=== PATIENT | male | born 1940 | race Caucasian/White ===

== ENCOUNTER → 2018-05-18 15:10 | Outpatient (CLI) | payer MEDICARE, SELFPAY ==
[2018-05-18 15:13] LABS: Bacteria 0 SEEN /hpf (None Seen); Mucous, Urine 0 SEEN /hpf (<or=2+)
[2018-05-18 17:21] LABS: Color, Urine Yellow (Yellow); Glucose, Dipstick Normal (Normal); Ketone-Dipstick Negative (Negative); Leukocyte Esterase-Dipstick 100 /ul (Negative); Nitrite-Dipstick Negative (Negative); Occult Blood-Urine 25 /ul (Negative); Protein-Dipstick 30 mg/dl (Negative); Urine Bilirubin Dipstick Negative (Negative); Urine Clarity Clear (Clear); Urine Urobilinogen Normal (Normal)
[2018-05-18 17:25] LABS: Absolute Lymphocyte Count 1.76 X10^3/ul (0.83-4.51); Absolute Neutrophil Count 3.8 X10^3/uL (2.0-7.7); Basophil# 0.02 X10^3/uL; Basophil% 0.3 % (0-1); Eosinophil# 0.14 X10^3/uL; Eosinophils% 2.2 % (0-5); Hematocrit 44.9 % (40-54); Lymphocyte # 1.76 X10^3/ul (4.0); Lymphocyte % 28.3 % (19-41); Mean Corp Hgb Conc 33.4 g/gl (32-36); Mean Corpuscular Hgb 30.5 pg (27.0-32.0); Mean Corpuscular Volume 91.3 fL (80-94); Mean Platelet Vol. 9.9 fl (6.2-12.0); Monocyte# 0.54 X10^3/uL; Monocyte% 8.7 % (0-10); Neutrophil # 3.76 X10^3/uL (2.7-7.7); Neutrophil % 60.3 % (47-70); Platelet Count 159 K/mm3 (150-450); RBC Distribution Width CV 14.3 % (11.6-14.6); RBC Distribution Width SD 47.1 fl (35.1-43.9); Red Blood Count 4.92 M/mm3 (4.6-6.2); White Blood Count 6.2 K/mm3 (4.4-11.0)
[2018-05-18 17:31] LABS: POSITIVE COUNT NO; POSITIVE DIFFERENTIAL NO; POSITIVE MORPHOLOGY NO
[2018-05-18 17:32] LABS: Red Blood Cells-Urine 0-5 SEEN /hpf (0-5); Squamous Epithelial Cells - UA 0-5 SEEN /hpf (0-5); White Blood Cells 5-10 SEEN /hpf (0-5)
[2018-05-18 18:08] LABS: AST(SGOT) 24 U/L (15-37); Alanine Aminotransfer ALT/SGPT 32 U/L (16-61); Albumin, Serum 3.9 g/dL (3.2-5.0); Alkaline Phosphatase 82 U/L (45-117); Anion Gap 5 (5-15); BUN 25 mg/dL (7-18); BUN/Creat Ratio 25.8 RATIO (10-20); Calcium,Total 9.4 mg/dL (8.5-10.1); Chloride 102 mmol/L (98-107); Cholesterol 153 mg/dL (200); Creatinine, Serum 0.97 mg/dL (0.70-1.30); EST Glomerular Filtration Rate 80 mL/min (>60); Est Glom Filt Rate - Afr Amer 97 mL/min (>60); Globulin 3.8 g/dL (2.2-4.2); Glucose 90 mg/dL (74-106); High Density Lipoprotein 44 mg/dL; Magnesium 1.9 mg/dL (1.6-2.6); Potassium 4.3 mmol/L (3.5-5.1); Protein, Total 7.7 g/dL (6.4-8.2); Sodium Level 137 mmol/L (136-145); T4 Free Direct 1.19 ng/dL (0.76-1.46); Thyroid Stim Hormone (TSH) 1.56 uIU/mL (0.358-3.74); Triglycerides 95 mg/dL; Uric Acid 6.2 mg/dL (3.5-7.2); Very Low Density Lipoprotein 19 mg/dL (5-40)
== END ==
PROVIDERS: Family Provider Family Medicine; PCP Family Medicine; Visit Provider Family Medicine
DX: I48.91 Unspecified atrial fibrillation (principal); I10 Essential (primary) hypertension; E78.5 Hyperlipidemia, unspecified; E04.1 Nontoxic single thyroid nodule; M10.9 Gout, unspecified
CPT/HCPCS: 36415; 80053; 80061; 81001; 83735; 84439; 84443; 84550; 85025

== ENCOUNTER → 2018-05-26 14:16 | Outpatient (CLI) | payer MEDICARE, SELFPAY ==
--- NOTE | 2018-05-26 14:35 | US_ITS ---
STUDY: THYROID ULTRASOUND REASON FOR EXAM: Male, 77 years old. Palpable right thyroid nodule. TECHNIQUE: Ultrasound evaluation of the thyroid was performed with real-time and static batres-scale imaging. COMPARISON: None. FINDINGS: RIGHT LOBE: The right lobe of the thyroid gland measures 5.2 x 2.7 x 2.5 cm. There is a homogeneous echotexture. 4 x 2 x 2 mm nodule seen in the medial margin of the lobe near its confluence to the thyroid isthmus. LEFT LOBE: The left lobe of the thyroid gland measures 5.0 x 2.5 x 1.6 cm. There is a homogeneous echotexture. There are no demonstrated solid, cystic or complex lesions. ISTHMUS: The isthmus measures 4 mm. The regional lymph nodes are normal. US/Thyroid IMPRESSION: 4 mm nodule in the medial right lobe near its confluence to the thyroid isthmus, otherwise, normal thyroid ultrasound. Electronically Signed: Ramez Gupta MD at 16:38 EDT , Service support ,
== END ==
PROVIDERS: Family Provider Family Medicine; PCP Family Medicine; Visit Provider Family Medicine
DX: E04.1 Nontoxic single thyroid nodule (principal)
CPT/HCPCS: 76536

== ENCOUNTER → 2018-10-19 10:27 | Outpatient (CLI) | payer MEDICARE, SELFPAY ==
[2018-09-20 09:44] VITALS: BMI 34.8
[2018-10-19 10:30] LABS: Mucous, Urine 0 SEEN /hpf (<or=2+); Red Blood Cells-Urine 0 SEEN /hpf (0-5)
[2018-10-19 12:07] LABS: Color, Urine Yellow (Yellow); Glucose, Dipstick Normal (Normal); Ketone-Dipstick Negative (Negative); Leukocyte Esterase-Dipstick 25 /ul (Negative); Nitrite-Dipstick Negative (Negative); Occult Blood-Urine Negative /ul (Negative); Protein-Dipstick Negative (Negative); Specific Gravity, Urine 1.015 (1.002-1.030); Urine Bilirubin Dipstick Negative (Negative); Urine Clarity Clear (Clear); Urine Urobilinogen Normal (Normal)
[2018-10-19 12:13] LABS: Absolute Lymphocyte Count 1.65 X10^3/ul (0.83-4.51); Absolute Neutrophil Count 3.9 X10^3/uL (2.0-7.7); Basophil# 0.03 X10^3/uL; Basophil% 0.5 % (0-1); Eosinophils% 3.1 % (0-5); Hematocrit 44.5 % (40-54); Hemoglobin 14.8 g/dl (13.0-16.5); Lymphocyte # 1.65 X10^3/ul (4.0); Lymphocyte % 25.9 % (19-41); Mean Corp Hgb Conc 33.3 g/gl (32-36); Mean Corpuscular Hgb 30.2 pg (27.0-32.0); Mean Corpuscular Volume 90.8 fL (80-94); Monocyte% 9.4 % (0-10); Neutrophil # 3.87 X10^3/uL (2.7-7.7); Neutrophil % 60.8 % (47-70); Platelet Count 184 K/mm3 (150-450); RBC Distribution Width CV 13.6 % (11.6-14.6); RBC Distribution Width SD 44.9 fl (35.1-43.9); White Blood Count 6.4 K/mm3 (4.4-11.0)
[2018-10-19 12:14] LABS: Bacteria RARE /hpf (None Seen); Squamous Epithelial Cells - UA 0-5 SEEN /hpf (0-5); White Blood Cells 0-5 SEEN /hpf (0-5)
[2018-10-19 12:21] LABS: POSITIVE COUNT NO; POSITIVE DIFFERENTIAL NO; POSITIVE MORPHOLOGY NO
[2018-10-19 12:30] LABS: ALB/GLOB Ratio 1.1 RATIO (0.9-2.4); AST(SGOT) 18 U/L (15-37); Alanine Aminotransfer ALT/SGPT 30 U/L (16-61); Albumin, Serum 3.7 g/dL (3.2-5.0); Alkaline Phosphatase 102 U/L (45-117); Anion Gap 9 (5-15); BUN 24 mg/dL (7-18); Calcium,Total 9.5 mg/dL (8.5-10.1); Chloride 100 mmol/L (98-107); Cholesterol 169 mg/dL (200); Creatinine, Serum 0.96 mg/dL (0.70-1.30); EST Glomerular Filtration Rate 81 mL/min (>60); Est Glom Filt Rate - Afr Amer 98 mL/min (>60); Globulin 3.5 g/dL (2.2-4.2); Glucose 108 mg/dL (74-106); High Density Lipoprotein 46 mg/dL; Magnesium 1.8 mg/dL (1.6-2.6); Potassium 4.1 mmol/L (3.5-5.1); Protein, Total 7.2 g/dL (6.4-8.2); Sodium Level 139 mmol/L (136-145); Triglycerides 131 mg/dL; Very Low Density Lipoprotein 26 mg/dL (5-40)
[2018-10-20 10:01] LABS: Hemoglobin A1c 6.3 % (4.2-6.3)
== END ==
PROVIDERS: Family Provider Family Medicine; PCP Family Medicine; Visit Provider Family Medicine
DX: E78.5 Hyperlipidemia, unspecified (principal); I10 Essential (primary) hypertension; I48.91 Unspecified atrial fibrillation; R73.09 Other abnormal glucose
CPT/HCPCS: 36415; 80053; 80061; 81001; 83036; 83735; 85025

== ENCOUNTER → 2019-02-16 10:04 | Outpatient (CLI) | payer MEDICARE, SELFPAY ==
[2018-09-20 09:44] VITALS: BMI 34.8
[2019-02-16 12:51] LABS: Absolute Lymphocyte Count 1.78 X10^3/ul (0.83-4.51); Absolute Neutrophil Count 3.3 X10^3/uL (2.0-7.7); Basophil# 0.02 X10^3/uL; Basophil% 0.3 % (0-1); Eosinophil# 0.17 X10^3/uL; Eosinophils% 2.9 % (0-5); Hematocrit 42.6 % (40-54); Hemoglobin 14.2 g/dl (13.0-16.5); Lymphocyte # 1.78 X10^3/ul (4.0); Lymphocyte % 30.2 % (19-41); Mean Corp Hgb Conc 33.3 g/gl (32-36); Mean Corpuscular Hgb 29.6 pg (27.0-32.0); Mean Corpuscular Volume 88.8 fL (80-94); Mean Platelet Vol. 9.8 fl (6.2-12.0); Monocyte# 0.65 X10^3/uL; Neutrophil # 3.26 X10^3/uL (2.7-7.7); Neutrophil % 55.4 % (47-70); Platelet Count 168 K/mm3 (150-450); RBC Distribution Width SD 44.7 fl (35.1-43.9); White Blood Count 5.9 K/mm3 (4.4-11.0)
[2019-02-16 13:12] LABS: POSITIVE COUNT NO; POSITIVE DIFFERENTIAL NO; POSITIVE MORPHOLOGY NO
[2019-02-16 13:17] LABS: Microalbumin,Random Urine 20.8 mg/L (NO RANGE EST.)
[2019-02-16 13:33] LABS: ALB/GLOB Ratio 1.3 RATIO (0.9-2.4); AST(SGOT) 24 U/L (15-37); Alanine Aminotransfer ALT/SGPT 29 U/L (16-61); Albumin, Serum 3.8 g/dL (3.2-5.0); Alkaline Phosphatase 96 U/L (45-117); Anion Gap 2 (5-15); BUN 35 mg/dL (7-18); BUN/Creat Ratio 33.3 RATIO (10-20); Calcium,Total 9.1 mg/dL (8.5-10.1); Chloride 102 mmol/L (98-107); Cholesterol 165 mg/dL (200); Creatinine, Serum 1.05 mg/dL (0.70-1.30); EST Glomerular Filtration Rate 73 mL/min (>60); Est Glom Filt Rate - Afr Amer 88 mL/min (>60); Glucose 104 mg/dL (74-106); High Density Lipoprotein 51 mg/dL; Magnesium 1.8 mg/dL (1.6-2.6); Potassium 4.3 mmol/L (3.5-5.1); Protein, Total 6.8 g/dL (6.4-8.2); Sodium Level 136 mmol/L (136-145); Triglycerides 101 mg/dL; Uric Acid 6.4 mg/dL (3.5-7.2); Very Low Density Lipoprotein 20 mg/dL (5-40)
== END ==
PROVIDERS: Family Provider Family Medicine; PCP Family Medicine; Referring Provider Family Medicine; Visit Provider Family Medicine
DX: I10 Essential (primary) hypertension (principal); M10.9 Gout, unspecified; E78.5 Hyperlipidemia, unspecified; I48.91 Unspecified atrial fibrillation; R73.02 Impaired glucose tolerance (oral)
CPT/HCPCS: 36415; 80053; 80061; 82043; 83036; 83735; 84550; 85025

== ENCOUNTER → 2019-04-12 07:45 | Outpatient (CLI) | payer MEDICARE, SELFPAY ==
[2019-03-27 11:17] VITALS: BMI 33.7
--- NOTE | 2019-04-12 07:50 | ECHOD_ITS ---
Reason For Study: Afib, Aflutter Procedure This was a 2D Doppler, Color Flow transthoracic echocardiogram. Exam performed in department. Left Ventricle Normal LV size. Mild concentric left ventricular hypertrophy. Left ventricular systolic function is normal. The estimated ejection fraction is 60 %. No regional wall motion abnormalities noted. Right Ventricle Normal RV size. Normal systolic function. Atria The left atrium is mildly enlarged. The right atrium is moderately enlarged. Patent foramen ovale. Mitral Valve Normal mitral valve. Mild (1+) eccentric mitral valve insufficiency. Tricuspid Valve Normal tricuspid valve. Mild tricuspid valve insufficiency. Pulmonary artery systolic pressure is 48 mmHg. Aortic Valve Trisinus/trileaflet aortic valve. Pulmonic Valve Normal pulmonic valve. Great Vessels Normal aortic root. The pulmonary artery is normal size. Normal inferior vena cava. Pericardium/Pleural No pericardial effusion. MMode/2D Measurements & Calculations LVIDd: 3.6 cm IVSd: 1.2 cm Ao root diam: 4.3 cm LVIDs: 2.6 cm LVPWd: 1.2 cm RVDd: 4.8 cm FS: 29.1 % LAV(MOD-bp): 68.0 ml LVAd ap4: 20.3 cm2 SV(MOD-sp4): 29.4 ml LAV(MOD-bp) Indexed: 29.1 ml/m2 EDV(MOD-sp4): 49.3 ml LAV(MOD-sp2): 64.6 ml EDV(sp4-el): 51.1 ml LAV(MOD-sp4): 68.3 ml LVAs ap4: 11.8 cm2 ESV(MOD-sp4): 19.9 ml ESV(sp4-el): 19.3 ml EF(MOD-sp4): 59.6 % EF(sp4-el): 62.3 % SV(sp4-el): 31.9 ml LA A4 area: 23.7 cm2 LA dimension(2D): 5.0 cm RA A4 area: 29.1 cm2 Doppler Measurements & Calculations MV E max nesha: 103.2 cm/sec Ao V2 max: 144.4 cm/sec LV V1 max: 79.1 cm/sec Ao max P.4 mmHg LV V1 max P.5 mmHg Ao V2 mean: 102.9 cm/sec Ao mean P.6 mmHg Ao V2 VTI: 28.9 cm PA V2 max: 102.4 cm/sec PI end-d nesha: 100.6 cm/sec TR max nesha: 329.1 cm/sec TR max P.3 mmHg Interpretation Summary Normal LV size. Left ventricular systolic function is normal. The estimated ejection fraction is 60 %. Mild concentric left ventricular hypertrophy. Patent foramen ovale. Mild tricuspid valve insufficiency. Pulmonary artery systolic pressure is 48 mmHg. Ordering Physician: Scott Banda Referring Physician: Jerrod Viramontes Performed By: Ammy Fontanez, JAK, RVT
== END ==
PROVIDERS: Family Provider Family Medicine; PCP Family Medicine; Referring Provider Internal Medicine Cardiovascular Disease; Visit Provider Internal Medicine Cardiovascular Disease
DX: I27.21 Secondary pulmonary arterial hypertension (principal); I48.91 Unspecified atrial fibrillation; I48.92 Unspecified atrial flutter
CPT/HCPCS: 93306

== ENCOUNTER → 2019-06-22 08:38 | Outpatient (CLI) | payer MEDICARE, SELFPAY ==
[2019-03-27 11:17] VITALS: BMI 33.7
[2019-06-22 10:48] LABS: Absolute Lymphocyte Count 1.76 X10^3/uL (0.83-4.51); Absolute Neutrophil Count 3.2 X10^3/uL (2.0-7.7); Basophil# 0.03 X10^3/uL; Basophil% 0.5 % (0-1); Eosinophils% 3.6 % (0-5); Hematocrit 41.7 % (40-54); Hemoglobin 13.4 g/dL (13.0-16.5); Lymphocyte # 1.76 X10^3/ul (4.0); Lymphocyte % 31.4 % (19-41); Mean Corp Hgb Conc 32.1 g/dL (32-36); Mean Corpuscular Hgb 29.6 pg (27.0-32.0); Mean Corpuscular Volume 92.3 fL (80-94); Mean Platelet Vol. 9.5 fl (6.2-12.0); Monocyte# 0.46 X10^3/uL; Monocyte% 8.2 % (0-10); NRBC Flagged by Analyzer 0 % (0-5); Neutrophil # 3.15 X10^3/uL (2.7-7.7); Neutrophil % 56.1 % (47-70); Platelet Count 157 K/mm3 (150-450); RBC Distribution Width CV 13.8 % (11.6-14.6); RBC Distribution Width SD 46.6 fl (35.1-43.9); Red Blood Count 4.52 M/mm3 (4.6-6.2); White Blood Count 5.6 K/mm3 (4.4-11.0)
[2019-06-22 11:31] LABS: ALB/GLOB Ratio 0.9 RATIO (0.9-2.4); AST(SGOT) 26 U/L (15-37); Alanine Aminotransfer ALT/SGPT 29 U/L (16-61); Albumin, Serum 3.4 g/dL (3.2-5.0); Alkaline Phosphatase 93 U/L (45-117); Anion Gap 7 (5-15); BUN 36 mg/dL (7-18); BUN/Creat Ratio 27.5 RATIO (10-20); Calcium,Total 9.1 mg/dL (8.5-10.1); Chloride 102 mmol/L (98-107); Cholesterol 125 mg/dL (200); Creatinine, Serum 1.31 mg/dL (0.70-1.30); EST Glomerular Filtration Rate 57 mL/min (>60); Est Glom Filt Rate - Afr Amer 68 mL/min (>60); Globulin 3.6 g/dL (2.2-4.2); Glucose 99 mg/dL (74-106); High Density Lipoprotein 43 mg/dL; Magnesium 2.1 mg/dL (1.6-2.6); Potassium 4.4 mmol/L (3.5-5.1); Sodium Level 140 mmol/L (136-145); Triglycerides 74 mg/dL; Very Low Density Lipoprotein 15 mg/dL (5-40)
[2019-06-22 12:12] LABS: Hemoglobin A1c 5.9 % (4.2-6.3)
== END ==
PROVIDERS: Family Provider Family Medicine; PCP Family Medicine; Visit Provider Family Medicine
DX: E78.5 Hyperlipidemia, unspecified (principal); I48.91 Unspecified atrial fibrillation; I10 Essential (primary) hypertension; R73.02 Impaired glucose tolerance (oral)
CPT/HCPCS: 36415; 80053; 80061; 83036; 83735; 85025

== ENCOUNTER → 2019-06-28 08:59 | Outpatient (CLI) | payer MEDICARE, SELFPAY ==
[2019-03-27 11:17] VITALS: BMI 33.7
[2019-06-28 10:49] LABS: Anion Gap 8 (5-15); BUN 35 mg/dL (7-18); BUN/Creat Ratio 29.9 RATIO (10-20); Calcium,Total 9.5 mg/dL (8.5-10.1); Chloride 102 mmol/L (98-107); Creatinine, Serum 1.17 mg/dL (0.70-1.30); EST Glomerular Filtration Rate 64 mL/min (>60); Est Glom Filt Rate - Afr Amer 78 mL/min (>60); Glucose 97 mg/dL (74-106); Potassium 4.4 mmol/L (3.5-5.1); Sodium Level 139 mmol/L (136-145)
== END ==
PROVIDERS: Family Provider Family Medicine; PCP Family Medicine; Referring Provider Family Medicine; Visit Provider Family Medicine
DX: R94.4 Abnormal results of kidney function studies (principal)
CPT/HCPCS: 36415; 80048

== ENCOUNTER → 2019-07-09 12:49 | Outpatient (CLI) | payer MEDICARE, SELFPAY ==
[2019-03-27 11:17] VITALS: BMI 33.7
--- NOTE | 2019-07-09 12:59 | VDLE_ITS ---
Reason For Study: Edema RIGHT LEFT CFV is compressible, spontaneous, phasic, CFV is compressible, spontaneous, phasic, competent and demonstrates normal competent, and demonstrates normal augmentation. augmentation. FV is compressible, spontaneous, phasic, FV is compressible, spontaneous, phasic, competent and demonstrates normal competent and demonstrates normal augmentation. augmentation. POP V is compressible, spontaneous, phasic, POP V is compressible, spontaneous, phasic, competent and demonstrates normal competent and demonstrates normal augmentation. augmentation. T/P Trunk is compressible. Acute deep vein thrombosis is noted in the PTV is compressible. left T/P Trunk. RT PerV is compressible. PTV is compressible. SFJ is INCOMPETENT and measures 0.40 x 0.48 LT PerV is compressible. cm. SFJ is competent and measures 0.84 x 0.81 cm. GSV proximal thigh measures 0.27 x 0.30 cm. GSV proximal thigh measures 0.34 x 0.37 cm. GSV at knee measures 0.27 x 0.29 cm. GSV at knee measures 0.31 x 0.35 cm. GSV INCOMPETENT throughout for greater than GSV above knee is competent. 0.5 seconds. GSV below knee is INCOMPETENT for greater SSV at junction is INCOMPETENT for greater than 0.5 seconds. than 0.5 seconds and measures 0.33 x 0.30 cm. ASV mid calf is INCOMPETENT for greater than Procedure 0.5 seconds and measures 0.24 x 0.22 cm. Exam performed in department. SSV at junction is competent and measures A preliminary report was called and/or faxed 0.32 x 0.32 cm. to Ana M. Interpretation Summary Acute deep vein thrombosis is noted in the left tibio-peroneal trunk. The remainder of the left lower extremity deep venous system is patent and compressible. Deep veins of the right lower extremity are patent and compressible segmentally. There is no evidence of right lower extremity deep vein thrombosis. Valvular competence appears intact within the proximal deep venous systems bilaterally. The great saphenous veins appear bilaterally patent and compressible segmentally. The right sapheno-femoral junction is incompetent . The left sapheno-femoral junction is competent . The right great saphenous vein appears segmentally incompetent. The left great saphenous vein appears competent above the knee. The left great saphenous vein appears incompetent below the knee. The right small saphenous vein is patent and incompetent. The left small saphenous vein is patent and competent. The left accessory saphenous vein in the mid-calf is incompetent. Ordering Physician: Jerrod Viramontes Referring Physician: Jerrod Viramontes Performed By: Sharifa Snyder RVT
--- NOTE | 2019-07-09 14:11 | US_ITS ---
STUDY: THYROID ULTRASOUND REASON FOR EXAM: Male, 78 years old. Thyroid nodule TECHNIQUE: Ultrasound evaluation of the thyroid was performed with real-time and static batres-scale imaging. COMPARISON: Prior study of 05/26/2018 FINDINGS: RIGHT LOBE: The right lobe of the thyroid gland measures 5.0 x 1.9 x 1.5 cm. There is a homogeneous echotexture. There are no demonstrated solid, cystic or complex lesions. Right thyroid lobe vascularity appears normal. LEFT LOBE: The left lobe of the thyroid gland measures 4.3 x 1.8 x 1.4 cm. There is a homogeneous echotexture. There is an upper pole cyst measuring 3 x 3 x 2 mm. ISTHMUS: The isthmus measures 3 mm . The regional lymph nodes are normal. US/Thyroid IMPRESSION: The right thyroid lobe appears normal. There is a 3 x 3 x 2 mm cyst of the upper pole of the left thyroid lobe. This was not appreciated on the previous study. Electronically Signed: Red Chavez MD at 23:15 EDT , Service support ,
== END ==
PROVIDERS: Family Provider Family Medicine; PCP Family Medicine; Referring Provider Family Medicine; Visit Provider Family Medicine
DX: E04.1 Nontoxic single thyroid nodule (principal); R60.0 Localized edema
CPT/HCPCS: 76536; 93970

== ENCOUNTER → 2019-11-21 09:09 | Outpatient (CLI) | payer MEDICARE, SELFPAY ==
[2019-03-27 11:17] VITALS: BMI 33.7
[2019-11-21 10:07] LABS: Absolute Lymphocyte Count 1.61 X10^3/uL (0.83-4.51); Absolute Neutrophil Count 3.1 X10^3/uL (2.0-7.7); Basophil# 0.03 X10^3/uL; Basophil% 0.5 % (0-1); Eosinophil# 0.21 X10^3/uL; Eosinophils% 3.8 % (0-5); Hematocrit 45.5 % (40-54); Hemoglobin 14.8 g/dL (13.0-16.5); Lymphocyte # 1.61 X10^3/ul (4.0); Lymphocyte % 28.8 % (19-41); Mean Corp Hgb Conc 32.5 g/dL (32-36); Mean Corpuscular Volume 89.2 fL (80-94); Mean Platelet Vol. 9.6 fl (6.2-12.0); Monocyte# 0.66 X10^3/uL; Monocyte% 11.8 % (0-10); NRBC Flagged by Analyzer 0 % (0-5); Neutrophil # 3.08 X10^3/uL (2.7-7.7); Neutrophil % 54.9 % (47-70); Platelet Count 176 K/mm3 (150-450); RBC Distribution Width CV 13.5 % (11.6-14.6); RBC Distribution Width SD 44.4 fl (35.1-43.9); White Blood Count 5.6 K/mm3 (4.4-11.0)
[2019-11-21 10:37] LABS: ALB/GLOB Ratio 1.1 RATIO (0.9-2.4); AST(SGOT) 18 U/L (15-37); Alanine Aminotransfer ALT/SGPT 22 U/L (16-61); Albumin, Serum 3.6 g/dL (3.2-5.0); Alkaline Phosphatase 101 U/L (45-117); Anion Gap 3 (5-15); BUN 24 mg/dL (7-18); BUN/Creat Ratio 22.4 RATIO (10-20); Calcium,Total 9.8 mg/dL (8.5-10.1); Chloride 104 mmol/L (98-107); Cholesterol 140 mg/dL (200); Creatinine, Serum 1.07 mg/dL (0.70-1.30); EST Glomerular Filtration Rate 71 mL/min (>60); Est Glom Filt Rate - Afr Amer 86 mL/min (>60); Globulin 3.4 g/dL (2.2-4.2); Glucose 103 mg/dL (74-106); High Density Lipoprotein 46 mg/dL; Magnesium 2.1 mg/dL (1.6-2.6); Potassium 4.2 mmol/L (3.5-5.1); Sodium Level 138 mmol/L (136-145); Triglycerides 99 mg/dL; Uric Acid 5.9 mg/dL (3.5-7.2); Very Low Density Lipoprotein 20 mg/dL (5-40)
== END ==
PROVIDERS: PCP Family Medicine; Referring Provider Family Medicine; Visit Provider Family Medicine
DX: I48.91 Unspecified atrial fibrillation (principal); E78.5 Hyperlipidemia, unspecified; M10.9 Gout, unspecified; R73.02 Impaired glucose tolerance (oral)
CPT/HCPCS: 36415; 80053; 80061; 83036; 83735; 84550; 85025

== ENCOUNTER → 2020-06-11 10:15 | Outpatient (CLI) | payer MEDICARE, SELFPAY ==
[2020-03-25 10:01] VITALS: BMI 34.2
[2020-06-11 12:29] LABS: Absolute Lymphocyte Count 1.32 X10^3/uL (0.83-4.51); Absolute Neutrophil Count 4.7 X10^3/uL (2.0-7.7); Basophil# 0.03 X10^3/uL; Basophil% 0.4 % (0-1); Eosinophil# 0.18 X10^3/uL; Eosinophils% 2.6 % (0-5); Hematocrit 41.7 % (40-54); Hemoglobin 13.7 g/dL (13.0-16.5); Lymphocyte # 1.32 X10^3/ul (4.0); Lymphocyte % 19.3 % (19-41); Mean Corp Hgb Conc 32.9 g/dL (32-36); Mean Corpuscular Volume 91.2 fL (80-94); Mean Platelet Vol. 9.7 fl (6.2-12.0); Monocyte# 0.64 X10^3/uL; Monocyte% 9.3 % (0-10); NRBC Flagged by Analyzer 0 % (0-5); Neutrophil # 4.65 X10^3/uL (2.7-7.7); Platelet Count 194 K/mm3 (150-450); RBC Distribution Width CV 13.7 % (11.6-14.6); RBC Distribution Width SD 45.3 fl (35.1-43.9); Red Blood Count 4.57 M/mm3 (4.6-6.2); White Blood Count 6.9 K/mm3 (4.4-11.0)
[2020-06-11 12:56] LABS: Hemoglobin A1c 6.1 % (3.8-5.6)
[2020-06-11 12:57] LABS: ALB/GLOB Ratio 1.1 RATIO (0.9-2.4); AST(SGOT) 14 U/L (15-37); Alanine Aminotransfer ALT/SGPT 20 U/L (16-61); Albumin, Serum 3.6 g/dL (3.2-5.0); Alkaline Phosphatase 105 U/L (45-117); Anion Gap 5 (5-15); BUN 23 mg/dL (7-18); BUN/Creat Ratio 22.3 RATIO (10-20); Calcium,Total 9.2 mg/dL (8.5-10.1); Chloride 105 mmol/L (98-107); Cholesterol 140 mg/dL (200); Creatinine, Serum 1.03 mg/dL (0.70-1.30); EST Glomerular Filtration Rate 74 mL/min (>60); Est Glom Filt Rate - Afr Amer 90 mL/min (>60); Globulin 3.4 g/dL (2.2-4.2); Glucose 103 mg/dL (74-106); High Density Lipoprotein 45 mg/dL; Potassium 4.2 mmol/L (3.5-5.1); Sodium Level 141 mmol/L (136-145); Triglycerides 91 mg/dL; Very Low Density Lipoprotein 18 mg/dL (5-40)
== END ==
PROVIDERS: PCP Family Medicine; Referring Provider Family Medicine; Visit Provider Family Medicine
DX: I10 Essential (primary) hypertension (principal); E78.5 Hyperlipidemia, unspecified; R73.02 Impaired glucose tolerance (oral)
CPT/HCPCS: 36415; 80053; 80061; 83036; 85025

== ENCOUNTER → 2020-06-16 13:54 | Outpatient (CLI) | payer MEDICARE, SELFPAY ==
[2020-03-25 10:01] VITALS: BMI 34.2
--- NOTE | 2020-06-16 | CYSPIN_PTH ---
PATIENT: HARRY LICEA LOC: [facility] U#:[id number] AGE/SX: 84/M ROOM: RE06/16/[address]: Dr. Jerrod Viramontes MD : 1940 BED: DIS: SPEC #: [id number] RECD: 06/17/20 08:42 STATUS: EBONIE SIL #: [id number] LEONIDES: 06/16/20 00:[address]: Jerrod Viramontes DEPT: CYTOLOGY RECD BY: Austin Holder Tissues: Urine Procedures: Pap Stain (control) Special Stain Group II Cytospin Fluid HEADER OPERATION: Not noted PRE-OP DIAGNOSIS: TISSUE SUBMITTED: Urine for cytology DIAGNOSIS CYTOLOGY Urine for cytology (cytospin): Negative for malignant cells. Acute inflammation. AM:sunil 06/18/20 CYTOLOGY STUDY Slides are reviewed. CYTOLOGY GROSS Received is 8 ml of clear yellow fluid labeled with the patient's name and and designated per the requisition as urine. Submitted for cytology preparation. / sunil 06/17/20 TC:5 CPT: 14074
[2020-06-16 14:02] LABS: Bacteria 0 SEEN /hpf (None Seen); Cytology, Body Fluid / CSF SEE PATHOLOGY REPORT; Mucous, Urine 0 SEEN /hpf (<or=2+)
[2020-06-16 15:52] LABS: Color, Urine Yellow (Yellow); Glucose, Dipstick Normal (Normal); Ketone-Dipstick Negative (Negative); Leukocyte Esterase-Dipstick 25 /ul (Negative); Nitrite-Dipstick Negative (Negative); Occult Blood-Urine 25 /ul (Negative); Protein-Dipstick 15 mg/dl (Negative); Specific Gravity, Urine 1.015 (1.002-1.030); Urine Bilirubin Dipstick Negative (Negative); Urine Clarity Clear (Clear); Urine Urobilinogen Normal (Normal); Urine pH 6.5 (5.0 - 8.0)
[2020-06-16 16:22] LABS: Squamous Epithelial Cells - UA 0-5 SEEN /hpf (0-5)
[2020-06-16 16:23] LABS: Red Blood Cells-Urine 0-5 SEEN /hpf (0-5); White Blood Cells 5-10 SEEN /hpf (0-5)
== END ==
PROVIDERS: PCP Family Medicine; Referring Provider Family Medicine; Visit Provider Family Medicine
DX: R31.9 Hematuria, unspecified (principal)
CPT/HCPCS: 81001; 88108; 88313

== ENCOUNTER → 2020-06-26 09:11 | Outpatient (CLI) | payer MEDICARE, SELFPAY ==
[2020-03-25 10:01] VITALS: BMI 34.2
--- NOTE | 2020-06-26 09:14 | US_ITS ---
STUDY: THYROID ULTRASOUND REASON FOR EXAM: Male, 79 years old. NODULE TECHNIQUE: Ultrasound evaluation of the thyroid was performed with real-time and static batres-scale imaging. COMPARISON: Comparison is made with prior study dated 07/09/2019. FINDINGS: RIGHT LOBE: The right lobe of the thyroid gland measures 4.8 cm x 2 cm x 2.3 cm. There is a homogeneous echotexture. There is a 5 mm x 4 mm x 3 mm cyst in the upper anterior aspect of the right lobe. LEFT LOBE: The left lobe of the thyroid gland measures 4.2 cm x 1.8 cm x 1.6 cm. There is a homogeneous echotexture. There are no demonstrated solid, cystic or complex lesions. ISTHMUS: The isthmus measures 3.0 mm. The regional lymph nodes are normal. US/Thyroid IMPRESSION: 5 mm x 4 mm x 3 mm cyst in the upper anterior aspect of the right lobe of the thyroid. This is unchanged. Electronically Signed: Angel Wilde, at 14:56 EDT , Service support ,
== END ==
PROVIDERS: PCP Family Medicine; Referring Provider Family Medicine; Visit Provider Family Medicine
DX: E04.1 Nontoxic single thyroid nodule (principal)
CPT/HCPCS: 76536

== ENCOUNTER → 2020-11-14 09:54 | Outpatient (CLI) | payer MEDICARE, SELFPAY ==
[2020-03-25 10:01] VITALS: BMI 34.2
[2020-11-14 10:01] LABS: Bacteria 0 SEEN /hpf (None Seen); Mucous, Urine 0 SEEN /hpf (<or=2+); Red Blood Cells-Urine 0 SEEN /hpf (0-5); White Blood Cells 0 SEEN /hpf (0-5)
[2020-11-14 11:59] LABS: Absolute Neutrophil Count 4.1 X10^3/uL (2.0-7.7); Basophil# 0.04 X10^3/uL; Basophil% 0.6 % (0-1); Eosinophil# 0.17 X10^3/uL; Eosinophils% 2.5 % (0-5); Hematocrit 45.8 % (40-54); Hemoglobin 14.9 g/dL (13.0-16.5); Lymphocyte % 27.6 % (19-41); Mean Corp Hgb Conc 32.5 g/dL (32-36); Mean Corpuscular Hgb 29.8 pg (27.0-32.0); Mean Corpuscular Volume 91.6 fL (80-94); Mean Platelet Vol. 9.9 fl (6.2-12.0); Monocyte# 0.67 X10^3/uL; Monocyte% 9.7 % (0-10); NRBC Flagged by Analyzer 0 % (0-5); Neutrophil # 4.08 X10^3/uL (2.7-7.7); Neutrophil % 59.2 % (47-70); Platelet Count 197 K/mm3 (150-450); RBC Distribution Width CV 13.4 % (11.6-14.6); RBC Distribution Width SD 45.3 fl (35.1-43.9); White Blood Count 6.9 K/mm3 (4.4-11.0)
[2020-11-14 12:26] LABS: Color, Urine Yellow (Yellow); Glucose, Dipstick Normal (Normal); Ketone-Dipstick Negative (Negative); Leukocyte Esterase-Dipstick Negative /ul (Negative); Nitrite-Dipstick Negative (Negative); Occult Blood-Urine Negative /ul (Negative); Protein-Dipstick Negative (Negative); Urine Bilirubin Dipstick Negative (Negative); Urine Clarity Sl. Cloudy (Clear); Urine Urobilinogen Normal (Normal)
[2020-11-14 12:33] LABS: Squamous Epithelial Cells - UA 0-5 SEEN /hpf (0-5)
[2020-11-14 12:54] LABS: Hemoglobin A1c 6.1 % (3.8-5.6)
[2020-11-14 13:28] LABS: AST(SGOT) 20 U/L (15-37); Alanine Aminotransfer ALT/SGPT 26 U/L (16-61); Albumin, Serum 3.8 g/dL (3.2-5.0); Alkaline Phosphatase 113 U/L (45-117); BUN 27 mg/dL (7-18); Calcium,Total 9.7 mg/dL (8.5-10.1); Chloride 104 mmol/L (98-107); Cholesterol 177 mg/dL (200); Creatinine, Serum 1.08 mg/dL (0.70-1.30); EST Glomerular Filtration Rate 70 mL/min (>60); Est Glom Filt Rate - Afr Amer 85 mL/min (>60); Globulin 3.7 g/dL (2.2-4.2); Glucose 107 mg/dL (74-106); Magnesium 2.1 mg/dL (1.6-2.6); Protein, Total 7.5 g/dL (6.4-8.2); Sodium Level 138 mmol/L (136-145); Triglycerides 149 mg/dL; Uric Acid 6.6 mg/dL (3.5-7.2)
[2020-11-14 13:29] LABS: Anion Gap 8 (5-15); High Density Lipoprotein 49 mg/dL; Very Low Density Lipoprotein 30 mg/dL (5-40)
== END ==
PROVIDERS: PCP Family Medicine; Referring Provider Family Medicine; Visit Provider Family Medicine
DX: I48.91 Unspecified atrial fibrillation (principal); E78.5 Hyperlipidemia, unspecified; M10.9 Gout, unspecified; R73.02 Impaired glucose tolerance (oral)
CPT/HCPCS: 36415; 80053; 80061; 81001; 83036; 83735; 84550; 85025

== ENCOUNTER 2020-12-11 10:12 | Outpatient (RCR) | payer MEDICARE, SELFPAY ==
[2020-03-25 10:01] VITALS: BMI 34.2
== END 2020-12-11 23:59 ==
LOC: IMMUN 10:12
PROVIDERS: PCP Family Medicine; Visit Provider Family Medicine
DX: Z23 Encounter for immunization (principal)
CPT/HCPCS: 0011A; 0012A; 91301

== ENCOUNTER → 2021-03-12 09:11 | Outpatient (CLI) | payer MEDICARE, SELFPAY ==
[2020-03-25 10:01] VITALS: BMI 34.2
[2021-03-12 10:11] LABS: Absolute Lymphocyte Count 1.28 X10^3/uL (0.83-4.51); Absolute Neutrophil Count 4.8 X10^3/uL (2.0-7.7); Basophil# 0.03 X10^3/uL; Basophil% 0.4 % (0-1); Eosinophil# 0.17 X10^3/uL; Eosinophils% 2.4 % (0-5); Hematocrit 42.1 % (40-54); Hemoglobin 13.7 g/dL (13.0-16.5); Lymphocyte # 1.28 X10^3/ul (0.83-4.51); Lymphocyte % 18.1 % (19-41); Mean Corp Hgb Conc 32.5 g/dL (32-36); Mean Corpuscular Hgb 30.4 pg (27.0-32.0); Mean Corpuscular Volume 93.6 fL (80-94); Mean Platelet Vol. 9.4 fl (6.2-12.0); Monocyte# 0.71 X10^3/uL; NRBC Flagged by Analyzer 0 % (0-5); Neutrophil # 4.83 X10^3/uL (2.7-7.7); Neutrophil % 68.4 % (47-70); Platelet Count 186 K/mm3 (150-450); RBC Distribution Width CV 13.7 % (11.6-14.6); White Blood Count 7.1 K/mm3 (4.4-11.0)
[2021-03-12 10:43] LABS: Bacteria 0 SEEN /hpf (None Seen); Mucous, Urine 0 SEEN /hpf (<or=2+)
[2021-03-12 10:53] LABS: Hemoglobin A1c 5.8 % (3.8-5.6)
[2021-03-12 11:11] LABS: AST(SGOT) 21 U/L (15-37); Alanine Aminotransfer ALT/SGPT 27 U/L (16-61); Albumin, Serum 3.5 g/dL (3.2-5.0); Alkaline Phosphatase 114 U/L (45-117); Anion Gap 7 (5-15); BUN 23 mg/dL (7-18); BUN/Creat Ratio 22.5 RATIO (10-20); Calcium,Total 9.1 mg/dL (8.5-10.1); Chloride 103 mmol/L (98-107); Cholesterol 146 mg/dL (200); Creatinine, Serum 1.02 mg/dL (0.70-1.30); EST Glomerular Filtration Rate 75 mL/min (>60); Est Glom Filt Rate - Afr Amer 91 mL/min (>60); Globulin 3.4 g/dL (2.2-4.2); Glucose 104 mg/dL (74-106); High Density Lipoprotein 46 mg/dL; Potassium 4.1 mmol/L (3.5-5.1); Protein, Total 6.9 g/dL (6.4-8.2); Sodium Level 139 mmol/L (136-145); Triglycerides 136 mg/dL; Uric Acid 6.7 mg/dL (3.5-7.2); Very Low Density Lipoprotein 27 mg/dL (5-40)
[2021-03-12 15:30] LABS: Color, Urine Straw (Yellow); Glucose, Dipstick Normal (Normal); Ketone-Dipstick Negative (Negative); Leukocyte Esterase-Dipstick 25 /ul (Negative); Nitrite-Dipstick Negative (Negative); Occult Blood-Urine 150 /ul (Negative); Protein-Dipstick 15 mg/dl (Negative); Urine Bilirubin Dipstick Negative (Negative); Urine Clarity Clear (Clear); Urine Urobilinogen Normal (Normal)
[2021-03-12 15:47] LABS: White Blood Cells 5-10 SEEN /hpf (0-5)
[2021-03-12 15:48] LABS: Red Blood Cells-Urine 10-25 SEEN /hpf (0-5); Squamous Epithelial Cells - UA 0-5 SEEN /hpf (0-5)
== END ==
PROVIDERS: PCP Family Medicine; Referring Provider Family Medicine; Visit Provider Family Medicine
DX: I10 Essential (primary) hypertension (principal); I48.91 Unspecified atrial fibrillation; E78.5 Hyperlipidemia, unspecified; M10.9 Gout, unspecified; R73.02 Impaired glucose tolerance (oral)
CPT/HCPCS: 36415; 80053; 80061; 81001; 83036; 83735; 84443; 84550; 85025

== ENCOUNTER → 2021-07-17 11:42 | Outpatient (CLI) | payer MEDICARE, SELFPAY ==
[2021-07-17 11:53] LABS: Bacteria 0 SEEN /hpf (None Seen); Mucous, Urine 0 SEEN /hpf (<or=2+); Squamous Epithelial Cells - UA 0 SEEN /hpf (0-5)
[2021-07-17 15:04] LABS: Absolute Lymphocyte Count 1.59 X10^3/uL (0.83-4.51); Absolute Neutrophil Count 4.8 X10^3/uL (2.0-7.7); Basophil# 0.05 X10^3/uL; Basophil% 0.7 % (0-1); Eosinophil# 0.25 X10^3/uL; Eosinophils% 3.4 % (0-5); Hematocrit 41.3 % (40-54); Hemoglobin 13.7 g/dL (13.0-16.5); Lymphocyte # 1.59 X10^3/ul (0.83-4.51); Lymphocyte % 21.4 % (19-41); Mean Corp Hgb Conc 33.2 g/dL (32-36); Mean Corpuscular Hgb 30.3 pg (27.0-32.0); Mean Corpuscular Volume 91.4 fL (80-94); Mean Platelet Vol. 10.2 fl (6.2-12.0); Monocyte# 0.71 X10^3/uL; Monocyte% 9.6 % (0-10); NRBC Flagged by Analyzer 0 % (0-5); Neutrophil # 4.78 X10^3/uL (2.7-7.7); Neutrophil % 64.4 % (47-70); Platelet Count 213 K/mm3 (150-450); RBC Distribution Width SD 46.8 fl (35.1-43.9); Red Blood Count 4.52 M/mm3 (4.6-6.2); White Blood Count 7.4 K/mm3 (4.4-11.0)
[2021-07-17 15:14] LABS: Color, Urine Yellow (Yellow); Glucose, Dipstick Normal (Normal); Ketone-Dipstick Negative (Negative); Leukocyte Esterase-Dipstick 100 /ul (Negative); Nitrite-Dipstick Negative (Negative); Occult Blood-Urine 250 /ul (Negative); Protein-Dipstick 30 mg/dl (Negative); Urine Bilirubin Dipstick Negative (Negative); Urine Clarity Clear (Clear); Urine Urobilinogen Normal (Normal); Urine pH 6.5 (5.0 - 8.0)
[2021-07-17 15:23] LABS: Red Blood Cells-Urine 5-10 SEEN /hpf (0-5); White Blood Cells 0-5 SEEN /hpf (0-5)
[2021-07-17 15:25] LABS: ALB/GLOB Ratio 0.9 RATIO (0.9-2.4); AST(SGOT) 15 U/L (15-37); Alanine Aminotransfer ALT/SGPT 17 U/L (16-61); Albumin, Serum 3.6 g/dL (3.2-5.0); Alkaline Phosphatase 105 U/L (45-117); Anion Gap 7 (5-15); BUN 43 mg/dL (7-18); BUN/Creat Ratio 30.3 RATIO (10-20); Calcium,Total 9.9 mg/dL (8.5-10.1); Chloride 99 mmol/L (98-107); Cholesterol 152 mg/dL (200); Creatinine, Serum 1.42 mg/dL (0.70-1.30); EST Glomerular Filtration Rate 51 mL/min (>60); Est Glom Filt Rate - Afr Amer 62 mL/min (>60); Globulin 3.9 g/dL (2.2-4.2); Glucose 114 mg/dL (74-106); High Density Lipoprotein 50 mg/dL; Magnesium 2.2 mg/dL (1.6-2.6); Potassium 4.1 mmol/L (3.5-5.1); Protein, Total 7.5 g/dL (6.4-8.2); Sodium Level 136 mmol/L (136-145); Triglycerides 85 mg/dL; Uric Acid 7.5 mg/dL (3.5-7.2); Very Low Density Lipoprotein 17 mg/dL (5-40)
== END ==
PROVIDERS: PCP Family Medicine; Referring Provider Family Medicine; Visit Provider Family Medicine
DX: E03.9 Hypothyroidism, unspecified (principal); E78.00 Pure hypercholesterolemia, unspecified; M10.9 Gout, unspecified; I48.91 Unspecified atrial fibrillation; E78.5 Hyperlipidemia, unspecified
CPT/HCPCS: 36415; 80053; 80061; 81001; 83735; 84550; 85025

== ENCOUNTER → 2021-08-04 12:03 | Outpatient (CLI) | payer MEDICARE, SELFPAY ==
[2021-08-04 15:27] LABS: Anion Gap 8 (5-15); BUN 22 mg/dL (7-18); Calcium,Total 9.5 mg/dL (8.5-10.1); Chloride 100 mmol/L (98-107); Creatinine, Serum 1.05 mg/dL (0.70-1.30); EST Glomerular Filtration Rate 73 mL/min (>60); Est Glom Filt Rate - Afr Amer 88 mL/min (>60); Glucose 101 mg/dL (74-106); Potassium 4.1 mmol/L (3.5-5.1); Sodium Level 138 mmol/L (136-145)
== END ==
PROVIDERS: PCP Family Medicine; Referring Provider Family Medicine; Visit Provider Family Medicine
DX: R94.4 Abnormal results of kidney function studies (principal)
CPT/HCPCS: 36415; 80048

== ENCOUNTER 2022-01-13 10:05 | Outpatient (CLI) | payer MEDICARE, SELFPAY ==
[2022-01-13 12:08] LABS: Absolute Lymphocyte Count 1.84 X10^3/uL (0.83-4.51); Absolute Neutrophil Count 4.3 X10^3/uL (2.0-7.7); Basophil# 0.06 X10^3/uL; Basophil% 0.8 % (0-1); Eosinophil# 0.33 X10^3/uL; Eosinophils% 4.5 % (0-5); Hematocrit 44.7 % (40-54); Hemoglobin 14.8 g/dL (13.0-16.5); Lymphocyte # 1.84 X10^3/ul (0.83-4.51); Mean Corp Hgb Conc 33.1 g/dL (32-36); Mean Corpuscular Hgb 29.4 pg (27.0-32.0); Mean Corpuscular Volume 88.7 fL (80-94); Mean Platelet Vol. 9.7 fl (6.2-12.0); Monocyte# 0.79 X10^3/uL; Monocyte% 10.7 % (0-10); NRBC Flagged by Analyzer 0 % (0-5); Neutrophil # 4.32 X10^3/uL (2.7-7.7); Neutrophil % 58.6 % (47-70); Platelet Count 183 K/mm3 (150-450); RBC Distribution Width CV 14.5 % (11.6-14.6); RBC Distribution Width SD 46.4 fl (35.1-43.9); Red Blood Count 5.04 M/mm3 (4.6-6.2); White Blood Count 7.4 K/mm3 (4.4-11.0)
[2022-01-13 13:17] LABS: AST(SGOT) 19 U/L (15-37); Alanine Aminotransfer ALT/SGPT 25 U/L (16-61); Albumin, Serum 3.9 g/dL (3.2-5.0); Alkaline Phosphatase 119 U/L (45-117); Anion Gap 7 (5-15); BUN 35 mg/dL (7-18); BUN/Creat Ratio 30.4 RATIO (10-20); Calcium,Total 9.4 mg/dL (8.5-10.1); Chloride 103 mmol/L (98-107); Cholesterol 144 mg/dL (200); Creatinine, Serum 1.15 mg/dL (0.70-1.30); EST Glomerular Filtration Rate 65 mL/min (>60); Est Glom Filt Rate - Afr Amer 79 mL/min (>60); Globulin 3.9 g/dL (2.2-4.2); Glucose 108 mg/dL (74-106); High Density Lipoprotein 47 mg/dL; Magnesium 2.3 mg/dL (1.6-2.6); Potassium 4.3 mmol/L (3.5-5.1); Protein, Total 7.8 g/dL (6.4-8.2); Sodium Level 138 mmol/L (136-145); Thyroid Stim Hormone (TSH) 1.99 uIU/mL (0.358-3.74); Triglycerides 133 mg/dL; Uric Acid 7.2 mg/dL (3.5-7.2); Very Low Density Lipoprotein 27 mg/dL (5-40)
[2022-01-13 14:07] LABS: Hemoglobin A1c 6.1 % (3.8-5.6)
== END 2022-01-13 23:59 | disposition home or self-care (01) ==
LOC: MTLAB 10:06
PROVIDERS: PCP Family Medicine; Referring Provider Family Medicine; Visit Provider Family Medicine
DX: I48.91 Unspecified atrial fibrillation (principal); M10.9 Gout, unspecified; E78.5 Hyperlipidemia, unspecified; R73.02 Impaired glucose tolerance (oral)
CPT/HCPCS: 36415; 80053; 80061; 83036; 83735; 84443; 84550; 85025

== ENCOUNTER 2022-01-19 10:32 | Outpatient (CLI) | payer MEDICARE, SELFPAY ==
--- NOTE | 2022-01-19 10:35 | RAD_ITS ---
STUDY: X-RAY - RIGHT KNEE REASON FOR EXAM: Male, 81 years old. Pain. TECHNIQUE: 3 view(s) of the knee. COMPARISON: None. FINDINGS: Osteopenia. Bipartite patella, a normal variant. Mild medial compartmental arthrosis. Mild lateral compartmental arthrosis. Mild arthrosis of the patellofemoral compartment. 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 Subtle chondrocalcinosis. 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 Chondrocalcinosis. No acute abnormality or erosive changes. Electronically Signed: Bradley Pettit MD at 11:08 EDT ,
--- NOTE | 2022-01-19 10:35 | RAD_ITS ---
STUDY: X-RAY - LEFT KNEE REASON FOR EXAM: Male, 81 years old. Knee pain. TECHNIQUE: 3 view(s) of the knee. COMPARISON: None. FINDINGS: Osteopenia. Normal visualized distal femur. Normal visualized proximal tibia and fibula. Normal proximal tibiofibular articulation. Moderate medial compartmental arthrosis. Mild lateral compartmental arthrosis. Mild arthrosis of the patellofemoral compartment. The soft tissue structures are unremarkable. RAD/Knee 4 or More Views IMPRESSION: Osteopenia with mild tricompartmental arthrosis. No acute finding, chondrocalcinosis, erosive changes or periostitis. Electronically Signed: Bradley Pettit MD at 11:06 EDT ,
== END 2022-01-19 23:59 | disposition home or self-care (01) ==
LOC: MTRAD 10:33
PROVIDERS: PCP Family Medicine; Referring Provider Family Medicine; Visit Provider Family Medicine
DX: M25.569 Pain in unspecified knee (principal)
CPT/HCPCS: 73564

== ENCOUNTER → 2022-05-11 | Outpatient (CLI) | payer MEDICARE, SELFPAY ==
[2022-05-11 09:58] LABS: Mucous, Urine 0 SEEN /hpf (<or=2+)
[2022-05-11 12:29] LABS: Absolute Lymphocyte Count 1.29 X10^3/uL (0.83-4.51); Absolute Neutrophil Count 4.5 X10^3/uL (2.0-7.7); Basophil# 0.04 X10^3/uL; Basophil% 0.6 % (0-1); Eosinophil# 0.38 X10^3/uL; Eosinophils% 5.5 % (0-5); Hematocrit 41.7 % (40-54); Hemoglobin 13.6 g/dL (13.0-16.5); Lymphocyte # 1.29 X10^3/ul (0.83-4.51); Lymphocyte % 18.8 % (19-41); Mean Corp Hgb Conc 32.6 g/dL (32-36); Mean Corpuscular Hgb 30.3 pg (27.0-32.0); Mean Corpuscular Volume 92.9 fL (80-94); Mean Platelet Vol. 9.6 fl (6.2-12.0); Monocyte# 0.65 X10^3/uL; Monocyte% 9.4 % (0-10); NRBC Flagged by Analyzer 0 % (0-5); Neutrophil % 65.4 % (47-70); Platelet Count 187 K/mm3 (150-450); RBC Distribution Width CV 14.5 % (11.6-14.6); RBC Distribution Width SD 49.2 fl (35.1-43.9); Red Blood Count 4.49 M/mm3 (4.6-6.2); White Blood Count 6.9 K/mm3 (4.4-11.0)
[2022-05-11 12:35] LABS: Color, Urine Yellow (Yellow); Glucose, Dipstick Normal (Normal); Ketone-Dipstick Negative (Negative); Leukocyte Esterase-Dipstick 500 /ul (Negative); Nitrite-Dipstick Negative (Negative); Occult Blood-Urine 250 /ul (Negative); Protein-Dipstick 30 mg/dl (Negative); Urine Bilirubin Dipstick Negative (Negative); Urine Clarity Sl. Cloudy (Clear); Urine Urobilinogen Normal (Normal); Urine pH 6.5 (5.0 - 8.0)
[2022-05-11 13:13] LABS: ALB/GLOB Ratio 1.1 RATIO (0.9-2.4); AST(SGOT) 17 U/L (15-37); Alanine Aminotransfer ALT/SGPT 25 U/L (16-61); Albumin, Serum 3.7 g/dL (3.2-5.0); Alkaline Phosphatase 108 U/L (45-117); Anion Gap 7 (5-15); BUN 42 mg/dL (7-18); BUN/Creat Ratio 31.1 RATIO (10-20); Calcium,Total 9.7 mg/dL (8.5-10.1); Chloride 103 mmol/L (98-107); Cholesterol 123 mg/dL (200); Creatinine, Serum 1.35 mg/dL (0.70-1.30); EST Glomerular Filtration Rate 54 mL/min (>60); Est Glom Filt Rate - Afr Amer 66 mL/min (>60); Globulin 3.3 g/dL (2.2-4.2); Glucose 108 mg/dL (74-106); High Density Lipoprotein 49 mg/dL; Potassium 4.2 mmol/L (3.5-5.1); Sodium Level 138 mmol/L (136-145); Triglycerides 96 mg/dL; Uric Acid 7.3 mg/dL (3.5-7.2); Very Low Density Lipoprotein 19 mg/dL (5-40)
[2022-05-11 13:25] LABS: Bacteria 1+ /hpf (None Seen); Red Blood Cells-Urine 25-50 SEEN /hpf (0-5); Squamous Epithelial Cells - UA 0-5 SEEN /hpf (0-5); Trichomonas 0-5 SEEN /hpf (None Seen); White Blood Cells 25-50 SEEN /hpf (0-5)
[2022-05-11 13:33] LABS: Hemoglobin A1c 5.9 % (3.8-5.6)
== END | disposition home or self-care (01) ==
LOC: MFPLAB 09:55
PROVIDERS: PCP Family Medicine; Referring Provider Family Medicine; Visit Provider Family Medicine
DX: R82.81 Pyuria (principal); I48.91 Unspecified atrial fibrillation; I10 Essential (primary) hypertension; R73.02 Impaired glucose tolerance (oral); E78.5 Hyperlipidemia, unspecified; M10.9 Gout, unspecified
CPT/HCPCS: 36415; 80053; 80061; 81001; 83036; 83735; 84550; 85025; 87086; 87088

== ENCOUNTER → 2022-06-08 | Outpatient (CLI) | payer MEDICARE, SELFPAY ==
[2022-06-08 13:25] LABS: Anion Gap 9 (5-15); BUN 29 mg/dL (7-18); BUN/Creat Ratio 27.6 RATIO (10-20); Calcium,Total 10.2 mg/dL (8.5-10.1); Chloride 103 mmol/L (98-107); Creatinine, Serum 1.05 mg/dL (0.70-1.30); EST Glomerular Filtration Rate 72 mL/min (>60); Est Glom Filt Rate - Afr Amer 88 mL/min (>60); Glucose 110 mg/dL (74-106); Potassium 4.5 mmol/L (3.5-5.1); Sodium Level 139 mmol/L (136-145)
== END | disposition home or self-care (01) ==
LOC: MFPLAB 09:45
PROVIDERS: PCP Family Medicine; Visit Provider Family Medicine
DX: R94.4 Abnormal results of kidney function studies (principal)
CPT/HCPCS: 36415; 80048

== ENCOUNTER → 2022-09-23 | Outpatient (CLI) | payer MEDICARE, SELFPAY ==
[2022-09-23 12:03] LABS: Color, Urine Yellow (Yellow); Glucose, Dipstick Normal (Normal); Ketone-Dipstick Negative (Negative); Leukocyte Esterase-Dipstick 100 /ul (Negative); Nitrite-Dipstick Negative (Negative); Occult Blood-Urine 250 /ul (Negative); Protein-Dipstick 30 mg/dl (Negative); Urine Bilirubin Dipstick Negative (Negative); Urine Clarity Sl. Cloudy (Clear); Urine Urobilinogen Normal (Normal)
[2022-09-23 12:12] LABS: Red Blood Cells-Urine 25-50 SEEN /hpf (0-5); Squamous Epithelial Cells - UA 0-5 SEEN /hpf (0-5)
[2022-09-23 12:13] LABS: Bacteria RARE /hpf (None Seen); Mucous, Urine RARE /hpf (<or=2+); White Blood Cells 0-5 SEEN /hpf (0-5)
[2022-09-23 12:17] LABS: Absolute Lymphocyte Count 1.72 X10^3/uL (0.83-4.51); Absolute Neutrophil Count 4.4 X10^3/uL (2.0-7.7); Basophil# 0.04 X10^3/uL; Basophil% 0.6 % (0-1); Eosinophil# 0.32 X10^3/uL; Eosinophils% 4.5 % (0-5); Hematocrit 45.2 % (40-54); Hemoglobin 15.1 g/dL (13.0-16.5); Lymphocyte # 1.72 X10^3/ul (0.83-4.51); Lymphocyte % 24.1 % (19-41); Mean Corp Hgb Conc 33.4 g/dL (32-36); Mean Corpuscular Hgb 30.6 pg (27.0-32.0); Mean Corpuscular Volume 91.5 fL (80-94); Mean Platelet Vol. 9.6 fl (6.2-12.0); Monocyte# 0.68 X10^3/uL; Monocyte% 9.5 % (0-10); NRBC Flagged by Analyzer 0 % (0-5); Neutrophil # 4.36 X10^3/uL (2.7-7.7); Platelet Count 185 K/mm3 (150-450); RBC Distribution Width CV 13.9 % (11.6-14.6); RBC Distribution Width SD 46.2 fl (35.1-43.9); Red Blood Count 4.94 M/mm3 (4.6-6.2); White Blood Count 7.1 K/mm3 (4.4-11.0)
[2022-09-23 12:53] LABS: ALB/GLOB Ratio 1.3 RATIO (0.9-2.4); AST(SGOT) 19 U/L (15-37); Alanine Aminotransfer ALT/SGPT 21 U/L (16-61); Albumin, Serum 3.9 g/dL (3.2-5.0); Alkaline Phosphatase 119 U/L (45-117); Anion Gap 5 (5-15); BUN 25 mg/dL (7-18); BUN/Creat Ratio 23.8 RATIO (10-20); Calcium,Total 9.7 mg/dL (8.5-10.1); Chloride 102 mmol/L (98-107); Cholesterol 147 mg/dL (200); Creatinine, Serum 1.05 mg/dL (0.70-1.30); EST Glomerular Filtration Rate 72 mL/min (>60); Est Glom Filt Rate - Afr Amer 87 mL/min (>60); Glucose 116 mg/dL (74-106); High Density Lipoprotein 49 mg/dL; Magnesium 1.9 mg/dL (1.6-2.6); Potassium 4.5 mmol/L (3.5-5.1); Protein, Total 6.9 g/dL (6.4-8.2); Sodium Level 139 mmol/L (136-145); Triglycerides 114 mg/dL; Uric Acid 7.3 mg/dL (3.5-7.2); Very Low Density Lipoprotein 23 mg/dL (5-40)
[2022-09-24 09:30] LABS: Hemoglobin A1c 6.1 % (3.8-5.6)
== END | disposition home or self-care (01) ==
LOC: MFPLAB 11:11
PROVIDERS: PCP Family Medicine; Referring Provider Family Medicine; Visit Provider Family Medicine
DX: I10 Essential (primary) hypertension (principal); I48.91 Unspecified atrial fibrillation; R73.09 Other abnormal glucose
CPT/HCPCS: 36415; 80053; 80061; 81001; 83036; 83735; 84550; 85025

== ENCOUNTER → 2023-01-25 | Outpatient (CLI) | payer MEDICARE, SELFPAY ==
[2023-01-25 14:58] LABS: Bacteria 0 SEEN /hpf (None Seen); Mucous, Urine 0 SEEN /hpf (<or=2+); Squamous Epithelial Cells - UA 0 SEEN /hpf (0-5)
[2023-01-25 15:21] LABS: Absolute Neutrophil Count 4.9 X10^3/uL (2.0-7.7); Basophil# 0.04 X10^3/uL; Basophil% 0.5 % (0-1); Eosinophil# 0.32 X10^3/uL; Eosinophils% 4.2 % (0-5); Hematocrit 45.1 % (40-54); Hemoglobin 14.3 g/dL (13.0-16.5); Lymphocyte % 19.7 % (19-41); Mean Corp Hgb Conc 31.7 g/dL (32-36); Mean Corpuscular Hgb 29.9 pg (27.0-32.0); Mean Corpuscular Volume 94.4 fL (80-94); Mean Platelet Vol. 9.7 fl (6.2-12.0); Monocyte# 0.86 X10^3/uL; Monocyte% 11.3 % (0-10); NRBC Flagged by Analyzer 0 % (0-5); Neutrophil # 4.85 X10^3/uL (2.7-7.7); Neutrophil % 63.8 % (47-70); Platelet Count 187 K/mm3 (150-450); RBC Distribution Width CV 14.4 % (11.6-14.6); RBC Distribution Width SD 49.6 fl (35.1-43.9); Red Blood Count 4.78 M/mm3 (4.6-6.2); White Blood Count 7.6 K/mm3 (4.4-11.0)
[2023-01-25 15:42] LABS: AST(SGOT) 18 U/L (15-37); Alanine Aminotransfer ALT/SGPT 22 U/L (16-61); Albumin, Serum 3.6 g/dL (3.2-5.0); Alkaline Phosphatase 121 U/L (45-117); Anion Gap 3 (5-15); BUN 31 mg/dL (7-18); BUN/Creat Ratio 29.2 RATIO (10-20); Calcium,Total 9.3 mg/dL (8.5-10.1); Chloride 103 mmol/L (98-107); Cholesterol 131 mg/dL (200); Creatinine, Serum 1.06 mg/dL (0.70-1.30); EST Glomerular Filtration Rate 71 mL/min (>60); Est Glom Filt Rate - Afr Amer 86 mL/min (>60); Globulin 3.5 g/dL (2.2-4.2); Glucose 90 mg/dL (74-106); High Density Lipoprotein 48 mg/dL; Magnesium 1.8 mg/dL (1.6-2.6); Potassium 4.2 mmol/L (3.5-5.1); Protein, Total 7.1 g/dL (6.4-8.2); Sodium Level 136 mmol/L (136-145); Thyroid Stim Hormone (TSH) 2.31 uIU/mL (0.358-3.74); Triglycerides 108 mg/dL; Uric Acid 5.5 mg/dL (3.5-7.2); Very Low Density Lipoprotein 22 mg/dL (5-40)
[2023-01-25 16:33] LABS: Hemoglobin A1c 6.1 % (3.8-5.6)
[2023-01-25 18:03] LABS: Color, Urine Yellow (Yellow); Glucose, Dipstick Normal (Normal); Ketone-Dipstick Negative (Negative); Leukocyte Esterase-Dipstick Negative /ul (Negative); Nitrite-Dipstick Negative (Negative); Occult Blood-Urine 250 /ul (Negative); Protein-Dipstick 30 mg/dl (Negative); Specific Gravity, Urine 1.015 (1.002-1.030); Urine Bilirubin Dipstick Negative (Negative); Urine Clarity Clear (Clear); Urine Urobilinogen Normal (Normal)
[2023-01-25 18:12] LABS: Red Blood Cells-Urine 25-50 SEEN /hpf (0-5); White Blood Cells 0 SEEN /hpf (0-5)
== END | disposition home or self-care (01) ==
LOC: MFPLAB 13:33
PROVIDERS: PCP Family Medicine; Referring Provider Family Medicine; Visit Provider Family Medicine
DX: I10 Essential (primary) hypertension (principal); R73.02 Impaired glucose tolerance (oral)
CPT/HCPCS: 36415; 80053; 80061; 81001; 83036; 83735; 84443; 84550; 85025

== ENCOUNTER → 2023-06-15 | Outpatient (CLI) | payer MEDICARE, SELFPAY ==
[2023-06-15 08:28] LABS: Mucous, Urine 0 SEEN /hpf (<or=2+)
[2023-06-15 10:23] LABS: Absolute Neutrophil Count 4.3 X10^3/uL (2.0-7.7); Basophil# 0.05 X10^3/uL; Basophil% 0.7 % (0-1); Eosinophil# 0.31 X10^3/uL; Eosinophils% 4.4 % (0-5); Hematocrit 43.9 % (40-54); Hemoglobin 13.8 g/dL (13.0-16.5); Lymphocyte % 22.8 % (19-41); Mean Corp Hgb Conc 31.4 g/dL (32-36); Mean Corpuscular Hgb 29.4 pg (27.0-32.0); Mean Corpuscular Volume 93.6 fL (80-94); Mean Platelet Vol. 9.8 fl (6.2-12.0); Monocyte# 0.72 X10^3/uL; Monocyte% 10.3 % (0-10); NRBC Flagged by Analyzer 0 % (0-5); Neutrophil % 61.4 % (47-70); Platelet Count 170 K/mm3 (150-450); RBC Distribution Width CV 14.6 % (11.6-14.6); RBC Distribution Width SD 50.1 fl (35.1-43.9); Red Blood Count 4.69 M/mm3 (4.6-6.2)
[2023-06-15 10:43] LABS: Color, Urine Yellow (Yellow); Glucose, Dipstick Normal (Normal); Ketone-Dipstick Negative (Negative); Leukocyte Esterase-Dipstick 100 /ul (Negative); Nitrite-Dipstick Negative (Negative); Occult Blood-Urine 150 /ul (Negative); Protein-Dipstick 100 mg/dl (Negative); Urine Bilirubin Dipstick Negative (Negative); Urine Clarity Sl. Cloudy (Clear); Urine Urobilinogen Normal (Normal)
[2023-06-15 11:03] LABS: Bacteria 1+ /hpf (None Seen); Red Blood Cells-Urine 10-25 SEEN /hpf (0-5); Squamous Epithelial Cells - UA 0-5 SEEN /hpf (0-5); Transitional Epithelial - Ur 0-5 SEEN /hpf (0-5); White Blood Cells 10-25 SEEN /hpf (0-5)
[2023-06-15 11:18] LABS: ALB/GLOB Ratio 1.1 RATIO (0.9-2.4); AST(SGOT) 19 U/L (15-37); Alanine Aminotransfer ALT/SGPT 18 U/L (16-61); Albumin, Serum 3.6 g/dL (3.2-5.0); Alkaline Phosphatase 113 U/L (45-117); Anion Gap 3 (5-15); BUN 32 mg/dL (7-18); BUN/Creat Ratio 25.4 RATIO (10-20); Calcium,Total 9.5 mg/dL (8.5-10.1); Chloride 103 mmol/L (98-107); Cholesterol 143 mg/dL (200); Creatinine, Serum 1.26 mg/dL (0.70-1.30); EST Glomerular Filtration Rate 58 mL/min (>60); Est Glom Filt Rate - Afr Amer 71 mL/min (>60); Globulin 3.4 g/dL (2.2-4.2); Glucose 117 mg/dL (74-106); High Density Lipoprotein 46 mg/dL; Magnesium 2.1 mg/dL (1.6-2.6); Potassium 4.3 mmol/L (3.5-5.1); Sodium Level 138 mmol/L (136-145); Triglycerides 135 mg/dL; Very Low Density Lipoprotein 27 mg/dL (5-40)
[2023-06-15 12:01] LABS: Hemoglobin A1c 6.3 % (3.8-5.6)
== END | disposition home or self-care (01) ==
PROVIDERS: PCP Family Medicine; Visit Provider Family Medicine
DX: I10 Essential (primary) hypertension (principal); R73.02 Impaired glucose tolerance (oral)
CPT/HCPCS: 36415; 80053; 80061; 81001; 83036; 83735; 84550; 85025

== ENCOUNTER → 2023-06-17 | Outpatient (CLI) | payer MEDICARE, SELFPAY ==
--- NOTE | 2023-06-17 | CYSPIN_PTH ---
PATIENT: HARRY LICEA LOC: [facility] U#:[id number] AGE/SX: 82/M ROOM: RE06/17/[address]: Dr. Jerrod Viramontes MD : 1940 BED: DIS: 06/17/2023 SPEC #: [id number] RECD: 06/21/23 09:49 STATUS: EBONIE MUJICA #: [id number] LEONIDES: 06/17/23 00:[address]: Jerrod Viramontes DEPT: CYTOLOGY RECD BY: Hussein Alexander Tissues: Urine Procedures: Pap Stain (control) Special Stain Group II Cytospin Fluid HEADER OPERATION: Not noted PRE-OP DIAGNOSIS: Not noted TISSUE SUBMITTED: Urine for cytology DIAGNOSIS CYTOLOGY Urine for cytology (cytospin): Negative for high-grade urothelial carcinoma ([facility]GUC), Toshia System Category II. Marked acute inflammation. See comment. CANDIE:sunil 06/21/2023 COMMENT Numerous crystals are also noted. The Toshia System for urine cytology diagnostic categorization was used in the evaluation of this case. Case has been reviewed in consultation with Dr. Palma who concurs with the above diagnosis. IDC:AM CYTOLOGY STUDY Slides are reviewed. CYTOLOGY GROSS Received is <0.25 ml of cloudy fluid labeled with the patient's name and and designated per the requisition as urine. Submitted for cytology preparation. / sunil 06/21/2023 TC:2 CPT: 15820
[2023-06-17 17:03] LABS: Cytology, Body Fluid / CSF SEE PATHOLOGY REPORT
== END | disposition home or self-care (01) ==
LOC: LABSPEC 17:02
PROVIDERS: PCP Family Medicine; Visit Provider Family Medicine
DX: R31.9 Hematuria, unspecified (principal)
CPT/HCPCS: 87086; 87088; 88108; 88313

== ENCOUNTER → 2023-10-03 | Outpatient (CLI) | payer MEDICARE, SELFPAY ==
[2023-10-03 12:17] LABS: Absolute Lymphocyte Count 1.72 X10^3/uL (0.83-4.51); Absolute Neutrophil Count 4.8 X10^3/uL (2.0-7.7); Basophil# 0.06 X10^3/uL; Basophil% 0.8 % (0-1); Eosinophil# 0.25 X10^3/uL; Eosinophils% 3.3 % (0-5); Hematocrit 46.3 % (40-54); Hemoglobin 14.5 g/dL (13.0-16.5); Lymphocyte # 1.72 X10^3/ul (0.83-4.51); Lymphocyte % 22.8 % (19-41); Mean Corp Hgb Conc 31.3 g/dL (32-36); Mean Corpuscular Hgb 29.2 pg (27.0-32.0); Mean Corpuscular Volume 93.3 fL (80-94); Mean Platelet Vol. 9.7 fl (6.2-12.0); Monocyte% 9.3 % (0-10); NRBC Flagged by Analyzer 0 % (0-5); Neutrophil # 4.78 X10^3/uL (2.7-7.7); Neutrophil % 63.4 % (47-70); Platelet Count 197 K/mm3 (150-450); RBC Distribution Width CV 14.1 % (11.6-14.6); RBC Distribution Width SD 48.5 fl (35.1-43.9); Red Blood Count 4.96 M/mm3 (4.6-6.2); White Blood Count 7.5 K/mm3 (4.4-11.0)
[2023-10-03 12:58] LABS: ALB/GLOB Ratio 1.1 RATIO (0.9-2.4); AST(SGOT) 22 U/L (15-37); Alanine Aminotransfer ALT/SGPT 18 U/L (16-61); Albumin, Serum 3.7 g/dL (3.2-5.0); Alkaline Phosphatase 111 U/L (45-117); Anion Gap 7 (5-15); BUN 43 mg/dL (7-18); BUN/Creat Ratio 33.6 RATIO (10-20); Calcium,Total 9.6 mg/dL (8.5-10.1); Chloride 102 mmol/L (98-107); Cholesterol 144 mg/dL (200); Creatinine, Serum 1.28 mg/dL (0.70-1.30); EST Glomerular Filtration Rate 57 mL/min (>60); Est Glom Filt Rate - Afr Amer 69 mL/min (>60); Globulin 3.5 g/dL (2.2-4.2); Glucose 125 mg/dL (74-106); High Density Lipoprotein 50 mg/dL; Magnesium 2.2 mg/dL (1.6-2.6); Potassium 4.4 mmol/L (3.5-5.1); Protein, Total 7.2 g/dL (6.4-8.2); Sodium Level 138 mmol/L (136-145); Triglycerides 131 mg/dL; Very Low Density Lipoprotein 26 mg/dL (5-40)
== END | disposition home or self-care (01) ==
LOC: MFPLAB 10:14
PROVIDERS: PCP Family Medicine; Visit Provider Family Medicine
DX: R30.0 Dysuria (principal); I10 Essential (primary) hypertension; R73.02 Impaired glucose tolerance (oral)
CPT/HCPCS: 36415; 80053; 80061; 83036; 83735; 85025; 87086

== ENCOUNTER → 2024-02-29 | Outpatient (CLI) | payer MEDICARE, SELFPAY ==
[2024-02-29 12:40] LABS: Absolute Lymphocyte Count 1.63 X10^3/uL (0.83-4.51); Absolute Neutrophil Count 4.4 X10^3/uL (2.0-7.7); Basophil# 0.04 X10^3/uL; Basophil% 0.6 % (0-1); Eosinophil# 0.28 X10^3/uL; Hematocrit 42.1 % (40-54); Hemoglobin 13.6 g/dL (13.0-16.5); Lymphocyte # 1.63 X10^3/ul (0.83-4.51); Lymphocyte % 23.1 % (19-41); Mean Corp Hgb Conc 32.3 g/dL (32-36); Mean Corpuscular Hgb 30.1 pg (27.0-32.0); Mean Corpuscular Volume 93.1 fL (80-94); Mean Platelet Vol. 9.6 fl (6.2-12.0); Monocyte# 0.69 X10^3/uL; Monocyte% 9.8 % (0-10); NRBC Flagged by Analyzer 0 % (0-5); Neutrophil # 4.39 X10^3/uL (2.7-7.7); Neutrophil % 62.1 % (47-70); Platelet Count 197 K/mm3 (150-450); RBC Distribution Width CV 14.8 % (11.6-14.6); RBC Distribution Width SD 50.8 fl (35.1-43.9); Red Blood Count 4.52 M/mm3 (4.6-6.2); White Blood Count 7.1 K/mm3 (4.4-11.0)
[2024-02-29 14:48] LABS: AST(SGOT) 14 U/L (15-37); Alanine Aminotransfer ALT/SGPT 16 U/L (16-61); Albumin, Serum 3.6 g/dL (3.2-5.0); Alkaline Phosphatase 122 U/L (45-117); Anion Gap 5 (5-15); BUN 39 mg/dL (7-18); BUN/Creat Ratio 27.9 RATIO (10-20); Calcium,Total 9.8 mg/dL (8.5-10.1); Chloride 103 mmol/L (98-107); Cholesterol 126 mg/dL (200); EST Glomerular Filtration Rate 52 mL/min (>60); Est Glom Filt Rate - Afr Amer 63 mL/min (>60); Globulin 3.5 g/dL (2.2-4.2); Glucose 117 mg/dL (74-106); High Density Lipoprotein 47 mg/dL; Magnesium 2.6 mg/dL (1.6-2.6); Potassium 4.6 mmol/L (3.5-5.1); Protein, Total 7.1 g/dL (6.4-8.2); Sodium Level 138 mmol/L (136-145); Triglycerides 90 mg/dL; Very Low Density Lipoprotein 18 mg/dL (5-40)
== END | disposition home or self-care (01) ==
LOC: MFPLAB 10:09
PROVIDERS: PCP Family Medicine; Visit Provider Family Medicine
DX: I10 Essential (primary) hypertension (principal); M10.9 Gout, unspecified; R73.02 Impaired glucose tolerance (oral)
CPT/HCPCS: 36415; 80053; 80061; 83036; 83735; 84550; 85025

== ENCOUNTER → 2024-06-26 | Outpatient (CLI) | payer MEDICARE, SELFPAY ==
[2024-06-26 10:09] LABS: Bacteria 0 SEEN /hpf (None Seen); Mucous, Urine 0 SEEN /hpf (<or=2+); Squamous Epithelial Cells - UA 0 SEEN /hpf (0-5)
[2024-06-26 12:06] LABS: Absolute Lymphocyte Count 1.39 X10^3/uL (0.83-4.51); Absolute Neutrophil Count 5.1 X10^3/uL (2.0-7.7); Basophil# 0.05 X10^3/uL; Basophil% 0.6 % (0-1); Eosinophil# 0.32 X10^3/uL; Eosinophils% 4.1 % (0-5); Hematocrit 43.4 % (40-54); Lymphocyte # 1.39 X10^3/ul (0.83-4.51); Mean Corp Hgb Conc 32.3 g/dL (32-36); Mean Corpuscular Hgb 29.4 pg (27.0-32.0); Mean Platelet Vol. 9.7 fl (6.2-12.0); Monocyte# 0.83 X10^3/uL; Monocyte% 10.8 % (0-10); NRBC Flagged by Analyzer 0 % (0-5); Neutrophil # 5.09 X10^3/uL (2.7-7.7); Platelet Count 204 K/mm3 (150-450); RBC Distribution Width CV 13.4 % (11.6-14.6); RBC Distribution Width SD 45.1 fl (35.1-43.9); Red Blood Count 4.77 M/mm3 (4.6-6.2); White Blood Count 7.7 K/mm3 (4.4-11.0)
[2024-06-26 12:17] LABS: Hemoglobin A1c 6.1 % (3.8-5.6)
[2024-06-26 12:27] LABS: PTHIN 255.3 pg/mL (18.4-80.1)
[2024-06-26 12:35] LABS: Vitamin D,25 Hydroxy 14.1 ng/mL
[2024-06-26 12:38] LABS: Color, Urine Yellow (Yellow); Glucose, Dipstick Normal (Normal); Ketone-Dipstick Negative (Negative); Leukocyte Esterase-Dipstick 100 /ul (Negative); Nitrite-Dipstick Negative (Negative); Occult Blood-Urine 250 /ul (Negative); Protein-Dipstick 100 mg/dl (Negative); Urine Bilirubin Dipstick Negative (Negative); Urine Clarity Sl. Cloudy (Clear); Urine Urobilinogen Normal (Normal)
[2024-06-26 12:48] LABS: Red Blood Cells-Urine 25-50 SEEN /hpf (0-5); White Blood Cells 10-25 SEEN /hpf (0-5)
[2024-06-26 12:49] LABS: Protein, Urine (Random) 111.2 mg/dL (<11.9); Protein:Creat Ratio 666 mg/g CRE (0-200)
[2024-06-26 12:55] LABS: ALB/GLOB Ratio 0.9 RATIO (0.9-2.4); AST(SGOT) 14 U/L (15-37); Alanine Aminotransfer ALT/SGPT 14 U/L (16-61); Albumin, Serum 3.4 g/dL (3.2-5.0); Alkaline Phosphatase 117 U/L (45-117); Anion Gap 4 (5-15); BUN 36 mg/dL (7-18); BUN/Creat Ratio 24.7 RATIO (10-20); Calcium,Total 9.5 mg/dL (8.5-10.1); Chloride 100 mmol/L (98-107); Cholesterol 146 mg/dL (200); Creatinine, Serum 1.46 mg/dL (0.70-1.30); EST Glomerular Filtration Rate 49 mL/min (>60); Est Glom Filt Rate - Afr Amer 60 mL/min (>60); Globulin 3.6 g/dL (2.2-4.2); Glucose 115 mg/dL (74-106); High Density Lipoprotein 47 mg/dL; Magnesium 2.2 mg/dL (1.6-2.6); Phosphorus 3.7 mg/dL (2.5-4.9); Potassium 4.8 mmol/L (3.5-5.1); Sodium Level 136 mmol/L (136-145); Triglycerides 109 mg/dL; Very Low Density Lipoprotein 22 mg/dL (5-40)
== END | disposition home or self-care (01) ==
LOC: MFPLAB 10:07
PROVIDERS: PCP Family Medicine; Visit Provider Family Medicine
DX: I12.9 Hypertensive chronic kidney disease with stage 1 through stage 4 chronic kidney disease, or unspecified chronic kidney disease (principal); N18.30 Chronic kidney disease, stage 3 unspecified; R73.02 Impaired glucose tolerance (oral)
CPT/HCPCS: 36415; 80053; 80061; 81001; 82306; 82570; 83036; 83735; 83970; 84100; 84156; 84443; 85025

== ENCOUNTER → 2024-07-03 | Outpatient (CLI) | payer MEDICARE, SELFPAY ==
--- NOTE | 2024-07-03 | CYSPIN_PTH ---
PATIENT: HARRY LICEA LOC: [facility] U#:[id number] AGE/SX: 83/M ROOM: RE07/03/[address]: Dr. Jerrod Viramontes MD : 1940 BED: DIS: 07/03/2024 SPEC #: [id number] RECD: 07/03/24 14:04 STATUS: EBONIE MUJICA #: [id number] LEONIDES: 07/03/24 00:[address]: Jerrod Viramontes DEPT: CYTOLOGY RECD BY: Hussein Alexander Tissues: Urine Procedures: Pap Stain (control) Special Stain Group II Cytospin Fluid HEADER OPERATION: Not noted PRE-OP DIAGNOSIS: TISSUE SUBMITTED: Urine for cytology DIAGNOSIS CYTOLOGY Urine for cytology (cytospin): Negative for high grade urothelial carcinoma (NGHUC), Toshia System Category II. Acute inflammation. Bloody specimen. See comment. CANDIE/ 07/04/2024 COMMENT Clinical correlation is necessary. The Toshia System for urine cytology diagnostic categorization was used in the evaluation of this case. CYTOLOGY STUDY Slides are reviewed. CYTOLOGY GROSS Received is 50 ml of yellow-hazy fluid labeled with the patient's name and and designated per the requisition as urine. Submitted for cytology preparation. 07/03/2024 TC:2 CPT: 48840
[2024-07-03 10:59] LABS: Cytology, Body Fluid / CSF SEE PATHOLOGY REPORT
[2024-07-03 11:01] LABS: Mucous, Urine 0 SEEN /hpf (<or=2+)
[2024-07-03 12:22] LABS: Color, Urine Yellow (Yellow); Glucose, Dipstick Normal (Normal); Ketone-Dipstick Negative (Negative); Leukocyte Esterase-Dipstick 25 /ul (Negative); Nitrite-Dipstick Negative (Negative); Occult Blood-Urine 250 /ul (Negative); Protein-Dipstick 30 mg/dl (Negative); Urine Bilirubin Dipstick Negative (Negative); Urine Clarity Clear (Clear); Urine Urobilinogen Normal (Normal)
[2024-07-03 12:36] LABS: Bacteria RARE /hpf (None Seen); Red Blood Cells-Urine 50-100 SEEN /hpf (0-5); Squamous Epithelial Cells - UA 5-10 SEEN /hpf (0-5); White Blood Cells 0-5 SEEN /hpf (0-5)
== END | disposition home or self-care (01) ==
LOC: MFPLAB 10:56
PROVIDERS: PCP Family Medicine; Visit Provider Family Medicine
DX: R31.9 Hematuria, unspecified (principal)
CPT/HCPCS: 81001; 87086; 88108; 88313

== ENCOUNTER → 2024-08-10 | Outpatient (CLI) | payer MEDICARE, SELFPAY ==
--- NOTE | 2024-08-10 17:29 | CT_ITS ---
STUDY: CT ABDOMEN AND PELVIS WITH AND WITHOUT CONTRAST REASON FOR EXAM: Male, 83 years old. Hematuria. Evaluate for mass RADIATION DOSAGE (If Supplied By Facility): CTDIvol = ( 29.73 ) mGy, DLP = ( 4811.07 ) mGycm TECHNIQUE: Transaxial images were obtained from the dome of the diaphragm to the symphysis pubis without oral contrast. IV 100mL Isovue-370 was administered. Sagittal and coronal images were reconstructed. Individualized dose optimization techniques were used for this CT. COMPARISON: None. FINDINGS: There is 1.4 cm pleural-based mass in the right lower chest. There is lower lung atelectasis. There are coronary artery calcifications. There is cardiac enlargement. Normal liver. Normal gallbladder and extrahepatic biliary system. Normal spleen. Normal pancreas. Normal bilateral adrenal glands. There is 1.2 cm cyst of the right kidney. Normal left kidney. Normal visualized stomach. Normal small intestine. There are multiple colonic diverticula consistent with diverticulosis. There is non-visualization of the appendix. There is diffuse atherosclerotic calcification of the abdominal aorta, without a demonstrated aneurysm. Normal inferior vena cava. Normal retroperitoneum. There is 3.1 x 2.2 cm lobular mass of the left side of the urinary bladder. There is enlarged prostate gland. There is no free fluid in the abdomen or pelvis. There is a left-sided inguinal hernia containing adipose tissue. There are diffuse degenerative changes of the visualized lumbar spine. There are healed right rib fractures. CT/CT Abd/Pelvis W/WO Contrast IMPRESSION: Mass of the urinary bladder consistent with bladder cancer. Cystoscopic correlation recommended. Pleural-based mass in the right lower chest. Electronically Signed: Rios Houser MD at 10:30 EDT ,
--- OUTSIDE RECORDS SUMMARY | 2024-08-10 17:47 | XMS RPT_ITS | CCD ---
Author Organization [facility] Care Team Providers Care Product Consultant Name Role Phone Addis Masterson Unavailable Unavailable Addis Masterson Unavailable Unavailable RAMON Knight, Jolly Zamarripa Unavailable [phone] Medications Completed/Discontinued Medications Medication Drug Class(es) Dates Sig (Normalized) Sig (Original) albuterol 0.83 mg/ml inhalant solution (3 sources) beta2-Adrenergic Agonist Start: 02-06-2013 ALBUTEROL SULFATE NEBU 90 Mcg/inh as needed ALBUTEROL SULFATE NEBU [id number] Lillie Massey RN allopurinol 300 mg oral tablet (3 sources) Xanthine Oxidase Inhibitor Start: 08-22-2014 take 1 tablet by mouth once daily ALLOPURINOL 300 MG TABS One tablet by mouth daily ALLOPURINOL [id number] Jolly Knight PA-C apixaban 5 mg oral tablet (6 sources) Factor Xa Inhibitor Start: 09-02-2015 take 1 tablet by mouth twice daily ELIQUIS 5 MG TABS One tablet by mouth twice daily APIXABAN [id number] Scott Banda MD aspirin 81 mg delayed release oral tablet (15 sources) Nonsteroidal Anti-inflammatory Drug Start: 02-06-2013 take 1 tablet by mouth twice daily ASPIRIN 325 MG TABS One tablet by mouth twice daily ASPIRIN [id number] Scott Banda MD Start: 02-06-2013 take 1 tablet by pretty th once daily ASPIRIN 81 MG TABS One tablet by mouth daily ASPIRIN [id number] Jolly Knight PA-C Start: 02-06-2013 End: 03-03-2017 take 1 tablet by mouth once daily ASPIRIN EC 81 MG TBEC One tablet by mouth daily ASPIRIN [id number] Lillie Massey RN bimatoprost (6 sources) Prostaglandin Analog Start: 02-06-2013 LUMIGAN 0 .03 % SOLN 1 drop each eye 1 X daily BIMATOPROST Lillie Massey RN Start: 02-06-2013 End: 08-22-2014 LUMIGAN 0.03 % SOLN 1 drop e ach eye 1 X daily BIMATOPROST Jolly Knight PA-C 120 actuat budesonide 0.16 mg/actuat / formoterol fumarate 0.0045 mg/actuat metered dose inhaler (3 sources) Corticosteroid, beta2-Adrenergic Agonist Start: 08-22-2014 SYMBICORT 160-4.5 MCG/ACT AERO as dierected BUDESONIDE-FORMOTEROL FUMARATE [id number] Jolly Knight PA-C furosemide 40 mg oral tablet (9 sources) Loop Diuretic Start: 02-07-2013 take 1 tablet by mouth once daily LASIX 40 MG TABS One tablet by mouth daily FUROSEMIDE [id number] Scott Banda MD hydroCHLOROthiazide 25 mg / losartan potassium 100 mg oral tablet (3 sources) Thiazide Diuretic, Angiotensin 2 Receptor Jeannine Start: 02-06-2013 take 1 tablet by mouth once daily LOSARTAN POTASSIUM-HCTZ 100-25 MG TABS One tablet by mouth daily LOSARTAN POTASSIUM-HCTZ [id number] Lillie Massey RN latanoprost 0.05 mg/ml ophthalmic solution (3 sources) Prostaglandin Analog Start: 08-22-2014 LATANOPROST 0.005 % SOLN as directed LATANOPROST [id number] Jolly Knight PA-C losartan potassium 100 mg oral tablet (3 sources) Angiotensin 2 Receptor Jeannine Start: 02-06-2013 take 1 tablet by mouth once daily LOSARTAN POTASSIUM 100 MG TABS One tablet by mouth daily LOSARTAN POTASSIUM [id number] Scott Banda MD 24 hr metoprolol succinate 50 mg extended release oral tablet (9 sources) beta-Adrenergic Jeannine Start: 02-20-2013 take 1 tablet by mouth once daily TOPROL XL 50 MG [id number] One tablet by mouth daily METOPROLOL SUCCINATE [id number] Scott Banda MD MULTIPLE VITAMIN (3 sources) Start: 02-06-2013 take 1 tablet by mouth once daily MULTIVITAMINS TABS One tablet by mouth daily MULTIPLE VITAMIN [id number] Lillie Massey RN sildenafil 100 mg oral tablet (6 sources) Phosphodiesterase 5 Inhibitor Start: 02-06-2013 End: 09-02-2015 VIAGRA 100 MG TABS 1 tablet by mouth as needed SILDENAFIL CITRATE [id number] Jolly Knight PA-C simvastatin 40 mg oral tablet (3 sources) HMG-CoA Reductase Inhibitor Start: 02-06-2013 take 1 tablet by mouth once daily SIMVASTATIN 40 MG TABS One tablet by mouth daily SIMVASTATIN [id number] Lillie Massey RN tiotropium 0.018 mg inhalant powder (3 sources) Anticholinergic Start: 08-22-2014 SPIRIVA HANDIHALER 18 MCG CAPS as directed TIOTROPIUM BROMIDE MONOHYDRATE [id number] Jolly Knight PA-C Problems Active Problems Problem Classification Problem Date Documented Da te Episodic/Chronic Cardiac dysrhythmias (6 sources) Atrial fibrillation; Translations: [Persistent atrial fibrillation] Onset: 02-06-2013 02-06-2013 Chronic Chronic obstructive pulmonary disease and bronchiectasis (3 sources) Chronic obstructive lung disease; Translations: [Chronic obstructive pulmonary disease, unspecified] Onset: 03-02-2016 03-02-2016 Chronic Conduction disorders (3 sources) Left bundle branch hemiblock; 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] Onset: 02-06-2013 02-06-2013 Chronic Disorders of lipid metabolism (3 sources) Hyperlipidemia; Translations: [Hyperlipidemia, unspecified] Onset: 02-06-2013 02-06-2013 Chronic Essential hypertension (3 sources) Hypertensive disorder; Translations: [Essential (primary) hypertension] Onset: 02-06-2013 02-06-2013 Chronic Unclassified (15 sources) Body mass index (BMI) 31.0-31.9, adult; Translations: [Body mass index (BMI) 33.0-33.9, adult] Onset: 04-11-2014 Resolved: 09-02-2015 04-11-2014 Chronic Past or Other Problems Problem Classification Problem Date Documented Da te Episodic/Chronic Malaise and fatigue (3 sources) Fatigue; Translations: [Other fatigue] Onset: 09-13-2017 09-13-2017 Episodic Other lower respiratory disease (3 sources) Dyspnea; Translations: [Shortness of breath] Onset: 02-07-2013 02-07-2013 Episodic Unclassified (3 sources) Family history of stroke; Translations: [Family history of stroke] 08-22-2014 Episodic Results Test Name Value Interpretation Reference Range Facility Lab Report: Basic Metabolic Profile (BMP)on 09-13-2017 Anion gap 6 mmol/L Invalid Interpretation Code 5-15 [facility] Work Phone: [phone] BUN/Creatinine Ratio 24.0 RATIO High 10-20 [facility] Work Phone: [phone] Calcium 9.0 mg/dL Invalid Interpretation Code 8.5-10.1 [facility] Work Phone: [phone] Chloride 104 mmol/L Invalid Interpretation Code 98-107 [facility] Work Phone: [phone] CO2 28.0 mmol/L Invalid Interpretation Code 21.0-32.0 [facility] Work Phone: [phone] Creatinine 1.00 mg/dL Invalid Interpretation Code 0.70-1.30 [facility] Work Phone: [phone] eGFR (non-black) 78 mL/min/{1.73_m2} Invalid Interpretation Code >60 [facility] Work Phone: [phone] eGFR (non-black) 94 mL/min/{1.73_m2} Invalid Interpretation Code >60 [facility] Work Phone: [phone] Glucose mass conc 119 mg/dL High 70-110 [facility] Work Phone: [phone] Potassium molar conc 4.0 mmol/L Invalid Interpretation Code 3.5-5.1 [facility] Work Phone: [phone] Sodium 138 mmol/L Invalid Interpretation Code 136-145 [facility] Work Phone: [phone] Urea nitrogen 24 mg/dL High 7-18 [facility] Work Phone: [phone] Lab Report: CBC W/Diff, Auto matedon 09-13-2017 Absolute Neut 4.8 X10 3/UL Invalid Interpretation Code 2.0-7.7 [facility] Work Phone: [phone] Basophils/100 WBC Auto (Bld) 0.3 % Invalid Interpretation Code 0-1 [facility] Work Phone: [phone] Eosinophils/100 leukocytes 1.7 % Invalid Interpretation Code 0-5 [facility] Work Phone: [phone] Erythrocyte distribution width Auto Ratio (RBC) 13.9 % Invalid Interpretation Code 11.6-14.6 [facility] Work Phone: [phone] Erythrocytes (RBC) 4.67 10*6/uL Invalid Interpretation Code 4.6-6.2 [facility] Work Phone: [phone] Hematocrit (HCT) 41.8 % Invalid Interpretation Code 40-54 [facility] Work Phone: [phone] Hemoglobin mass conc (Bld) 14.2 g/dL Invalid Interpretation Code 13.0-16.5 [facility] Work Phone: [phone] Immature granulocytes/100 WBC (Bld) 0.400 % Invalid Interpretation Code 0.0-0.9 [facility] Work Phone: [phone] Lymphocytes 1.85 X10 3/UL Invalid Interpretation Code 0.83-4.51 [facility] Work Phone: [phone] Lymphocytes/100 leukocytes 24.3 % Invalid Interpretation Code 19-41 [facility] Work Phone: [phone] MCH 30.4 pg Invalid Interpretation Code 27.0-32.0 [facility] Work Phone: [phone] MCHC mass conc (RBC) 34.0 G/GL Invalid Interpretation Code 32-36 [facility] Work Phone: [phone] MCV 89.5 fL Invalid Interpretation Code 80-94 [facility] Work Phone: [phone] Monocytes/100 leukocytes 10.1 % High 0-10 [facility] Work Phone: [phone] Neutrophils/100 WBC Auto (Bld) 63.2 % Invalid Interpretation Code 47-70 [facility] Work Phone: [phone] Platelets 174 10*3/mm3 Invalid Interpretation Code 150-450 [facility] Work Phone: [phone] PMV by Trinh 9.8 fL Invalid Interpretation Code 6.2-12.0 [facility] Work Phone: [phone] RDW SD 45.0 fL High 35.1-43.9 [facility] Work Phone: [phone] WBC (Leukocytes) 7.6 10*3/uL Invalid Interpretation Code 4.4-11.0 [facility] Work Phone: [phone] Lab Report: T4 Total, Thyrox inon 09-13-2017 Thyroxine (T4) 9.4 ug/dL Invalid Interpretation Code 4.5-12.1 [facility] Work Phone: [phone] Lab Report: Thyroid Stim Hor julia (TSH)on 09-13-2017 Thyroid stimulating hormone (TSH) 1.59 u[iU]/mL Invalid Interpretation Code 0.358-3.74 [facility] Work Phone: [phone] Office Visit: [facility] 09-13-20 17 Fall risk assessment No Invalid Interpretation Code [facility] Work Phone: [phone] Replaced Document: Andrews Ngon 09-13-2017 BUN (urea nitrogen) Atrial fibrillation -irregular conduction Low voltage in precordial leads. -Incomplete right bundle branch block. ABNORMAL Invalid Interpretation Code [facility] Phone: [phone] EKG QRS axis 69 deg Invalid Interpretation Code [facility] Work Phone: [phone] P [place] 1 deg Invalid Interpretation Code [facility] Work Phone: [phone] WV Interval 0 ms Invalid Interpretation Code [facility] Work Phone: [phone] Pulse (Heart Rate) 93 /min Invalid Interpretation Code [facility] Work Phone: [phone] QRS Duration 112 ms Invalid Interpretation Code [facility] Work Phone: [phone] QT Interval new path ms Invalid Interpretation Code [facility] Work Phone: [phone] QTc Taylor 401 ms Invalid Interpretation Code [facility] Work Phone: [phone] T [place] 45 deg Invalid Interpretation Code [facility] Work Phone: [phone] Office Visiton 03-03-2017 Documentation of current medications (procedure) Done Invalid Interpretation Code [facility] Work Phone: [phone] Clinical Lists Update: Prelo hand folder 03-02-2017 Left ventricular Ejection fraction 60 % Invalid Interpretation Code [facility] Work Phone: [phone] Office Visit: [facility] 08-31-20 16 Dietary management education, guidance, and counseling (procedure) yes Invalid Interpretation Code [facility] Work Phone: [phone] Lab Report: Basic Metabolic Profile (BMP)on 09-02-2015 Anion gap 7 mmol/L Invalid Interpretation Code 5-15 [facility] Work Phone: [phone] BUN/Creatinine Ratio 35.2 RATIO High 10-[address] [facility] Work Phone: [phone] Calcium 9.4 mg/dL Invalid Interpretation Code 8.5-10.1 [facility] Work Phone: [phone] Chloride 103 mmol/L Invalid Interpretation Code 98-107 [facility] Work Phone: [phone] CO2 30.0 mmol/L Invalid Interpretation Code 21.0-32.0 [facility] Work Phone: [phone] Creatinine 1.08 mg/dL Invalid Interpretation Code 0.70-1.30 [facility] Work Phone: [phone] eGFR (non-black) 86 mL/min/{1.73_m2} Invalid Interpretation Code >60 [facility] Work Phone: [phone] eGFR (non-black) 71 mL/min/{1.73_m2} Invalid Interpretation Code >60 [facility] Work Phone: [phone] Glucose mass conc 102 mg/dL Invalid Interpretation Code 70-110 [facility] Work Phone: [phone] Potassium molar conc 4.0 mmol/L Invalid Interpretation Code 3.5-5.1 [facility] Work Phone: [phone] Sodium 140 mmol/L Invalid Interpretation Code 136-145 [facility] Work Phone: [phone] Urea nitrogen 38 mg/dL High 7-18 [facility] Work Phone: [phone] Office Visiton 03-04-2015 cardiac risk group B Invalid Interpretation Code [facility] Work Phone: [phone] General cardiovascular disease 10Y risk [#] Quinton.D'Agostin o Not enough information Invalid Interpretation Code [facility] Work Phone: [phone] Tobacco use CPHS Former smoker Invalid Interpretation Code [facility] Work Phone: [phone] Vital Signs Date Time Vital Sign Value Performing Clinician Kami hernandez 09-13-2017 13:23-0500 BMI (Body Mass Index) 34.04 kg/m2 [facility] Work Phone: 09-13-2017 13:23-0500 BP Diastolic 88 mm[Hg] [facility] Work Phone: 09-13-2017 13:23-0500 BP Systolic 120 mm[Hg] [facility] Work Phone: 09-13-2017 13:23-0500 Height 185.42 cm [facility] Work Phone: 09-13-2017 13:23-0500 Pulse (Heart Rate) 93 /min [facility] Work Phone: 09-13-2017 13:23-0500 Respiratory Rate 20 /min [facility] Work Phone: 09-13-2017 13:23-0500 Weight 117.03 kg [facility] Work Phone: 08-31-2016 11:02-0500 BSA (Body Surface Area) 2.43 m2 [facility] Work Phone: Procedures Date Procedure Procedure Detail Performing Clinician Start: 09-13-2017 End: 09-15-2017 *BMP Jolly Knight PA-C Work Phone: Start: 09-13-2017 End: 09-15-2017 *CBC with Differential Jolly michele PA-C Work Phone: Start: 09-13-2017 End: 09-13-2017 PENS AND PENCILS DIPPER Jolly Knight PA-C Work Phone: Start: 09-13-2017 End: 09-13-2017 Follow Up Appt 6 months Jolly hernandez PA-C Work Phone: Start: 09-13-2017 End: 09-15-2017 Thyrotropin [Units/volume] in Serum or Plasma Jolly Knight PA-C Work Phone: Start: 09-13-2017 End: 09-15-2017 Thyroxine (T4) [Mass/volume] in Serum or Plasma Jolly Knight PA-C Work Phone: Start: 03-03-2017 End: 08-18-2017 Follow Up Appt 6 months Dallin Gamble Start: 03-03-2017 End: 08-18-2017 PILO Banda MD Start: 08-31-2016 End: 08-31-2016 HUE Knight PA-C Work Phone: Start: 08-31-2016 End: 08-31-2016 Follow Up Appt 6 months Jolly hernandez PA-C Work Phone: Start: 08-31-2016 End: 08-18-2017 Follow Up Appt Other Jolly rico PA-C Work Phone: Start: 03-02-2016 End: 03-03-2016 Chest x-ray Scott Banda MD Start: 03-02-2016 End: 03-02-2016 Follow Up Appt 6 months Dallin Gamble Start: 03-02-2016 End: 03-02-2016 PILO Banda MD Start: 09-02-2015 End: 09-02-2015 *BMP Jolly Knight PA-C Work Phone: Start: 09-02-2015 End: 09-02-2015 PENS AND PENCILS DIPPER Jolly Knight PA-C Work Phone: Start: 09-02-2015 End: 09-02-2015 Ecg routine ecg w/least 12 lds w/i&r Jolly Knight PA-C Work Phone: Start: 09-02-2015 End: 09-02-2015 Follow Up Appt 6 months Jolly hernandez PA-C Work Phone: Start: 03-04-2015 End: 03-05-2015 Documentation of current medications Scott Banda MD Start: 03-04-2015 End: 03-04-2015 Follow Up Appt 6 months Dallin Gamble Start: 03-04-2015 End: 03-04-2015 PILO Banda MD Start: 08-22-2014 End: 08-22-2014 HEU Knight PA-C Work Phone: Start: 08-22-2014 End: 08-22-2014 Follow Up Appt 6 months Jolly hernandez PA-C Work Phone: Start: 04-11-2014 End: 04-11-2014 Ecg routine ecg w/least 12 lds w/i&r Scott Banda MD Start: 04-11-2014 End: 08-05-2014 Follow Up Appt 4 months Dallin Gamble Start: 04-11-2014 End: 04-11-2014 PILO Banda MD Start: 10-11-2013 End: 10-11-2013 HUE Knight PA-C Work Phone: Start: 10-11-2013 End: 10-11-2013 Follow Up Appt 6 months Jolly hernandez PA-C Work Phone: Start: 03-30-2013 End: 09-26-2013 Follow Up Appt 6 months Dallin Gamble Start: 03-30-2013 End: 09-26-2013 MMM Scott Banda MD Start: 03-30-2013 End: 04-10-2013 Nuclear stress test -adenosine Scott Banda MD Start: 02-07-2013 End: 02-19-2013 24 hour holter monitor Scott Banda MD Start: 02-07-2013 End: 02-07-2013 PENS AND PENCILS DIPPER Scott Banda MD Start: 02-07-2013 End: 02-07-2013 Ecg routine ecg w/least 12 lds w/i&r Scott Banda MD Start: 02-07-2013 End: 02-09-2013 Echocardiography Scott Banda MD Start: 02-07-2013 End: 02-07-2013 Follow Up Appt 6 weeks Scott Banda MD Start: 02-07-2013 End: 02-09-2013 Natriuretic peptide B [Mass/volume] in Blood Scott Banda MD Plan of Treatment Date Care Activity Detail Author Start: 03-21-2018 End: 03-21-2018 Appointment Appointment [facility] Work Phone: Start: 09-13-2017 End: 09-15-2017 *BMP *BMP [facility] Work Phone: Start: 09-13-2017 End: 09-15-2017 *CBC with Differential *CBC with Differential [facility] Work Phone: Start: 09-13-2017 End: 09-13-2017 PENS AND PENCILS DIPPER PENS AND PENCILS DIPPER [facility] Work Phone: Start: 09-13-2017 End: 09-13-2017 Follow Up Appt 6 months Follow Up Appt 6 months [facility] Work Phone: Start: 09-13-2017 End: 09-15-2017 Thyroid stimulating hormone (TSH) *TSH [facility] Work Phone: Start: 09-13-2017 End: 09-15-2017 Thyroxine (T4) *T4 (Total) [facility] Work Phone: Start: 09-13-2017 End: 09-13-2017 Appointment Appointment [facility] Work Phone: Start: 03-03-2017 End: 08-18-2017 Follow Up Appt 6 months Follow Up Appt 6 months [facility] Work Phone: Start: 03-03-2017 End: 08-18-2017 MMM MMM [facility] Work Phone: Start: 08-31-2016 End: 08-31-2016 PENS AND PENCILS DIPPER PENS AND PENCILS DIPPER [facility] Work Phone: Start: 08-31-2016 End: 08-31-2016 Follow Up Appt 6 months Follow Up Appt 6 months [facility] Work Phone: Start: 08-31-2016 End: 08-18-2017 Follow Up Appt Other Follow Up Appt Other [facility] Work Phone: Start: 03-02-2016 End: 03-03-2016 Chest x-ray X-Ray, Chest, PA & Lateral [facility] Work Phone: Start: 03-02-2016 End: 03-02-2016 Follow Up Appt 6 months Follow Up Appt 6 months [facility] Work Phone: Start: 03-02-2016 End: 03-02-2016 MMM MMM [facility] Work Phone: Start: 09-02-2015 End: 09-02-2015 *BMP *BMP [facility] Work Phone: Start: 09-02-2015 End: 09-02-2015 PENS AND PENCILS DIPPER HUE [facility] Work Phone: Start: 09-02-2015 End: 09-02-2015 Ecg routine ecg w/least 12 lds w/i&r EKG (In office) [facility] Work Phone: Start: 09-02-2015 End: 09-02-2015 Follow Up Appt 6 months Follow Up Appt 6 months [facility] Work Phone: Start: 03-04-2015 End: 03-04-2015 Follow Up Appt 6 months Follow Up Appt 6 months [facility] Work Phone: Start: 03-04-2015 End: 03-04-2015 MMM MMM [facility] Work Phone: Start: 08-22-2014 End: 08-22-2014 PENS AND PENCILS DIPPER HUE [facility] Work Phone: Start: 08-22-2014 End: 08-22-2014 Follow Up Appt 6 months Follow Up Appt 6 months [facility] Work Phone: Start: 04-11-2014 End: 04-11-2014 Ecg routine ecg w/least 12 lds w/i&r EKG (In office) [facility] Work Phone: Start: 04-11-2014 End: 08-05-2014 Follow Up Appt 4 months Follow Up Appt 4 months [facility] Work Phone: Start: 04-11-2014 End: 04-11-2014 MMM MMM [facility] Work Phone: Start: 10-11-2013 End: 10-11-2013 PENS AND PENCILS DIPPER HUE [facility] Work Phone: Start: 10-11-2013 End: 10-11-2013 Follow Up Appt 6 months Follow Up Appt 6 months [facility] Work Phone: Start: 03-30-2013 End: 09-26-2013 Follow Up Appt 6 months Follow Up Appt 6 months [facility] Work Phone: Start: 03-30-2013 End: 09-26-2013 MMM MMM [facility] Work Phone: Start: 03-30-2013 End: 03-30-2013 Nuclear stress test -adenosine Nuclear stress test -adenosine [facility] Work Phone: Start: 02-07-2013 End: 02-07-2013 24 hour holter monitor 24 hour holter monitor [facility] Work Phone: Start: 02-07-2013 End: 02-09-2013 BNP *Brain Natriuretic Peptide BNP [facility] Work Phone: Start: 02-07-2013 End: 02-07-2013 PENS AND PENCILS DIPPER PENS AND PENCILS DIPPER [facility] Work Phone: Start: 02-07-2013 End: 02-07-2013 Ecg routine ecg w/least 12 lds w/i&r EKG (In office) [facility] Work Phone: Start: 02-07-2013 End: 02-07-2013 Echocardiography Echocardiogram (complete) [facility] Work Phone: Start: 02-07-2013 End: 02-07-2013 Follow Up Appt 6 weeks Follow Up Appt 6 weeks [facility] Work Phone: Clinical Notes 03-05-2021 to 04-17-2021 Note Date & Type Note Facility 04-17-2021 Note HNO ID: [id number] Author: Subhash Maurer RN Service: ? Author Type: Registered Nurse Type: Progress Notes Filed: 04/17/2021 3:02 PM Note Text: INSIGHT CDM TELEPHONIC OUTREACH Provider Action/FYI: COPD Spoke with pt who reports his primary is Dr Viramontes. Pt reports he doesn't have any doctors at [facility] anymore. PCP field updated. [facility] 04-16-2021 Note Patient Outreach (AM BC) HARRY LICEA ([id number]) 1940 M Date Time Provider Department 04/16/21 SUBHASH MAURER During your visit today, we recorded the following information about you: Subhash Maurer RN 04/17/2021 3:02 PM Signed [facility] TELEPHONIC OUTREACH Provider Action/FYI: COPD Contact made with patient: No - Left message - Hello my name is Subhash juarez Philosophy Instructor from the [facility] I am calling today for your bi-weekly check in. I am sorry I missed your call. I will reach out to you again tomorrow. (if the third call I will reach out to you again next week) Enter next patient outreach date for the following day using the Track Pt Outreach. End outreach. Subhash Maurer RN 04/17/2021 3:02 PM Signed [facility] TELEPHONIC OUTREACH Provider Action/FYI: COPD Spoke with pt who reports his primary is Dr Viramontes. Pt reports he doesn't have any doctors at [facility] anymore. PCP field updated. Allergies As of Date: 04/16/2021 (No Known Allergies) Date Reviewed: 04/13/2019 Reviewed by: Bradley Ramirez - Fully Assessed Reason for Visit: Community Monitoring Outreach [Other] Cmt: Telephonic Outreach Prescriptions as of 04/17/2021 - tiotropium (SPIRIVA WITH HANDIHALER) 18 mcg inhalation capsule INHALE THE CONTENTS OF 1 CAPSULE ONCE DAILY INSTRUCTED - albuterol HFA (VENTOLIN HFA) 90 mcg/actuation inhaler Inhale 2 Puffs as instructed every 4 hours as needed for Wheezing/Shortness of Breath. - budesonide-formoterol (SYMBICORT) 160-4.5 mcg/actuation inhaler Inhale 2 Puffs as instructed twice daily. - losartan-hydrochlorothiazide (HYZAAR) 100-25 mg per tablet Take 1 tablet by mouth once daily. - allopurinol (ZYLOPRIM) 300 mg tablet Take 1 tablet by mouth once daily. - simvastatin (ZOCOR) 40 mg tablet Take 1 tablet by mouth daily at bedtime. - latanoprost (XALATAN) 0.005 % ophthalmic solution - apixaban (ELIQUIS) 5 mg tab tab(s) Take 1 tablet by mouth twice daily. - sildenafil (VIAGRA) 100 mg tablet Take one tablet by mouth 1 hour prior to anticipated intercourse. - furosemide (LASIX) 40 mg tablet Take 1 tablet by mouth once daily. - metoprolol succinate XL, long acting, (TOPROL XL) 50 mg 24 hr tablet Take 1 tablet by mouth once daily. - MULTIPLE VITAMIN TAB Take one(1) tablet daily. 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 Author Type: Registered Nurse Type: Progress Notes Filed: 04/17/2021 3:02 PM Note Text: INSIGHT CDM TELEPHONIC OUTREACH Provider Action/FYI: COPD Contact made with patient: No - Left message - Bradley my name is Subhash juarez Philosophy Instructor from the [facility] I am calling today for your bi-weekly check in. I am sorry I missed your call. I will reach out to you again tomorrow. (if the third call I will reach out to you again next week) Enter next patient outreach date for the following business day using the Track Pt Outreach. End outreach. [facility] [facility]2021 Note HNO ID: [id number] Author: Subhash Maurer RN Service: ? Author Type: Registered Nurse Type: Progress Notes Filed: 04/06/2021 11:26 AM Note Text: [facility] TELEPHONIC OUTREACH Provider Action/FYI: COPD Contact made with patient: No - Left message - Hello my name is Subhash juarez Philosophy Instructor from the [facility] I am calling today for your bi-weekly check in. I am sorry I missed your call. I will reach out to you again tomorrow. (if the third call I will reach out to you again next week) Enter next patient outreach date for the following business day using the Track Pt Outreach. End outreach. [facility] 04-03-2021 Note Patient Outreach (AM [facility]) HARRY LICEA ([id number]) 1940 Date Time Provider Department 04/03/21 SUBHASH MAURER During your visit today, we recorded the following information about you: Subhash Maurer RN 04/06/2021 11:26 AM Signed [facility] TELEPH[facility]IC OUTREACH Provider Action/FYI: COPD Needs PCP follow up Contact made with patient: No - Left message - Hello my name is Subhash juarez Philosophy Instructor from the [facility] I am calling today for your bi-weekly check in. I am sorry I missed your call. I will reach out to you again tomorrow. (if the third call I will reach out to you again next week) Enter next patient outreach date for the following business day using the Track Pt Outreach. End outreach. Subhash Maurer RN 04/06/2021 11:26 AM Signed [facility] TELEPHONIC [facility]REACH Provider Action/FYI: COPD Contact made with patient: No - Left message - Hello my name is Subhash juarez Philosophy Instructor from the [facility] I am calling today for your bi-weekly check in. I am sorry I missed your call. I will reach out to you again tomorrow. (if the third call I will reach out to you again next week) Enter next patient outreach date for the following day using the Track Pt Outreach. End outreach. Allergies As of Date: 04/03/2021 (No Known Allergies) Date Reviewed: 04/13/2019 Reviewed by: Bradley Ramirez - Fully Assessed Reason for Visit: Community Monitoring Outreach [Other] Cmt: Telephonic Outreach Prescriptions as of 04/03/2021 Sig: TIOTROPIUM BROMIDE 18 MCG CAP* INHALE THE CONTENTS OF 1 CAPS* ALBUTEROL SULFATE HFA 90 MCG/* Inhale 2 Puffs as instructed * BUDESONIDE-FORMOTEROL HFA 160* Inhale 2 Puffs as instructed * LOSARTAN 100 MG-HYDROCHLOROTH* Take 1 tablet by mouth once d* ALLOPURINOL 300 MG TABLET Take 1 tablet by mouth once d* SIMVASTATIN 40 MG TABLET Take 1 tablet by mouth daily * LATANOPROST 0.005 % EYE DROPS APIXABAN 5 MG TABLET Take 1 tablet by mouth twice * SILDENAFIL 100 MG TABLET Take one tablet by mouth 1 ho* FUROSEMIDE 40 MG TABLET Take 1 tablet by mouth once d* METOPROLOL SUCCINATE ER 50 MG* Take 1 tablet by mouth once d* MULTIPLE VITAMIN TABLET Take one(1) tablet daily. Problem List As Of Date 04/03/2021 Noted Resolved MIXED HYPERLIPIDEMIA [E78.2] 07/26/2005 BENIGN HYPERTENSION [I10] 07/26/2005 BPH w/o Urinary Obs/LUTS [N40.0] 11/15/2006 Ed (Erectile Dysfunction) [N52.9] 06/05/2009 Glaucoma [H40.9] 06/11/2010 Chronic atrial fibrillation (HCC) [I48.20] 02/06/2013 COPD (chronic obstructive pulmonary disease) [J*09/06/2013 Chronic gout of left foot [M1A.0720] 06/20/2014 Encounter for screening for malignant neoplasm *09/04/2015 Encounter Status:Closed by SUBHASH MAURER on 04/06/21 [facility] 04-03-2021 Note HNO ID: [id number] Author: Subhash Maurer RN Service: ? Author Type: Registered Nurse Type: Progress Notes Filed: 04/06/2021 11:26 AM Note Text: [facility] TELEPHONIC OUTREACH Provider Action/FYI: COPD Needs PCP follow up Contact made with patient: No - Left message - Hello my name is Subhash ann Philosophy Instructor from the [facility] I am calling today for your bi-weekly check in. I am sorry I missed your call. I will reach out to you again tomorrow. (if the third call I will reach out to you again next week) Enter next patient outreach date for the following business day using the Track Pt Outreach. End outreach. [facility] 03-20-2021 Note HNO ID: [id number] Author: Subhash Maurer RN Service: ? Author Type: Registered Nurse Type: Progress Notes Filed: 03/20/2021 10:32 AM Note Text: [facility] TELE[facility]REACH Provider Action/FYI: COPD Needs PCP follow up. Contact made with patient: No - Unable to leave message - entered next patient outreach date for the following business day in the Track Pt. Outreach - End Outreach [facility] 03-19-2021 Note Patient Outreach (AM [facility]) HARRY LICEA ([id number]) 1940 M Date Time Provider Department 03/19/21 SUBHASH MAURERDonna During your visit today, we recorded the following information about you: Subhash Maurer RN 03/20/2021 10:32 AM Signed [facility] TELEPH[facility]IC [facility]REACH Provider Action/FYI: COPD Needs PCP follow up. Contact made with patient: No - Left message - Hello my name is Subhash ann Philosophy Instructor from the [facility] I am calling today for your bi-weekly check in. I am sorry I missed your call. I will reach out to you again tomorrow. (if the third call I will reach out to you again next week) Enter next patient outreach date for the following business day using the Track Pt Outreach. End outreach. Subhash Maurer RN 03/20/2021 10:32 AM Signed [facility] TELEPHONIC OUTREACH Provider Action/FYI: COPD Needs PCP follow up. Contact made with patient: No - Unable to leave message - entered next patient outreach date for the following day in the Track Pt. Outreach - End Outreach Allergies As of Date: 03/19/2021 (No Known Allergies) Date Reviewed: 04/13/2019 Reviewed by: Bradley Ramirez - Fully Assessed Reason for Visit: Community Monitoring Outreach [Other] Cmt: Telephonic Outreach Prescriptions as of 03/19/2021 Sig: TIOTROPIUM BROMIDE 18 MCG CAP* INHALE THE CONTENTS OF 1 CAPS* ALBUTEROL SULFATE HFA 90 MCG/* Inhale 2 Puffs as instructed * BUDESONIDE-FORMOTEROL HFA 160* Inhale 2 Puffs as instructed * LOSARTAN 100 MG-HYDROCHLOROTH* Take 1 tablet by mouth once d* ALLOPURINOL 300 MG TABLET Take 1 tablet by mouth once d* SIMVASTATIN 40 MG TABLET Take 1 tablet by mouth daily * LATANOPROST 0.005 % EYE DROPS APIXABAN 5 MG TABLET Take 1 tablet by mouth twice * SILDENAFIL 100 MG TABLET Take one tablet by mouth 1 ho* FUROSEMIDE 40 MG TABLET Take 1 tablet by mouth once d* METOPROLOL SUCCINATE ER 50 MG* Take 1 tablet by mouth once d* MULTIPLE VITAMIN TABLET Take one(1) tablet daily. Problem List As Of Date 03/19/2021 Noted Resolved MIXED HYPERLIPIDEMIA [E78.2] 07/26/2005 BENIGN HYPERTENSION [I10] 07/26/2005 BPH w/o Urinary Obs/LUTS [N40.0] 11/15/2006 Ed (Erectile Dysfunction) [N52.9] 06/05/2009 Glaucoma [H40.9] 06/11/2010 Chronic atrial fibrillation (HCC) [I48.20] 02/06/2013 COPD (chronic obstructive pulmonary disease) [J*09/06/2013 Chronic gout of left foot [M1A.0720] 06/20/2014 Encounter for screening for malignant neoplasm *09/04/2015 Encounter Status:Closed by SUBHASH MAURER on 03/20/21 [facility] 03-19-2021 Note HNO ID: [id number] Author: Subhash Maurer RN Service: ? Author Type: Registered Nurse Type: Progress Notes Filed: 03/20/2021 10:32 AM Note Text: [facility] TELEPHONIC OUTREACH Provider Action/FYI: COPD Needs PCP follow up. Contact made with patient: No - Left message - Bradley my name is Subhash ann Philosophy Instructor from the [facility] I am calling today for your bi-weekly check in. I am sorry I missed your call. I will reach out to you again tomorrow. (if the third call I will reach out to you again next week) Enter next patient outreach date for the following business day using the Track Pt Outreach. End outreach. [facility] 03-05-2021 Note Patient Outreach (AM [facility]) HARRY LICEA ([id number]) 1940 Date Time Provider Department 03/05/21 SUBHASH MAURER AMBG During your visit today, we recorded the following information about you: Subhash Maurer RN 03/05/2021 9:00 AM Signed [facility] Enrollment Provider Action/FYI: Patient referred by: [facility] Contact made with patient: Patient not outreached at this time. Closing: Patient accepts telephonic outreach Thank you for your time today. I am excited to work together in managing your health! I will check back within in two weeks to see how things are going. If questions or concerns arise between phone calls, please reach out to your PCP?s office. (Place in active status for inSight and place name in care team and update next patient outreach data to next business day two weeks from today?s date) END OUTREACH Subhash Maurer RN 03/05/2021 9:02 AM Signed Addended by: SUBHASH MAURER on: 03/05/2021 09:02 AM Modules accepted: Orders Allergies As of Date: 03/05/2021 (No Known Allergies) Date Reviewed: 04/13/2019 Reviewed by: Bradley Ramirez - Fully Assessed Reason for Visit: Community Monitoring Outreach [Other] Cmt: Initial Outreach Primary Visit Diagnosis:Obstructive chronic bronchitis without exacerbation (HCC) [J44.9] Order(s):CONSULT TO PRIMARY CARE COORDINATION CDM [1480903] Order #: [id number]: 1 Prescriptions as of 03/05/2021 Sig: TIOTROPIUM BROMIDE 18 MCG CAP* INHALE THE CONTENTS OF 1 CAPS* ALBUTEROL SULFATE HFA 90 MCG/* Inhale 2 Puffs as instructed * BUDESONIDE-FORMOTEROL HFA 160* Inhale 2 Puffs as instructed * LOSARTAN 100 MG-HYDROCHLOROTH* Take 1 tablet by mouth once d* ALLOPURINOL 300 MG TABLET Take 1 tablet by mouth once d* SIMVASTATIN 40 MG TABLET Take 1 tablet by mouth daily * LATANOPROST 0.005 % EYE DROPS APIXABAN 5 MG TABLET Take 1 tablet by mouth twice * SILDENAFIL 100 MG TABLET Take one tablet by mouth 1 ho* FUROSEMIDE 40 MG TABLET Take 1 tablet by mouth once d* METOPROLOL SUCCINATE ER 50 MG* Take 1 tablet by mouth once d* MULTIPLE VITAMIN TABLET Take one(1) tablet daily. Problem List As Of Date 03/05/2021 Noted Resolved MIXED HYPERLIPIDEMIA [E78.2] 07/26/2005 BENIGN HYPERTENSION [I10] 07/26/2005 BPH w/o Urinary Obs/LUTS [N40.0] 11/15/2006 Ed (Erectile Dysfunction) [N52.9] 06/05/2009 Glaucoma [H40.9] 06/11/2010 Chronic atrial fibrillation (HCC) [I48.20] 02/06/2013 COPD (chronic obstructive pulmonary disease) [J*09/06/2013 Chronic gout of left foot [M1A.0720] 06/20/2014 Encounter for screening for malignant neoplasm *09/04/2015 Encounter Status:Closed by SUBHASH MAURER on 03/05/21 [facility] 03-05-2021 Note HNO ID: [id number] Author: Subhash Maurer RN Service: ? Author Type: Registered Nurse Type: Progress Notes Filed: 03/05/2021 9:00 AM Note Text: [facility] CDM Enrollment Provider Action/FYI: Patient referred by: [facility] Contact made with patient: Patient not outreached at this time. Closing: Patient accepts telephonic outreach Thank you for your time today. I am excited to work together in managing your health! I will check back within in two weeks to see how things are going. If questions or concerns arise between phone calls, please reach out to your PCP?s office. (Place in active status for inSight and place name in care team and update next patient outreach data to next business day two weeks from today?s date) END OUTREACH [facility] Summary Purpose Family History No Family History Records Found Advance Directives No Advanced Directives Records Found Additional Source Comments (unrecognized sect ion and content) No Status Records Found INFORMATION SOURCE (unrecogn ized section and content) DATE CREATED AUTHOR 12/11/2021 [facility] FOR RECORDS PERTAINING TO PATIENTS WHO ARE OR HAVE BEEN ENROLLED IN A CHEMICAL DEPENDENCY/SUBSTANCEABUSE PROGRAM, SOME INFORMATION MAY BE OMITTED. This clinical summary was aggregated from multiple sources. Caution should be exercised in using it in the provision of clinical care. This summary normalizes information from multiple sources, and as a consequence, information in this document may materially change the coding, format and clinical context of patient data. In addition, data may be omitted in some cases. CLINICAL DECISIONS SHOULD BE BASED ON THE PRIMARY CLINICAL RECORDS. [employer] provides no warranty or guarantee of the accuracy or completeness of information in this document.
[2024-08-10 17:52] LABS: CREATININE FINGERSTICK 1.2 mg/dL (0.70-1.30); EGFR FINGERSTICK > 60.0000 mL/min (>60)
== END | disposition home or self-care (01) ==
PROVIDERS: PCP Family Medicine; Referring Provider Family Medicine; Visit Provider Family Medicine
DX: R31.9 Hematuria, unspecified (principal)
CPT/HCPCS: 74178; Q9967

== ENCOUNTER → 2024-09-11 | Outpatient (CLI) | payer MEDICARE, SELFPAY ==
--- NOTE | 2024-09-11 12:45 | PET_ITS ---
EXAMINATION: FDG PET CT HISTORY: 83-year-old male with history of pulmonary nodularity. COMPARISON EXAMINATION: CT of the abdomen-pelvis report 08/10/2024 INDEX LESION SIZE SUV INTERPRETATION Left inguinal region 10.2 mm 7.8 May necessitate histopathologic analysis secondary to the quantitative uptake. Left anterior neck level IV 15.2 mm 2.0 Quantitative criteria for neoplasm are not fulfilled TECHNIQUE: Following the intravenous administration of 14.2 mCi of F-18 deoxyglucose, via the left hand, multiplanar image acquisitions of the neck, chest, abdomen and pelvis to the level of mid thigh, obtained at one hour post radiopharmaceutical administration contemporaneously interpreted with the current CT of the neck, chest, abdomen and pelvis to the level of mid thigh, dated 09/11/2024 via coregistration reveals: BLOOD GLUCOSE LEVEL:?98 mg/dL?HEIGHT:?70 inches?WEIGHT: 245 lbs. FINDINGS: Head/Neck: Increased fluorine labeled glucose uptake is noted in the left anterior neck involving level IV. The calculated maximum standard uptake value is 2.0. The maximal axial diameter of the metabolic morphologic abnormality is 15.2 mm. There is no evidence of abnormal increased glucose metabolism in the pharyngeal mucosal space, parapharyngeal space, bilateral-lateral and right neck, hypopharynx and distribution of the larynx. The visualized portion of the cerebral cortical-subcortical structures demonstrate symmetric and preserved glucose metabolism. CHEST: No quantitatively significant abnormal glucose metabolism is identified in the right-left pulmonary parenchyma, the bilateral hemithorax at the pleural interface, the mediastinal and thoracic perihilar structures. Pertinent chest CT findings are as follows. Mediastinal soft tissue densities are nontracer avid. Atherosclerotic calcification is noted in the thoracic aorta without evidence of aneurysm formation. Coronary arterial calcification is defined. There are no parenchymal densities-nodules defined in the right and left hemithorax with quantitatively significant increased FDG uptake. Enhanced labeled glucose uptake is subtly apparent in the right lower lateral hemithorax at the pleural interface generating a calculated maximum standard uptake value of 0.9. Abdomen/Pelvis: Enhanced FDG concentration is defined in the single nodular focus involving the left inguinal region. The calculated standard uptake value is 7.8. The maximal axial diameter of the metabolic morphologic stability is 10.9 mm. Normal physiologic uptake is noted in the hepatic (4.2) and splenic parenchyma. There is symmetric demonstration of the right and left kidneys, normal uptake in the urinary bladder and visualized intestinal tract. Review of CT of the abdomen and pelvis reveals the following. Bilateral fat containing inguinal hernias are demonstrated. Right and left inguinal soft tissue is nontracer avid. Calcified phlebolith formation is noted in the bilateral lower hemipelvis. Colonic diverticulosis is evident without visualize diverticulitis. There is calcification noted within the prostate gland. Calcification is demonstrated in the abdominal aorta without evidence of dilatation. Abdominal and pelvic arterial calcification are encountered. SKELETAL: Degenerative changes noted within the axial skeleton demonstrate no evidence of increased tracer uptake. PET/PET/CT Tumor Base -Thigh Init IMPRESSION: 1. The increase in radiopharmaceutical defined in the left inguinal region may necessitate histopathologic analysis secondary to the quantitative degree of uptake. 2. Facilitated FDG concentration manifest in the left anterior neck does not fulfill quantitative criteria for neoplasia. Electronic Signature Alirio Rutledge D.O. Accurate Quantification of SUVs for this report are calculated using the exclusive [employer]. ([place]. Patent No. [id number] [phone] [phone] [place] patent [id number] [id number] [id number]). Standardization and correction of the FDG SUV metric via [employer] technology allow for vendor non-specific objective quantitative examination comparison and optimization of the sensitivity and specificity of the FDG PET-CT examination. . [email or web address] Electronically Signed: Alirio Rutledge DO at 13:16 EST ,
== END | disposition home or self-care (01) ==
LOC: ONC 10:05
PROVIDERS: PCP Family Medicine; Referring Provider Internal Medicine Pulmonary Disease; Visit Provider Internal Medicine Pulmonary Disease
DX: R91.1 Solitary pulmonary nodule (principal)
CPT/HCPCS: 78815; A9552; A4216

== ENCOUNTER 2024-09-12 10:24 | Day surgery (SDC) | payer MEDICARE, SELFPAY ==
--- NOTE | 2024-09-04 10:28 | EKG12_ITS ---
Test Reason : PRE OP Blood Pressure : */* mmHG Vent. Rate : 61 BPM Atrial Rate : 441 BPM P-R Int : * ms QRS Dur : 120 ms QT Int : 418 ms P-R-T Axes : * 94 43 degrees QTcB Int : 420 ms Atrial fibrillation with a competing junctional pacemaker with premature ventricular or aberrantly co nducted complexes Low voltage QRS Right bundle branch block Abnormal ECG Confirmed by RADHA CASEY, JENNIFER ([id number]), mapping editor SHASHI GARCIA ([id number]) on 09/04/2024 1:55:52 PM Referred By: Bola Boone Confirmed By: JENNIFER GARCIA MD
[2024-09-12] VITALS (9 sets, daily range): BP systolic 105–148; BP diastolic 52–87; PULSE 55–105; RESP 16–18; TEMP 36.1–36.5; O2SAT 97–100; BMI 32.5
--- NOTE | 2024-09-12 | BLB_PTH ---
PATIENT: HARRY LICEA [place] [facility] [id number] AGE/SX: 83/M ROOM: RE09/12/[address]: Dr. Bola Boone MD : 1940 BED: DIS: 09/12/2024 SPEC #: [id number] RECD: 09/12/24 14:14 STATUS: EBONIE REEdel #: [id number] LEONIDES: 09/12/24 00:[address]: Bola Boone DEPT: SURGICAL PATHOLOGY RECD BY: Hussein Alexander ENTERED: 09/12/24 14:15 SP TYPE: TURB OTHR DR: Dr. Jerrod Viramontes MD Tissues: Urinary bladder, NOS Procedures: Surgery Specimen Level V HEADER OPERATION: Cysto direct visualization urethrotomy PRE-OP DIAGNOSIS: Bladder tumor, urethral stricture TISSUE SUBMITTED: Bladder tumor MICROSCOPIC DIAGNOSIS Urinary bladder tumor, transurethral resection: Papillary urothelial carcinoma. See cancer template below. AM.mr 09/14/2024 COMMENT BLADDER CANCER (TUR) SUMMARY Procedure: Transurethral resection of bladder tumor (TURBT) Tumor site: Not specified Histologic type: Papillary urothelial carcinoma Associated epithelial lesions: None identified Histologic grade: Mostly grade 1-2 / 2 (WHO low grade) with focal high grade, 3/3 (WHO high grade non-invasive papillary carcinoma) Tumor configuration: Papillary Muscularis propria presence: Focally present and free of tumor Lymph vascular invasion: Not identified Tumor extension: Confined to urothelium Additional pathologic findings: Minimal chronic inflammation. PATHOLOGIC STAGE: Ta Nx Mx The above summary is in compliance with College of [place] [employer] (CAP) Cancer Protocols Checklist and [place] Joint Committee on Cancer (AJCC), Staging Manual, 8th Ed. MICROSCOPIC DESCRIPTION Slides are reviewed. GROSS DESCRIPTION Received in fixative is one container labeled with the patient's name and designated Bladder tumor. The specimen consists of multiple irregular and friable fragments of light pop soft tissue that in aggregate measure 6.0 x 6.0 x 0.3 cm. The specimen is totally submitted in ten cassettes. AM. 09/12/2024 TC: 0 CPT:80323
[2024-09-12] MEDS: Lactated Ringers 1,000 ML 15 ML IV (10:51)
--- NOTE | 2024-09-12 11:06 | HP.PCM_ITS ---
HPI - General General Date of Service: 09/12/24 Chief Complaint: Urethral stricture and bladder cancer HPI Narrative HARRY LICEA, is a 83 M who presents to the hospital to dilate a urethral stricture he was found to have a very dense mid urethral stricture in the office on cystoscopy also on CAT scan is a very large tumor in his bladder so we plan to do a cystoscopy dilation urethral stricture resection of the tumor and Gutierrez placement [facility] Medical History (Updated 08/30/24 @ 14:52 by Breonna Leggett) Wears glasses Gout DVT (deep venous thrombosis) Excessive bleeding Migraine headache Gastric reflux Former smoker History of edema History of echocardiogram Hypertension Cardiology follow-up encounter Obesity, Class II, BMI 35-39.9 Thyroid nodule Deep vein thrombosis, lower left extremity (06/2019) Longstanding persistent atrial fibrillation Secondary pulmonary arterial hypertension Essential (primary) hypertension Glaucoma ED (erectile dysfunction) BPH (benign prostatic hyperplasia) Incomplete right bundle branch block COPD (chronic obstructive pulmonary disease) Hyperlipidemia Home Medications ?Medication ?Instructions ?Recorded ?Last Taken ?Type losartan 100 1 tab PO DAILY 03/25/20 09/11/24 History mg-hydrochlorothiazide 25 mg tablet albuterol sulfate 90 mcg/actuation 2 puff inhalation Q4H PRN 03/25/21 08/23/24 History aerosol inhaler shortness of breath or wheezing 90 days atorvastatin 40 mg tablet 40 mg PO QHS 03/25/21 09/09/24 History fluticasone fur. 200 mcg-umeclid 1 inh inhalation DAILY 03/25/21 09/09/24 History 62.5 mcg-vilant 25 mcg inhalat.powder magnesium oxide 400 mg PO TID 03/25/21 09/11/24 History furosemide 40 mg tablet 40 mg PO DAILY #90 tabs 12/21/23 09/05/24 Rx apixaban 5 mg tablet (Eliquis) 5 mg PO BID #180 TABLETS 12/28/23 08/23/24 Rx metoprolol succinate 50 mg 50 mg PO DAILY #90 tabs 04/11/24 09/12/24 Rx tablet,extended release 24 hr empagliflozin 25 mg tablet 25 mg PO DAILY 08/30/24 09/09/24 History (Jardiance) ergocalciferol (vitamin D2) 1,250 1,250 mcg PO .QWEEKLY 08/30/24 09/09/24 History mcg (50,000 unit) capsule (Vitamin D2) latanoprost 0.005 % eye drops 1 drp ophthalmic (eye) DAILY 08/30/24 09/05/24 History Allergy/AdvReac Type Severity Reaction Status Date / Time No Known Allergies Allergy Verified 09/12/24 10:39 Family History (Reviewed 09/20/23 @ 10:56 by Jerrod Fontanez CONTINUOUS PROCESS ROTARY DRUM TANNER, CONTINUOUS PROCESS ROTARY DRUM TANNER-C) Father Myocardial infarction Mother CVA (cerebral vascular accident) Brother CVA (cerebral vascular accident) Sister CVA (cerebral vascular accident) Surgical History (Updated 08/30/24 @ 14:52 by Breonna Leggett) Hx of bilateral cataract extraction History of back surgery Social History (Reviewed 09/20/23 @ 10:56 by Jerrod Fontanez CONTINUOUS PROCESS ROTARY DRUM TANNER, CONTINUOUS PROCESS ROTARY DRUM TANNER-C) Smoking Status: Former smoker how long ago did patient quit smokin's for cigarettes, 1991 for chewing tobacco alcohol intake: current alcohol intake frequency: a few times a week Alcohol type: hard liquor substance use type: does not use caffeine: Yes Type: coffee Number of servings: 2 Vital Signs Vital Signs Vital Signs: 09/12/24 10:43 09/12/24 10:43 Temperature 97.7 F L Temperature Source Temporal Pulse Rate 105 H Respiratory Rate 16 Respiratory Pattern Normal Blood Pressure 141/87 H Blood Pressure Mean 105 Blood Pressure Source Monitor Blood Pressure Position Sitting Blood Pressure Location Right Arm Pulse Ox 99 Oxygen Delivery Method Room Air Weight Weight: 109 kg Body Mass Index (BMI) 32.5
[2024-09-12 11:09] LABS: Bedside Glucose 94 mg/dL (74-106)
--- NOTE | 2024-09-12 11:24 | PRE.ANES_ITS ---
ASA Classification* ASA Classification ASA Classification: 3 Assessment & Plan Anesthesia* Anesthesia Assessment Anesthesia Assessment: Discussed sedation and/or anesthesia options, risks, benefits, and alternatives with patient/parents/legal guardian/POA. Questions invited. The patient/parents/legal guardian/POA seems to understand and agrees to proceed with anesthesia plan. Reviewed the physical assessment, medical history, allergy history and patient home medications list prior to surgery/procedure/anesthetic and documented any changes. Performed airway and anesthesia risk assessments. Anesthesia Type Anesthesia Type: General Anesthesia Focused Assessment* Temperature: 97.7 F Pulse Rate: 105 Blood Pressure: 141/87 Respiratory Rate: 16 Pulse Ox: 99 Airway Assessment Mouth opens: >3 cm Mallampati Score: II Focused Labs Anesthesia Preop lab: CBC WBC 7.7 K/mm3 (4.4-11.0) 06/26/24 10:08 RBC 4.77 M/mm3 (4.6-6.2) 06/26/24 10:08 Hgb 14.0 g/dL (13.0-16.5) 06/26/24 10:08 Hct 43.4 % (40-54) 06/26/24 10:08 Plt Count 204 K/mm3 (150-450) 06/26/24 10:08 CHEMISTRY Potassium 4.8 mmol/L (3.5-5.1) 06/26/24 10:08 Sodium 136 mmol/L (136-145) 06/26/24 10:08 Magnesium 2.2 mg/dL (1.6-2.6) 06/26/24 10:08 Phosphorus 3.7 mg/dL (2.5-4.9) 06/26/24 10:08 BUN 36 mg/dL (7-18) H 06/26/24 10:08 Creatinine 1.46 mg/dL (0.70-1.30) H 06/26/24 10:08 Glucose 115 mg/dL (74-106) H 06/26/24 10:08 POC Glucose 94 mg/dL (74-106) 09/12/24 10:42 TSH 1.570 uIU/mL (0.358-3.740) 06/26/24 10:08 COAG Pre-Assessment Diagnosis/Proposed Procedure Planned Operative Procedure(s): Cysto Direct Visualization Internal Urethrotomy and Trans-urethral resection, bladder tumor-large Anesthesia History Anesthesia History - [facility] security: Anesthesia History - [facility] Hx Hospitalization No 08/30/24 14:53 Any Problems With Anesthesia No 08/30/24 14:53 Cholinesterase deficiency No 08/30/24 14:53 You/Your Family Experience No 08/30/24 14:53 fever (hyperthermia) with Relationship Recent Exposure to Contagious No 09/12/24 10:43 Disease Does patient have nerve No 08/30/24 14:53 stimulator Patient instructed to have device shut off --Does patient have Pacemaker No 09/12/24 10:43 or ICD? When Was Last Pacemaker Check QUESTION #4 FULL TEXT: You/Your Family Experience fever (hyperthermia) with Anesthesia Last Oral Intake Last Oral intake: Last Oral Intake NPO since 22:00 09/12/24 10:43 Meds taken in AM with sips of No 09/12/24 10:43 water? Meds patient instructed to take am of surgery PONV PONV - [facility] security: PONV - [facility] Female No 08/30/24 14:53 HX of Motion Sickness No 08/30/24 14:53 HX of N/V After Surgery No 08/30/24 14:53 Non-Smoker Yes 08/30/24 14:53 Duration of Surgery greater Yes 08/30/24 14:53 than 60 minutes Number of Risk Factors 2 08/30/24 14:53 PONV Score Moderate Risk 08/30/24 14:53 Height & Weight Height & Weight: Anesthesia: Height & Weight Height 6 ft 09/12/24 10:43 Weight: 109 kg 09/12/24 10:43 Body Mass Index (BMI) 32.5 09/12/24 10:43 Respiratory Assessment Respiratory Assessment - [facility] [employer]: Respiratory Tract Infection Hx - [facility] [employer] Hx Respiratory Tract Infection No 08/30/24 14:53 STOP Sleep Apnea STOP Sleep Apnea - [facility] security: STOP Sleep Apnea - [facility] security Hx Hypertension Yes: CONTROLLED ON MED 08/30/24 14:53 Hx Sleep Apnea No 08/30/24 14:53 CPAP BIPAP Do you snore loudly (louder No 08/30/24 14:53 than talking or can be heard Do you often feel tired/ No 08/30/24 14:53 fatigued/ sleepy during daytime? Has anyone observed you stop No 08/30/24 14:53 breathing during sleep? STOP Results Negative 08/30/24 14:53 QUESTION #5 FULL TEXT : Do you snore loudly (louder than talking or can be heard through closed doors)? 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 Specify any problems Hx of Preganancy in last 3 N/A 08/30/24 14:53 Months Nurse Filling Out Transfusion VCHRISTIN 08/30/24 14:53 & Questions: Date: 08/30/24 08/30/24 14:53 Time: 14:54 08/30/24 14:53 Patient unable to answer at this time (ie. confused, unrespo /Reproduction History /Reproductive History - [facility]: /Reproductive Hx- [facility] Hx Now Gestational Age (in weeks): EDC: Hx Hx Para Hx Section SAB Active Medications Active Medications: Current Medications Generic Name Dose Route Start Last Admin Trade Name Freq PRN Reason Stop Dose Admin Cefazolin Sodium 2 gm/ N/A 20 mls @ 400 mls/hr 09/12/24 14:15 IV 09/12/24 14:17 PREOP ONE Lactated Ringer's 1,000 mls @ 15 mls/hr 09/12/24 10:45 09/12/24 10:51 IV 09/18/24 00:04 15 mls/hr .Q48H GET Administration Protocol PFSH Medical History Wears glasses Gout DVT (deep venous thrombosis) Excessive bleeding Migraine headache Gastric reflux Former smoker History of edema History of echocardiogram Hypertension Cardiology follow-up encounter Obesity, Class II, BMI 35-39.9 Thyroid nodule Deep vein thrombosis, lower left extremity (06/2019) Longstanding persistent atrial fibrillation Secondary pulmonary arterial hypertension Essential (primary) hypertension Glaucoma ED (erectile dysfunction) BPH (benign prostatic hyperplasia) Incomplete right bundle branch block COPD (chronic obstructive pulmonary disease) Hyperlipidemia Home Medications ?Medication ?Instructions ?Recorded ?Last Taken ?Type losartan 100 1 tab PO DAILY 03/25/20 09/11/24 History mg-hydrochlorothiazide 25 mg tablet albuterol sulfate 90 mcg/actuation 2 puff inhalation Q4H PRN 03/25/21 08/23/24 History aerosol inhaler shortness of breath or wheezing 90 days atorvastatin 40 mg tablet 40 mg PO QHS 03/25/21 09/09/24 History fluticasone fur. 200 mcg-umeclid 1 inh inhalation DAILY 03/25/21 09/09/24 History 62.5 mcg-vilant 25 mcg inhalat.powder magnesium oxide 400 mg PO TID 03/25/21 09/11/24 History furosemide 40 mg tablet 40 mg PO DAILY #90 tabs 12/21/23 09/05/24 Rx apixaban 5 mg tablet (Eliquis) 5 mg PO BID #180 TABLETS 12/28/23 08/23/24 Rx metoprolol succinate 50 mg 50 mg PO DAILY #90 tabs 04/11/24 09/12/24 Rx tablet,extended release 24 hr empagliflozin 25 mg tablet 25 mg PO DAILY 08/30/24 09/09/24 History (Jardiance) ergocalciferol (vitamin D2) 1,250 1,250 mcg PO .QWEEKLY 08/30/24 09/09/24 History mcg (50,000 unit) capsule (Vitamin D2) latanoprost 0.005 % eye drops 1 drp ophthalmic (eye) DAILY 08/30/24 09/05/24 History Allergy/AdvReac Type Severity Reaction Status Date / Time No Known Allergies Allergy Verified 09/12/24 10:39 Family History Father Myocardial infarction Mother CVA (cerebral vascular accident) Brother CVA (cerebral vascular accident) Sister CVA (cerebral vascular accident) Surgical History Hx of bilateral cataract extraction History of back surgery Social History Smoking Status: Former smoker how long ago did patient quit smokin's for cigarettes, 1991 for chewing tobacco alcohol intake: current alcohol intake frequency: a few times a week Alcohol type: hard liquor substance use type: does not use caffeine: Yes Type: coffee Number of servings: 2 Review of Systems (Anesthesia) ROS Narrative System reviewed and no additional complaints, except as documented.
[2024-09-12] MEDS: Cefazolin 2 GM in Syringe IV (12:32)
--- NOTE | 2024-09-12 13:25 | DCINST_ITS ---
Discharge Instructions Diet Discharge Diet: No restrictions, Light diet - advance as tolerated and Soft diet DC O2, CPAP, BIPAP needs Additional Home O2 Discharge instructions: No Dressing / Incision Discharge Activity: Return to Normal Activity and May Not Drive Dressing / Incision Catheter: Sin to leg bag and Sin to large bag Drain: [place] Follow Up Care Please Follow Up With: Bola Boone MD When: follow up 2 weeks to d/c sin Test Results: Test results from this visit will be discussed in further detail at your follow- up appointment, if applicable. Discharge Plan Admission Primary Reason for Your Visit: bladder tumor Attending Provider: Bola Boone Primary Care Provider: Jerrod Viramontes Instructions Print Language: Kiswahili Discharge Orders/Prescriptions Prescriptions: New oxycodone 5 mg tablet 5 mg PO Q6H PRN (Reason: pain) 3 Days Qty: 14 0RF ciprofloxacin HCl [Cipro] 500 mg tablet 500 mg PO BID Qty: 14 0RF Continued albuterol sulfate 90 mcg/actuation HFA aerosol inhaler 2 puff INHALATION Q4H PRN (Reason: shortness of breath or wheezing) 90 Days Patient Comments: losartan-hydrochlorothiazide 100-25 mg tablet 1 tab PO DAILY rwexjcahvkt-ymplshpwq-ahagtito 200-62.5-25 mcg blister with device 1 inh inhalation DAILY atorvastatin 40 mg tablet 40 mg PO QHS magnesium oxide 400 mg magnesium tablet 400 mg PO TID ergocalciferol (vitamin D2) [Vitamin D2] 1,250 mcg (50,000 unit) capsule 1,250 mcg PO .QWEEKLY Jardiance 25 mg tablet 25 mg PO DAILY latanoprost 0.005 % drops 1 drp ophthalmic (eye) DAILY furosemide 40 mg tablet 40 mg PO DAILY Qty: 90 3RF metoprolol succinate 50 mg tablet extended release 24 hr 50 mg PO DAILY Qty: 90 3RF Held Eliquis 5 mg tablet 5 mg PO BID Qty: 180 3RF Hold Instructions: Resume on 09/26/24. Referrals / Follow Up: Bola Boone MD [Med Staff - Active Staff] - Jerrod Viramontes MD [Primary Care Provider] - Disposition Disposition (needs filled in before D/C Order can be placed): Home, Self Care
--- NOTE | 2024-09-12 13:25 | PCM.OPRPT ---
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 The patient has a urethral stricture in the mid urethra and working to proceed with a direct vision internal urethrotomy. Patient understands that it is possible that the scar tissue may come back and that the success rate of this procedures in the long-term is about 60 to 70%. We talked about the possibility of bleeding or infection from the procedure. The patient also understands that a catheter will be necessary after the procedure for about 10 days depending on the situation. After long discussion with the patient in preoperative area describing the procedure and what the patient's expect afterwards, the patient's questions were addressed and working to proceed with the surgery, the consent form was signed. The patient was taken back to the operating room after induction of anesthesia was placed in dorsolithotomy position. The genitals and urethra are prepped and draped in the usual sterile fashion. Then using a DVIU set the meatus was gently dilated from 18-20 Dominican. Then went into the urethra with a urethrotome and identified the pinpoint stricture in the mid urethra. A 0.038 Glidewire was used to passed through the stricture to ensure access to the bladder and the prostate. The Glidewire was secured to the drapes. Then using a cold knife the knife was deployed from the urethrotome and then at the 12 o'clock position the scar tissue was cut until the stricture was cut open completely. I was then able to navigate the scope through the scar tissue without any resistance. Then after this I was able to navigate past the dense scar tissue into the bulbar urethra through the sphincter and passed the prostate. Inside the bladder the bladder and prostate was inspected the trigone was normal the left and right ureter orifice normal the prostate was normal. After the DVIU I was then able to go into the bladder with a 30 degree lens and a cystoscope was performed and identified the tumor the tumors which was about 5.5 centimeters in size and occupying mostly the Left wall of the bladder. I then switched over to the 70 degree lens and inspected the rest of the bladder with a 70 degree lens to make sure there is no other tumors in the bladder and to identify all the tumor locations. The right and left ureteral orifice were identified, I then placed the Olympus bipolar resectoscope with a large loop into the bladder. I then started resected the tumor and started superficially shaving small little pieces working my way to the base of the tumor. As I went along I then cauterize any bleeders that were encountered during the resection. The tumor pieces were then flushed out of the bladder and continued resecting the tumor until finally I got down to the base of the tumor and the muscle of the bladder was then identified a small little bit of muscle was taken with the resection. The Ellik was used then to evacuate all the tumor pieces out of the bladder. I then cauterized extensively the tumor base and also circumferentially around where the tumor was. Again we made sure to evacuate all the pieces out the bladder. I made sure there was no more bleeding from the base of the bladder and then over the tumor pieces were then evacuated out and sent off as a specimen. We then placed the catheter in the bladder and the patient was taken back to the PACU in stable condition. Surgical Findings: Extensive amount of strictures along the urethra that were dilated and then I used a DVIU set to cut open the strictures Then used a 26 resections scope and resected a very large tumor in the patient's lateral wall, left in the bladder Sent home with 20 Dominican catheter to allow to heal for 2 weeks Soil Specialist civil lawyer: No Complications Complications: No Admit VTE Documentation VTE Present on Admission: No VTE Mechan Device Prophylaxis: SCD's VTE Pharm Prophylaxis ordered?: No
--- NOTE | 2024-09-12 13:37 | PCM.POST.ANE ---
Anesthesia: Postop Eval I Current Vital Signs Temperature: 97 F Pulse Rate: 69 Blood Pressure: 117/79 Respiratory Rate: 16 Pulse Ox: 99 Assessment Airway patent: No Spontaneous unlabored respirations: No nausea: No Vomiting: No Anesthesia Complication: No Fluid Hydration Crystalloid volume administer (ml): 200 Total IV fluid infused: 200 Progress Note Anesthesia document: Postop Eval 1 completed: Yes
--- NOTE | 2024-09-12 13:39 | PCM.POSTANE2 ---
Anesthesia Postop Eval I Sum Postop Eval Completion status Anesthesia document: Postop Eval 1 completed: Yes Anesthesia Postop Eval I Summary Anesthesia Postop Eval I Summary: Anesthesia Postop Eval I: Assessment Summary Airway patent No 09/12/24 13:39 Spontaneous unlabored No 09/12/24 13:39 respirations Mental status nausea No 09/12/24 13:39 Vomiting No 09/12/24 13:39 Anesthesia Postop Eval I: Fluid Summary Crystalloid volume administer 200 09/12/24 13:39 (ml) Colloids volume administered ( ml) Blood Product volume administered (ml) Total IV fluid infused 200 09/12/24 13:39 Anesthesia Postop Eval I: Summary Notes Anesthesia Complication No 09/12/24 13:39 Anesthesia Complication Comment: Post-operative progress note Anesthesia: Postop Eval II Evaluation Mental status: Awake Pain Level: 0 nausea: No Vomiting: No
== END 2024-09-12 15:23 | disposition home or self-care (01) ==
LOC: SDC 10:24 → AC 10:25
PROVIDERS: PCP Family Medicine; Referring Provider Urology; Visit Provider Urology
PROC: 0T7D8ZZ Dilation of Urethra, Via Natural or Artificial Opening Endoscopic (ICD-10-PCS; CPT 52276; principal; 2024-09-12 12:35)
DX: C67.9 Malignant neoplasm of bladder, unspecified (principal); J44.9 Chronic obstructive pulmonary disease, unspecified; N35.919 Unspecified urethral stricture, male, unspecified site; I10 Essential (primary) hypertension; Z79.51 Long term (current) use of inhaled steroids; Z79.01 Long term (current) use of anticoagulants; Z79.899 Other long term (current) drug therapy; Z86.718 Personal history of other venous thrombosis and embolism; Z87.891 Personal history of nicotine dependence
CPT/HCPCS: 52276; 52240; 00910; 82962; 88307; 93005; J7120; C1769; J2405

== ENCOUNTER 2024-09-21 12:22 | Inpatient (IN) | payer MEDICARE, SELFPAY ==
[2024-09-21] VITALS (10 sets, daily range): BP systolic 94–132; BP diastolic 55–106; PULSE 78–98; RESP 16–18; TEMP 36.3–36.7; O2SAT 94–100; BMI 34.9; BMI 33.7
--- NOTE | 2024-09-21 13:28 | EKG12_ITS ---
Test Reason : Blood Pressure : */* mmHG Vent. Rate : 84 BPM Atrial Rate : * BPM P-R Int : * ms QRS Dur : 126 ms QT Int : 390 ms P-R-T Axes : * 83 43 degrees QTcB Int : 460 ms Atrial fibrillation Right bundle branch block Abnormal ECG Confirmed by Winston Lees ([id number]), purchase request editor BEATRIZ MALDONADO ([id number]) on 09/24/2024 6:54:20 AM Referred By: Confirmed By: Winston Lees
[2024-09-21] MEDS: Furosemide 40 MG/4 ML Vial IV (13:39)
--- NOTE | 2024-09-21 13:39 | EX.ED.DYSGE1 ---
HPI History of Present Illness Chief Complaint: Weakness Narrative Narrative: Chief complaint and HPI: Bilateral lower extremity edema and generalized weakness. 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 Patient states since his surgery he has been having increased bilateral lower extremity edema. He does take diuretics at home. No history of CHF. Patient states that his edema has been worsening in his bilateral lower extremities causing pain. He states due to the pain he has not been ambulating. Patient states that he slid out of his lift chair today in which he could not get up on his own. Did not hit his head. No LOC. EMS was called as family could not assist him up. He denies any fever, chills, shortness of breath, chest pain, URI symptoms, abdominal pain, nausea, vomiting, dysuria-he does have a urinary catheter in place Review of systems: See HPI Medications: As listed on the chart Allergies: As listed on the chart PFSH: Per chart Vital signs: As listed on the chart. Reviewed. Physical exam: Gen: A&O x3, NAD Head: Normocephalic, atraumatic Eyes: No sclera icterus, conjunctiva clear ENT: Moist mucous membranes Neck: Trachea midline CV: Regular rate, irregular rhythm, no murmurs, + 2 pitting edema in the bilateral feet to the knees-mildly tender to palpation diffusely where edema is located, no cellulitis Resp: Lungs CTA BL, no w/r/c GI: Abd soft, non-distended, non-tender, no r/r/g : Circumcised male, no penile or testicular swelling or tenderness, no penile discharge,+ Gutierrez in place with clear urine Musc: Moves all extremities, no deformity Skin: Warm, dry Neuro: Alert, oriented, grossly intact, sensation intact Psych: Cooperative, appropriate mood and affect [facility] Medical History Wears glasses Gout DVT (deep venous thrombosis) Excessive bleeding Migraine headache Gastric reflux Former smoker History of edema History of echocardiogram Hypertension Cardiology follow-up encounter Obesity, Class II, BMI 35-39.9 Thyroid nodule Deep vein thrombosis, lower left extremity (06/2019) Longstanding persistent atrial fibrillation Secondary pulmonary arterial hypertension Essential (primary) hypertension Glaucoma ED (erectile dysfunction) BPH (benign prostatic hyperplasia) Incomplete right bundle branch block COPD (chronic obstructive pulmonary disease) Hyperlipidemia Home Medications ?Medication ?Instructions ?Recorded ?Last Taken ?Type losartan 100 1 tab PO DAILY 03/25/20 09/11/24 History mg-hydrochlorothiazide 25 mg tablet albuterol sulfate 90 mcg/actuation 2 puff inhalation Q4H PRN 03/25/21 08/23/24 History aerosol inhaler shortness of breath or wheezing 90 days atorvastatin 40 mg tablet 40 mg PO QHS 03/25/21 09/09/24 History fluticasone fur. 200 mcg-umeclid 1 inh inhalation DAILY 03/25/21 09/09/24 History 62.5 mcg-vilant 25 mcg inhalat.powder magnesium oxide 400 mg PO TID 03/25/21 09/11/24 History furosemide 40 mg tablet 40 mg PO DAILY #90 tabs 12/21/23 09/05/24 Rx apixaban 5 mg tablet (Eliquis) 5 mg PO BID #180 TABLETS 12/28/23 08/23/24 Rx metoprolol succinate 50 mg 50 mg PO DAILY #90 tabs 04/11/24 09/12/24 Rx tablet,extended release 24 hr empagliflozin 25 mg tablet 25 mg PO DAILY 08/30/24 09/09/24 History (Jardiance) ergocalciferol (vitamin D2) 1,250 1,250 mcg PO .QWEEKLY 08/30/24 09/09/24 History mcg (50,000 unit) capsule (Vitamin D2) latanoprost 0.005 % eye drops 1 drp ophthalmic (eye) DAILY 08/30/24 09/05/24 History ciprofloxacin HCl 500 mg tablet 500 mg PO BID #14 tabs 09/12/24 Unknown Rx (Cipro) oxycodone 5 mg tablet 5 mg PO Q6H PRN pain 3 days #14 09/12/24 Unknown Rx tabs Allergy/AdvReac Type Severity Reaction Status Date / Time No Known Allergies Allergy Verified 09/12/24 10:39 Family History Father Myocardial infarction Mother CVA (cerebral vascular accident) Brother CVA (cerebral vascular accident) Sister CVA (cerebral vascular accident) Surgical History Hx of bilateral cataract extraction History of back surgery Social History Smoking Status: Former smoker how long ago did patient quit smokin's for cigarettes, 1991 for chewing tobacco alcohol intake: current alcohol intake frequency: a few times a week Alcohol type: hard liquor substance use type: does not use caffeine: Yes Type: coffee Number of servings: 2 EXAM Physical Exam Const Vital Signs: 09/21/24 12:24 09/21/24 12:27 09/21/24 12:57 Temperature 97.4 F L 97.4 F L Temperature Source Oral Oral Pulse Rate 90 88 Respiratory Rate 18 16 Respiratory Effort Normal Respiratory Pattern Normal Blood Pressure 132/81 H 126/106 H Blood Pressure Mean 98 112 Pulse Ox 100 95 Oxygen Delivery Method Room Air Room Air 09/21/24 13:27 09/21/24 14:00 09/21/24 14:23 Temperature 98 F 98 F Temperature Source Oral Oral Pulse Rate 84 78 83 Respiratory Rate 18 16 18 Respiratory Effort Respiratory Pattern Blood Pressure 100/84 H 103/64 104/68 Blood Pressure Mean 89 77 80 Pulse Ox 95 94 99 Oxygen Delivery Method Room Air Room Air Room Air 09/21/24 16:00 Temperature Temperature Source Pulse Rate 80 Respiratory Rate 18 Respiratory Effort Respiratory Pattern Blood Pressure 122/69 H Blood Pressure Mean 86 Pulse Ox 97 Oxygen Delivery Method Room Air MDM MDM MDM Narrative Medical decision making narrative: 83-year-old gentleman with history of atrial fibrillation currently not on anticoagulation due to his surgery, HTN, HLD, COPD, and status post internal urethrotomy of urethral strictures and transurethral resection of a large bladder tumor on 09/12 presents for evaluation of bilateral lower extremity edema and generalized weakness. Patient states that he has not walked much since his surgery secondary to pain from swelling. Differential diagnosis includes but is not limited to CHF, electrolyte abnormality, ACS. Given patient's physical exam, I suspect CHF. On chart review, patient has no official diagnosis of CHF. His last echo was in 2019 with an EF of 60%. IV Lasix ordered for his peripheral edema and cardiac workup ordered. EKG and chest x-ray reviewed see below. CBC shows mild leukocytosis of 12.4. Patient does have a new mild anemia of 12.8. Patient did just have surgery. Coagulation panel unremarkable. BMP shows hyponatremia at 125 as well as mild hypokalemia of 3.4. P.o. potassium ordered. He is at his baseline renal insufficiency with a creatinine of 1.42. Troponin unremarkable. BNP mildly elevated at 170.3. Patient will warrant admission for his likely new diagnosis of heart failure and peripheral edema. He will acquire IV Lasix and close monitoring with his renal insufficiency. Patient and family updated of all the results and confirmed understanding of the plan. Patient was discussed with hospitalist who accepted admission. EKG: Interpreted by me/EM physician: EKG shows atrial fibrillation with right bundle branch block. No acute ischemic changes Diagnostic: Interpreted by me/EM physician: Chest x-ray without pneumonia, effusion, cardiomegaly, pneumothorax Impression: 1. Bilateral peripheral edema, suspect new diagnosis of heart failure 2. Hyponatremia 3. Hypokalemia 4. Renal insufficiency Lab Data Labs: Laboratory Results - last 24 hr 09/21/24 09/21/24 13:41 15:13 WBC 12.4 H RBC 4.33 L Hgb 12.8 L Hct 36.6 L MCV 84.5 MCH 29.6 MCHC 35.0 RDW Std Deviation 37.6 RDW Coeff of Tomasz 12.3 Plt Count 207 MPV 8.9 Immature Gran % (Auto) 1.400 H Neut % (Auto) 78.5 H Lymph % (Auto) 7.2 L Duchesne % (Auto) 11.7 H Eos % (Auto) 1.0 Baso % (Auto) 0.2 Absolute Neuts (auto) 9.8 H Absolute Lymphs (auto) 0.89 Nucleated RBC % 0 PT 14.9 INR 1.2 APTT 27.6 Sodium 125 L Potassium 3.4 L Chloride 87 L Carbon Dioxide 27.0 Anion Gap 11 BUN 46 H Creatinine 1.42 H Estim Creat Clear Calc 53.85 Est GFR (MDRD) Af Amer 61 Est GFR (MDRD) Non-Af 51 L BUN/Creatinine Ratio 32.4 H Glucose 124 H Calcium 8.8 Troponin I High Sens 14 B-Natriuretic Peptide 170.3 H Radiography Diagnostic Testing: Clinical Impression(s) from Imaging Studies Chest X-Ray 09/21/24 13:40 IMPRESSION: Stable examination. No acute abnormality is seen. Electronically Signed: Angel Wilde MD at 13:57 EST , Discharge Plan Disposition Disposition: Acute Care Hospital [facility] Discharge Date/Time: 09/21/24 20:22
--- NOTE | 2024-09-21 13:40 | RAD_ITS ---
STUDY: X-RAY CHEST REASON FOR EXAM: Male, 83 years old. Concern for CHF TECHNIQUE: Single AP portable view of the chest. COMPARISON: Comparison is made with prior study dated March 02, 2016. FINDINGS: EKG electrodes are seen. Hyperinflation. The lungs are clear. There is no demonstrated pleural abnormality. Normal size heart. Normal mediastinum and ming. Normal visualized pulmonary arteries. There is atherosclerotic calcification of the aortic arch with tortuosity. There are diffuse degenerative changes of the visualized thoracic spine. Healed multiple right rib fractures. There is no demonstrated abnormality of the visualized soft tissue structures of the upper abdomen. RAD/Chest 1 View (Portable) IMPRESSION: Stable examination. No acute abnormality is seen. Electronically Signed: Angel Wilde MD at 13:57 EST ,
[2024-09-21 13:56] LABS: International Normalized Ratio 1.2; Prothrombin Time (Protime)PT. 14.9 SECONDS (11.7-14.9)
[2024-09-21 13:57] LABS: Partial Thromboplast Time 27.6 Seconds (24.1-36.2)
[2024-09-21 14:12] LABS: BNP,B-Type NATRIURETIC PEPTIDE 170.3 pg/mL (0-100)
[2024-09-21 14:20] LABS: Anion Gap 11 (5-15); BUN 46 mg/dL (7-18); BUN/Creat Ratio 32.4 RATIO (10-20); Calcium,Total 8.8 mg/dL (8.5-10.1); Chloride 87 mmol/L (98-107); Creatinine, Serum 1.42 mg/dL (0.70-1.30); EST Glomerular Filtration Rate 51 mL/min (>60); Est Glom Filt Rate - Afr Amer 61 mL/min (>60); Estimated Creatinine Clearance 53.85 ml/min; Glucose 124 mg/dL (74-106); Potassium 3.4 mmol/L (3.5-5.1); Sodium Level 125 mmol/L (136-145); Troponin-I HS 14 pg/mL (3.0-78.0)
[2024-09-21 15:22] LABS: Absolute Lymphocyte Count 0.89 X10^3/uL (0.83-4.51); Absolute Neutrophil Count 9.8 X10^3/uL (2.0-7.7); Basophil# 0.03 X10^3/uL; Basophil% 0.2 % (0-1); Eosinophil# 0.12 X10^3/uL; Hematocrit 36.6 % (40-54); Hemoglobin 12.8 g/dL (13.0-16.5); Lymphocyte # 0.89 X10^3/ul (0.83-4.51); Lymphocyte % 7.2 % (19-41); Mean Corpuscular Hgb 29.6 pg (27.0-32.0); Mean Corpuscular Volume 84.5 fL (80-94); Mean Platelet Vol. 8.9 fl (6.2-12.0); Monocyte# 1.45 X10^3/uL; Monocyte% 11.7 % (0-10); NRBC Flagged by Analyzer 0 % (0-5); Neutrophil # 9.77 X10^3/uL (2.7-7.7); Neutrophil % 78.5 % (47-70); Platelet Count 207 K/mm3 (150-450); RBC Distribution Width CV 12.3 % (11.6-14.6); RBC Distribution Width SD 37.6 fl (35.1-43.9); Red Blood Count 4.33 M/mm3 (4.6-6.2); White Blood Count 12.4 K/mm3 (4.4-11.0)
--- NOTE | 2024-09-21 16:38 | PCM.HP.STD ---
HPI - General General Date of Admission: 09/21/24 Date of Service: 09/21/24 Chief Complaint: Increasing LE swelling HPI Narrative HARRY LICEA, is a 83-year-old male history of hypertension, COPD, DVT, A-fib, pulmonary hypertension, status post internal urethrotomy of urethral strictures and transurethral resection of large bladder tumor on 09/12 who presented [facility] ED 09/21/2024 with bilateral lower extremity edema generalized weakness. Since his surgery has been having increased bilateral lower extremity edema. Does take diuretics at home but is continued to have the increased edema that has been causing him pain. Today he slid out of the chair and could not get up on his own so EMS was called his family cannot assist him. In the ED chest x-ray unremarkable and BNP 170 with no other recent values for comparison. He also was found to have a sodium of 125 within normal baseline and potassium of 3.4. Creatinine at baseline of 1.42. Given patient's weakness and significant swelling in his lower extremities hospitalist contacted for admission for possible exacerbation of heart failure. Patient evaluated with at bedside and they report that he has been taking his medications but he has had increased swelling over the past couple of days to the point he has a lot of pain and cannot get around, also has a little bit of erythema on the top of his left foot that has been progressive over the past day or so. ROS otherwise douglass negative [facility] Medical History Wears glasses Gout DVT (deep venous thrombosis) Excessive bleeding Migraine headache Gastric reflux Former smoker History of edema History of echocardiogram Hypertension Cardiology follow-up encounter Obesity, Class II, BMI 35-39.9 Thyroid nodule Deep vein thrombosis, lower left extremity (06/2019) Longstanding persistent atrial fibrillation Secondary pulmonary arterial hypertension Essential (primary) hypertension Glaucoma ED (erectile dysfunction) BPH (benign prostatic hyperplasia) Incomplete right bundle branch block COPD (chronic obstructive pulmonary disease) Hyperlipidemia Home Medications ?Medication ?Instructions ?Recorded ?Last Taken ?Type losartan 100 1 tab PO DAILY 03/25/20 09/11/24 History mg-hydrochlorothiazide 25 mg tablet albuterol sulfate 90 mcg/actuation 2 puff inhalation Q4H PRN 03/25/21 08/23/24 History aerosol inhaler shortness of breath or wheezing 90 days atorvastatin 40 mg tablet 40 mg PO QHS 03/25/21 09/09/24 History fluticasone fur. 200 mcg-umeclid 1 inh inhalation DAILY 03/25/21 09/09/24 History 62.5 mcg-vilant 25 mcg inhalat.powder magnesium oxide 400 mg PO TID 03/25/21 09/11/24 History furosemide 40 mg tablet 40 mg PO DAILY #90 tabs 12/21/23 09/05/24 Rx apixaban 5 mg tablet (Eliquis) 5 mg PO BID #180 TABLETS 12/28/23 08/23/24 Rx metoprolol succinate 50 mg 50 mg PO DAILY #90 tabs 04/11/24 09/12/24 Rx tablet,extended release 24 hr empagliflozin 25 mg tablet 25 mg PO DAILY 08/30/24 09/09/24 History (Jardiance) ergocalciferol (vitamin D2) 1,250 1,250 mcg PO .QWEEKLY 08/30/24 09/09/24 History mcg (50,000 unit) capsule (Vitamin D2) latanoprost 0.005 % eye drops 1 drp ophthalmic (eye) DAILY 08/30/24 09/05/24 History ciprofloxacin HCl 500 mg tablet 500 mg PO BID #14 tabs 09/12/24 Unknown Rx (Cipro) oxycodone 5 mg tablet 5 mg PO Q6H PRN pain 3 days #14 09/12/24 Unknown Rx tabs Allergy/AdvReac Type Severity Reaction Status Date / Time No Known Allergies Allergy Verified 09/12/24 10:39 Family History Father Myocardial infarction Mother CVA (cerebral vascular accident) Brother CVA (cerebral vascular accident) Sister CVA (cerebral vascular accident) Surgical History Hx of bilateral cataract extraction History of back surgery Social History Smoking Status: Former smoker how long ago did patient quit smokin's for cigarettes, 1991 for chewing tobacco alcohol intake: current alcohol intake frequency: a few times a week Alcohol type: hard liquor substance use type: does not use caffeine: Yes Type: coffee Number of servings: 2 ROS ROS Narrative General: Denies fever/chills HENT: Denies headache, denies stuffy nose, denies sore throat EYES: Denies changes in vision Resp: Denies cough, denies shortness of breath Cardiac: Denies chest pain GI: Denies abdominal pain, denies changes in bowel, denies nausea/vomiting : sin in place Extremity: Increased lower extremity swelling MSK: Denies weakness Neuro: Denies any numbness/tingling Heme: Denies any bleeding or bruising Skin: Erythema on top of left foot Psychiatric: No complaints voiced Vital Signs Vital Signs Vital Signs: 09/21/24 12:24 09/21/24 12:27 09/21/24 12:57 Temperature 97.4 F L 97.4 F L Temperature Source Oral Oral Pulse Rate 90 88 Respiratory Rate 18 16 Respiratory Effort Normal Respiratory Pattern Normal Blood Pressure 132/81 H 126/106 H Blood Pressure Mean 98 112 Pulse Ox 100 95 Oxygen Delivery Method Room Air Room Air 09/21/24 13:27 09/21/24 14:00 09/21/24 14:23 Temperature 98 F 98 F Temperature Source Oral Oral Pulse Rate 84 78 83 Respiratory Rate 18 16 18 Respiratory Effort Respiratory Pattern Blood Pressure 100/84 H 103/64 104/68 Blood Pressure Mean 89 77 80 Pulse Ox 95 94 99 Oxygen Delivery Method Room Air Room Air Room Air Weight Weight: 116.9 kg Body Mass Index (BMI) 34.9 Physical Exam Narrative General: Alert, no apparent distress HEENT: Atraumatic, normocephalic Eyes: Anicteric, normal conjunctiva, extraocular movements grossly intact Neck: Supple Respiratory: Clear to auscultation bilaterally, normal respiratory effort Cardiovascular: Irregularly irregular GI: Nontender, no rebound, guarding, rigidity Extremities: 2-3+ lower extremity edema up past knees Musculoskeletal: Moving all extremities Neuro: No overt focal neurological deficits Skin: Has erythema on the top of his left foot that is warm and appear cellulitic in nature Psych: Cooperative Results Lab / Micro Data 09/21/24 15:13 09/21/24 13:41 Labs: Laboratory Results - last 24 hr 09/21/24 13:41: PT 14.9, INR 1.2, APTT 27.6, Sodium 125 L, Potassium 3.4 L, Chloride 87 L, Carbon Dioxide 27.0, Anion Gap 11, BUN 46 H, Creatinine 1.42 H, Estim Creat Clear Calc 53.85, Est GFR (MDRD) Af Amer 61, Est GFR (MDRD) Non-Af 51 L, BUN/Creatinine Ratio 32.4 H, Glucose 124 H, Calcium 8.8, Troponin I High Sens 14, B-Natriuretic Peptide 170.3 H 09/21/24 15:13: WBC 12.4 H, RBC 4.33 L, Hgb 12.8 L, Hct 36.6 L, MCV 84.5, MCH 29.6, MCHC 35.0, RDW Std Deviation 37.6, RDW Coeff of Tomasz 12.3, Plt Count 207, MPV 8.9, Immature Gran % (Auto) 1.400 H, Neut % (Auto) 78.5 H, Lymph % (Auto) 7.2 L, Larue % (Auto) 11.7 H, Eos % (Auto) 1.0, Baso % (Auto) 0.2, Absolute Neuts (auto) 9.8 H, Absolute Lymphs (auto) 0.89, Nucleated RBC % 0 Imaging Radiology Impression Chest X-Ray 09/21/24 13:40 IMPRESSION: Stable examination. No acute abnormality is seen. Electronically Signed: Angel Wilde MD at 13:57 EST , Assessment & Plan Assessment/Plan (1) Fluid overload: PLAN: Plan # Increasing lower extremity edema, suspect exacerbation of possible heart failure but he does not yet carry this diagnosis, does have diagnosis of pulmonary atrial hypertension -Admit to telemetry -Possibly secondary to right sided heart failure given lack of pulmonary findings but significant lower extremity edema and evidence of fluid overload w/ known history of pulmonary hypertension -Continue IV lasix -Last echo in 2019 with PASP of 45 but EF 60%, did have mild concentric left ventricular hypertrophy at that time -Repeat echo ordered -Daily weights, I's and O's -Fluid restriction, heart healthy diet # Recent urethral surgery -Status post internal urethrotomy of urethral strictures and transurethral resection of large bladder tumor on 09/12 -Patient with urine catheter in place #Hypertension -BP 122/69, awaiting med rec finalization -Will plan to hold hydrochlorothiazide given electrolytes # Left lower extremity cellulitis on top of foot -Will start Unasyn, appears nonpurulent # Generalized weakness -Possibly due to hyponatremia secondary to volume overload -Will obtain serum and urine studies but will proceed with IV diuresis -Check UA -PT/OT -Case management consult #Hyponatremia -Suspect this is secondary to fluid overload -IV Lasix -Will hold hydrochlorothiazide -Will repeat BMP at 4-hour juana, if this is not began to improve with Lasix will obtain further workup # History of DVT and A-fib -Continue metoprolol once med rec finalized, Eliquis on hold from surgery until the per patient #Hypokalemia -Replace -Repeat in the AM # CKD stage III a -Appears to be at baseline -Avoid nephrotoxic agents -Daily BMPs #Hx COPD -continue inhalers #DVT ppx: Lovenox subcu Eun Muhammad MD Charges/Coding Visit Charges Inpatient E&M: 42677 Init Hosp L2
[2024-09-21] MEDS: Potassium Chloride Oral Tablet 20 MEQ 40 MEQ PO (17:21)
--- NOTE | 2024-09-21 20:35 | ECHOCS_ITS ---
Reason For Study: CHF Procedure This was a 2D Doppler, Color Flow transthoracic echocardiogram. The study was technically difficult. Contrast injection was performed. Exam performed portable in patient room. Left Ventricle Normal left ventricle. The estimated ejection fraction is 55???-???60 %. Right Ventricle Normal right ventricle. Normal systolic function. Atria Normal left atrium. Normal right atrium. Mitral Valve The mitral valve is structurally normal. No prolapse or stenosis seen. Tricuspid Valve Normal tricuspid valve. Mild tricuspid valve insufficiency. Aortic Valve Mild diffuse aortic valve calcification. Pulmonic Valve Mild (1+) eccentric pulmonic valve insufficiency. Great Vessels Normal aortic root. Pericardium/Pleural No pericardial effusion. Medication Diluted definity 4ml given slow IV push to enhance endocardial definition. MMode/2D Measurements & Calculations LVIDd: 3.9 cm IVSd: 1.2 cm LVOT diam: 2.3 cm LVIDs: 2.7 cm LVPWd: 0.99 cm RVDd: 4.4 cm FS: 31.1 % LVOT area: 4.1 cm2 Ao root diam: 3.9 cm LAV(MOD-bp): 80.8 ml LA A4 area: 25.0 cm2 LAV(MOD-bp) Indexed: 34.3 ml/m2 LAV(MOD-sp2): 82.7 ml LAV(MOD-sp4): 69.0 ml LA dimension(2D): 4.9 cm TAPSE: 1.3 cm RA A4 area: 23.3 cm2 Doppler Measurements & Calculations MV E max nesha: 95.1 cm/sec MV V2 max: 117.7 cm/sec Ao V2 max: 158.9 cm/sec MV max P.6 mmHg Ao max P.1 mmHg MV V2 mean: 64.8 cm/sec Ao V2 mean: 111.7 cm/sec MV mean P.0 mmHg Ao mean P.7 mmHg MV V2 VTI: 26.0 cm Ao V2 VTI: 29.4 cm MVA(VTI): 3.0 cm2 AV (velocity ratio): 0.64 LADY(I,D): 2.7 cm2 LADY(V,D): 2.6 cm2 LV V1 max: 100.7 cm/sec SV(LVOT): 78.1 ml PA V2 max: 121.6 cm/sec LV V1 max P.1 mmHg LV V1 mean P.4 mmHg LV V1 mean: 72.6 cm/sec LV V1 VTI: 18.9 cm TR max nesha: 338.9 cm/sec TR max P.9 mmHg ECHO/Echo Complete W/ Contrast Interpretation Summary The estimated ejection fraction is 55-60% Normal LV systolic function Mild TR No significant change from previous echocardiogram. Ordering Physician: Eun Muhammad Performed By: Payam Casas RCS
[2024-09-21 21:40] LABS: Anion Gap 10 (5-15); BUN 50 mg/dL (7-18); BUN/Creat Ratio 36.5 RATIO (10-20); Calcium,Total 9.2 mg/dL (8.5-10.1); Chloride 87 mmol/L (98-107); Creatinine, Serum 1.37 mg/dL (0.70-1.30); EST Glomerular Filtration Rate 53 mL/min (>60); Est Glom Filt Rate - Afr Amer 64 mL/min (>60); Estimated Creatinine Clearance 54.91 ml/min; Glucose 105 mg/dL (74-106); Potassium 3.8 mmol/L (3.5-5.1); Sodium Level 128 mmol/L (136-145)
[2024-09-21] MEDS: 0.9% Saline Lock 10 ML Syringe IV (22:00)
[2024-09-21] MEDS: Ampicillin/Sulbactam 3 GM in 0.9% Normal Saline (100mL MB+) 100 ML IV (22:00)
[2024-09-22] VITALS (8 sets, daily range): BP systolic 94–108; BP diastolic 51–60; PULSE 60–97; RESP 17–18; TEMP 36.3–36.8; O2SAT 92–96; BMI 34.5
[2024-09-22 04:33] LABS: Mucous, Urine 0 SEEN /hpf (<or=2+); Red Blood Cells-Urine 0 SEEN /hpf (0-5); Squamous Epithelial Cells - UA 0 SEEN /hpf (0-5)
[2024-09-22 04:36] LABS: Glucose, Dipstick Normal (Normal); Ketone-Dipstick Negative (Negative); Leukocyte Esterase-Dipstick 100 /ul (Negative); Nitrite-Dipstick Negative (Negative); Occult Blood-Urine 150 /ul (Negative); Protein-Dipstick 15 mg/dl (Negative); Urine Bilirubin Dipstick Negative (Negative); Urine Urobilinogen Normal (Normal)
[2024-09-22 04:54] LABS: Bacteria RARE /hpf (None Seen); Color, Urine Yellow (Yellow); Urine Clarity Clear (Clear); White Blood Cells 0-5 SEEN /hpf (0-5)
[2024-09-22] MEDS: Ampicillin/Sulbactam 3 GM in 0.9% Normal Saline (100mL MB+) 100 ML IV ×4 (06:28→23:46)
[2024-09-22] MEDS: 0.9% Saline Lock 10 ML Syringe IV ×2 (06:28→23:47)
[2024-09-22 06:42] LABS: Absolute Lymphocyte Count 0.87 X10^3/uL (0.83-4.51); Absolute Neutrophil Count 6.7 X10^3/uL (2.0-7.7); Basophil# 0.04 X10^3/uL; Basophil% 0.4 % (0-1); Eosinophil# 0.23 X10^3/uL; Eosinophils% 2.5 % (0-5); Hematocrit 34.7 % (40-54); Hemoglobin 11.9 g/dL (13.0-16.5); Lymphocyte # 0.87 X10^3/ul (0.83-4.51); Lymphocyte % 9.4 % (19-41); Mean Corp Hgb Conc 34.3 g/dL (32-36); Mean Corpuscular Hgb 29.2 pg (27.0-32.0); Monocyte# 1.24 X10^3/uL; Monocyte% 13.4 % (0-10); NRBC Flagged by Analyzer 0 % (0-5); Neutrophil # 6.68 X10^3/uL (2.7-7.7); Neutrophil % 72.6 % (47-70); Platelet Count 212 K/mm3 (150-450); RBC Distribution Width CV 12.5 % (11.6-14.6); RBC Distribution Width SD 38.4 fl (35.1-43.9); Red Blood Count 4.08 M/mm3 (4.6-6.2); White Blood Count 9.2 K/mm3 (4.4-11.0)
[2024-09-22] MEDS: Budesonide Respules 0.5 MG/2 ML AMPUL.NEB. INHALATION ×2 (07:20→18:51)
[2024-09-22] MEDS: Ipratropium/Albuterol Sulfate 3 ML AMPUL.NEB INHALATION ×3 (07:20→18:51)
[2024-09-22 07:24] LABS: Anion Gap 11 (5-15); BUN 52 mg/dL (7-18); BUN/Creat Ratio 41.9 RATIO (10-20); Calcium,Total 8.9 mg/dL (8.5-10.1); Chloride 90 mmol/L (98-107); Cholesterol 120 mg/dL (200); Creatinine, Serum 1.24 mg/dL (0.70-1.30); EST Glomerular Filtration Rate 59 mL/min (>60); Est Glom Filt Rate - Afr Amer 72 mL/min (>60); Glucose 92 mg/dL (74-106); High Density Lipoprotein 33 mg/dL; Potassium 3.3 mmol/L (3.5-5.1); Sodium Level 129 mmol/L (136-145); Thyroid Stim Hormone (TSH) 0.918 uIU/mL (0.358-3.740); Triglycerides 91 mg/dL; Very Low Density Lipoprotein 18 mg/dL (5-40)
[2024-09-22 09:13] LABS: Magnesium 2.3 mg/dL (1.6-2.6)
--- NOTE | 2024-09-22 09:37 | CASEMGMT ---
PAMELA VALLECILLO Assessment: Face to Face with pt for initial transition planning/care coordination assessment. RN AVEL introduced self and role at [facility], pt voices understanding and consents to assessment. Pt is A&O x4 and answers all questions appropriately at this time. Pt lying in bed in no distress. Care providers, pharmacy, and demographics verified/updated. Strata: 2 Admitting Dx: Concern for HP exacerbation. PCP: Ana M Specialists: Denies Preferred Pharmacy: [facility] Insurance: [facility] Prescription Benefit: yes LNOK: Nori, ; Josh JORDI. Living Arrangements: Pt lives with in a 2 story home with 2 steps to enter. ADLs: Pt reports I at baseline with ADLs and IADLs. Transportation: Pt drives self and denies concerns with transportation. DME: Denies HHC/SNF: Denies Hx of. Pt states no concerns with going home at time of dc. Pt states no further concerns/needs. CM to follow. Advised pt to ask CM if any further question/concerns/needs arise, voices understanding. Pt Goal: Home Plan: Home, follow plan of care for safe DC. Pt I at baseline, follow therapy recommendations. Pranay SANTIAGO CM
[2024-09-22] MEDS: Metoprolol(XL)Succ 50 MG Tablet PO (10:25)
[2024-09-22] MEDS: Furosemide 40 MG/4 ML Vial IV (10:25)
[2024-09-22] MEDS: Enoxaparin 40 MG/0.4 ML Syringe SC (10:25)
--- NOTE | 2024-09-22 11:37 | PN.HOSP_ITS ---
Reason for Visit Reason for Visit: Diagnoses Fluid overload, unspecified (09/21/24) Subjective Subjective Saw patient at bedside this morning. Patient had just had his TTE done when I saw him. He was laying back comfortably in bed and in no acute distress. He did appear fatigued. He denies any acute pain or discomfort this morning. Notes that his legs have been hurting more with any standing or ambulation and he has not gotten out of bed yet this morning. Denies any fevers or chills. Does state that he feels generally tired and weak. No other new concerns morning. Objective Data Objective Data Vital Signs: Vital Signs Temp Pulse Resp BP Pulse Ox O2 Del Method 97.4 F L 97 18 104/56 L 93 Room Air 09/22/24 10:23 09/22/24 10:25 09/22/24 10:23 09/22/24 10:23 09/22/24 10:23 09/22/24 10:23 Oxygen Delivery Method Room Air Weight: 115.5 kg Body Mass Index (BMI) 34.5 Intake & Output: Intake and Output for Last 24 Hours 09/20/24 09/21/24 09/22/24 23:59 23:59 23:59 Intake Total 112 / 112 112 / 112 Output Total 350 / 350 300 / 300 Balance -238 / -238 -188 / -188 Lab / Micro Data 09/22/24 05:25 09/22/24 05:25 Labs: Laboratory Results - last 24 hr 09/21/24 13:41: PT 14.9, INR 1.2, APTT 27.6, Sodium 125 L, Potassium 3.4 L, C hloride 87 L, Carbon Dioxide 27.0, Anion Gap 11, BUN 46 H, Creatinine 1.42 H, Estim Creat Clear Calc 53.85, Est GFR (MDRD) Af Amer 61, Est GFR (MDRD) Non-Af 51 L, BUN/Creatinine Ratio 32.4 H, Glucose 124 H, Calcium 8.8, Troponin I High Sens 14, B-Natriuretic Peptide 170.3 H 09/21/24 15:13: WBC 12.4 H, RBC 4.33 L, Hgb 12.8 L, Hct 36.6 L, MCV 84.5, MCH 29.6, MCHC 35.0, RDW Std Deviation 37.6, RDW Coeff of Tomasz 12.3, Plt Count 207, MPV 8.9, Immature Gran % (Auto) 1.400 H, Neut % (Auto) 78.5 H, Lymph % (Auto) 7.2 L, [place] % (Auto) 11.7 H, Eos % (Auto) 1.0, Baso % (Auto) 0.2, Absolute Neuts (auto) 9.8 H, Absolute Lymphs (auto) 0.89, Nucleated RBC % 0 09/21/24 21:00: Sodium 128 L, Potassium 3.8, Chloride 87 L, Carbon Dioxide 31.0, Anion Gap 10, BUN 50 H, Creatinine 1.37 H, Estim Creat Clear Calc 54.91, Est GFR (MDRD) Af Amer 64, Est GFR (MDRD) Non-Af 53 L, BUN/Creatinine Ratio 36.5 H, Glucose 105, Calcium 9.2 09/22/24 04:30: Urine Color Yellow, Urine Clarity Clear, Urine pH 6.0, Ur Specific [place] 1.010, Urine Protein 15 H, Urine Glucose (UA) Normal, Urine Ketones Negative, Urine Occult Blood 150 H, Urine Nitrite Negative, Urine Bilirubin Negative, Urine Urobilinogen Normal, Ur Leukocyte Esterase 100 H, Urine RBC 0 SEEN, Urine WBC 0-5 SEEN, Ur Squamous Epith Cells 0 SEEN, Urine Bacteria RARE, Urine Mucus 0 SEEN 09/22/24 05:25: WBC 9.2, RBC 4.08 L, Hgb 11.9 L, Hct 34.7 L, MCV 85.0, MCH 29.2, MCHC 34.3, RDW Std Deviation 38.4, RDW Coeff of Tomasz 12.5, Plt Count 212, MPV 9.0, Immature Gran % (Auto) 1.700 H, Neut % (Auto) 72.6 H, Lymph % (Auto) 9.4 L, [place] % (Auto) 13.4 H, Eos % (Auto) 2.5, Baso % (Auto) 0.4, Absolute Neuts (auto) 6.7, Absolute Lymphs (auto) 0.87, Nucleated RBC % 0, Sodium 129 L, Potassium 3.3 L, Chloride 90 L, Carbon Dioxide 29.0, Anion Gap 11, BUN 52 H, Creatinine 1.24, Estim Creat Clear Calc 61.30, Est GFR (MDRD) Af Amer 72, Est GFR (MDRD) Non-Af 59 L, BUN/Creatinine Ratio 41.9 H, Glucose 92, Calcium 8.9, Magnesium 2.3, Triglycerides 91, Cholesterol 120, LDL Cholesterol 69, VLDL Cholesterol 18, HDL Cholesterol 33 L, TSH 0.918 Radiography Diagnostic Testing: Radiology Impression Chest X-Ray 09/21/24 13:40 IMPRESSION: Stable examination. No acute abnormality is seen. Electronically Signed: Angel Wilde MD at 13:57 EST , Physical Exam Const alert, oriented x3 and no apparent distress Constitutional Narrative: Elderly male, class I obesity, fatigued appearing, otherwise laying back comfortably in bed, conversing normally, in no acute distress. General Appearance: cooperative and comfortable HEENT normocephalic, head/scalp atraumatic, hearing grossly normal bilaterally, nasal mucous membranes and turbinates normal and moist oral mucous membranes Eyes PERRL, EOMs intact bilaterally and conjunctivae normal Neck full ROM Chest inspection of chest normal Resp normal respiratory effort, normal air movement, no use of accessory muscles and clear to auscultation bilaterally Cardio regular rate, regular rhythm, no murmurs and peripheral pulses 2+ throughout GI normal to inspection, nondistended, normoactive bowel sounds, soft to palpation, non-tender and non-distended Back/Spine normal ROM Extremity Extremity Narrative: +2-3 lower extremity pitting edema noted up to the knee. Bilateral Tyrone wraps in place from feet up to just below the knee. Neuro moves all extremities Speech: speech normal Psych mental status grossly normal Assessment & Plan Assessment/Plan (1) Fluid overload: PLAN: Plan Patient is an 83-year-old male who presented [facility] ED on 09/21/24 with worsening lower extremity edema with pain and difficulty with ambulation. 1. Mild acute HFpEF with bilateral lower extremity edema ? Seems most likely the bilateral LE edema is due to mild volume overload. Echo on 09/22 showed EF 55 to 60%, no diastolic dysfunction and no right heart issues. Notably last echo in 2018 showed mild concentric LV hypertrophy and elevated PASP. Despite improved echo results, patient has diuresed well on IV Lasix, has improving kidney function and hyponatremia is improving which is consistent with general volume overload. May have had volume overload secondary to IV fluids given during recent urethral procedure. Continue IV Lasix 40 mg daily for now. Monitor daily BMP and urine output. 2. Hyponatremia, improving ? Sodium 125 on admit, baseline 135 at 138. Suspected secondary to volume overload. Sodium improved to 129 on 09/22 with IV diuresis. Continue to monitor daily sodium level. 3. Acute on chronic debility ? PT/OT/case management following. On discussion with patient and family, patient has had worsening functional status with limited ambulation over the past few months. Had poor therapy scores on initial evaluation here on 09/22. Planning for SNF on discharge. 4. Recent urethral surgery for bladder tumor ? Follows with Dr. Boone. S/p internal urethrotomy of urethral strictures and transurethral resection of large bladder tumor on 09/12. Catheter placed postprocedure with plan to leave in for 2 weeks with office visit for removal scheduled for 09/27. If patient remains inpatient till then, will discuss with urology on if catheter can be removed at that time. 5. Left lower extremity cellulitis on top of foot ? Mild and nonpurulent appearing. No systemic symptoms. Continue IV Unasyn. 6. Hypokalemia ? Potassium 3.4 on admit. Replete as needed. 7. Mild creatinine elevation in setting of CKD stage III ? Creatinine 1.42 on admit, improved to 1.24 with IV diuresis. Baseline appears to be around 1.0-1.2. Continue to monitor daily BMP on IV diuresis. Chronic medical conditions: ? Class I obesity: BMI 34 on admit. Complicates hospital course, care and prognosis. ? History of DVT and A-fib: Eliquis on hold through 09/26 after recent urethral surgery. Continue home Toprol. ? History of COPD: Stable on room air, not in exacerbation. Continue home inhalers. DVT prophylaxis: Lovenox CODE STATUS: Full code, unverified Expected disposition: SNF, 2 to 3 days Total clinical time spent by myself addressing the patient's medical issues, reviewing all the data, and collaborating with patient's care team: 35 minutes. Charges/Coding Visit Charges Inpatient E&M: 55034 Subs Hosp L2
--- NOTE | 2024-09-22 16:29 | CASEMGMT ---
Social Work SW reviewed PT, spoke w/pt, pt's and three grandchildren in the room in regard to discharge plan. SW educated family to SNF option and referral and precert process. SW provided to a list via [facility] of long-term facilities in network w/insurance, in pt's preferred geographic area and complete w/quality and resource use data. SW asked them to pick 3 options, and SW will follow up w/them on Tuesday. Pt and family state understanding. Plan: SNF, referrals to be made Tuesday. ELLIS Mcleod
--- NOTE | 2024-09-22 17:29 | CT_ITS ---
INDICATION: altered mental status EXAMINATION: CT BRAIN - CT Head or Brain W/O Contrast Injection TECHNIQUE: Multiple axial images were obtained of the head without intravenous contrast. A radiation dose optimization technique was used for this scan. IV Contrast dosage and agent: None. RADIATION DOSAGE (If Supplied By Facility): CTDIvol = ( 44.99 ) mGy, DLP = ( 863.60 ) mGycm COMPARISON: 09/17/2014 FINDINGS: HEMISPHERES: 1. The cerebral parenchyma, ventricular system, subarachnoid spaces have normal configuration and density. There is a normal gyral pattern. There is normal batres/white differentiation. No midline shift.. 2. 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 3. No intraparenchymal mass, hemorrhage, or acute territorial infarct. CEREBELLUM - BRAINSTEM: The cerebellum, brainstem, basilar and suprasellar cisterns have normal appearance. No Chiari malformation. PITUITARY: Infundibulum and pituitary have normal configuration. Midline structures appear normal. CSF SPACES: Appropriate for age. No hydrocephalus. Basal cisterns are patent. VESSELS: 1. [Moderate carotid vascular calcifications 2. No hyperdense vascular signs noted.. ORBITS AND PARANASAL SINUSES: 1. Normal appearance of the bony orbits. Normal appearance of the globes and retrobulbar soft tissues.. 2. Paranasal sinuses are clear. BONY ELEMENTS: Bony elements of the cranial vault, facial skeleton and skull base have normal appearance. SCALP AND SOFT TISSUES: Normal appearance of the soft tissues of the scalp and the visualized face OTHER: None ASPECTS Score for Acute Strokes: 10 CT/Brain/Head without Contrast IMPRESSION: 1. 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 2. No intracranial mass, hemorrhage or acute territorial infarct. 3. No radiographically significant sinus disease.. Electronically Signed: Alirio Ace MD at 19:43 EST ,
[2024-09-22] MEDS: Potassium Chloride Oral Tablet 20 MEQ 40 MEQ PO (18:00)
[2024-09-23] VITALS (8 sets, daily range): BP systolic 105–112; BP diastolic 59–67; PULSE 72–94; RESP 12–18; TEMP 36.6–36.7; O2SAT 93–98; BMI 33.9
[2024-09-23 05:34] LABS: Hematocrit 33.1 % (40-54); Hemoglobin 11.6 g/dL (13.0-16.5); Mean Corpuscular Volume 85.5 fL (80-94); Mean Platelet Vol. 8.7 fl (6.2-12.0); Platelet Count 219 K/mm3 (150-450); RBC Distribution Width CV 12.6 % (11.6-14.6); RBC Distribution Width SD 39.1 fl (35.1-43.9); Red Blood Count 3.87 M/mm3 (4.6-6.2)
[2024-09-23] MEDS: Ampicillin/Sulbactam 3 GM in 0.9% Normal Saline (100mL MB+) 100 ML IV ×3 (06:28→17:48)
[2024-09-23] MEDS: Ipratropium/Albuterol Sulfate 3 ML AMPUL.NEB INHALATION ×3 (07:01→19:02)
[2024-09-23] MEDS: Budesonide Respules 0.5 MG/2 ML AMPUL.NEB. INHALATION ×2 (07:01→19:02)
[2024-09-23 08:18] LABS: Anion Gap 8 (5-15); BUN 49 mg/dL (7-18); BUN/Creat Ratio 48.5 RATIO (10-20); Calcium,Total 8.6 mg/dL (8.5-10.1); Chloride 97 mmol/L (98-107); Creatinine, Serum 1.01 mg/dL (0.70-1.30); EST Glomerular Filtration Rate 75 mL/min (>60); Est Glom Filt Rate - Afr Amer 91 mL/min (>60); Estimated Creatinine Clearance 74.59 ml/min; Glucose 103 mg/dL (74-106); Potassium 3.4 mmol/L (3.5-5.1); Sodium Level 135 mmol/L (136-145)
[2024-09-23] MEDS: Enoxaparin 40 MG/0.4 ML Syringe SC (08:53)
[2024-09-23] MEDS: Furosemide 40 MG/4 ML Vial IV (08:53)
[2024-09-23] MEDS: Metoprolol(XL)Succ 50 MG Tablet PO (08:53)
[2024-09-23] MEDS: Potassium Chloride Oral Tablet 20 MEQ 40 MEQ PO (09:06)
--- NOTE | 2024-09-23 12:08 | PCM.PN.HOSP ---
Reason for Visit Reason for Visit: Diagnoses Fluid overload, unspecified (09/21/24) Subjective Subjective Saw patient at bedside this morning, several family members present. Had long discussion with patient and family. Patient appears improved from an energy and mentation standpoint today. Family noted yesterday that he seemed somewhat confused from his baseline. CT brain was obtained and was unremarkable. Suspected this may have been due to his low sodium level which has improved with IV diuresis. Family notes that patient's legs continue to appear more swollen than his normal. He apparently has had leg swelling in the past but this improved within the past several months, so with it now returning they are concerned by this. Has appeared to have mild improvement with IV diuresis but not complete improvement. Patient denies pain at rest but does have significant pain in both feet with standing. Was unable to ambulate at all with physical therapy on 09/22 due to foot pain. Family did note that patient has a history of gout and allopurinol was discontinued at some point in the past. They asked if a uric acid level could be checked. No other new concerns. Objective Data Objective Data Vital Signs: Vital Signs Temp Pulse Resp BP Pulse Ox O2 Del Method 98.1 F 94 18 111/64 98 Room Air 09/23/24 08:52 09/23/24 08:53 09/23/24 08:52 09/23/24 08:52 09/23/24 08:52 09/23/24 08:52 Oxygen Delivery Method Room Air Weight: 113.443 kg Body Mass Index (BMI) 33.9 Intake & Output: Intake and Output for Last 24 Hours 09/21/24 09/22/24 09/23/24 23:59 23:59 23:59 Intake Total 112 / 112 936 / 1436 1324 / 1324 Output Total 350 / 350 2100 / 2100 2700 / 2700 Balance -238 / -238 -1164 / -664 -1376 / -1376 Lab / Micro Data 09/23/24 05:03 09/23/24 06:50 Labs: Laboratory Results - last 24 hr 09/23/24 05:03: WBC 9.0, RBC 3.87 L, Hgb 11.6 L, Hct 33.1 L, MCV 85.5, MCH 30.0, MCHC 35.0, RDW Std Deviation 39.1, RDW Coeff of Tomasz 12.6, Plt Count 219, MPV 8.7, Sodium Cancelled, Potassium Cancelled, Chloride Cancelled, Carbon Dioxide Cancelled, Anion Gap Cancelled, BUN Cancelled, Creatinine Cancelled, Estim Creat Clear Calc Cancelled, Est GFR (MDRD) Af Amer Cancelled, Est GFR (MDRD) Non-Af Cancelled, BUN/Creatinine Ratio Cancelled, Glucose Cancelled, Calcium Cancelled 09/23/24 06:50: Sodium 135 L, Potassium 3.4 L, Chloride 97 L, Carbon Dioxide 30.0, Anion Gap 8, BUN 49 H, Creatinine 1.01, Estim Creat Clear Calc 74.59, Est GFR (MDRD) Af Amer 91, Est GFR (MDRD) Non-Af 75, BUN/Creatinine Ratio 48.5 H, Glucose 103, Calcium 8.6 Radiography Diagnostic Testing: Radiology Impression Echocardiogram 09/21/24 20:35 Interpretation Summary The estimated ejection fraction is 55-60% Normal LV systolic function Mild TR No significant change from previous echocardiogram. Ordering Physician: Eun Muhammad Performed By: Payam Casas [facility] Brain CT 09/22/24 17:29 IMPRESSION: 1. 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 2. No intracranial mass, hemorrhage or acute territorial infarct. 3. No radiographically significant sinus disease.. Electronically Signed: Alirio Ace MD at 19:43 EST , Physical Exam Const alert, oriented x3 and no apparent distress Constitutional Narrative: Elderly male, class I obesity, mildly fatigued appearing but energy improved from admission, otherwise laying back comfortably in bed, conversing normally, in no acute distress. General Appearance: cooperative and comfortable HEENT normocephalic, head/scalp atraumatic, hearing grossly normal bilaterally, nasal mucous membranes and turbinates normal and moist oral mucous membranes Eyes PERRL, EOMs intact bilaterally and conjunctivae normal Neck full ROM Chest inspection of chest normal Resp normal respiratory effort, normal air movement, no use of accessory muscles and clear to auscultation bilaterally Cardio regular rate, regular rhythm, no murmurs and peripheral pulses 2+ throughout GI normal to inspection, nondistended, normoactive bowel sounds, soft to palpation, non-tender and non-distended Back/Spine normal ROM Extremity Extremity Narrative: +1-2 lower extremity pitting edema noted up to the knee. Bilateral Tyrone wraps in place from feet up to just below the knee. Patient with mild to moderate pain with palpation of bilateral feet, worse on left. Neuro moves all extremities Speech: speech normal Psych mental status grossly normal Assessment & Plan Assessment/Plan (1) Fluid overload: PLAN: Plan Patient is an 83-year-old male who presented [facility] ED on 09/21/24 with worsening lower extremity edema with pain and difficulty with ambulation. 1. Mild acute HFpEF with bilateral lower extremity edema ? Seems most likely the bilateral LE edema is due to mild volume overload. Echo on 09/22 showed EF 55 to 60%, no diastolic dysfunction and no right heart issues. Notably last echo in 2019 showed mild concentric LV hypertrophy and elevated PASP. Despite improved echo results, patient has diuresed well on IV Lasix, has improving kidney function and hyponatremia is improving which is consistent with general volume overload. May have had volume overload secondary to IV fluids given during recent urethral procedure. Continue IV Lasix 40 mg daily for now. Monitor daily BMP and urine output. Will likely be ready to transition back to home p.o. Lasix in the next 1 to 2 days. 2. Hyponatremia, resolved ? Sodium 125 on admit, baseline 135 at 138. Suspected secondary to volume overload. Sodium improved to 135 on 09/23 with IV diuresis. 3. Concern for left foot cellulitis versus acute gout flare ? Left foot appearance initially more concerning for cellulitis. However patient has history of gout and has been off allopurinol for unclear reason. Uric acid level 11.6 on 09/23, significantly worsened from 6.0 back in February. Okay to continue IV Unasyn for now. Will start colchicine for treatment of potential acute gout flare as well. Monitor. 4. Acute on chronic debility ? PT/OT/case management following. On discussion with patient and family, patient has had worsening functional status with limited ambulation over the past few months. Had poor therapy scores on initial evaluation here on 09/22. Qualifies for SNF but in discussion with family it appears more likely they will opt for home with home health care on discharge. 5. Recent urethral surgery for bladder tumor ? Follows with Dr. Boone. S/p internal urethrotomy of urethral strictures and transurethral resection of large bladder tumor on 09/12. Catheter placed postprocedure with plan to leave in for 2 weeks with office visit for removal scheduled for 09/27. If patient remains inpatient till then, will discuss with urology on if catheter can be removed at that time. 6. Hypokalemia ? Potassium 3.4 on admit. Replete as needed. 7. Mild creatinine elevation in setting of CKD stage III, resolved ? Creatinine 1.42 on admit, improved to 1.01 with IV diuresis. Baseline appears to be around 1.0-1.2. Continue to monitor daily BMP on IV diuresis. Chronic medical conditions: ? Class I obesity: BMI 34 on admit. Complicates hospital course, care and prognosis. ? History of DVT and A-fib: Eliquis on hold through 09/26 after recent urethral surgery. Continue home Toprol. ? History of COPD: Stable on room air, not in exacerbation. Continue home inhalers. DVT prophylaxis: Lovenox CODE STATUS: Full code, unverified Expected disposition: Home with home health care versus SNF, 2 to 3 days Total clinical time spent by myself addressing the patient's medical issues, reviewing all the data, and collaborating with patient's care team: 50 minutes. Charges/Coding Visit Charges Inpatient E&M: 48195 Subs Hosp L3
--- NOTE | 2024-09-23 12:22 | VDLE_ITS ---
Reason For Study: Bilateral leg swelling RIGHT LEFT GSV is normal. GSV is normal. CFV is compressible, spontaneous, phasic, CFV is compressible, spontaneous, phasic, competent and demonstrates normal competent, and demonstrates normal augmentation. augmentation. FV is compressible, spontaneous, phasic, FV prox and distal are compressible with competent and demonstrates normal normal venous flow noted with augmentation. augmentation. FV mid duplicator vein is NONCOMPRESSIBLE POP V is compressible, spontaneous, phasic, consistent with Acute DVT. competent and demonstrates normal POP V is compressible, spontaneous, phasic, augmentation. competent and demonstrates normal T/P Trunk is compressible. augmentation. Acute deep vein thrombosis is noted in the T/P Trunk is NONCOMPRESSIBLE consistent with PTV, PeroV and SoleusV. It is dilated and Acute DVT. NONCOMPRESSIBLE. PTV prox is NONCOMPRESSIBLE consistent with Procedure Acute DVT. Remaining PTV is compressible This is a venous duplex using B-mode, color Soleus V is NONCOMPRESSIBLE consistent with flow and spectral Doppler. Acute DVT. Clot extends into PTV prox. Exam performed portable in patient room. PeroV is compressible. A preliminary report was called and/or faxed to [facility] SANTIAGO. VL/Venous Duplex US - Mike Extrem Interpretation Summary Acute deep vein thrombosis is noted in the right posterior tibial vein, peronea l vein, soleus vein. Acute deep vein thrombosis is noted in the left duplicate femoral vein, tibiope roneal trunk vein, posterior tibial vein, soleus vein. Ordering Physician: Jhon Ruiz Referring Physician: Jerrod Viramontes Performed By: Sharifa Snyder RVT
--- NOTE | 2024-09-23 13:19 | NURSING ---
This RN taking over care at this time
[2024-09-23 14:51] LABS: Uric Acid 11.6 mg/dL (3.5-7.2)
[2024-09-23] MEDS: 0.9% Saline Lock 10 ML Syringe IV (15:47)
[2024-09-23] MEDS: Colchicine 0.6 MG TABLET PO ×2 (15:47→21:08)
[2024-09-23] MEDS: Ketorolac 30 MG/ML Syringe 15 MG IV (15:47)
[2024-09-23] MEDS: Atorvastatin Calcium 40 MG Tablet PO (21:08)
[2024-09-24] MEDS: Ampicillin/Sulbactam 3 GM in 0.9% Normal Saline (100mL MB+) 100 ML IV ×3 (00:08→12:45)
[2024-09-24 02:00] VITALS: BP 110/79; PULSE 77; RESP 16; TEMP 36.7; O2SAT 93
--- NOTE | 2024-09-24 03:08 | NURSING ---
PT a bit restless. Pulled off tele, gown, and dg wraps to legs. REfused to replace dg wraps. IV pulled out also. Pt pulled up in bed. Bed alarm reapplied. New gown placed and turned to left side, heals elevated.
[2024-09-24 04:12] LABS: Anion Gap 7 (5-15); BUN 45 mg/dL (7-18); BUN/Creat Ratio 42.9 RATIO (10-20); Calcium,Total 8.8 mg/dL (8.5-10.1); Chloride 101 mmol/L (98-107); Creatinine, Serum 1.05 mg/dL (0.70-1.30); EST Glomerular Filtration Rate 72 mL/min (>60); Est Glom Filt Rate - Afr Amer 87 mL/min (>60); Estimated Creatinine Clearance 71.75 ml/min; Glucose 106 mg/dL (74-106); Potassium 3.6 mmol/L (3.5-5.1); Sodium Level 137 mmol/L (136-145)
[2024-09-24 05:35] VITALS: BMI 34.2
[2024-09-24 06:51] VITALS: PULSE 78; RESP 16; O2SAT 96
[2024-09-24] MEDS: Ipratropium/Albuterol Sulfate 3 ML AMPUL.NEB INHALATION ×2 (06:51→13:09)
[2024-09-24] MEDS: Budesonide Respules 0.5 MG/2 ML AMPUL.NEB. INHALATION (06:51)
[2024-09-24] MEDS: 0.9% Saline Lock 10 ML Syringe IV ×3 (07:46→12:45)
--- NOTE | 2024-09-24 09:08 | PN.HOSP_ITS ---
Reason for Visit Reason for Visit: Diagnoses Fluid overload, unspecified (09/21/24) Subjective Subjective Feels well. No further foot pain. Objective Data Objective Data Vital Signs: Vital Signs Temp Pulse Resp BP Pulse Ox O2 Del Method 36.7 C 77 16 110/79 93 Room Air 09/24/24 02:00 09/24/24 02:00 09/24/24 02:00 09/24/24 02:00 09/24/24 02:00 09/24/24 07:50 Oxygen Delivery Method Room Air Weight: 114.7 kg Body Mass Index (BMI) 34.2 Intake & Output: Intake and Output for Last 24 Hours 09/22/24 09/23/24 09/24/24 23:59 23:59 23:59 Intake Total 936 / 1436 1748 / 1948 424 / 424 Output Total 2100 / 2100 3250 / 3500 400 / 400 Balance -1164 / -664 -1502 / -1552 Lab / Micro Data 09/23/24 05:03 09/24/24 03:22 Labs: Laboratory Results - last 24 hr 09/23/24 06:50: Uric Acid 11.6 H 09/24/24 03:22: Sodium 137, Potassium 3.6, Chloride 101, Carbon Dioxide 30.0, Anion Gap 7, BUN 45 H, Creatinine 1.05, Estim Creat Clear Calc 71.75, Est GFR (MDRD) Af Amer 87, Est GFR (MDRD) Non-Af 72, BUN/Creatinine Ratio 42.9 H, Glucose 106, Calcium 8.8 Physical Exam Const alert and no apparent distress HEENT head/scalp atraumatic and moist oral mucous membranes Extremity Extremity Narrative: edema in feet. No MTP tenderness bilaterally. Psych affect normal Assessment & Plan Assessment/Plan (1) Fluid overload: PLAN: Plan Bilateral DVTs * had previously been on apixaban for afib * Duplex shows bilateral LE DVTs * apixaban 10 BID then 5 after 1 week acute HFpEF ruled out * Echo on 09/22 showed EF 55 to 60%, no diastolic dysfunction and no right heart issues. Notably last echo in 2019 showed mild concentric LV hypertrophy and elevated PASP. Hyponatremia, resolved * probably 2/2 HCTZ. Improved. Would not resume HCTZ upon discharge. Acute gout flare * pt said his right foot was very painful * No evidence of cellulitis. DC abx. * uric acid 11.6 * has been on colchicine * resume allopurinol 100 for 1 week, then increase to 300/d * colchicine PRN. Acute on chronic debility: [facility] Chronic conditions: * Recent urethral surgery for bladder tumor? Follows with Dr. Boone. S/p internal urethrotomy of urethral strictures and transurethral resection of large bladder tumor on 09/12. Catheter placed postprocedure with plan to leave in for 2 weeks with office visit for removal scheduled for 09/27. If patient remains inpatient till then, will discuss with urology on if catheter can be removed at that time. * Class I obesity: BMI 34 on admit. Complicates hospital course, care and prognosis.History of DVT and A-fib: Eliquis on hold through 09/26 after recent urethral surgery. Continue home Toprol. * History of COPD: Stable on room air, not in exacerbation. Continue home inhalers. DVT prophylaxis: Lovenox CODE STATUS: Full code, unverified DC home. DW family at bedside.
--- NOTE | 2024-09-24 09:40 | CASEMGMT ---
SW met with patient. Introduced self and role at [facility]. SW asked patient if he and his family reviewed the list of facilities the SW provided on Tuesday. Patient said he does not have any idea and SW should check back when his gets here. Gladys AN
[2024-09-24 10:10] VITALS: BP 121/64; PULSE 97; RESP 18; TEMP 36.4; O2SAT 96
[2024-09-24] MEDS: Enoxaparin 40 MG/0.4 ML Syringe SC (10:12)
[2024-09-24 10:13] VITALS: BP 121/64; PULSE 97
[2024-09-24] MEDS: Colchicine 0.6 MG TABLET PO (10:13)
[2024-09-24] MEDS: Metoprolol(XL)Succ 50 MG Tablet PO (10:13)
[2024-09-24] MEDS: Furosemide 40 MG/4 ML Vial IV (10:13)
[2024-09-24] MEDS: Acetaminophen 325 MG Tablet 650 MG PO (10:16)
--- NOTE | 2024-09-24 12:55 | CASEMGMT ---
SW spoke with patient and his Nori. Nori asked if she could have another list as her son has the other one. SW provided them with a list of senior living facility providers including quality and resource use data and consistent with patient?s preferred geographic region, medical needs, and insurance network were provided from the [facility][1] Guide.? Gladys AN
--- NOTE | 2024-09-24 13:46 | CASEMGMT ---
LALO checked with patient and his to see if there was a particular order to their preferences. Any of the 3 facilities they chose are okay. LALO asked Lillie sam/maria ines executive community planning to make a referral to [place]. Gladys AN
--- NOTE | 2024-09-24 14:01 | CASEMGMT ---
Discharge Planning Referral sent via [facility] to [facility] ([place], [place]). Lillie Perry DC Planning Asst.
--- NOTE | 2024-09-24 14:54 | DS.PCM_ITS ---
Providers Date of Admission: 09/21/24 Primary Care Physician: Dr. Jerrod Viramontes MD Reason For Visit: CONCERN FOR HP EXACERBATION Diagnosis Discharge Diagnosis (1) Fluid overload: Status: Acute Code(s): E87.70 - Fluid overload, unspecified Plan Bilateral DVTs * had previously been on apixaban for afib * Duplex shows bilateral LE DVTs * apixaban 10 BID then 5 after 1 week acute HFpEF ruled out * Echo on 09/22 showed EF 55 to 60%, no diastolic dysfunction and no right heart issues. Notably last echo in 2018 showed mild concentric LV hypertrophy and elevated PASP. Hyponatremia, resolved * probably 2/2 HCTZ. Improved. Would not resume HCTZ upon discharge. Acute gout flare * pt said his right foot was very painful * No evidence of cellulitis. DC abx. * uric acid 11.6 * has been on colchicine * resume allopurinol 100 for 1 week, then increase to 300/d * colchicine PRN. Acute on chronic debility: [facility] Chronic conditions: * Recent urethral surgery for bladder tumor? Follows with Dr. Boone. S/p internal urethrotomy of urethral strictures and transurethral resection of large bladder tumor on 09/12. Catheter placed postprocedure with plan to leave in for 2 weeks with office visit for removal scheduled for 09/27. If patient remains inpatient till then, will discuss with urology on if catheter can be removed at that time. * Class I obesity: BMI 34 on admit. Complicates hospital course, care and prognosis.History of DVT and A-fib: Eliquis on hold through 09/26 after recent urethral surgery. Continue home Toprol. * History of COPD: Stable on room air, not in exacerbation. Continue home inhalers. DVT prophylaxis: Lovenox CODE STATUS: Full code, unverified DC home. DW family at bedside. Medications at Discharge Home Medications albuterol sulfate 90 mcg/actuation aerosol inhaler 2 puff inhalation Q4H PRN shortness of breath or wheezing 90 days 03/25/21 atorvastatin 40 mg tablet 40 mg PO QHS unknown 03/25/21 fluticasone fur. 200 mcg-umeclid 62.5 mcg-vilant 25 mcg inhalat.powder 1 inh inhalation DAILY unknow 03/25/21 magnesium oxide 400 mg PO TID unknown 06/09/21 furosemide 40 mg tablet 40 mg PO DAILY #90 tabs 12/21/23 metoprolol succinate 50 mg tablet,extended release 24 hr 50 mg PO DAILY #90 tabs 04/11/24 ergocalciferol (vitamin D2) 1,250 mcg (50,000 unit) capsule (Vitamin D2) 1,250 mcg PO .QWEEKLY unknown 08/30/24 latanoprost 0.005 % eye drops 1 drp ophthalmic (eye) DAILY unknown 08/30/24 acetaminophen 325 mg tablet 1,000 mg (3.0769 x 325 mg) PO Q8H PRN Pain 1-10 Or Fever >100.7 #0 tabs 09/24/24 allopurinol 100 mg tablet 100 mg PO DAILY #90 tabs 09/24/24 apixaban 5 mg tablet (Eliquis) 5 mg PO BID #60 TABLETS 09/24/24 colchicine 0.6 mg capsule 0.6 mg PO BID PRN gout flare #30 caps 09/24/24 losartan 100 mg tablet 100 mg PO DAILY #30 tabs 09/24/24 Hospital Course Operations None Procedures 2-D Echocardiogram Summary of Care Provided Minutes Spent on Discharge: 45 Hospital Course: Patient presents with increased lower extremity swelling. No show I felt with heart failure and patient started on IV Lasix. The patient was complaining of pain on the bottom of his foot particularly his right. Uric acid was 11.6. Previously had been on allopurinol but had been discontinued at some point before. Duplex showed bilateral lower extremities having DVTs. Patient had been on apixaban but has been held due to his recent bladder surgery. Patient has not had no further hematuria patient will be resumed on apixaban 10 mg daily and then to initiate 5 mg daily. Patient did have some foot pain but I do not feel was related with the swelling nor the DVTs were probably due to an acute gout flare which is currently improved. Patient had been started on scheduled colchicine. Being that his gout flare has resolved patient will be started on allopurinol. I discussed with the family at length about initiation of allopurinol and that may lead to further gout flares and to take colchicine as needed for those gout flares but to continue with the allopurinol. Patient was weak but overall doing better particular since his feet feel better. Patient be discharged home with home care. Additionally, he had hyponatremia. This is likely due to his hydrochlorothiazide which will be discontinued. Weight / BMI Weight Weight: 114.7 kg Body Mass Index (BMI) 34.2 ABG / Lab / Microbiology Data 09/23/24 05:03 09/24/24 03:22 Laboratory: Laboratory Results - last 24 hr 09/24/24 03:22: Sodium 137, Potassium 3.6, Chloride 101, Carbon Dioxide 30.0, Anion Gap 7, BUN 45 H, Creatinine 1.05, Estim Creat Clear Calc 71.75, Est GFR (MDRD) Af Amer 87, Est GFR (MDRD) Non-Af 72, BUN/Creatinine Ratio 42.9 H, Glucose 106, Calcium 8.8 Radiography Diagnostic Testing: Radiology Impression Venous Doppler Study 09/23/24 12:22 Interpretation Summary Acute deep vein thrombosis is noted in the right posterior tibial vein, peroneal vein, soleus vein. Acute deep vein thrombosis is noted in the left duplicate femoral vein, tibioperoneal trunk vein, posterior tibial vein, soleus vein. Ordering Physician: Jhon Ruiz Referring Physician: Jerrod Viramontes Performed By: Sharifa Snyder RVT D/C Instructions Discharge Diet: No restrictions DC O2, CPAP, BIPAP Needs Additional Home O2 Discharge instructions: No DC home with Oxygen: No Meaningful Use Info Meaningful Use Meaningful Use Diagnoses (Choose all that apply): None applicable Ischemic Stroke Statin Dosing Therapy Reference: STATIN DOSE THERAPY REFERENCE: * Patients > 75 years receive moderate or high dose statin therapy. * Patients 75 years or YOUNGER should receive HIGH intensity statin dose unless contraindicated. You will be required to document reason for non-treatment if statin daily dose does not meet guidelines. HIGH DOSE STATIN THERAPY DAILY Atorvastatin > than or = to 40 mg Rosuvastatin > than or = to 20 mg Amlodipine + Atorvastatin > than or = to 2.5/40 mg Ezetimibe + Simvastatin 10/80 mg Simvastatin 80mg Discharge Plan Admission Admit Date/Time: 09/21/24 16:38 Primary Reason for Your Visit: DVTs Attending Provider: Felipe Verdin Primary Care Provider: Jerrod Viramontes Consulting Providers: Eun Muhammad; Jhon Ruiz Discharge Orders/Prescriptions Prescriptions: New acetaminophen 325 mg Tablet 1,000 mg PO Q8H PRN (Reason: Pain 1-10 Or Fever >100.7) Qty: 0 0RF colchicine 0.6 mg Capsule 0.6 mg PO BID PRN (Reason: gout flare) Qty: 30 0RF Rx Instructions: 2 tablets x1 PRN, then 1 tablet in an hour as need for gout flares. allopurinol 100 mg tablet 100 mg PO DAILY Qty: 90 0RF Rx Instructions: 1 tablet daily for 1 week, then 3 tablets daily thereafter. losartan 100 mg tablet 100 mg PO DAILY Qty: 30 0RF Continued albuterol sulfate 90 mcg/actuation HFA aerosol inhaler 2 puff INHALATION Q4H PRN (Reason: shortness of breath or wheezing) 90 Days Patient Comments: bfukcstznwe-yywccdmku-nrhxuknd 200-62.5-25 mcg blister with device 1 inh inhalation DAILY atorvastatin 40 mg tablet 40 mg PO QHS magnesium oxide 400 mg magnesium tablet 400 mg PO TID Eliquis 5 mg tablet 5 mg PO BID Qty: 60 3RF Rx Instructions: 2 tablets twice daily for 1 week, then 1 tablet twice daily ergocalciferol (vitamin D2) [Vitamin D2] 1,250 mcg (50,000 unit) capsule 1,250 mcg PO .QWEEKLY latanoprost 0.005 % drops 1 drp ophthalmic (eye) DAILY Patient Comments: at bedtime furosemide 40 mg tablet 40 mg PO DAILY Qty: 90 3RF metoprolol succinate 50 mg tablet extended release 24 hr 50 mg PO DAILY Qty: 90 3RF Discontinued losartan-hydrochlorothiazide 100-25 mg tablet 1 tab PO DAILY Jardiance 25 mg tablet 10 mg PO DAILY Referrals / Follow Up: Jerrod Viramontes MD [Primary Care Provider] - Within 2 Weeks Bola Boone MD [Med Staff - Active Staff] - 09/26/24 Disposition Disposition (needs filled in before D/C Order can be placed): Home Health Service Charges/Coding Visit Charges Inpatient E&M: 17730 Disch Hosp >30min
[2024-09-24 15:27] VITALS: BP 96/58; PULSE 70; RESP 16; TEMP 37.1; O2SAT 93
--- NOTE | 2024-09-24 15:41 | CASEMGMT ---
Addendum entered by Gladys Becker 09/24/24 16:21: SW completed a PASRR for patient in [facility] system. Gladys AN Original Note: [facility] accepted patient and they have pre-cert. However, physician notified SW that the plan is home now. SW went to patient's room and there were numerous family members in the room. They are discussing what to do. LALO asked them to come out to the nurses station when they have decided. LALO checked back with family and after much discussion it was decided patient will go to [facility]. LALO let them know SW will check to see if [facility] can transport patient to his appointment on with Dr Boone. LALO also notified patient and family that transport will be arranged to go to [facility], but they will receive a bill as it is not covered by insurance. LALO let Sarah know that patient will come today and also asked if they could transport him to his appt . Await response. LALO notified physician that the plan is to go to SNF. Plan: d/c to [facility] under skilled level of care on a convalescent stay. Physicians will transport patient. Gladys AN
--- NOTE | 2024-09-24 16:01 | TREXTCAR_ITS ---
Diet Diet Order/Speech Therapy: 09/21/24 20:35 Diet: Cardiac - Heart Healthy Food consistency:: Regular Liquid Consistency:: Regular/Thin Fluid restriction:: 2000 mL Routine Orders/Code Status Routine Lab Work: CBC and BMP Code Status: Full Code DC O2, CPAP, BIPAP needs Additional Home O2 Discharge instructions: No Therapies Weight Bearing: Full weight bearing Extremity Affected:: Bilateral Lower Physical Therapy: Eval and Treat Occupational Therapy: Eval and Treat Problem/Diagnosis (1) Fluid overload: Status: Acute Code(s): E87.70 - Fluid overload, unspecified Plan Bilateral DVTs * had previously been on apixaban for afib * Duplex shows bilateral LE DVTs * apixaban 10 BID then 5 after 1 week acute HFpEF ruled out * Echo on 09/22 showed EF 55 to 60%, no diastolic dysfunction and no right heart issues. Notably last echo in 2018 showed mild concentric LV hypertrophy and elevated PASP. Hyponatremia, resolved * probably 2/2 HCTZ. Improved. Would not resume HCTZ upon discharge. Acute gout flare * pt said his right foot was very painful * No evidence of cellulitis. DC abx. * uric acid 11.6 * has been on colchicine * resume allopurinol 100 for 1 week, then increase to 300/d * colchicine PRN. Acute on chronic debility: [facility] Chronic conditions: * Recent urethral surgery for bladder tumor? Follows with Dr. Boone. S/p internal urethrotomy of urethral strictures and transurethral resection of large bladder tumor on 09/12. Catheter placed postprocedure with plan to leave in for 2 weeks with office visit for removal scheduled for 09/27. If patient remains inpatient till then, will discuss with urology on if catheter can be removed at that time. * Class I obesity: BMI 34 on admit. Complicates hospital course, care and prognosis.History of DVT and A-fib: Eliquis on hold through 09/26 after recent urethral surgery. Continue home Toprol. * History of COPD: Stable on room air, not in exacerbation. Continue home inhalers. DVT prophylaxis: Lovenox CODE STATUS: Full code, unverified DC home. DW family at bedside. Allergies/Procedures Done in Hospital Allergies No Known Allergies Allergy (Verified 09/12/24 10:39) Type of Care/Length of Stay Estimated LOS: Convalescent Care Less Than 30 days Type of Care Needed: Skilled Rehab Potential: Fair Prognosis: Fair Additional Orders/Day of Discharge Day of Discharge: 09/24/24 Dietary and Speech Recommendations Dietitian Recommendations/Changes: Continue cardiac diet with 2000ml fluid restriction. Will monitor weight, as available. Reviewed and approved by Cindi Piper RD, LD. Discharge Plan Admission Admit Date/Time: 09/21/24 16:38 Primary Reason for Your Visit: DVTs Attending Provider: Felipe Verdin Primary Care Provider: Jerrod Viramontes Consulting Providers: Eun Muhammad; Jhon Ruiz Discharge Orders/Prescriptions Prescriptions: New acetaminophen 325 mg Tablet 1,000 mg PO Q8H PRN (Reason: Pain 1-10 Or Fever >100.7) Qty: 0 0RF colchicine 0.6 mg Capsule 0.6 mg PO BID PRN (Reason: gout flare) Qty: 30 0RF Rx Instructions: 2 tablets x1 PRN, then 1 tablet in an hour as need for gout flares. allopurinol 100 mg tablet 100 mg PO DAILY Qty: 90 0RF Rx Instructions: 1 tablet daily for 1 week, then 3 tablets daily thereafter. losartan 100 mg tablet 100 mg PO DAILY Qty: 30 0RF Continued albuterol sulfate 90 mcg/actuation HFA aerosol inhaler 2 puff INHALATION Q4H PRN (Reason: shortness of breath or wheezing) 90 Days Patient Comments: ubpdxaqzdwk-qnojnekfd-fjuzyhhx 200-62.5-25 mcg blister with device 1 inh inhalation DAILY atorvastatin 40 mg tablet 40 mg PO QHS magnesium oxide 400 mg magnesium tablet 400 mg PO TID Eliquis 5 mg tablet 5 mg PO BID Qty: 60 3RF Rx Instructions: 2 tablets twice daily for 1 week, then 1 tablet twice daily ergocalciferol (vitamin D2) [Vitamin D2] 1,250 mcg (50,000 unit) capsule 1,250 mcg PO .QWEEKLY latanoprost 0.005 % drops 1 drp ophthalmic (eye) DAILY Patient Comments: at bedtime furosemide 40 mg tablet 40 mg PO DAILY Qty: 90 3RF metoprolol succinate 50 mg tablet extended release 24 hr 50 mg PO DAILY Qty: 90 3RF Discontinued losartan-hydrochlorothiazide 100-25 mg tablet 1 tab PO DAILY Jardiance 25 mg tablet 10 mg PO DAILY Referrals / Follow Up: Bloa Boone MD [Med Staff - Active Staff] - 09/26/24 Jerrod Viramontes MD [Primary Care Provider] - Within 2 Weeks Disposition Disposition (needs filled in before D/C Order can be placed): [facility] Charges/Coding Visit Charges Inpatient E&M: 65323 Disch Hosp >30min
--- NOTE | 2024-09-24 16:23 | CASEMGMT ---
Discharge Planning Discharge orders, signed med list, and transport time sent to [facility] via [facility]. Physicians will transport patient by wheelchair at 5p. Nursing, SW, patient, and his updated. Lillie Perry DC Planning Asst.
--- NOTE | 2024-09-24 16:34 | MDS.RN ---
Report attempted to be called to [facility] at this time, no answer.
[2024-09-24 16:37] VITALS: BP 103/57; PULSE 75; RESP 18; TEMP 37.1; O2SAT 99
== END 2024-09-24 17:38 | disposition skilled nursing facility (03) | DRG 300 ==
LOC: ED 13:48 → PCU 19:19
PROVIDERS: Hospitalist; Admitting Provider Internal Medicine; Emergency Provider Surgery; PCP Family Medicine
DX: I82.403 Acute embolism and thrombosis of unspecified deep veins of lower extremity, bilateral (principal); E87.1 Hypo-osmolality and hyponatremia; L03.116 Cellulitis of left lower limb; J44.9 Chronic obstructive pulmonary disease, unspecified; N18.31 Chronic kidney disease, stage 3a; I12.9 Hypertensive chronic kidney disease with stage 1 through stage 4 chronic kidney disease, or unspecified chronic kidney disease; Z68.34 Body mass index [BMI] 34.0-34.9, adult; I48.91 Unspecified atrial fibrillation; E87.6 Hypokalemia; M10.9 Gout, unspecified; E66.811 Obesity, class 1; Z86.718 Personal history of other venous thrombosis and embolism; Z87.891 Personal history of nicotine dependence
CPT/HCPCS: 36415; 70450; 71045; 80048; 80061; 81001; 83735; 83880; 84443; 84484; 84550; 85025; 85027; 85610; 85730; 93005; 93306; 93970; 94640; 94668; 97116; 97162; 97166; 97530; 97535; 99285; Q9957; A4216; C8929; J0295; J1940

== ENCOUNTER → 2024-10-02 | Outpatient (CLI) | payer MEDICARE, SELFPAY ==
[2024-10-02 18:16] LABS: Anion Gap 5 (5-15); BUN 26 mg/dL (7-18); BUN/Creat Ratio 19.4 RATIO (10-20); Calcium,Total 10.2 mg/dL (8.5-10.1); Chloride 102 mmol/L (98-107); Creatinine, Serum 1.34 mg/dL (0.70-1.30); EST Glomerular Filtration Rate 54 mL/min (>60); Est Glom Filt Rate - Afr Amer 66 mL/min (>60); Glucose 108 mg/dL (74-106); Potassium 4.3 mmol/L (3.5-5.1); Sodium Level 136 mmol/L (136-145); Uric Acid 8.8 mg/dL (3.5-7.2)
== END | disposition home or self-care (01) ==
LOC: MFPLAB 15:15
PROVIDERS: PCP Family Medicine; Referring Provider Family Medicine; Visit Provider Family Medicine
DX: M10.9 Gout, unspecified (principal); E87.1 Hypo-osmolality and hyponatremia
CPT/HCPCS: 36415; 80048; 84550

== ENCOUNTER → 2024-10-19 | Outpatient (CLI) | payer MEDICARE, SELFPAY ==
[2024-10-19 17:30] LABS: Absolute Lymphocyte Count 1.34 X10^3/uL (0.83-4.51); Absolute Neutrophil Count 4.4 X10^3/uL (2.0-7.7); Basophil# 0.04 X10^3/uL; Basophil% 0.6 % (0-1); Eosinophil# 0.32 X10^3/uL; Eosinophils% 4.7 % (0-5); Hematocrit 40.3 % (40-54); Hemoglobin 13.1 g/dL (13.0-16.5); Lymphocyte # 1.34 X10^3/ul (0.83-4.51); Lymphocyte % 19.7 % (19-41); Mean Corp Hgb Conc 32.5 g/dL (32-36); Mean Corpuscular Hgb 28.9 pg (27.0-32.0); Mean Platelet Vol. 9.5 fl (6.2-12.0); Monocyte# 0.62 X10^3/uL; Monocyte% 9.1 % (0-10); NRBC Flagged by Analyzer 0 % (0-5); Neutrophil # 4.43 X10^3/uL (2.7-7.7); Neutrophil % 65.3 % (47-70); Platelet Count 178 K/mm3 (150-450); RBC Distribution Width CV 13.6 % (11.6-14.6); RBC Distribution Width SD 44.1 fl (35.1-43.9); Red Blood Count 4.53 M/mm3 (4.6-6.2); White Blood Count 6.8 K/mm3 (4.4-11.0)
[2024-10-19 17:59] LABS: Hemoglobin A1c 5.8 % (3.8-5.6)
[2024-10-19 18:01] LABS: ALB/GLOB Ratio 0.9 RATIO (0.9-2.4); AST(SGOT) 22 U/L (15-37); Alanine Aminotransfer ALT/SGPT 28 U/L (16-61); Albumin, Serum 3.3 g/dL (3.2-5.0); Alkaline Phosphatase 124 U/L (45-117); Anion Gap 7 (5-15); BUN 20 mg/dL (7-18); BUN/Creat Ratio 19.8 RATIO (10-20); Calcium,Total 9.7 mg/dL (8.5-10.1); Chloride 104 mmol/L (98-107); Cholesterol 134 mg/dL (200); Creatinine, Serum 1.01 mg/dL (0.70-1.30); EST Glomerular Filtration Rate 75 mL/min (>60); Est Glom Filt Rate - Afr Amer 91 mL/min (>60); Globulin 3.7 g/dL (2.2-4.2); Glucose 97 mg/dL (74-106); High Density Lipoprotein 52 mg/dL; Magnesium 2.1 mg/dL (1.6-2.6); Potassium 4.1 mmol/L (3.5-5.1); Sodium Level 139 mmol/L (136-145); Triglycerides 104 mg/dL; Very Low Density Lipoprotein 21 mg/dL (5-40)
[2024-10-19 18:03] LABS: PTHIN 141.6 pg/mL (18.4-80.1)
== END | disposition home or self-care (01) ==
LOC: MFPLAB 16:11
PROVIDERS: PCP Family Medicine; Referring Provider Family Medicine; Visit Provider Family Medicine
DX: I12.9 Hypertensive chronic kidney disease with stage 1 through stage 4 chronic kidney disease, or unspecified chronic kidney disease (principal); N18.30 Chronic kidney disease, stage 3 unspecified; R73.02 Impaired glucose tolerance (oral)
CPT/HCPCS: 36415; 80053; 80061; 82306; 83036; 83735; 83970; 85025

== ENCOUNTER 2024-10-29 07:27 | Outpatient (CLI) | payer MEDICARE, SELFPAY ==
[2024-10-29] VITALS (11 sets, daily range): BP systolic 108–149; BP diastolic 56–74; PULSE 66–85; RESP 9–19; TEMP 36.2; O2SAT 94–100; BMI 33.9
--- NOTE | 2024-10-29 | ASPIGT_PTH ---
PATIENT: HARRY LICEA LOC: [place] U#:[id number] AGE/SX: 83/M ROOM: RE10/29/[address]: Dr. Jerrod Viramontes MD : 1940 BED: DIS: 10/29/2024 SPEC #: [id number] RECD: 10/29/24 09:51 STATUS: EBONIE SIL #: [id number] LEONIDES: 10/29/24 00:[address]: Jerrod Viramontes DEPT: SURGICAL PATHOLOGY RECD BY: Nelli Zurita Tissues: Lymph node, NOS Procedures: FNA Specimen Adequacy Special Stain Group II Surgery Specimen Level IV Imprint (control) HEADER OPERATION: CT guided left groin biopsy PRE-OP DIAGNOSIS: Abnormal pet scan TISSUE SUBMITTED: 18 gauge x 8 cores MICROSCOPIC DIAGNOSIS Left groin lesion, CT guided core biopsy: Scant fragments of skeletal muscle tissue. See donna. mr 10/30/2024 COMMENT The specimen is evaluated at the time of biopsy by Dr. Tillman. Immediate Evaluation = Blood only. Lymph node tissue not seen. Scant fragment of skeletal muscle tissue. Reported to Ms. Leggett at 9:43am on 10/29/2024. Lymph node tissue is not identified. Correlation with clinical, radiologic findings and appropriate follow up are necessary. Re-biopsy of the lesion is suggested if clinically indicated. MICROSCOPIC DESCRIPTION Slides are reviewed. GROSS DESCRIPTION Received is one container labeled with the patient's name and not further designated. The specimen consists of multiple irregular fragments of pop soft tissue that in aggregate measure 0.5 x 0.1 x <0.1 cm. The specimen is totally submitted in one cassette. Two touch imprints are prepared at the time of core biopsy. A portion of the specimen is saved in RPMI solution for flow cytometric studies if needed. SJ.mr 10/29/2024 Specimen saved for flow cytometric study is submitted in cassette #2. SJ.mr 10/30/2024 TC: Can not code CPT:70468,99028
[2024-10-29 07:42] LABS: Absolute Lymphocyte Count 1.58 X10^3/uL (0.83-4.51); Absolute Neutrophil Count 5.3 X10^3/uL (2.0-7.7); Basophil# 0.05 X10^3/uL; Basophil% 0.6 % (0-1); Eosinophil# 0.26 X10^3/uL; Eosinophils% 3.3 % (0-5); Hematocrit 44.9 % (40-54); Hemoglobin 14.6 g/dL (13.0-16.5); Lymphocyte # 1.58 X10^3/ul (0.83-4.51); Mean Corp Hgb Conc 32.5 g/dL (32-36); Mean Corpuscular Hgb 28.7 pg (27.0-32.0); Mean Corpuscular Volume 88.4 fL (80-94); Mean Platelet Vol. 8.4 fl (6.2-12.0); Monocyte# 0.68 X10^3/uL; Monocyte% 8.6 % (0-10); NRBC Flagged by Analyzer 0 % (0-5); Neutrophil # 5.31 X10^3/uL (2.7-7.7); Neutrophil % 67.2 % (47-70); Platelet Count 201 K/mm3 (150-450); RBC Distribution Width CV 14.5 % (11.6-14.6); RBC Distribution Width SD 45.7 fl (35.1-43.9); Red Blood Count 5.08 M/mm3 (4.6-6.2); White Blood Count 7.9 K/mm3 (4.4-11.0)
[2024-10-29 08:15] LABS: International Normalized Ratio 1.2; Prothrombin Time (Protime)PT. 15.7 SECONDS (11.7-14.9)
[2024-10-29 08:16] LABS: Partial Thromboplast Time 27.7 Seconds (24.1-36.2)
[2024-10-29] MEDS: 0.9% Saline Lock 10 ML Syringe IV ×2 (08:18→09:15)
[2024-10-29] MEDS: Midazolam 2 MG/2 ML Syringe IV ×2 (09:01→09:14)
[2024-10-29] MEDS: fentaNYL 100 MCG/2 ML Ampul IV (09:02)
[2024-10-29] MEDS: Lidocaine 2% (20 ml mdv) 20 ML Vial INFILT (09:10)
--- NOTE | 2024-10-29 09:32 | OP.PCM_ITS ---
Problems Associated Problem List Diagnoses (1) Abnormal positron emission tomography (PET) scan: Multi Select Codes Radiology Radiology CT Procedures: 67755 Biopsy Lymph Node/gland/etc and 92447-30 CT guidance parenchymal tissue Operative Report (Standard) Operative Information Date of Procedure: 10/29/24 Pre-Operative Diagnosis: Abnormal PET CT Post-Operative Diagnosis: Abnormal PET CT Surgery/Procedure Performed: CT-guided lymph node biopsy banquet kitchen supervisor: No Type of Anesthesia: IV Sedation and Local Procedure Start Time: :01 Procedure Stop Time: : Select all DRAINS/GRAFTS/IMPLANTS that apply: None Estimated Blood Loss: 0 Specimen collected: Yes Description of specimen(s) removed: 8 core biopsies sent to lab Description of surgery: PROCEDURE: CT GUIDED CORE LYMPH NODE BIOPSY ORDERING PROVIDER: Dr. Viramontes INDICATION: Male, 83 years old. Abnormal PET CT scan PROVIDER: Suzy Charles CNP CONSENT: Written informed consent was obtained having explained the risks, benefits and alternatives in detail with the patient who accepted the risks and agreed to proceed. Laboratory review and clinical assessment was performed. PRE-PROCEDURE SEDATION ASSESSMENT: Current history and physical dictated by referring physician and reviewed. No clinical changes since date of exam. Patient has a Mallampati Score of Class 3 and ASA Class of 2. PROCEDURAL SEDATION PROTOCOL: The Drugs used were: 2 mg Versed, IV, and 50 mcg Fentanyl, IV. The sedation time was: starting at 9:01 AM and terminated at 9:22 AM. The procedural sedation protocol was independently monitored by the department nurse. RADIATION DOSAGE (If Supplied By Facility): CTDIvol = 22.68 mGy, DLP = 476.21 mGycm Individualized dose optimization techniques were used for this CT. TECHNIQUE The patient was placed in a supine position. A noncontrast CT was performed to localize the lesion in the right groin. The skin surface was prepped with chlorhexidine and draped in a sterile fashion. 2% lidocaine was used for local anesthesia. Using CT guidance, a 18-gauge coaxial biopsy device was advanced to the periphery of the lesion. A total of 8 core specimens were obtained. Specimens were microscopically reviewed by pathology in the CT suite and placed in formalin solution, as well as RPMI. The biopsy needle was removed and a sterile dressing was applied to the biopsy site. The patient tolerated the procedure well without adverse event. A negative biopsy does not exclude malignancy. Further imaging or clinical followup based on patient condition and degree of clinical suspicion for malignancy. Suggest rebiopsy, if biopsy results do not match with clinical scenario. IMPRESSION: CT directed core needle biopsy of the right groin using CT image guidance with image documentation as described. Pathology results are pending. Procedural Sedation protocol utilized with independent monitoring by the department nurse. Surgical Findings: Uncomplicated Complications Complications: No
== END 2024-10-29 23:59 | disposition home or self-care (01) ==
LOC: CT 07:27
PROVIDERS: Radiology Diagnostic Radiology; PCP Family Medicine; Referring Provider Family Medicine; Visit Provider Family Medicine
DX: R94.8 Abnormal results of function studies of other organs and systems (principal)
CPT/HCPCS: 38505; 36415; 77012; 85025; 85610; 85730; 88172; 88305; 88313; 99156; A4216

== ENCOUNTER → 2024-11-22 | Outpatient (CLI) | payer MEDICARE, SELFPAY ==
[2024-11-22 16:33] LABS: Bacteria 0 SEEN /hpf (None Seen); Mucous, Urine 0 SEEN /hpf (<or=2+); Squamous Epithelial Cells - UA 0 SEEN /hpf (0-5)
[2024-11-22 17:59] LABS: Color, Urine Yellow (Yellow); Glucose, Dipstick 1000 mg/dl (Normal); Ketone-Dipstick Negative (Negative); Leukocyte Esterase-Dipstick 25 /ul (Negative); Nitrite-Dipstick Negative (Negative); Occult Blood-Urine 10 /ul (Negative); Protein-Dipstick 15 mg/dl (Negative); Urine Bilirubin Dipstick Negative (Negative); Urine Clarity Clear (Clear); Urine Urobilinogen Normal (Normal)
[2024-11-22 18:24] LABS: Protein:Creat Ratio 420 mg/g CRE (0-200)
[2024-11-22 18:35] LABS: Red Blood Cells-Urine 0-5 SEEN /hpf (0-5); White Blood Cells 0-5 SEEN /hpf (0-5)
== END | disposition home or self-care (01) ==
LOC: MFPLAB 16:31 → LABSPEC 16:32
PROVIDERS: PCP Family Medicine; Referring Provider Family Medicine; Visit Provider Family Medicine
DX: I12.9 Hypertensive chronic kidney disease with stage 1 through stage 4 chronic kidney disease, or unspecified chronic kidney disease (principal); N18.30 Chronic kidney disease, stage 3 unspecified
CPT/HCPCS: 81001; 82570; 84156

== ENCOUNTER → 2025-02-04 | Outpatient (CLI) | payer MEDICARE, SELFPAY ==
--- NOTE | 2025-02-04 | CYSPIN_PTH ---
PATIENT: HARRY LICEA LOC: [facility] U#:[id number] AGE/SX: 84/M ROOM: RE02/04/[address]: Dr. Bola Boone MD : 1940 BED: DIS: 02/04/2025 SPEC #: [id number] RECD: 02/04/25 14:39 STATUS: EBONIE REQ #: [id number] LEONIDES: 02/04/25 00:[address]: Bola Boone DEPT: CYTOLOGY RECD BY: Nelli Zurita ENTERED: 02/05/25 07:15 SP TYPE: CYSPIN FL OTHR DR: Dr. 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 Urine, voided: * Negative for high grade urothelial carcinoma CYTOLOGY STUDY Slides are reviewed. CYTOLOGY GROSS A. Received is 50 ml of yellow-hazy fluid labeled with the patient's name and and designated per the requisition as urine. Submitted for cytology preparation. Mr 02/05/2025 CPT: 87559
[2025-02-04 14:42] LABS: Cytology, Body Fluid / CSF SEE PATHOLOGY REPORT
== END | disposition home or self-care (01) ==
LOC: LABSPEC 14:15
PROVIDERS: PCP Family Medicine; Referring Provider Urology; Visit Provider Urology
DX: C67.2 Malignant neoplasm of lateral wall of bladder (principal)
CPT/HCPCS: 88108; 88313

== ENCOUNTER → 2025-03-15 | Outpatient (CLI) | payer MEDICARE, SELFPAY ==
[2025-03-15 15:09] LABS: Absolute Lymphocyte Count 1.42 X10^3/uL (0.83-4.51); Absolute Neutrophil Count 5.5 X10^3/uL (2.0-7.7); Basophil# 0.04 X10^3/uL; Basophil% 0.5 % (0-1); Eosinophil# 0.24 X10^3/uL; Hematocrit 42.8 % (40-54); Hemoglobin 13.5 g/dL (13.0-16.5); Lymphocyte # 1.42 X10^3/ul (0.83-4.51); Lymphocyte % 17.9 % (19-41); Mean Corp Hgb Conc 31.5 g/dL (32-36); Mean Corpuscular Hgb 27.6 pg (27.0-32.0); Mean Corpuscular Volume 87.3 fL (80-94); Mean Platelet Vol. 9.3 fl (6.2-12.0); Monocyte# 0.69 X10^3/uL; Monocyte% 8.7 % (0-10); NRBC Flagged by Analyzer 0 % (0-5); Neutrophil % 69.5 % (47-70); Platelet Count 202 K/mm3 (150-450); RBC Distribution Width CV 15.9 % (11.6-14.6); RBC Distribution Width SD 50.4 fl (35.1-43.9); White Blood Count 7.9 K/mm3 (4.4-11.0)
[2025-03-15 16:09] LABS: PTHIN 76 pg/mL (11-61)
[2025-03-15 16:24] LABS: Protein:Creat Ratio 429 mg/g CRE (0-200)
[2025-03-15 16:28] LABS: Hemoglobin A1c 6.4 % (<=5.6)
[2025-03-15 16:50] LABS: ALB/GLOB Ratio 1.4 RATIO (0.9-2.4); AST(SGOT) 15 U/L (<=37); Alanine Aminotransfer ALT/SGPT 9 U/L (<=46); Alkaline Phosphatase 117 U/L (40-129); Anion Gap 10 (5-15); BUN 26 mg/dL (4-19); Calcium,Total 9.6 mg/dL (7.6-11.0); Carbon Dioxide 25.6 mmol/L (21.0-32.0); Chloride 101 mmol/L (98-108); Cholesterol 178 mg/dL (<=200); Creatinine, Serum 1.08 mg/dL (0.70-1.20); EST Glomerular Filtration Rate 69 (>60); Globulin 2.9 g/dL (2.2-4.2); Glucose 111 mg/dL (70-99); High Density Lipoprotein 46 mg/dL; Low Density Lipoprotein Calc. 101 mg/dL; Magnesium 2.4 mg/dL (1.5-2.2); Potassium 4.6 mmol/L (3.3-5.1); Protein, Total 6.9 g/dL (5.9-8.4); Sodium Level 136 mmol/L (133-145); Total Bilirubin 0.92 mg/dL (0.00-1.30); Triglycerides 160 mg/dL; Very Low Density Lipoprotein 32 mg/dL (5-40); cholesterol:hdl ratio screen 3.91
== END | disposition home or self-care (01) ==
LOC: MTLAB 11:27
PROVIDERS: PCP Family Medicine; Referring Provider Family Medicine; Visit Provider Family Medicine
DX: R73.02 Impaired glucose tolerance (oral) (principal); I48.91 Unspecified atrial fibrillation; N18.30 Chronic kidney disease, stage 3 unspecified; I12.9 Hypertensive chronic kidney disease with stage 1 through stage 4 chronic kidney disease, or unspecified chronic kidney disease
CPT/HCPCS: 36415; 80053; 80061; 82306; 82570; 83036; 83735; 83970; 84156; 84443; 85025

== ENCOUNTER 2025-05-12 11:57 | Emergency (ER) | payer MEDICARE, SELFPAY ==
[2025-05-12 11:57] VITALS: BP 135/92; PULSE 86; RESP 22; TEMP 36.1; O2SAT 100; BMI 33.1
--- NOTE | 2025-05-12 12:24 | RAD_ITS ---
PROCEDURE: KNEE 4 OR MORE VIEWS 05/12/2025 REASON FOR EXAM: INJURY/PAIN TECHNIQUE: KNEE 4 OR MORE VIEWS COMPARISON: 01/19/2022. FINDINGS: No evidence of acute fracture or dislocation. Bipartite patella. Small suprapatellar knee joint effusion. Thin calcification of the joint space likely representing chondrocalcinosis. Mild degenerative changes of the knee. The bones are demineralized. Similar ossification of the proximal medial collateral ligament. RAD/Knee 4 or More Views IMPRESSION: No acute abnormalities. Chronic and ancillary findings as above. Reading Location: [id number]
--- NOTE | 2025-05-12 12:24 | CT_ITS ---
PROCEDURE: BRAIN/HEAD WITHOUT CONTRAST 05/12/2025 REASON FOR EXAM: INJURY/PAIN TECHNIQUE: BRAIN/HEAD WITHOUT CONTRAST Coronal and Sagittal reconstruction series were provided. One or more dose reduction techniques were used (e.g., Automated exposure control, adjustment of the mA and/or kV according to patient size, use of iterative reconstruction technique. RADIATION DOSE SUMMARY: CTDlvol: 44 mGy DLP: 863 mGycm COMPARISON: 09/22/2024. FINDINGS: Moderate global parenchymal atrophy. Periventricular white matter hypodensity likely representing chronic microvascular ischemia. No evidence of acute hemorrhage or infarction. No extra axial blood or fluid collections. Mild pansinus mucosal thickening. The calvarial vault and skull base are intact. CT/Brain/Head without Contrast IMPRESSION: No acute intracranial abnormality. Chronic and ancillary findings as above. Reading Location: [id number]
--- OUTSIDE RECORDS SUMMARY | 2025-05-12 12:30 | XMS RPT_ITS | CCD ---
Author Organization [facility] Care Team Providers Care Hydraulic Billet Maker Name Role Phone MastersonFranciscai Unavailable Unavailable Addis Masterson Unavailable Unavailable RAMON Knight, Jolly Zamarripa Unavailable Dr. Jerrod Viramontes Primary Care Provider [phone] Dr. Jerrod Viramontes Referring Provider Dr. Scott Banda Attending Provider Dr. Jerrod Viramontes Primary Care Provider [phone] Dr. Jerrod Viramontes Referring Provider Roof MACHINE SETTER AND REPAIRER, MACHINE SETTER AND REPAIRER-C Jerrod Preciado Attending Provider Dr. Jerrod Viramontes Primary Care Provider [phone] Dr. Jerrod Viramontes Referring Provider Roof MACHINE SETTER AND REPAIRER, MACHINE SETTER AND REPAIRER-C Jerrod Preciado Attending Provider Dr. Jerrod Viramontes MD Primary Care Provider Dr. Jerrod Viramontes MD Attending Provider [phone] Dr. Jerrod Viramontes MD Referring Provider [phone] [place] CASEY, Dr. Brown Attending Provider Paolo CASEY, Dr. Bola Rider Attending Provider Paolo CASEY, Dr. Bola Rider Referring Provider [phone] Jerrod Viramontes Primary Care Unavailable Jerrod Viramontes Referring Unavailable Jerrod Viramontes Attending Unavailable Eun Muhammad Consulting Unavailable Jerrod Viramontes Primary Care Unavailable Eun Muhammad Admitting Unavailable Jhon Ruiz Attending Unavailable Jhon Ruiz Consulting Unavailable Bola Boone Referring Unavailable Bola Boone Attending Unavailable Schinner, Jerrod E Primary Care Unavailable Schinner, Jerrod E Primary Care Unavailable SchinnerJerrod E Attending Unavailable Schinner, Jerrod E Primary Care Unavailable SchinnerJerrod E Attending Unavailable Schinner, Jerrod E Primary Care Unavailable Bola Boone Referring Unavailable PaoloBola Attending Unavailable Schinner, Jerrod E Primary Care Unavailable SchinnerJerrod E Attending Unavailable Jerrod Pinon Referring Unavailable Schinner, Jerrod E Referring Unavailable Schinner, Jerrod E Primary Care Unavailable SchinnerJerrod E Attending Unavailable Schinner, Jerrod E Referring Unavailable Schinner, Jerrod E Primary Care Unavailable SchinJerrod magallon E Attending Unavailable Schinsherita, Jerrod E Referring Unavailable Schinner, Jerrod E Primary Care Unavailable SchinJerrod magallon E Attending Unavailable Schinsherita, Jerrod E Primary Care Unavailable Schgayatri, Jerrod E Referring Unavailable SchJerrod mendieta E Attending Unavailable Bola Boone Referring Unavailable Schinsherita, Jerrod E Primary Care Unavailable Scott Banda Attending Unavailable Delfina Martínez Attending Unavailable Schgayatri, Jerrod E Primary Care Unavailable SchJerrod mendieta E Primary Care Unavailable SchJerrod mendieta E Referring Unavailable Kevin Golden Attending Unavailable Felipe Love Attending Unavailable Jerrod Viramontes E Primary Care Unavailable Jhon Ruiz Referring Unavailable SchJerrod mendieta Referring Unavailable Suzy Charles NP Attending Unavailable SchJerrod mendieta E Consulting Unavailable Schgayatri, Jerrod E Primary Care Unavailable Felipe Verdin Attending Unavailable Felipe Verdin Unavailable Eun Muhammad Attending Unavailable Jerrod Viramontes E Primary Care Unavailable Oskar Coffey V Referring Unavailable KaushikiliaOskar V Attending Unavailable SchJerrod mendieta E Referring Unavailable SchJerrod mendieta E Attending Unavailable Jerrod Viramontes E Primary Care Unavailable Felipe Verdin Attending Unavailable Eun Muhammad Admitting Unavailable SchJerrod mendieta E Primary Care Unavailable Eun Muhammad Consulting Unavailable Jhon Ruiz Unavailable Medications Current Medications Medication Drug Class(es) Dates Sig (Normalized) Sig (Original) [id number] 200 actuat albuterol 0.09 mg/actuat metered dose inhaler (20 sources) beta2-Adrenergic Agonist Start: 03-25-2021 Albuterol Sulfate 90 mcg/actuation HFA aerosol inhaler Active 2 NMA INHALATION Q4H as needed for shortness of breath or wheezing March 25, 2021 11:59am Start: 03-25-2021 take 1 puff(s) by in halation every four hours Albuterol Sulfate Active 2 PUFF INHALATION Q4H March 25, 2021 10:59am Start: 03-18-2018 End: 03-25-2021 Albuterol Sulfate 90 mcg/act uation HFA aerosol inhaler Discontinued INHALATION March 18, 2018 12:00am March 25, 2021 12:02pm Start: 03-18-2018 End: 03-25-2021 Albuterol Sulfate Discontinu ed INHALATION March 17, 2018 11:00pm March 25, 2021 11:02am Start: 02-06-2013 ALBUTEROL SULF ATE NEBU 90 Mcg/inh as needed ALBUTEROL SULFATE NEBU [id number] Lillie Massey RN allopurinol 100 mg oral tablet (20 sources) Xanthine Oxidase Inhibitor Start: 09-24-2024 take 1 tablet by mouth once daily, then take 3 tablets by mouth once daily Allopurinol 100 mg tablet Active 100 mg PO DAILY September 24, 2024 1:00am 1 tablet daily for 1 week, then 3 tablets daily thereafter. Start: 03-18-2018 End: 08-30-2024 take 1 tablet by mouth once daily Allopurinol 300 mg tablet Discontinued 300 mg PO DAILY March 25, 2021 12:01pm August 30, 2024 3:42pm Start: 03-18-2018 End: 03-25-2021 Allopurinol 300 mg tablet Discontinued PO March 18, 2018 12:00am March 25, 2021 12:02pm Start: 08-22-2014 take 1 tablet by pretty th once daily ALLOPURINOL 300 MG TABS One tablet by mouth daily ALLOPURINOL [id number] Jolly Knight PA-C apixaban 5 mg oral tablet (20 sources) Factor Xa Inhibitor Start: 01-08-2025 take 1 tablet by mouth twice daily Apixaban (Eliquis) 5 mg tablet Active 5 mg PO TWICE A DAY January 08, 2025 7:58pm Start: 09-24-2024 End: 01-08-2025 take 2 tablets by mouth twice daily, then take 1 tablet by mouth twice daily Apixaban (Eliquis) 5 mg tablet Discontinued 5 mg PO TWICE A DAY 60 September 24, 2024 4:02pm January 08, 2025 7:58pm 2 tablets twice daily for 1 week, then 1 tablet twice daily Start: 03-18-2018 End: 09-24-2024 take 1 tablet by mouth twice daily Apixaban (Eliquis) 5 mg tablet Discontinued 5 mg PO TWICE A DAY 180 December 28, 2023 8:04am September 24, 2024 4:02pm On Hold: Resume on 09/26/24. Start: 09-02-2015 take 1 tablet by pretty th twice daily ELIQUIS 5 MG TABS One tablet by mouth twice daily APIXABAN [id number] Scott Banda MD atorvastatin 40 mg oral tablet (9 sources) HMG-CoA Reductase Inhibitor Start: 03-25-2021 take 1 tablet by mouth at bedtime Atorvastatin 40 mg tablet Active 40 mg PO AT BEDTIME March 25, 2021 12:00am ergocalciferol 1.25 mg oral capsule (1 source) Provitamin D2 Compound Start: 08-30-2024 Ergocalciferol (Vitamin D2) (Vitamin D2) 1,250 mcg (50,000 unit) capsule Active 1250 ug PO .QWEEKLY August 30, 2024 1:00am furosemide 40 mg oral tablet (20 sources) Loop Diuretic Start: 03-25-2020 End: 01-08-2025 take 1 tablet by mouth once daily Furosemide 40 mg tablet Active 40 mg PO DAILY 90 January 08, 2025 7:53pm Start: 03-18-2018 End: 03-21-2020 take 1 tablet by mouth once daily in the morning Furosemide 40 mg tablet Discontinued 40 mg PO EVERY MORNING June 08, 2018 3:20pm June 02, 2019 12:00am March 27, 2019 11:32am Start: 02-07-2013 take 1 tablet by pretty th once daily LASIX 40 MG TABS One tablet by mouth daily FUROSEMIDE [id number] Scott Banda MD latanoprost 0.05 mg/ml ophthalmic solution (13 sources) Prostaglandin Analog Start: 08-30-[address] 0.005 % drops Active 1 NMA OPHTHALMIC DAILY August 30, 2024 1:00am Start: 03-18-2018 End: 03-25-2021 Latanoprost 0.005 % drops Di scontinued OPHTHALMIC March 18, 2018 12:00am March 25, 2021 12:01pm Start: 03-18-2018 End: 03-25-2021 Latanoprost Discontinued OPH THALMIC March 17, 2018 11:00pm March 25, 2021 11:01am Start: 08-22-2014 LATANOPROST 0. 005 % SOLN as directed LATANOPROST [id number] SHEELA MckeonC losartan potassium 100 mg oral tablet (13 sources) Angiotensin 2 Receptor Jeannine Start: 09-24-2024 take 1 tablet by mouth once daily Losartan 100 mg tablet Active 100 mg PO DAILY September 24, 2024 1:00am Start: 03-18-2018 End: 03-25-2020 take 1 tablet by mouth once daily Losartan 100 mg tablet Discontinued 100 mg PO daily March 18, 2018 12:00am March 25, 2020 10:06am Start: 02-06-2013 take 1 tablet by pretty once daily LOSARTAN POTASSIUM 100 MG TABS One tablet by mouth daily LOSARTAN POTASSIUM [id number] Scott Banda MD magnesium oxide 400 mg oral tablet (9 sources) Start: 03-25-2021 take 1 tablet by mouth three times daily Magnesium Oxide 400 mg magnesium tablet Active 400 mg PO THREE TIMES A DAY March 25, 2021 12:00am 24 hr metoprolol succinate 50 mg extended release oral tablet (20 sources) beta-Adrenergic Jeannine Start: 03-25-2020 End: 02-25-2025 take 1 tablet by mouth once daily Metoprolol Succinate 50 mg tablet extended release 24 hr Active 50 mg PO DAILY February 25, 2025 3:03pm Start: 03-18-2018 End: 03-21-2020 take 1 tablet by mouth once daily Metoprolol Succinate 50 mg tablet extended release 24 hr Discontinued 50 mg PO daily June 08, 2018 3:20pm June 02, 2019 12:00am March 27, 2019 11:32am Start: 02-20-2013 take 1 tablet by pretty th once daily TOPROL XL 50 MG [id number] One tablet by mouth daily METOPROLOL SUCCINATE [id number] Scott Banda MD Completed/Discontinued Medications Medication Drug Class(es) Dates Sig (Normalized) Sig (Original) acetaminophen 325 mg oral tablet (1 source) Start: 09-24-2024 End: 12-03-2024 Acetaminophen 325 mg Tablet Discontinued 1000 mg PO Q8H as needed for Pain 1-10 Or Fever >100.7 0 September 24, 2024 1:00am December 03, 2024 1:55pm aspirin 81 mg delayed release oral tablet (15 sources) Nonsteroidal Anti-inflammatory Drug Start: 02-06-2013 take 1 tablet by mouth twice daily ASPIRIN 325 MG TABS One tablet by mouth twice daily ASPIRIN [id number] Scott Banda MD Start: 02-06-2013 take 1 tablet by pretty once daily ASPIRIN 81 MG TABS One tablet by mouth daily ASPIRIN [id number] Jolly Knight PA-C Start: 02-06-2013 End: 03-03-2017 take 1 tablet by mouth once daily ASPIRIN EC 81 MG TBEC One tablet by mouth daily ASPIRIN [id number] Lillie Massey RN bimatoprost (6 sources) Prostaglandin Analog Start: 02-06-2013 LUMIGAN 0 .03 % SOLN 1 drop each eye 1 X daily BIMATOPROST Lillie Massey RN Start: 02-06-2013 End: 08-22-2014 LUMIGAN 0.03 % SOLN 1 drop e ach eye 1 X daily BIMATOPROST Jolly Knight PA-C 120 actuat budesonide 0.16 mg/actuat / formoterol fumarate 0.0045 mg/actuat metered dose inhaler (20 sources) Corticosteroid, beta2-Adrenergic Agonist Start: 03-25-2020 End: 03-25-2021 Budesonide-Formoterol 160-4.5 mcg/actuation HFA aerosol inhaler Discontinued 2 NMA INHALATION TWICE A DAY 90 March 25, 2020 10:04am March 25, 2021 12:02pm Start: 03-25-2020 End: 03-25-2021 Budesonide-Formoterol Discon tinued 2 INH INHALATION TWICE A DAY March 25, 2020 9:04am March 25, 2021 11:02am Start: 03-18-2018 End: 03-25-2020 Budesonide-Formoterol 160-4. 5 mcg/actuation HFA aerosol inhaler Discontinued INHALATION March 18, 2018 12:00am March 25, 2020 10:08am Start: 03-18-2018 End: 03-25-2020 Budesonide-Formoterol Discon tinued INHALATION March 17, 2018 11:00pm March 25, 2020 9:08am Start: 08-22-2014 SYMBICORT 160- 4.5 MCG/ACT AERO as dierected BUDESONIDE-FORMOTEROL FUMARATE [id number] Jolly Knight PA-C ciprofloxacin 500 mg oral tablet (1 source) Quinolone Antimicrobial Start: 09-12-2024 End: 09-23-2024 take 1 tablet by mouth twice daily Ciprofloxacin Hcl (Cipro) 500 mg tablet Discontinued 500 mg PO TWICE A DAY September 12, 2024 1:00am September 23, 2024 12:27pm colchicine 0.6 mg oral capsule (1 source) Start: 09-24-2024 End: 10-29-2024 take 2 tablets by mouth twice daily as needed, then take 1 tablet by mouth every hour as needed Colchicine 0.6 mg Capsule Discontinued 0.6 mg PO TWICE A DAY as needed for gout flare September 24, 2024 1:00am October 29, 2024 9:07am 2 tablets x1 PRN, then 1 tablet in an hour as need for gout flares. empagliflozin 25 mg oral tablet (1 source) Sodium-Glucose Cotransporter 2 Inhibitor Start: 08-30-2024 End: 09-24-2024 take 1 tablet by mouth once daily Empagliflozin (Jardiance) 25 mg tablet Discontinued 10 mg PO DAILY August 30, 2024 1:00am September 24, 2024 4:00pm Fluticasone-Umeclid in-Vilanter (13 sources) Start: 03-21-2023 End: 08-30-2024 Fluticasone-Umecli din-Vilanter (Trelegy Ellipta) 200-62.5-25 mcg blister with device Discontinued 1 NMA INHALATION DAILY March 21, 2023 12:00am August 30, 2024 3:37pm Start: 03-21-2023 Fluticasone-Um eclidin-Vilanter (Trelegy Ellipta) 200-62.5-25 mcg blister with device Active 1 INH INHALATION DAILY March 20, 2023 11:00pm Start: 03-21-2023 Fluticasone-Um eclidin-Vilanter (Trelegy Ellipta) 200-62.5-25 mcg blister with device Active 1 INH INHALATION DAILY March 21, 2023 12:00am Start: 03-25-2021 Fluticasone-Um eclidin-Vilanter (Trelegy Ellipta) 200-62.5-25 mcg blister with device Active 1 INH INHALATION DAILY March 25, 2021 11:59am Start: 03-25-2021 Fluticasone-Um eclidin-Vilanter 200-62.5-25 mcg blister with device Active 1 NMA INHALATION DAILY March 25, 2021 12:00am Start: 03-25-2021 Fluticasone-Um eclidin-Vilanter (Trelegy Ellipta) 200-62.5-25 mcg blister with device Active 1 INH INHALATION DAILY March 24, 2021 11:00pm Start: 03-25-2021 Fluticasone-Um eclidin-Vilanter (Trelegy Ellipta) 200-62.5-25 mcg blister with device Active 1 INH INHALATION DAILY March 25, 2021 12:00am hydroCHLOROthiazide 25 mg / losartan potassium 100 mg oral tablet (12 sources) Thiazide Diuretic, Angiotensin 2 Receptor Jeannine Start: 03-25-2020 End: 09-24-2024 Losartan-Hydrochlorothiazide 100-25 mg tablet Discontinued 1 {tbl} PO DAILY March 25, 2020 12:00am September 24, 2024 4:00pm Start: 03-25-2020 take 1 tablet by pretty th once daily Losartan-Hydrochlorothiazide Active 1 TA BLET PO DAILY March 24, 2020 11:00pm Start: 02-06-2013 take 1 tablet by pretty th once daily LOSARTAN POTASSIUM-HCTZ 100-25 MG TABS O ne tablet by mouth daily LOSARTAN POTASSIUM-HCTZ [id number] Lillie Massey RN Magnesium (9 sources) Start: 03-27-2019 End: 03-25-2021 take 250 mg by mouth three times daily Magnesium Discontinued 250 MG PO THREE TIMES A DAY March 27, 2019 11:31am March 25, 2021 12:00pm Start: 03-27-2019 End: 03-25-2021 take 1 tablet by mouth three times daily Magnesium 250 mg tablet Discontinued 250 mg PO THREE TIMES A DAY March 27, 2019 12:00am March 25, 2021 12:00pm Start: 03-27-2019 End: 03-25-2021 take 250 mg by mouth three times daily Magnesium Discontinued 250 MG PO THREE TIMES A DAY March 26, 2019 11:00pm March 25, 2021 11:00am Start: 03-27-2019 End: 03-25-2021 take 250 mg by mouth three times daily Magnesium Discontinued 250 MG PO THREE TIMES A DAY March 27, 2019 12:00am March 25, 2021 12:00pm MULTIPLE VITAMIN (3 sources) Start: 02-06-2013 take 1 tablet by mouth once daily MULTIVITAMINS TABS One tablet by mouth daily MULTIPLE VITAMIN [id number] Lillie Massey RN Multivitamin preparation (8 sources) Start: 03-18-2018 End: 03-25-2021 take 1 tablet by mouth once daily in the morning Multivitamin Discontinued 1 TABLET PO EVERY MORNING March 18, 2018 5:14pm March 25, 2021 12:01pm Start: 03-18-2018 End: 03-25-2021 take 1 tablet by mouth once daily in the morning Multivitamin Discontinued 1 TABLET PO EVERY MORNING March 17, 2018 11:00pm March 25, 2021 11:01am Start: 03-18-2018 End: 03-25-2021 take 1 tablet by mouth once daily in the morning Multivitamin Discontinued 1 TABLET PO EVERY MORNING March 18, 2018 12:00am March 25, 2021 12:01pm Multivitamin tablet (1 source) Start: 03-18-2018 End: 03-25-2021 Multivitamin tablet Discontinued 1 {tbl} PO EVERY MORNING March 18, 2018 12:00am March 25, 2021 12:01pm oxyCODONE hydrochloride 5 mg oral tablet (1 source) Opioid Agonist Start: 09-12-2024 End: 09-23-2024 take 1 tablet by mouth every six hours as needed for pain Oxycodone 5 mg tablet Discontinued 5 mg PO EVERY 6 HOURS as needed for pain 14 September 12, 2024 September 23, 2024 12:30pm sildenafil 100 mg oral tablet (6 sources) Phosphodiesterase 5 Inhibitor Start: 02-06-2013 End: 09-02-2015 VIAGRA 100 MG TABS 1 tablet by mouth as needed SILDENAFIL CITRATE [id number] Jolly Knight PA-C simvastatin 40 mg oral tablet (12 sources) HMG-CoA Reductase Inhibitor Start: 03-18-2018 End: 03-25-2021 take 1 tablet by mouth once daily in the evening Simvastatin 40 mg tablet Discontinued 40 mg PO EVERY EVENING 90 March 18, 2018 12:00am March 25, 2021 12:00pm Start: 02-06-2013 take 1 tablet by pretty th once daily SIMVASTATIN 40 MG TABS One tablet by mouth daily SIMVASTATIN [id number] Lillie Massey RN tiotropium 0.018 mg inhalation powder (20 sources) Anticholinergic Start: 03-25-2020 End: 03-25-2021 Tiotropium [place] 18 mcg capsule, w/inhalation device Discontinued INHALATION March 25, 2020 10:07am March 25, 2021 12:01pm Start: 03-18-2018 End: 03-25-2020 Tiotropium [place] 18 mcg ca psule, w/inhalation device Discontinued INHALATION March 18, 2018 12:00am March 25, 2020 10:08am Start: 03-18-2018 End: 03-25-2021 Tiotropium [place] Discontin ued INHALATION March 25, 2020 9:07am March 25, 2021 11:01am Start: 08-22-2014 SPIRIVA HANDIH ALER 18 MCG CAPS as directed TIOTROPIUM BROMIDE MONOHYDRATE [id number] Jolly Knight PA-C Problems Active Problems Problem Classification Problem Date Documented Da te Episodic/Chronic Cancer of bladder (2 sources) Malignant tumor of urinary bladder; Translations: [Malignant neoplasm of bladder, unspecified] Onset: 02-07-2025 09-12-2024 Chronic Cardiac dysrhythmias (20 sources) Atrial fibrillation; Translations: [Persistent atrial fibrillation] Onset: 02-06-2013 02-06-2013 Chronic Chronic obstructive pulmonary disease and bronchiectasis (3 sources) Chronic obstructive lung disease; Translations: [Chronic obstructive pulmonary disease, unspecified] Onset: 03-02-2016 03-02-2016 Chronic Conduction disorders (12 sources) Left bundle branch hemiblock; 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] Onset: 02-06-2013 02-06-2013 Chronic Diabetes mellitus without complication (1 source) Impaired glucose tolerance (oral); Translations: [Impaired glucose tolerance (oral)] Onset: 03-19-2025 Episodic Disorders of lipid metabolism (17 sources) Hyperlipidemia; Translations: [Hyperlipidemia, unspecified] Onset: 02-06-2013 02-06-2013 Chronic Essential hypertension (17 sources) Hypertensive disorder; Translations: [Essential hypertension] Onset: 02-06-2013 02-06-2013 Chronic Gout and other crystal arthropathies (1 source) Gout, unspecified; Translations: [Gout, unspecified] Onset: 10-30-2024 Chronic Hypertension with complications and secondary hypertension (1 source) Hypertensive chronic kidney disease with stage 1 through stage 4 chronic kidney disease, or unspecified chronic kidney disease; Translations: [Hypertensive chronic kidney disease with stage 1 through stage 4 chronic kidney disease, or unspecified chronic kidney disease] Onset: 2024 Chronic Other nutritional; endocrine; and metabolic disorders (7 sources) Obese class II; Translations: [Obesity, unspecified] 03-31-2022 Chronic Pulmonary heart disease (9 sources) Pulmonary arterial hypertension; Translations: [Secondary pulmonary arterial hypertension] 03-26-2019 Chronic Thyroid disorders (9 sources) Thyroid nodule; Translations: [Nontoxic single thyroid nodule] 03-31-2022 Chronic Unclassified (15 sources) Body mass index (BMI) 31.0-31.9, adult; Translations: [Body mass index (BMI) 33.0-33.9, adult] Onset: 04-11-2014 Resolved: 09-02-2015 04-11-2014 Chronic Past or Other Problems Problem Classification Problem Date Documented Da te Episodic/Chronic Fluid and electrolyte disorders (2 sources) Hypervolemia; Translations: [Fluid overload, unspecified] Onset: 09-24-2024 10-02-2024 Episodic Genitourinary symptoms and ill-defined conditions (2 sources) Urethral disorder, unspecified; Translations: [Hematuria, unspecified] Onset: 08-30-2024 Episodic Malaise and fatigue (3 sources) Fatigue; Translations: [Other fatigue] Onset: 09-13-2017 09-13-2017 Episodic Other connective tissue disease (1 source) Other specified soft tissue disorders; Translations: [Other specified soft tissue disorders] Onset: 10-04-2024 Episodic Other lower respiratory disease (3 sources) Dyspnea; Translations: [Shortness of breath] Onset: 02-07-2013 02-07-2013 Episodic Other lower respiratory disease (1 source) Solitary pulmonary nodule; Translations: [Solitary pulmonary nodule] Onset: 10-08-2024 Episodic Other screening for suspected conditions (not mental disorders or infectious disease) (4 sources) Radiology result abnormal; Translations: [Abnormal results of function studies of other organs and systems] Onset: 12-03-2024 10-29-2024 Episodic Phlebitis; thrombophlebitis and thromboembolism (9 sources) Deep venous thrombosis of lower extremity; Translations: [Acute embolism and thrombosis of unspecified deep veins of left lower extremity] Onset: 06-17-2019 03-31-2022 Episodic Comment on above: Acute deep vein thro mbosis is noted in the left tibio-peroneal trunk. Unclassified (3 sources) Family history of stroke; Translations: [Family history of stroke] 08-22-2014 Episodic Results Test Name Value Interpretation Reference Range Facility Absolute lymphocyte countOrd ered By: Jerrod Viramontes on 03-15-2025 Lymphocytes Auto (Unsp spec) [#/Vol] 1.42 10*3/uL 0.83-4.51 [facility] Absolute neutrophil countOrd ered By: Jerrod Viramontes on 03-15-2025 Neutrophils (Bld) [#/Vol] 5.5 10*3/uL 2.0-7.7 [facility] Anion gap in Serum or Plasma Ordered By: Jerrod Viramontes on 03-15-2025 Anion gap [Moles/Vol] 10 mmol/L 5-15 [facility] Automated lymphocyte count a s percentage of total leukocytesOrdered By: Jerrod Viramontes on 03-15-2025 Lymphocytes/100 WBC Auto (Unsp spec) 17.9 % Low 19-41 [facility] BUN/creatinine ratioOrdered By: Jerrod Palomaresgayatri on 03-15-2025 Urea nitrogen/Creatinine [Mass ratio] 24.0 mg/mg High 10-20 [facility] Basophil percentageOrdered B y: Jerrod Ana M on 03-15-2025 Basophils/100 WBC (Bld) 0.5 % 0-1 [facility] Bilirubin, totalOrdered By: Jerrod Viramontes on 03-15-2025 Bilirubin [Mass/Vol] 0.92 mg/dL 0.00-1.30 [facility] CBC W/Diff, Automatedon 02-16 Absolute Lymph 1.42 X10 3/uL Normal 0.83-4.51 [facility] Comment on above: Order Comment: Order Date: 03/15/25Order Info: 0184-1 - CBCD Performed By: #### L 300.4310, L300.3900, L100.0100 #### [facility] [address] [place], [address] Absolute Neut 5.5 X10 3/uL Normal 2.0-7.7 [facility] Comment on above: Order Comment: Order Date: 03/15/25Order Info: [id number] - CBCD Performed By: #### L 300.4310, L300.3900, L100.0100 #### [facility] [address] [place], [address] Basophils/100 WBC (Bld) 0.5 % Normal 0-1 [facility] Comment on above: Order Comment: Order Date: 03/15/25Order Info: [id number] - CBCD Performed By: #### L 300.4310, L300.3900, L100.0100 #### [facility] [address] [place], [address] Eosinophils/100 WBC (Bld) 3.0 % Normal 0-5 [facility] Comment on above: Order Comment: Order Date: 03/15/25Order Info: 0184-1 - CBCD Performed By: #### L [id number], L300.3900, L100.0100 #### [facility] [address] [place], [address] Erythrocyte distribution width (RBC) [Ratio] 15.9 % High 11.6-14.6 [facility] Comment on above: Order Comment: Order Date: 03/15/25Order Info: [id number] - CBCD Performed By: #### L 300.4310, L300.3900, L100.0100 #### [facility] [address] [place], [address] Hematocrit (Bld) [Volume fraction] 42.8 % Normal 40-54 [facility] Comment on above: Order Comment: Order Date: 03/15/25Order Info: 0184-1 - CBCD Performed By: #### L 300.4310, L300.3900, L100.0100 #### [facility] [address] [place], [address] Hemoglobin (Bld) [Mass/Vol] 13.5 g/dL Normal 13.0-16.5 [facility] Comment on above: Order Comment: Order Date: 03/15/25Order Info: 0184-1 - CBCD Performed By: #### L 300.4310, L300.3900, L100.0100 #### [facility] [address] [place], [address] IG% 0.400 Normal 0.0-0.9 [facility] Comment on above: Order Comment: Order Date: 03/15/25Order Info: [id number] - CBCD Result Comment: IG% - Immature Granulocytes (promyelocytes, myelocytes and metamyelocytes) > 1% indicates that a LEFT SHIFT is Present. Performed By: #### L 300.4310, L300.3900, L100.0100 #### [facility] [address] [place], [address] Lymphocytes/100 WBC (Bld) 17.9 % Low 19-41 [facility] Comment on above: Order Comment: Order Date: 03/15/25Order Info: [id number] - CBCD Performed By: #### L 300.4310, L300.3900, L100.0100 #### [facility] [address] [place], [address] MCH (RBC) [Entitic mass] 27.6 pg Normal 27.0-32.0 [facility] Comment on above: Order Comment: Order Date: 03/15/25Order Info: [id number] - CBCD Performed By: #### L 300.4310, L300.3900, L100.0100 #### [facility] [address] [place], [address] MCHC (RBC) [Mass/Vol] 31.5 g/dL Low 32-36 [facility] Comment on above: Order Comment: Order Date: 03/15/25Order Info: [id number]- - CBCD Performed By: #### L 300.4310, L300.3900, L100.0100 #### [facility] [address] [place], [address] MCV (RBC) [Entitic vol] 87.3 fL Normal 80-94 [facility] Comment on above: Order Comment: Order Date: 03/15/25Order Info: [id number]- - CBCD Performed By: #### L 300.4310, L300.3900, L100.0100 #### [facility] [address] [place], [address] Monocytes/100 WBC (Bld) 8.7 % Normal 0-10 [facility] Comment on above: Order Comment: Order Date: 03/15/25Order Info: [id number] - CBCD Performed By: #### L 300.4310, L300.3900, L100.0100 #### [facility] [address] [place], [address] Neutrophils/100 WBC (Bld) 69.5 % Normal 47-70 [facility] Comment on above: Order Comment: Order Date: 03/15/25Order Info: [id number] - CBCD Performed By: #### L 300.4310, L300.3900, L100.0100 #### [facility] [address] [place], [address] Nucleated RBC (Bld) [#/Vol] 0 10*3/uL Normal 0-5 [facility] Comment on above: Order Comment: Order Date: 03/15/25Order Info: [id number] - CBCD Performed By: #### L 300.4310, L300.3900, L100.0100 #### [facility] [address] [place], [address] Platelet mean volume (Bld) [Entitic vol] 9.3 fL Normal 6.2-12.0 [facility] Comment on above: Order Comment: Order Date: 03/15/25Order Info: [id number]- - CBCD Performed By: #### L 300.4310, L300.3900, L100.0100 #### [facility] [address] [place], [address] Platelets (Bld) [#/Vol] 202 10*3/uL Normal 150-450 [facility] Comment on above: Order Comment: Order Date: 03/15/25Order Info: [id number] - CBCD Performed By: #### L 300.4310, L300.3900, L100.0100 #### [facility] [address] [place], [address] RBC (Bld) [#/Vol] 4.90 10*6/uL Normal 4.6-6.2 [facility] Comment on above: Order Comment: Order Date: 03/15/25Order Info: [id number] - CBCD Performed By: #### L 300.4310, L300.3900, L100.0100 #### [facility] [address] [place], [address] RDW SD 50.4 fl High 35.1-43.9 [facility] Comment on above: Order Comment: Order Date: 03/15/25Order Info: [id number] - CBCD Performed By: #### L 300.4310, L300.3900, L100.0100 #### [facility] [address] [place], [address] WBC (Bld) [#/Vol] 7.9 10*3/uL Normal 4.4-11.0 [facility] Comment on above: Order Comment: Order Date: 03/15/25Order Info: [id number]- - CBCD Performed By: #### L 300.4310, L300.3900, L100.0100 #### [facility] [address] [place], [address] Calculated very low density lipoprotein (VLDL) cholesterol measurementOrdered By: Jerrod Viramontes on 03-15-2025 Calculated very low density lipoprotein (VLDL) cholesterol measurement 32 mg/dL 5-40 [facility] Carbon dioxide, total [Moles /volume] in Central venous bloodOrdered By: Jerrod Viramontes on 03-15-2025 CO2 [Moles/Vol] 25.6 mmol/L 21.0-32.0 [facility] Chloride assayOrdered By: Justina Viramontes on 03-15-2025 Chloride [Moles/Vol] 101 mmol/L 98-108 [facility] Comprehensive Metabolic Prof ilon 03-15-2025 Albumin [Mass/Vol] 4.0 g/dL Normal 3.4-4.8 [facility] Comment on above: Order Comment: Order Date: 03/15/25Order Info: [id number] - CMPOrder Info: [id number] - LIPIDOrder Info: [id number] - MGOrder Info: [id number] - TSH Performed By: #### L 300.4310, L300.3900, L100.0100 #### [facility] [address] [place], [place], [address] Albumin/Globulin [Mass ratio] 1.4 {ratio} Normal 0.9-2.4 [facility] Comment on above: Order Comment: Order Date: 03/15/25Order Info: 86-1 - CMPOrder Info: [id number] - LIPIDOrder Info: [id number] - MGOrder Info: [id number] - TSH Performed By: #### L 300.4310, L300.3900, L100.0100 #### [facility] [address] [place], [place], [id number] ALK PHOS 117 U/L Normal 40-129 [facility] Comment on above: Order Comment: Order Date: 03/15/25Order Info: 86-1 - CMPOrder Info: [id number] - LIPIDOrder Info: [id number] - MGOrder Info: [id number] - TSH Performed By: #### L 300.4310, L300.3900, L100.0100 #### [facility] [address] [place], [place], [address] ALT [Catalytic activity/Vol] 9 U/L Normal <=46 [facility] Comment on above: Order Comment: Order Date: 03/15/25Order Info: 86-1 - CMPOrder Info: [id number] - LIPIDOrder Info: [id number] - MGOrder Info: [id number] - TSH Performed By: #### L 300.4310, L300.3900, L100.0100 #### [facility] [address] [place], [address] AST [Catalytic activity/Vol] 15 U/L Normal <=37 [facility] Comment on above: Order Comment: Order Date: 03/15/25Order Info: 86-1 - CMPOrder Info: [id number] - LIPIDOrder Info: [id number] - MGOrder Info: [id number] - TSH Performed By: #### L 300.4310, L300.3900, L100.0100 #### [facility] [address] [place], [address] Bilirubin [Mass/Vol] 0.92 mg/dL Normal 0.00-1.30 [facility] Comment on above: Order Comment: Order Date: 03/15/25Order Info: [id number] - CMPOrder Info: [id number] - LIPIDOrder Info: [id number] - MGOrder Info: [id number] - TSH Performed By: #### L 300.4310, L300.3900, L100.0100 #### [facility] [address] [place], [address] BUN/CRE 24.0 RATIO High 10-20 [facility] Comment on above: Order Comment: Order Date: 03/15/25Order Info: [id number] - CMPOrder Info: [id number] - LIPIDOrder Info: [id number] - MGOrder Info: [id number] - TSH Performed By: #### L 300.4310, L300.3900, L100.0100 #### [facility] [address] [place], [address] Calcium [Mass/Vol] 9.6 mg/dL Normal 7.6-11.0 [facility] Comment on above: Order Comment: Order Date: 03/15/25Order Info: 07-1 - CMPOrder Info: [id number] - LIPIDOrder Info: [id number] - MGOrder Info: [id number] - TSH Performed By: #### L 300.4310, L300.3900, L100.0100 #### [facility] [address] [place], [address] Chloride [Moles/Vol] 101 mmol/L Normal 98-108 [facility] Comment on above: Order Comment: Order Date: 03/15/25Order Info: [id number] - CMPOrder Info: [id number] - LIPIDOrder Info: [id number] - MGOrder Info: [id number] - TSH Performed By: #### L 300.4310, L300.3900, L100.0100 #### [facility] [address] [place], [address] CO2 [Moles/Vol] 25.6 mmol/L Normal 21.0-32.0 [facility] Comment on above: Order Comment: Order Date: 03/15/25Order Info: [id number] - CMPOrder Info: [id number] - LIPIDOrder Info: [id number] - MGOrder Info: [id number] - TSH Performed By: #### L 300.4310, L300.3900, L100.0100 #### [facility] [address] [place], [address] Creatinine [Mass/Vol] 1.08 mg/dL Normal 0.70-1.20 [facility] Comment on above: Order Comment: Order Date: 03/15/25Order Info: [id number] - CMPOrder Info: [id number] - LIPIDOrder Info: [id number] - MGOrder Info: [id number] - TSH Performed By: #### L 300.4310, L300.3900, L100.0100 #### [facility] [address] [place], [address] GAP 10 Normal 5-15 [facility] Comment on above: Order Comment: Order Date: 03/15/25Order Info: [id number] - CMPOrder Info: [id number] - LIPIDOrder Info: [id number] - MGOrder Info: [id number] - TSH Performed By: #### L 300.4310, L300.3900, L100.0100 #### [facility] [address] [place], [address] GFR/1.73 sq M.predicted among non-blacks MDRD (S/P/Bld) [Vol rate/Area] 69 mL/min/{1.73_m2} Normal >60 [facility] Comment on above: Order Comment: Order Date: 03/15/25Order Info: [id number] - CMPOrder Info: [id number] - LIPIDOrder Info: [id number] - MGOrder Info: [id number] - TSH Result Comment: mL/m in/1.73m2 CKD-EPI Creatinine Equation (2020) Performed By: #### L 300.4310, L300.3900, L100.0100 #### [facility] [address] [place], [address] Globulin (S) [Mass/Vol] 2.9 g/dL Normal 2.2-4.2 [facility] Comment on above: Order Comment: Order Date: 03/15/25Order Info: [id number] - CMPOrder Info: [id number] - LIPIDOrder Info: [id number] - MGOrder Info: [id number] - TSH Performed By: #### L 300.4310, L300.3900, L100.0100 #### [facility] [address] [place], [address] Glucose [Mass/Vol] 111 mg/dL High 70-99 [facility] Comment on above: Order Comment: Order Date: 03/15/25Order Info: [id number] - CMPOrder Info: [id number] - LIPIDOrder Info: [id number] - MGOrder Info: [id number] - TSH Performed By: #### L 300.4310, L300.3900, L100.0100 #### [facility] [address] [place], [address] Potassium [Moles/Vol] 4.6 mmol/L Normal 3.3-5.1 [facility] Comment on above: Order Comment: Order Date: 03/15/25Order Info: [id number] - CMPOrder Info: [id number] - LIPIDOrder Info: [id number] - MGOrder Info: [id number] - TSH Performed By: #### L 300.4310, L300.3900, L100.0100 #### [facility] [address] [place], [address] Sodium [Moles/Vol] 136 mmol/L Normal 133-145 [facility] Comment on above: Order Comment: Order Date: 03/15/25Order Info: [id number] - CMPOrder Info: [id number] - LIPIDOrder Info: [id number] - MGOrder Info: [id number] - TSH Performed By: #### L 300.4310, L300.3900, L100.0100 #### [facility] [address] [place], [address] T PROT 6.9 g/dL Normal 5.9-8.4 [facility] Comment on above: Order Comment: Order Date: 03/15/25Order Info: [id number] - CMPOrder Info: [id number] - LIPIDOrder Info: [id number] - MGOrder Info: [id number] - TSH Performed By: #### L 300.4310, L300.3900, L100.0100 #### [facility] [address] [place], [address] Urea nitrogen [Mass/Vol] 26 mg/dL High 4-19 [facility] Comment on above: Order Comment: Order Date: 03/15/25Order Info: [id number] - CMPOrder Info: [id number] - LIPIDOrder Info: [id number] - MGOrder Info: [id number] - TSH Performed By: #### L 300.4310, L300.3900, L100.0100 #### [facility] [address] [place], [address] Eosinophil percentageOrdered By: Jerrod Viramontes on 03-15-2025 Eosinophils/100 WBC (Bld) 3.0 % 0-5 [facility] Erythrocyte distribution wid th ratioOrdered By: Jerrod Viramontes on 03-15-2025 Erythrocyte distribution width (RBC) [Ratio] 15.9 % High 11.6-14.6 [facility] Erythrocyte distribution wid th standard deviationOrdered By: Jerrod Viramontes on 03-15-2025 Erythrocyte distribution width (RBC) [Ratio] 50.4 fl High 35.1-43.9 [facility] Glomerular filtration rate ( GFR) estimation/1.73 sq m using serum, plasma, or whole bOrdered By: Jerrod Viramontes on 03-15-2025 GFR/1.73 sq M.predicted among non-blacks MDRD (S/P/Bld) [Vol rate/Area] 69 mL/min/{1.73_m2} >60 [facility] Comment on above: mL/min/1.73m2 CKD-EP I Creatinine Equation (2020) Hematocrit Auto (Bld) [Volum e fraction]Ordered By: Jerrod Viramontes on 03-15-2025 Hematocrit (Bld) [Volume fraction] 42.8 % 40-54 [facility] Hemoglobin A1con 03-15-2025 HbA1c (Bld) [Mass fraction] 6.4 % High <=5.6 [facility] Comment on above: Order Comment: Order Date: 03/15/25Order Info: [id number] - A1C Result Comment: Norm al < 5.7 % Prediabetic 5.7 - 6.4 % Diabetic >or= 6.5 % Please note range changes. Performed By: #### L 300.4310, L300.3900, L100.0100 #### [facility] [address] [place] [address]. [place], [address] Hemoglobin A1c percentageOrd ered By: Jerrod Viramontes on 03-15-2025 HbA1c (Bld) [Mass fraction] 6.4 % High <5.7 [facility] Comment on above: Normal < 5.7 % Predi abetic 5.7 - 6.4 % Diabetic >or= 6.5 % Please note range changes. Hemoglobin measurementOrdere d By: Jerrod Viramontes on 03-15-2025 Hemoglobin (Bld) [Mass/Vol] 13.5 g/dL 13.0-16.5 [facility] Immature granulocytes/100 WB C Auto (Bld)Ordered By: Jerrod Viramontes on 03-15-2025 Immature granulocytes/100 WBC (Bld) 0.400 % 0.0-0.9 [facility] Comment on above: IG% - Immature Granu locytes (promyelocytes, myelocytes and metamyelocytes) > 1% indicates that a LEFT SHIFT is Present. LDL calc ser/plasOrdered By: Jerrod Viramontes on 03-15-2025 Cholesterol in LDL [Mass/Vol] 101 mg/dL [facility] Comment on above: Ahnfqydvsh=436-315 m g/dL & Higher Axhm=138 mg/dL or greater Laboratory - Chemistry and C hemistry - challengeOrdered By: Jerrod Viramontes on 03-15-2025 AST [Catalytic activity/Vol] 15 U/L <38 [facility] Lipid Profileon 03-15-2025 CHOL:HDL 3.91 Normal [facility] Comment on above: Order Comment: Order Date: 03/15/25Order Info: 86-1 - CMPOrder Info: [id number] - LIPIDOrder Info: [id number] - MGOrder Info: [id number] - TSH Performed By: #### L 300.4310, L300.3900, L100.0100 #### [facility] [address] [place], [address] Cholesterol [Mass/Vol] 178 mg/dL Normal <=200 [facility] Comment on above: Order Comment: Order Date: 03/15/25Order Info: [id number] - CMPOrder Info: [id number] - LIPIDOrder Info: [id number] - MGOrder Info: [id number] - TSH Result Comment: Chol esterol level, Desirable <200 mg/dL Borderline high cholesterol 200-239 mg/dL High cholesterol >=240 mg/dL Recommendations of the NCEP Adult Treatment Panel for the following risk-cutoff thresholds for the [place] population. Performed By: #### L 300.4310, L300.3900, L100.0100 #### [facility] [address] [place], [address] Cholesterol in HDL [Mass/Vol] 46 mg/dL Normal [facility] Comment on above: Order Comment: Order Date: 03/15/25Order Info: 86-1 - CMPOrder Info: [id number] - LIPIDOrder Info: [id number] - MGOrder Info: [id number] - TSH Result Comment: Starla onal Cholesterol Education Program (NCEP) guidelines: <40 mg/dL: Low HDL-cholesterol (major risk factor for CHD) >= 60 mg/dL: High HDL-cholesterol (negative risk factor for CHD) HDL-cholesterol is affected by a number of factors, e.g. smoking, exercise, hormones, sex and age. Performed By: #### L 300.4310, L300.3900, L100.0100 #### [facility] [address] [place], [address] Cholesterol in LDL [Mass/Vol] 101 mg/dL Normal [facility] Comment on above: Order Comment: Order Date: 03/15/25Order Info: [id number] - CMPOrder Info: [id number] - LIPIDOrder Info: [id number] - MGOrder Info: [id number] - TSH Result Comment: Bord ggadob=329-762 mg/dL Higher Lyuz=446 mg/dL or greater Performed By: #### L 300.4310, L300.3900, L100.0100 #### [facility] [address] [facility] [facility] [place], [address] Cholesterol in VLDL [Mass/Vol] 32 mg/dL Normal 5-40 [facility] Comment on above: Order Comment: Order Date: 03/15/25Order Info: [id number] - CMPOrder Info: [id number] - LIPIDOrder Info: [id number] - MGOrder Info: [id number] - TSH Performed By: #### L 300.4310, L300.3900, L100.0100 #### [facility] [address] [facility] [place], [address] Triglyceride [Mass/Vol] 160 mg/dL Normal [facility] Comment on above: Order Comment: Order Date: 03/15/25Order Info: [id number] - CMPOrder Info: [id number] - LIPIDOrder Info: [id number] - MGOrder Info: [id number] - TSH Result Comment: The drugs N-Acetylcysteine and Metamizole may falsely depress this assay. Normal range: <150 mg/dL Borderline High: 150-199 mg/dL High: 200-499 mg/dL Very High: >500 mg/dL Performed By: #### L 300.4310, L300.3900, L100.0100 #### [facility] [address] [place], [place], [address] MCV (mean corpuscular volume ) determinationOrdered By: Jerrod Viramontes on 03-15-2025 MCV (RBC) [Entitic vol] 87.3 fL 80-94 [facility] Magnesiumon 03-15-2025 Magnesium [Mass/Vol] 2.4 mg/dL High 1.5-2.2 [facility] Comment on above: Order Comment: Order Date: 03/15/25Order Info: [id number] - CMPOrder Info: [id number] - LIPIDOrder Info: [id number] - MGOrder Info: [id number] - TSH Performed By: #### L 300.4310, L300.3900, L100.0100 #### [facility] [address] [place], [address] Magnesium measurement (mass/ volume)Ordered By: Jerrod Viramontes on 03-15-2025 Magnesium (Unsp spec) [Mass/Vol] 2.4 mg/dL High 1.5-2.2 [facility] Mean corpuscular hemoglobin (MCH) determinationOrdered By: Jerrod Viramontes on 03-15-2025 MCH (RBC) [Entitic mass] 27.6 pg 27.0-32.0 [facility] Mean corpuscular hemoglobin concentration (MCHC) determinationOrdered By: Jerrod Viramontes on 03-15-2025 MCHC (RBC) [Mass/Vol] 31.5 g/dL Low 32-36 [facility] Mean platelet volume determi nationOrdered By: Jerrod Viramontes on 03-15-2025 Platelet mean volume (Bld) [Entitic vol] 9.3 fL 6.2-12.0 [facility] Monocyte percentageOrdered B y: Jerrod Viramontes on 03-15-2025 Monocytes/100 WBC (Bld) 8.7 % 0-10 [facility] Neutrophil percentageOrdered By: Jerrod Viramontes on 03-15-2025 Neutrophils/100 WBC (Bld) 69.5 % 47-70 [facility] Nucleated red blood cell per centageOrdered By: Jerrod Viramontes on 03-15-2025 Nucleated RBC/100 WBC (Bld) [Ratio] 0 % 0-5 [facility] PTHINon 03-15-2025 PTH 76 pg/mL High 11-61 [facility] Comment on above: Order Comment: Order Date: 03/15/25Order Info: [id number] - PTHIN Performed By: #### L 300.4310, L300.3900, L100.0100 #### [facility] [address] [place], [address] Platelet countOrdered By: Justina Viramontes on 03-15-2025 Platelets (Bld) [#/Vol] 202 10*3/uL 150-450 [facility] Potassium measurement (mass/ volume)Ordered By: Jerrod Viramontes on 03-15-2025 Potassium (Unsp spec) [Mass/Vol] 4.6 mmol/L 3.3-5.1 [facility] Protein+Creatinine Ratio,Uri neon 03-15-2025 PROT:CRE RATIO 429 mg/g CRE High 0-200 [facility] Comment on above: Performed By: #### L 300.4310, L300.3900, L100.0100 #### [facility] [address] [place], [address] Protein (U) [Mass/Vol] 22.0 mg/dL High 0.0-12.0 [facility] Comment on above: Performed By: #### L 300.4310, L300.3900, L100.0100 #### [facility] [address] [place], [address] UR CREAT 51.30 mg/dL Normal 39.00-259.00 [facility] Comment on above: Performed By: #### L 300.4310, L300.3900, L100.0100 #### [facility] [address] [place], [address] RBC Auto (Bld) [#/Vol]Ordere d By: Jerrod Viramontes on 03-15-2025 RBC (Bld) [#/Vol] 4.90 10*6/uL 4.6-6.2 [facility] Random urine creatinine ana urement (mass/volume)Ordered By: Jerrod Viramontes on 03-15-2025 Creatinine Unsp time (U) [Mass/Vol] 51.30 mg/dL 39.00-259.00 [facility] Screening total cholesterol/ high density lipoprotein (HDL) cholesterol ratioOrdered By: Jerrod Viramontes on 03-15-2025 Cholesterol.total/Noris sterol in HDL [Mass ratio] 3.91 {ratio} [facility] Serum creatinine measurement (mass/volume)Ordered By: Jerrod Viramontes on 03-15-2025 Creatinine [Mass/Vol] 1.08 mg/dL 0.70-1.20 [facility] Serum globulin measurementOr dered By: Jerrod Viramontes on 03-15-2025 Globulin (S) [Mass/Vol] 2.9 g/dL 2.2-4.2 [facility] Serum glucose measurement (m ass/volume)Ordered By: Jerrod Viramontes on 03-15-2025 Glucose [Mass/Vol] 111 mg/dL High 70-99 [facility] Serum or plasma alanine oshea otransferase (ALT) measurementOrdered By: Jerrod Viramontes on 03-15-2025 ALT [Catalytic activity/Vol] 9 U/L <47 [facility] Serum or plasma albumin ana urement (mass/volume)Ordered By: Jerrod Viramontes on 03-15-2025 Albumin [Mass/Vol] 4.0 g/dL 3.4-4.8 [facility] Serum or plasma albumin/glob ulin mass ratioOrdered By: Jerrod Viramontes on 03-15-2025 Albumin/Globulin [Mass ratio] 1.4 {ratio} 0.9-2.4 [facility] Serum or plasma alkaline bright sphatase measurementOrdered By: Jerrod Viramontes on 03-15-2025 ALP [Catalytic activity/Vol] 117 U/L 40-129 [facility] Serum or plasma calcium ana urement (mass/volume)Ordered By: Jerrod Viramontes on 03-15-2025 Calcium [Mass/Vol] 9.6 mg/dL 7.6-11.0 [facility] Serum or plasma cholesterol in HDL measurement (mass/volume)Ordered By: Jerrod Viramontes on 03-15-2025 Cholesterol in HDL [Mass/Vol] 46 mg/dL >40 [facility] Comment on above: National Cholesterol Education Program (NCEP) guidelines:<40 mg/dL: Low HDL-cholesterol (major risk factor for CHD)>= 60 mg/dL: High HDL-cholesterol (negative risk factor for CHD)HDL-cholesterol is affected by a number of factors, e.g. smoking, exercise, hormones, sex and age. Serum or plasma cholesterol measurement (mass/volume)Ordered By: Jerrod Viramontes on 03-15-2025 Cholesterol [Mass/Vol] 178 mg/dL <201 [facility] Comment on above: Cholesterol level, D esirable <200 mg/dLBorderline high cholesterol 200-239 mg/dLHigh cholesterol >=240 mg/dLRecommendations of the NCEP Adult Treatment Panel for the following risk-cutoff thresholds for the [place] population. Serum or plasma urea nitroge n measurement (mass/volume)Ordered By: Jerrod Viramontes on 03-15-2025 Urea nitrogen [Mass/Vol] 26 mg/dL High 4-19 [facility] Sodium levelOrdered By: Jerrod Viramontes on 03-15-2025 Sodium [Moles/Vol] 136 mmol/L 133-145 [facility] TSH DL <= 0.005 mIU/L QnOrde red By: Jerrod Viramontes on 03-15-2025 TSH Qn 1.730 uIU/mL 0.300-4.200 [facility] Thyroid Stim Hormone (TSH)on 03-15-2025 TSH 1.730 uIU/mL Normal 0.300-4.200 [facility] Comment on above: Order Comment: Order Date: 03/15/25Order Info: [id number] - CMPOrder Info: [id number] - LIPIDOrder Info: [id number] - MGOrder Info: [id number] - TSH Performed By: #### L 300.4310, L300.3900, L100.0100 #### [facility] [address] [place], [address] Total proteinOrdered By: Seth Viramontes on 03-15-2025 Protein [Mass/Vol] 6.9 g/dL 5.9-8.4 [facility] Triglycerides measurementOrd ered By: Jerrod Viramontes on 03-15-2025 Triglyceride [Mass/Vol] 160 mg/dL <199 [facility] Comment on above: The drugs N-Acetylcy steine and Metamizole may falsely depress this assay. Normal range: <150 mg/dLBorderline High: 150-199 mg/dLHigh: 200-499 mg/dLVery High: >500 mg/dL Urine protein measurement (m ass/volume)Ordered By: Jerrod Viramontes on 03-15-2025 Protein (U) [Mass/Vol] 22.0 mg/dL High 0.0-12.0 [facility] Urine protein/creatinine mas s ratioOrdered By: Jerrod Viramontes on 03-15-2025 Protein/Creatinine (U) [Mass ratio] 429 mg/g CRE High 0-200 [facility] Vitamin D,25 Hydroxyon 03-15 Vitamin D 25-OH 38.0 ng/mL Normal 30-100 [facility] Comment on above: Order Comment: Order Date: 03/15/25Order Info: [id number] - CMPOrder Info: [id number] - LIPIDOrder Info: [id number] - MGOrder Info: [id number] - TSH Result Comment: Lea min D Status Deficiency: <20 ng/mL (50nmol/L) Insufficiency: 20-30 ng/mL (50-75 nmol/L) Sufficiency: 30-100 ng/mL (75-250 nmol/L) Toxicity: >100 ng/mL (>250 nmol/L) Performed By: #### L 300.4310, L300.3900, L100.0100 #### [facility] [place], [place], [id number] White blood cell (WBC) count Ordered By: Jerrod Viramontes on 03-15-2025 WBC (Bld) [#/Vol] 7.9 10*3/uL 4.4-11.0 [facility] Cytology report of Body flui d Cyto stainOrdered By: Bola Boone on 02-04-2025 Cytology report Cyto stain Doc (Body fld) SEE PATHOLOGY REPORT [facility] Comment on above: Specimen submitted t o Anatomical Pathology Department for testing. Cytology, Body Fluid / CSFon 02-04-2025 CYTOLOGY,BF/CSF SEE PATHOLOGY REPORT Normal [facility] Comment on above: Order Comment: URINE Result Comment: Spec imen submitted to Anatomical Pathology Department for testing. Performed By: #### L 350.1000 #### [facility] [address] [place], [address] Pap Stain (control)on 2024 Pap Stain (control) -- ---- Patient Age/Sex Location Account Attending Physician ---- [facility]A 84[id number]. Bola Boone MD ---- Specimen: [id number] Received: 02/04/25 Status: EBONIE Morataya Num: [id number] Spec Type: CYSPIN FL Subm Dr: Dr. 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 Urine, voided: * Negative for high grade urothelial carcinoma CYTOLOGY STUDY Slides are reviewed. CYTOLOGY GROSS A. Received is 50 ml of yellow-hazy fluid labeled with the patient's name and and designated per the requisition as urine. Submitted for cytology preparation. Mr 02/05/2025 CPT: 13142 Signed (signature on file) Dr. Cathryn Barclay DO 02/05/25 1038 ---- Normal [facility] Comment on above: Performed By: #### L 400.0001 #### [facility] [address] [place], [address] Surgery Visit Reporton 12-03 Surgery Visit Report [facility] [address] [place] [address] OFFICE VISIT Date of Service: 12/03/24 MR#: [id number] Acct: [id number] Name: HARRY LICEA Rep #: [id number] : 1940 Provider: Dr. Kevin woods MD Age/Sex: 83/M Location: [facility] Status: Signed Intake Vital Signs 10/29/24 08:09 12/03/24 13:11 Height 6 ft 6 ft Weight: 235 lb BMI 31.8 BP 138/90 H Blood Pressure Location Rt brachial Position Sitting Respiration 18 Pulse 76 Pulse Source Monitor Temp 97.9 F Temp Source Temporal Pulse Oximetry (%) 97 Oxygen Delivery Method room air Intake Visit Reasons: LYMPH NODE RESECTION Chief Complaint: lymph node resection Accompanied by: Son Is patient in pain?: No Allergies No Known Allergies Allergy (Verified 12/03/24 13:12) Medications ???Medication ???Instructions ???Recorded ???Confirmed ???Type albuterol sulfate 90 mcg/actuation 2 puff inhalation Q4H PRN 12/03/24 History aerosol inhaler shortness of breath or wheezing 90 days atorvastatin 40 mg tablet 40 mg PO QHS unknown 03/25/2111/17 History fluticasone fur. 200 mcg-umeclid 1 inh inhalation DAILY unknow 07/0712/03/24 History 62.5 mcg-vilant 25 mcg inhalat.powder magnesium oxide 400 mg PO TID unknown 03/25/21 History furosemide 40 mg tablet 40 mg PO DAILY #90 tabs 12/21/23 0 12/03/24 Rx metoprolol succinate 50 mg 50 mg PO DAILY #90 tabs 04/11/24 0 12/03/24 Rx tablet,extended release 24 hr ergocalciferol (vitamin D2) 1,250 1,250 mcg PO .QWEEKLY unknown 12/03/24 History mcg (50,000 unit) capsule (Vitamin D2) latanoprost 0.005 % eye drops 1 drp ophthalmic (eye) DAILY 08/3012/03/24 History unknown allopurinol 100 mg tablet 100 mg PO DAILY #90 tabs 09/24/24 12/03/24 Rx apixaban 5 mg tablet (Eliquis) 5 mg PO BID #60 TABLETS 09/24/24 0 12/03/24 Rx losartan 100 mg tablet 100 mg PO DAILY #30 tabs 09/24/24 12/03/24 Rx Have you fallen in the past year?: No PFSH Medical History Wears glasses Gout DVT (deep venous thrombosis) Excessive bleeding Migraine headache Gastric reflux Former smoker History of edema History of echocardiogram Hypertension Cardiology follow-up encounter Obesity, Class II, BMI 35-39.9 Thyroid nodule Deep vein thrombosis, lower left extremity (06/2019) Longstanding persistent atrial fibrillation Secondary pulmonary arterial hypertension Essential (primary) hypertension Glaucoma ED (erectile dysfunction) BPH (benign prostatic hyperplasia) Incomplete right bundle branch block COPD (chronic obstructive pulmonary disease) Hyperlipidemia Surgical History Hx of bilateral cataract extraction History of back surgery Family History Father Myocardial infarction Mother CVA (cerebral vascular accident) Brother CVA (cerebral vascular accident) Sister CVA (cerebral vascular accident) Social History Smoking Status: Former smoker how long ago did patient quit smokin's for cigarettes, 1991 for chewing tobacco alcohol intake: current alcohol intake frequency: a few times a week Alcohol type: hard liquor substance use type: does not use caffeine: Yes Type: coffee Number of servings: 2 HPI HPI HPI: Patient is an 83-year-old male here for left inguinal lymph node lighting up on PET scan. Patient have a history of bladder cancer. He had transurethral resection. He had percutaneous needle bi opsy of the left inguinal region which did not come back with viable tissue. ROS General General: No weight change, appetite, fatigue, colon cancer, breast cancer or weakness HEENT HEENT: No difficulty swallowing, eye injury, eye surgery, swollen glands or hoarseness Endo Endocrine: Yes diabetes mellitus; No thyroid disease, thyroid cancer, Hair loss, heat intolerance or cold intolerance Skin Skin: No rash or changing moles Musc Musculoskeletal: Yes arthritis and gout; No back problems, rheumatoid arthritis or joint pain Cardio Cardiovascular: Yes atrial fibrillation and high blood pressure; No murmur, pacemaker, heart disease, heart attack, heart stent, palpitations, shortness of breat with exertion or chest pain Psych Psychiatric: No depression, anxiety or hearing voices Resp Respiratory: Yes shortness of breath, No sleep apnea, No cough, Yes COPD, No asthma, No emphysema and No wheezing Gastro Gastrointestinal: No abdominal pain, No nausea or vomiting, No diarrhea, No constipation, No blood in stool, No acid reflux, No hemorrhoids (more content not included)... Normal [facility] Bilirubin Test strip Ql (U)O rdered By: Jerrod Viramontes on 11-22-2024 Bilirubin Ql (U) Negative Negative [facility] Ketones Test strip Ql (U)Ord ered By: Jerrod Viramontes on 11-22-2024 Ketones Ql (U) Negative Negative [facility] Microscopic analysis of urin e for red blood cells (RBC)Ordered By: Jerrod Viramontes on 11-22-2024 Microscopic analysis of urine for red blood cells (RBC) 0-5 SEEN /hpf 0-5 [facility] Mucus LM Ql (Urine sed)Order ed By: Jerrod Viramontes on 11-22-2024 Mucus Ql (Urine sed) 0 SEEN /hpf [facility] Nitrite Test strip Ql (U)Ord ered By: Jerrod Viramontes on 11-22-2024 Nitrite Ql (U) Negative Negative [facility] Protein Test strip Ql (U)Ord ered By: Jerrod Viramontes on 11-22-2024 Protein Ql (U) 15 mg/dl High Negative [facility] Protein+Creatinine Ratio,Uri neon 11-22-2024 PROT:CRE RATIO 420 mg/g CRE High 0-200 [facility] Comment on above: Performed By: #### L 300.4310, L300.3900, L100.0100 #### [facility] [address] [place], [address] Protein (U) [Mass/Vol] 42.0 mg/dL High <11.9 [facility] Comment on above: Performed By: #### L 300.4310, L300.3900, L100.0100 #### [facility] [address] [place], [address] UR CREAT 100.00 mg/dL Normal NO RANGE EST. [facility] Comment on above: Performed By: #### L 300.4310, L300.3900, L100.0100 #### [facility] [address] [place], [address] Random urine protein measure mentOrdered By: Jerrod Viramontes on 11-22-2024 Protein (U) [Mass/Vol] 42.0 mg/dL High 0.0-11.8 [facility] Squamous epithelial cells de tection in urine sediment by light microscopyOrdered By: Jerrod Viramontes on 11-22-2024 Epithelial cells.squamous LM Ql (Urine sed) 0 SEEN /hpf 0-5 [facility] Urinalysis, Completeon 11-22 RBC 0-5 SEEN Normal 0-5 [facility] Comment on above: Order Comment: CLEAN CATCH Performed By: #### L 300.4310, L300.3900, L100.0100 #### [facility] [address] [place], [address] WBC 0-5 SEEN Normal 0-5 [facility] Comment on above: Order Comment: CLEAN CATCH Performed By: #### L 300.4310, L300.3900, L100.0100 #### [facility] [address] [place], [address] BACTERIA 0 SEEN Normal None Seen [facility] Comment on above: Order Comment: CLEAN CATCH Performed By: #### L 300.4310, L300.3900, L100.0100 #### [facility] [address] [place], [address] EPI,SQUAMOUS 0 SEEN Normal 0-5 [facility] Comment on above: Order Comment: CLEAN CATCH Performed By: #### L 300.4310, L300.3900, L100.0100 #### [facility] [address] [place], [address] Mucus Ql (Urine sed) 0 SEEN Normal [facility] Comment on above: Order Comment: CLEAN CATCH Performed By: #### L 300.4310, L300.3900, L100.0100 #### [facility] [address] [place], [address] Urine clarityOrdered By: Seth Viramontes on 11-22-2024 Clarity (U) Clear Clear [facility] Urine color determinationOrd ered By: Jerrod Viramontes on 11-22-2024 Color (U) Yellow Yellow [facility] Urine creatinine measurement (mass/volume)Ordered By: Jerrod Viramontes on 11-22-2024 Creatinine (U) [Mass/Vol] 100.00 mg/dL NO RANGE EST. [facility] Urine glucose detectionOrder ed By: Jerrod Viramontes on 11-22-2024 Glucose Ql (U) 1000 mg/dl High Normal [facility] Urine leukocyte esterase det ection by dipstickOrdered By: Jerrod Viramontes on 11-22-2024 Leukocyte esterase Test strip Ql (U) 25 /ul High Negative [facility] Urine pHOrdered By: Jerrod mendieta on 11-22-2024 pH (U) 8.0 [pH] 5.0 - 8.0 [facility] Urine protein/creatinine mas s ratioOrdered By: Jerrod Viramontes on 11-22-2024 Protein/Creatinine (U) [Mass ratio] 420 mg/g CRE High 0-200 [facility] Urine sediment bacteria coun t by microscopy (number/high power field)Ordered By: Jerrod Viramontes on 11-22-2024 Bacteria LM.HPF (Urine sed) [#/Area] 0 /[HPF] None Seen [facility] Urine specific gravity measu rementOrdered By: Jerrod Viramontes on 11-22-2024 Specific gravity (U) [Rel density] 1.010 1.002-1.030 [facility] Urine urobilinogen measureme ntOrdered By: Jerrod Viramontes on 11-22-2024 Urobilinogen Ql (U) Normal mg/dl Normal [facility] White blood cell countOrdere d By: Jerrod Viramontes on 11-22-2024 White blood cell count 0-5 SEEN /hpf 0-5 [facility] CBC W/Diff, Automatedon 10-17 Absolute Lymph 1.58 X10 3/uL Normal 0.83-4.51 [facility] Comment on above: Performed By: #### L 300.4310, L300.3900, L100.0100 #### [facility] [address] [place], [address] Absolute Neut 5.3 X10 3/uL Normal 2.0-7.7 [facility] Comment on above: Performed By: #### L 300.4310, L300.3900, L100.0100 #### [facility] [address] [place], [address] Basophils/100 WBC (Bld) 0.6 % Normal 0-1 [facility] Comment on above: Performed By: #### L 300.4310, L300.3900, L100.0100 #### [facility] [address] [place], [address] Eosinophils/100 WBC (Bld) 3.3 % Normal 0-5 [facility] Comment on above: Performed By: #### L 300.4310, L300.3900, L100.0100 #### [facility] [address] [place], [address] Erythrocyte distribution width (RBC) [Ratio] 14.5 % Normal 11.6-14.6 [facility] Comment on above: Performed By: #### L 300.4310, L300.3900, L100.0100 #### [facility] [address] [place], [address] Hematocrit (Bld) [Volume fraction] 44.9 % Normal 40-54 [facility] Comment on above: Performed By: #### L 300.4310, L300.3900, L100.0100 #### [facility] [address] [place], [address] Hemoglobin (Bld) [Mass/Vol] 14.6 g/dL Normal 13.0-16.5 [facility] Comment on above: Performed By: #### L 300.4310, L300.3900, L100.0100 #### [facility] [address] [place], [address] IG% 0.300 Normal 0.0-0.9 [facility] Comment on above: Result Comment: IG% - Immature Granulocytes (promyelocytes, myelocytes and metamyelocytes) > 1% indicates that a LEFT SHIFT is Present. Performed By: #### L 300.4310, L300.3900, L100.0100 #### [facility] [address] [place], [address] Lymphocytes/100 WBC (Bld) 20.0 % Normal 19-41 [facility] Comment on above: Performed By: #### L 300.4310, L300.3900, L100.0100 #### [facility] [address] [place], [address] MCH (RBC) [Entitic mass] 28.7 pg Normal 27.0-32.0 [facility] Comment on above: Performed By: #### L 300.4310, L300.3900, L100.0100 #### [facility] [address] [place], [address] MCHC (RBC) [Mass/Vol] 32.5 g/dL Normal 32-36 [facility] Comment on above: Performed By: #### L 300.4310, L300.3900, L100.0100 #### [facility] [address] [place], [address] MCV (RBC) [Entitic vol] 88.4 fL Normal 80-94 [facility] Comment on above: Performed By: #### L 300.4310, L300.3900, L100.0100 #### [facility] [address] [place], [address] Monocytes/100 WBC (Bld) 8.6 % Normal 0-10 [facility] Comment on above: Performed By: #### L 300.4310, L300.3900, L100.0100 #### [facility] [address] [place], [address] Neutrophils/100 WBC (Bld) 67.2 % Normal 47-70 [facility] Comment on above: Performed By: #### L 300.4310, L300.3900, L100.0100 #### [facility] [address] [place], [address] Nucleated RBC (Bld) [#/Vol] 0 10*3/uL Normal 0-5 [facility] Comment on above: Performed By: #### L 300.4310, L300.3900, L100.0100 #### [facility] [address] [place], [address] Platelet mean volume (Bld) [Entitic vol] 8.4 fL Normal 6.2-12.0 [facility] Comment on above: Performed By: #### L 300.4310, L300.3900, L100.0100 #### [facility] [address] [place], [address] Platelets (Bld) [#/Vol] 201 10*3/uL Normal 150-450 [facility] Comment on above: Performed By: #### L 300.4310, L300.3900, L100.0100 #### [facility] [address] [place], [address] RBC (Bld) [#/Vol] 5.08 10*6/uL Normal 4.6-6.2 [facility] Comment on above: Performed By: #### L 300.4310, L300.3900, L100.0100 #### [facility] [address] [place], [address] RDW SD 45.7 fl High 35.1-43.9 [facility] Comment on above: Performed By: #### L 300.4310, L300.3900, L100.0100 #### [facility] [address] [place], [address] WBC (Bld) [#/Vol] 7.9 10*3/uL Normal 4.4-11.0 [facility] Comment on above: Performed By: #### L 300.4310, L300.3900, L100.0100 #### [facility] [address] [place], [address] Operative Reporton 5 Operative Report [facility] Medical Records Department [address] [place] [address] Operative Report 10/29/24 0932 MR#: [id number] Acct: [id number] Name: HARRY LICEA Rep #: [id number] : 1940 83 From: Suzy Charles MACHINE SETTER AND REPAIRER MACHINE SETTER AND REPAIRER-C PCP: Dr. Jerrod Viramontes MD Status:REG [facility] Location: CT Problems Associated Problem List Diagnoses (1) Abnormal positron emission tomography (PET) scan: Multi Select Codes Radiology Radiology CT Procedures: 64051 Biopsy Lymph Node/gland/[place] [address]-34 CT guidance parenchymal tissue Operative Report (Standard) Operative Information Date of Procedure: 10/29/24 Pre-Operative Diagnosis: Abnormal PET CT Post-Operative Diagnosis: Abnormal PET CT Surgery/Procedure Performed: CT-guided lymph node biopsy rn anesthetist: No Type of Anesthesia: IV Sedation and Local Procedure Start Time: :01 Procedure Stop Time: : Select all DRAINS/GRAFTS/IMPLANTS that apply: None Estimated Blood Loss: 0 Specimen collected: Yes Description of specimen(s) removed: 8 core biopsies sent to lab Description of surgery: PROCEDURE: CT GUIDED CORE LYMPH NODE BIOPSY ORDERING PROVIDER: Dr. Viramontes INDICATION: Male, 83 years old. Abnormal PET CT scan PROVIDER: Suzy Charles CNP CONSENT: Written informed consent was obtained having explained the risks, benefits and alternatives in detail with the patient who accepted the risks and agreed to proceed. Laboratory review and clinical assessment was performed. PRE-PROCEDURE SEDATION ASSESSMENT: Current history and physical dictated by referring physician and reviewed. No clinical changes since date of exam. Patient has a Mallampati Score of Class 3 and ASA Class of 2. PROCEDURAL SEDATION PROTOCOL: The Drugs used were: 2 mg Versed, IV, and 50 mcg Fentanyl, IV. The sedation time was: starting at 9:01 AM and terminated at 9:22 AM. The procedural sedation protocol was independently monitored by the department nurse. RADIATION DOSAGE (If Supplied By Facility): CTDIvol = 22.68 mGy, DLP = 476.21 mGycm Individualized dose optimization techniques were used for this CT. TECHNIQUE The patient was placed in a supine position. A noncontrast CT was performed to localize the lesion in the right groin. The skin surface was prepped with chlorhexidine and draped in a sterile fashion. 2% lidocaine was used for local anesthesia. Using CT guidance, a 18-gauge coaxial biopsy device was advanced to the periphery of the lesion. A total of 8 core specimens were obtained. Specimens were microscopically reviewed by pathology in the CT suite and placed in formalin solution, as well as RPMI. The biopsy needle was removed and a sterile dressing was applied to the biopsy site. The patient tolerated the procedure well without adverse event. A negative biopsy does not exclude malignancy. Further imaging or clinical followup based on patient condition and degree of clinical suspicion for malignancy. Suggest rebiopsy, if biopsy results do not match with clinical scenario. IMPRESSION: CT directed core needle biopsy of the right groin using CT image guidance with image documentation as described. Pathology results are pending. Procedural Sedation protocol utilized with independent monitoring by the department nurse. Surgical Findings: Uncomplicated Complications Complications: No 10/29/24 0937 Cosigner Signature (if applicable): CC: ANAYELI Charles; Dr. Jerrod Viramontes MD Signed Normal [facility] Partial Thromboplast Timeon 10-29-2024 aPTT Coag (Bld) [Time] 27.7 s Normal 24.1-36.2 [facility] Comment on above: Performed By: #### L 300.4310, L300.3900, L100.0100 #### [facility] [address] [place], [place], [address] Prothrombin Time w/INRon INR Coag (PPP) [Relative time] 1.2 {INR} Normal [facility] Comment on above: Performed By: #### L 300.4310, L300.3900, L100.0100 #### [facility] [address] [place], [place], [address] PT Coag (PPP) [Time] 15.7 s High 11.7-14.9 [facility] Comment on above: Performed By: #### L 300.4310, L300.3900, L100.0100 #### [facility] [address] [place], [place], [address] Special Stain Group IIon Special Stain Group II ----- ---- Patient Age/Sex Location Account Attending Physician ---- HARRY LICEA 83/M CT [id number] Dr. Jerrod Viramontes MD ---- Specimen: [id number] Received: 10/29/24 Status: EBONIE Morataya Num: [id number] Spec Type: ASP RAD Subm Dr: Dr. Jerrod Viramontes MD HEADER OPERATION: CT guided left groin biopsy PRE-OP DIAGNOSIS: Abnormal pet scan TISSUE SUBMITTED: 18 gauge x 8 cores ---- MICROSCOPIC DIAGNOSIS Left groin lesion, CT guided core biopsy: Scant fragments of skeletal muscle tissue. See comment. [facility] 10/30/2024 COMMENT The specimen is evaluated at the time of biopsy by Dr. Tillman. Immediate Evaluation = Blood only. Lymph node tissue not seen. Scant fragment of skeletal muscle tissue. Reported to Ms. Leggett at 9:43am on 10/29/2024. Lymph node tissue is not identified. Correlation with clinical, radiologic findings and appropriate follow up are necessary. Re-biopsy of the lesion is suggested if clinically indicated. MICROSCOPIC DESCRIPTION Slides are reviewed. GROSS DESCRIPTION Received is one container labeled with the patient's name and not further designated. The specimen consists of multiple irregular fragments of pop soft tissue that in aggregate measure 0.5 x 0.1 x <0.1 cm. The specimen is totally submitted in one cassette. Two touch imprints are prepared at the time of core biopsy. A portion of the specimen is saved in RPMI solution for flow cytometric studies if needed. [facility] 10/29/2024 Specimen saved for flow cytometric study is submitted in cassette #2. [facility] 10/30/2024 TC: Can not code CPT:12895,78597 ---- Patient Age/Sex Location Account Attending Physician ---- HARRY LICEA 83/M CT [id number] Dr. Jerrod Viramontes MD ---- Signed (signature on file) Dr. Duy Tillman MD 10/31/24 1143 ---- Normal [facility] Comment on above: Performed By: #### P SSII ####[facility] [id number] [place], [address] CBC W/Diff, Automatedon Absolute Lymph 1.34 X10 3/uL Normal 0.83-4.51 [facility] Comment on above: Order Comment: Order Date: 07/03/24 Order Info: [id number] - CBCD Performed By: #### L 500.4100, L100.0100, L501.9985, L509.1000, L500.4050, L501.5200, L506.1000 #### [facility] [address] [place], [address] Absolute Neut 4.4 X10 3/uL Normal 2.0-7.7 [facility] Comment on above: Order Comment: Order Date: 07/03/24 Order Info: [id number] - CBCD Performed By: #### L 500.4100, L100.0100, L501.9985, L509.1000, L500.4050, L501.5200, L506.1000 #### [facility] [address] [place], [address] Basophils/100 WBC (Bld) 0.6 % Normal 0-1 [facility] Comment on above: Order Comment: Order Date: 07/03/24 Order Info: [id number] - CBCD Performed By: #### L 500.4100, L100.0100, L501.9985, L509.1000, L500.4050, L501.5200, L506.1000 #### [facility] [address] [place], [place], [address] Eosinophils/100 WBC (Bld) 4.7 % Normal 0-5 [facility] Comment on above: Order Comment: Order Date: 07/03/24 Order Info: [id number] - CBCD Performed By: #### L 500.4100, L100.0100, L501.9985, L509.1000, L500.4050, L501.5200, L506.1000 #### [facility] [address] [place], [address] Erythrocyte distribution width (RBC) [Ratio] 13.6 % Normal 11.6-14.6 [facility] Comment on above: Order Comment: Order Date: 07/03/24 Order Info: [id number] - CBCD Performed By: #### L 500.4100, L100.0100, L501.9985, L509.1000, L500.4050, L501.5200, L506.1000 #### [facility] [address] [place], [address] Hematocrit (Bld) [Volume fraction] 40.3 % Normal 40-54 [facility] Comment on above: Order Comment: Order Date: 07/03/24 Order Info: [id number] - CBCD Performed By: #### L 500.4100, L100.0100, L501.9985, L509.1000, L500.4050, L501.5200, L506.1000 #### [facility] [address], [address] Hemoglobin (Bld) [Mass/Vol] 13.1 g/dL Normal 13.0-16.5 [facility] Comment on above: Order Comment: Order Date: 07/03/24 Order Info: [id number] - CBCD Performed By: #### L 500.4100, L100.0100, L501.9985, L509.1000, L500.4050, L501.5200, L506.1000 #### [facility] [address] [place], [address] IG% 0.600 Normal 0.0-0.9 [facility] Comment on above: Order Comment: Order Date: 07/03/24 Order Info: [id number] - CBCD Result Comment: IG% - Immature Granulocytes (promyelocytes, myelocytes and metamyelocytes) > 1% indicates that a LEFT SHIFT is Present. Performed By: #### L 500.4100, L100.0100, L501.9985, L509.1000, L500.4050, L501.5200, L506.1000 #### [facility] [address] [facility] [place], [address] Lymphocytes/100 WBC (Bld) 19.7 % Normal 19-41 [facility] Comment on above: Order Comment: Order Date: 07/03/24 Order Info: [id number] - CBCD Performed By: #### L 500.4100, L100.0100, L501.9985, L509.1000, L500.4050, L501.5200, L506.1000 #### [facility] [address] [facility] [place], [address] MCH (RBC) [Entitic mass] 28.9 pg Normal 27.0-32.0 [facility] Comment on above: Order Comment: Order Date: 07/03/24 Order Info: [id number] - CBCD Performed By: #### L 500.4100, L100.0100, L501.9985, L509.1000, L500.4050, L501.5200, L506.1000 #### [facility] [address] [place], [address] MCHC (RBC) [Mass/Vol] 32.5 g/dL Normal 32-36 [facility] Comment on above: Order Comment: Order Date: 07/03/24 Order Info: [id number]- - CBCD Performed By: #### L 500.4100, L100.0100, L501.9985, L509.1000, L500.4050, L501.5200, L506.1000 #### [facility] [address] [place], [address] MCV (RBC) [Entitic vol] 89.0 fL Normal 80-94 [facility] Comment on above: Order Comment: Order Date: 07/03/24 Order Info: [id number]- - CBCD Performed By: #### L 500.4100, L100.0100, L501.9985, L509.1000, L500.4050, L501.5200, L506.1000 #### [facility] [address] [facility] [place], [address] Monocytes/100 WBC (Bld) 9.1 % Normal 0-10 [facility] Comment on above: Order Comment: Order Date: 07/03/24 Order Info: [id number] - CBCD Performed By: #### L 500.4100, L100.0100, L501.9985, L509.1000, L500.4050, L501.5200, L506.1000 #### [facility] [address] [place], [address] Neutrophils/100 WBC (Bld) 65.3 % Normal 47-70 [facility] Comment on above: Order Comment: Order Date: 07/03/24 Order Info: [id number] - CBCD Performed By: #### L 500.4100, L100.0100, L501.9985, L509.1000, L500.4050, L501.5200, L506.1000 #### [facility] [address] [place], [address] Nucleated RBC (Bld) [#/Vol] 0 10*3/uL Normal 0-5 [facility] Comment on above: Order Comment: Order Date: 07/03/24 Order Info: [id number] - CBCD Performed By: #### L 500.4100, L100.0100, L501.9985, L509.1000, L500.4050, L501.5200, L506.1000 #### [facility] [address] [facility] [place], [address] Platelet mean volume (Bld) [Entitic vol] 9.5 fL Normal 6.2-12.0 [facility] Comment on above: Order Comment: Order Date: 07/03/24 Order Info: [id number] - CBCD Performed By: #### L 500.4100, L100.0100, L501.9985, L509.1000, L500.4050, L501.5200, L506.1000 #### [facility] [address] [place], [address] Platelets (Bld) [#/Vol] 178 10*3/uL Normal 150-450 [facility] Comment on above: Order Comment: Order Date: 07/03/24 Order Info: [id number] - CBCD Performed By: #### L 500.4100, L100.0100, L501.9985, L509.1000, L500.4050, L501.5200, L506.1000 #### [facility] [address] [place], [address] RBC (Bld) [#/Vol] 4.53 10*6/uL Low 4.6-6.2 [facility] Comment on above: Order Comment: Order Date: 07/03/24 Order Info: [id number] - CBCD Performed By: #### L 500.4100, L100.0100, L501.9985, L509.1000, L500.4050, L501.5200, L506.1000 #### [facility] [address] [place], [address] RDW SD 44.1 fl High 35.1-43.9 [facility] Comment on above: Order Comment: Order Date: 07/03/24 Order Info: [id number]- - CBCD Performed By: #### L 500.4100, L100.0100, L501.9985, L509.1000, L500.4050, L501.5200, L506.1000 #### [facility] [address] [place], [address] WBC (Bld) [#/Vol] 6.8 10*3/uL Normal 4.4-11.0 [facility] Comment on above: Order Comment: Order Date: 07/03/24 Order Info: [id number] - CBCD Performed By: #### L 500.4100, L100.0100, L501.9985, L509.1000, L500.4050, L501.5200, L506.1000 #### [facility] [address] [place], [address] Comprehensive Metabolic Prof ilon 10-19-2024 Albumin [Mass/Vol] 3.3 g/dL Normal 3.2-5.0 [facility] Comment on above: Order Comment: Order Date: 10/19/24Order Info: [id number] - CMPOrder Date: 07/03/24Order Info: [id number] - LIPIDOrder Info: [id number] - MG Performed By: #### L 500.4100, L100.0100, L501.9985, L509.1000, L500.4050, L501.5200, L506.1000 ####[facility] [address] [place], [address] Albumin/Globulin [Mass ratio] 0.9 {ratio} Normal 0.9-2.4 [facility] Comment on above: Order Comment: Order Date: 10/19/24Order Info: [id number] - CMPOrder Date: 07/03/24Order Info: [id number] - LIPIDOrder Info: [id number] - MG Performed By: #### L 500.4100, L100.0100, L501.9985, L509.1000, L500.4050, L501.5200, L506.1000 ####[facility] [address] [place], [address] ALK P 124 U/L High 45-117 [facility] Comment on above: Order Comment: Order Date: 10/19/24Order Info: [id number] - CMPOrder Date: 07/03/24Order Info: [id number] - LIPIDOrder Info: [id number] - MG Performed By: #### L 500.4100, L100.0100, L501.9985, L509.1000, L500.4050, L501.5200, L506.1000 ####[facility] [address] [place], [address] ALT [Catalytic activity/Vol] 28 U/L Normal 16-61 [facility] Comment on above: Order Comment: Order Date: 10/19/24Order Info: [id number] - CMPOrder Date: 07/03/24Order Info: [id number] - LIPIDOrder Info: [id number] - MG Performed By: #### L 500.4100, L100.0100, L501.9985, L509.1000, L500.4050, L501.5200, L506.1000 ####[facility] [address] [place], [address] AST [Catalytic activity/Vol] 22 U/L Normal 15-37 [facility] Comment on above: Order Comment: Order Date: 10/19/24Order Info: [id number] - CMPOrder Date: 07/03/24Order Info: [id number] - LIPIDOrder Info: [id number] - MG Performed By: #### L 500.4100, L100.0100, L501.9985, L509.1000, L500.4050, L501.5200, L506.1000 ####[facility] [address] [place], [place], [address] Bilirubin [Mass/Vol] 0.90 mg/dL Normal 0.20-1.00 [facility] Comment on above: Order Comment: Order Date: 10/19/24Order Info: [id number] - CMPOrder Date: 07/03/24Order Info: [id number] - LIPIDOrder Info: [id number] - MG Result Comment: For patients on eltrombopag therapy, use of Dimension [place] TBIL is not recommended. Performed By: #### L 500.4100, L100.0100, L501.9985, L509.1000, L500.4050, L501.5200, L506.1000 ####[facility] [address] [place], [address] BUN/CRE 19.8 RATIO Normal 10-20 [facility] Comment on above: Order Comment: Order Date: 10/19/24Order Info: [id number] - CMPOrder Date: 07/03/24Order Info: [id number] - LIPIDOrder Info: [id number] - MG Performed By: #### L 500.4100, L100.0100, L501.9985, L509.1000, L500.4050, L501.5200, L506.1000 ####[facility] [address] [place], [address] CA,Total 9.7 mg/dL Normal 8.5-10.1 [facility] Comment on above: Order Comment: Order Date: 10/19/24Order Info: [id number] - CMPOrder Date: 07/03/24Order Info: [id number] - LIPIDOrder Info: [id number] - MG Performed By: #### L 500.4100, L100.0100, L501.9985, L509.1000, L500.4050, L501.5200, L506.1000 ####[facility] [address] [place], [address] Chloride [Moles/Vol] 104 mmol/L Normal 98-107 [facility] Comment on above: Order Comment: Order Date: 10/19/24Order Info: [id number] - CMPOrder Date: 07/03/24Order Info: [id number] - LIPIDOrder Info: [id number] - MG Performed By: #### L 500.4100, L100.0100, L501.9985, L509.1000, L500.4050, L501.5200, L506.1000 ####[facility] [address] [place], [address] CO2 [Moles/Vol] 28.0 mmol/L Normal 21.0-32.0 [facility] Comment on above: Order Comment: Order Date: 10/19/24Order Info: [id number] - CMPOrder Date: 07/03/24Order Info: [id number] - LIPIDOrder Info: [id number] - MG Performed By: #### L 500.4100, L100.0100, L501.9985, L509.1000, L500.4050, L501.5200, L506.1000 ####[facility] [address] [place], [address] Creatinine [Mass/Vol] 1.01 mg/dL Normal 0.70-1.30 [facility] Comment on above: Order Comment: Order Date: 10/19/24Order Info: [id number] - CMPOrder Date: 07/03/24Order Info: [id number] - LIPIDOrder Info: [id number] - MG Result Comment: The validity of the calculated GFR GFRAA in patients over 70 years has not been determined. Clinical correlation is essential. Performed By: #### L 500.4100, L100.0100, L501.9985, L509.1000, L500.4050, L501.5200, L506.1000 ####[facility] [address] [place], [place], [address] EST GFR - AA 91 mL/min Normal >60 [facility] Comment on above: Order Comment: Order Date: 10/19/24Order Info: [id number] - CMPOrder Date: 07/03/24Order Info: [id number] - LIPIDOrder Info: [id number] - MG Result Comment: Afri can [place] GFR Calc Performed By: #### L 500.4100, L100.0100, L501.9985, L509.1000, L500.4050, L501.5200, L506.1000 ####[facility] [address] [place], [address] GAP 7 Normal 5-15 [facility] Comment on above: Order Comment: Order Date: 10/19/24Order Info: [id number] - CMPOrder Date: 07/03/24Order Info: [id number] - LIPIDOrder Info: [id number] - MG Performed By: #### L 500.4100, L100.0100, L501.9985, L509.1000, L500.4050, L501.5200, L506.1000 ####[facility] [address] [place], [address] GFR/1.73 sq M.predicted among non-blacks MDRD (S/P/Bld) [Vol rate/Area] 75 mL/min/{1.73_m2} Normal >60 [facility] Comment on above: Order Comment: Order Date: 10/19/24Order Info: [id number] - CMPOrder Date: 07/03/24Order Info: [id number] - LIPIDOrder Info: [id number] - MG Result Comment: Non- GFR Calc Performed By: #### L 500.4100, L100.0100, L501.9985, L509.1000, L500.4050, L501.5200, L506.1000 ####[facility] [address], [address] Globulin (S) [Mass/Vol] 3.7 g/dL Normal 2.2-4.2 [facility] Comment on above: Order Comment: Order Date: 10/19/24Order Info: [id number] - CMPOrder Date: 07/03/24Order Info: [id number] - LIPIDOrder Info: [id number] - MG Performed By: #### L 500.4100, L100.0100, L501.9985, L509.1000, L500.4050, L501.5200, L506.1000 ####[facility] [address] [place], [address] Glucose [Mass/Vol] 97 mg/dL Normal 74-106 [facility] Comment on above: Order Comment: Order Date: 10/19/24Order Info: [id number] - CMPOrder Date: 07/03/24Order Info: [id number] - LIPIDOrder Info: [id number] - MG Performed By: #### L 500.4100, L100.0100, L501.9985, L509.1000, L500.4050, L501.5200, L506.1000 ####[facility] [address] [place], [address] Potassium [Moles/Vol] 4.1 mmol/L Normal 3.5-5.1 [facility] Comment on above: Order Comment: Order Date: 10/19/24Order Info: [id number] - CMPOrder Date: 07/03/24Order Info: [id number] - LIPIDOrder Info: [id number] - MG Performed By: #### L 500.4100, L100.0100, L501.9985, L509.1000, L500.4050, L501.5200, L506.1000 ####[facility] [address] [place], [address] Sodium [Moles/Vol] 139 mmol/L Normal 136-145 [facility] Comment on above: Order Comment: Order Date: 10/19/24Order Info: [id number] - CMPOrder Date: 07/03/24Order Info: [id number] - LIPIDOrder Info: [id number] - MG Performed By: #### L 500.4100, L100.0100, L501.9985, L509.1000, L500.4050, L501.5200, L506.1000 ####[facility] [address] [place], [address] T PROT 7.0 g/dL Normal 6.4-8.2 [facility] Comment on above: Order Comment: Order Date: 10/19/24Order Info: [id number] - CMPOrder Date: 07/03/24Order Info: [id number] - LIPIDOrder Info: [id number] - MG Performed By: #### L 500.4100, L100.0100, L501.9985, L509.1000, L500.4050, L501.5200, L506.1000 ####[facility] [address] [place], [address] Urea nitrogen [Mass/Vol] 20 mg/dL High 7-18 [facility] Comment on above: Order Comment: Order Date: 10/19/24Order Info: [id number] - CMPOrder Date: 07/03/24Order Info: [id number] - LIPIDOrder Info: [id number] - MG Performed By: #### L 500.4100, L100.0100, L501.9985, L509.1000, L500.4050, L501.5200, L506.1000 ####[facility] [address] [place], [address] Hemoglobin A1con 10-19-2024 HbA1c (Bld) [Mass fraction] 5.8 % High 3.8-5.6 [facility] Comment on above: Order Comment: Order Date: 07/03/24 Order Info: [id number] - A1C Result Comment: Norm al < 5.7 % Prediabetic 5.7 - 6.4 % Diabetic >or= 6.5 % Please note range changes. Performed By: #### L 500.4100, L100.0100, L501.9985, L509.1000, L500.4050, L501.5200, L506.1000 #### [facility] [address] [place], [address] Lipid Profileon 10-19-2024 Cholesterol [Mass/Vol] 134 mg/dL Normal 200 [facility] Comment on above: Order Comment: Order Date: 10/19/24Order Info: [id number] - CMPOrder Date: 07/03/24Order Info: [id number] - LIPIDOrder Info: [id number] - MG Result Comment: <200 mg/dL Desirable 200-240 mg/dL Borderline >240 mg/dL High Risk Performed By: #### L 500.4100, L100.0100, L501.9985, L509.1000, L500.4050, L501.5200, L506.1000 ####[facility] [address] [place], [address] Cholesterol in HDL [Mass/Vol] 52 mg/dL Normal [facility] Comment on above: Order Comment: Order Date: 10/19/24Order Info: [id number] - CMPOrder Date: 07/03/24Order Info: [id number] - LIPIDOrder Info: [id number] - MG Result Comment: The drugs N-Acetylcysteine and Metamizole may falsely depress this assay. Reference Range HDL <40 mg/dL Low HDL Cholesterol HDL >or= 60 mg/dL High HDL Cholesterol Performed By: #### L 500.4100, L100.0100, L501.9985, L509.1000, L500.4050, L501.5200, L506.1000 ####[facility] [address] [place], [address] Cholesterol in LDL [Mass/Vol] 61 mg/dL Normal 0-130 [facility] Comment on above: Order Comment: Order Date: 10/19/24Order Info: [id number] - CMPOrder Date: 07/03/24Order Info: [id number] - LIPIDOrder Info: [id number] - MG Performed By: #### L 500.4100, L100.0100, L501.9985, L509.1000, L500.4050, L501.5200, L506.1000 ####[facility] [address] [place], [address] Cholesterol in VLDL [Mass/Vol] 21 mg/dL Normal 5-40 [facility] Comment on above: Order Comment: Order Date: 10/19/24Order Info: [id number] - CMPOrder Date: 07/03/24Order Info: [id number] - LIPIDOrder Info: [id number] - MG Performed By: #### L 500.4100, L100.0100, L501.9985, L509.1000, L500.4050, L501.5200, L506.1000 ####[facility] [address] [place], [address] Triglyceride [Mass/Vol] 104 mg/dL Normal [facility] Comment on above: Order Comment: Order Date: 10/19/24Order Info: [id number] - CMPOrder Date: 07/03/24Order Info: [id number] - LIPIDOrder Info: [id number] - MG Result Comment: The drugs N-Acetylcysteine and Metamizole may falsely depress this assay. Serum Triglycerides Reference Interval Normal <150 mg/dL Borderline high 150 - 199 mg/dL High 200 - 499 mg/dL Very High > or = 500 mg/dL Performed By: #### L 500.4100, L100.0100, L501.9985, L509.1000, L500.4050, L501.5200, L506.1000 ####[facility] [address] [place], [address] Magnesiumon 10-19-2024 Magnesium [Mass/Vol] 2.1 mg/dL Normal 1.6-2.6 [facility] Comment on above: Order Comment: Order Date: 10/19/24Order Info: [id number] - CMPOrder Date: 07/03/24Order Info: [id number] - LIPIDOrder Info: [id number] - MG Performed By: #### L 500.4100, L100.0100, L501.9985, L509.1000, L500.4050, L501.5200, L506.1000 ####[facility] [address] [place], [address] PTHINon 10-19-2024 PTH 141.6 pg/mL High 18.4-80.1 [facility] Comment on above: Order Comment: Order Date: 07/03/24Order Info: [id number] - PTHIN Performed By: #### L 500.4100, L100.0100, L501.9985, L509.1000, L500.4050, L501.5200, L506.1000 ####[facility] [address] [place], [address] Vitamin D,25 Hydroxyon 10-19 Vitamin D 25-OH 62.0 ng/mL Normal [facility] Comment on above: Order Comment: Order Date: 07/03/24Order Info: [id number] - VITD25 Result Comment: Lea min D 25(OH) Status Range Deficiency <20 ng/mL (50nmol/L) Insufficiency 20 - 30 ng/mL (50 - 75 nmol/L) Sufficiency 30 - 100 ng/mL (75 - 250 nmol/L) Toxicity >100 ng/mL (>250 nmol/L) Performed By: #### L 500.4100, L100.0100, L501.9985, L509.1000, L500.4050, L501.5200, L506.1000 ####[facility] [address] [place], [address] Basic Metabolic Profile (BMP )on 10-02-2024 BUN/CRE 19.4 RATIO Normal 10-20 [facility] Comment on above: Order Comment: URINE Performed By: #### L 350.1000 #### [facility] [address] [place], [address] CA,Total 10.2 mg/dL High 8.5-10.1 [facility] Comment on above: Order Comment: URINE Performed By: #### L 350.1000 #### [facility] [address] [place], [address] Chloride [Moles/Vol] 102 mmol/L Normal 98-107 [facility] Comment on above: Order Comment: URINE Performed By: #### L 350.1000 #### [facility] [address] [place], [address] CO2 [Moles/Vol] 29.0 mmol/L Normal 21.0-32.0 [facility] Comment on above: Order Comment: URINE Performed By: #### L 350.1000 #### [facility] [address] [place], [address] Creatinine [Mass/Vol] 1.34 mg/dL High 0.70-1.30 [facility] Comment on above: Order Comment: URINE Result Comment: The validity of the calculated GFR GFRAA in patients over 70 years has not been determined. Clinical correlation is essential. Performed By: #### L 350.1000 #### [facility] [address] [place], [address] EST GFR - AA 66 mL/min Normal >60 [facility] Comment on above: Order Comment: URINE Result Comment: Afri can [place] GFR Calc Performed By: #### L 350.1000 #### [facility] [address] [place], [address] GAP 5 Normal 5-15 [facility] Comment on above: Order Comment: URINE Performed By: #### L 350.1000 #### [facility] [address] [place], [address] GFR/1.73 sq M.predicted among non-blacks MDRD (S/P/Bld) [Vol rate/Area] 54 mL/min/{1.73_m2} Low >60 [facility] Comment on above: Order Comment: URINE Result Comment: Non- GFR Calc Performed By: #### L 350.1000 #### [facility] [address] [place], [address] Glucose [Mass/Vol] 108 mg/dL High 74-106 [facility] Comment on above: Order Comment: URINE Result Comment: Fast ing Glucose result from 100 to 125 mg/dL suggests IMPAIRED HOMEOSTASIS per A.D.A. criteria. Performed By: #### L 350.1000 #### [facility] [address] [place], [address] Potassium [Moles/Vol] 4.3 mmol/L Normal 3.5-5.1 [facility] Comment on above: Order Comment: URINE Performed By: #### L 350.1000 #### [facility] [address] [place], [address] Sodium [Moles/Vol] 136 mmol/L Normal 136-145 [facility] Comment on above: Order Comment: URINE Performed By: #### L 350.1000 #### [facility] [address] [place], [address] Urea nitrogen [Mass/Vol] 26 mg/dL High 7-18 [facility] Comment on above: Order Comment: URINE Performed By: #### L 350.1000 #### [facility] [address] [place], [address] Uric Acidon 10-02-2024 URIC 8.8 mg/dL High 3.5-7.2 [facility] Comment on above: Order Comment: URINE Result Comment: The drugs N-Acetylcysteine and Metamizole may falsely depress this assay. Performed By: #### L 350.1000 #### [facility] [address] [place], [address] Basic Metabolic Profile (BMP )on 09-24-2024 BUN/CRE 42.9 RATIO High 10-20 [facility] Comment on above: Performed By: #### L 300.4310, L300.3900, L100.0100 #### [facility] [address] [place], [address] CA,Total 8.8 mg/dL Normal 8.5-10.1 [facility] Comment on above: Performed By: #### L 300.4310, L300.3900, L100.0100 #### [facility] [address] [place], [address] Chloride [Moles/Vol] 101 mmol/L Normal 98-107 [facility] Comment on above: Performed By: #### L 300.4310, L300.3900, L100.0100 #### [facility] [address] [place], [address] CO2 [Moles/Vol] 30.0 mmol/L Normal 21.0-32.0 [facility] Comment on above: Performed By: #### L 300.4310, L300.3900, L100.0100 #### [facility] [address] [place], [address] Creatinine [Mass/Vol] 1.05 mg/dL Normal 0.70-1.30 [facility] Comment on above: Result Comment: The validity of the calculated GFR GFRAA in patients over 70 years has not been determined. Clinical correlation is essential. Performed By: #### L 300.4310, L300.3900, L100.0100 #### [facility] [address] [place], [address] ECRCL 71.75 ml/min Normal [facility] Comment on above: Performed By: #### L 300.4310, L300.3900, L100.0100 #### [facility] [address] [place], [address] EST GFR - AA 87 mL/min Normal >60 [facility] Comment on above: Result Comment: Afri can [place] GFR Calc Performed By: #### L 300.4310, L300.3900, L100.0100 #### [facility] [address] [place], [address] GAP 7 Normal 5-15 [facility] Comment on above: Performed By: #### L 300.4310, L300.3900, L100.0100 #### [facility] [address] [place], [address] GFR/1.73 sq M.predicted among non-blacks MDRD (S/P/Bld) [Vol rate/Area] 72 mL/min/{1.73_m2} Normal >60 [facility] Comment on above: Result Comment: Non- GFR Calc Performed By: #### L 300.4310, L300.3900, L100.0100 #### [facility] [address] [place], [address] Glucose [Mass/Vol] 106 mg/dL Normal 74-106 [facility] Comment on above: Result Comment: Fast ing Glucose result from 100 to 125 mg/dL suggests IMPAIRED HOMEOSTASIS per A.D.A. criteria. Performed By: #### L 300.4310, L300.3900, L100.0100 #### [facility] [address] [place], [address] Potassium [Moles/Vol] 3.6 mmol/L Normal 3.5-5.1 [facility] Comment on above: Performed By: #### L 300.4310, L300.3900, L100.0100 #### [facility] [address] [place], [address] Sodium [Moles/Vol] 137 mmol/L Normal 136-145 [facility] Comment on above: Performed By: #### L 300.4310, L300.3900, L100.0100 #### [facility] [address] [place], [address] Urea nitrogen [Mass/Vol] 45 mg/dL High 7-18 [facility] Comment on above: Performed By: #### L 300.4310, L300.3900, L100.0100 #### [facility] [address] [place], [address] Basic Metabolic Profile (BMP )on 09-23-2024 BUN/CRE 48.5 RATIO High 10-20 [facility] Comment on above: Order Comment: URINE Performed By: #### L 350.1000 #### [facility] [address] [place], [address] CA,Total 8.6 mg/dL Normal 8.5-10.1 [facility] Comment on above: Order Comment: URINE Performed By: #### L 350.1000 #### [facility] [address] [place], [address] Chloride [Moles/Vol] 97 mmol/L Low 98-107 [facility] Comment on above: Order Comment: URINE Performed By: #### L 350.1000 #### [facility] [address] [place], [address] CO2 [Moles/Vol] 30.0 mmol/L Normal 21.0-32.0 [facility] Comment on above: Order Comment: URINE Performed By: #### L 350.1000 #### [facility] [address] [place], [address] Creatinine [Mass/Vol] 1.01 mg/dL Normal 0.70-1.30 [facility] Comment on above: Order Comment: URINE Result Comment: The validity of the calculated GFR GFRAA in patients over 70 years has not been determined. Clinical correlation is essential. Performed By: #### L 350.1000 #### [facility] [address] [place], [address] ECRCL 74.59 ml/min Normal [facility] Comment on above: Order Comment: URINE Performed By: #### L 350.1000 #### [facility] [address] [place], [address] EST GFR - AA 91 mL/min Normal >60 [facility] Comment on above: Order Comment: URINE Result Comment: Afri can [place] GFR Calc Performed By: #### L 350.1000 #### [facility] [address] [place], [address] GAP 8 Normal 5-15 [facility] Comment on above: Order Comment: URINE Performed By: #### L 350.1000 #### [facility] [address] [place], [address] GFR/1.73 sq M.predicted among non-blacks MDRD (S/P/Bld) [Vol rate/Area] 75 mL/min/{1.73_m2} Normal >60 [facility] Comment on above: Order Comment: URINE Result Comment: Non- GFR Calc Performed By: #### L 350.1000 #### [facility] [address] [place], [address] Glucose [Mass/Vol] 103 mg/dL Normal 74-106 [facility] Comment on above: Order Comment: URINE Result Comment: Fast ing Glucose result from 100 to 125 mg/dL suggests IMPAIRED HOMEOSTASIS per A.D.A. criteria. Performed By: #### L 350.1000 #### [facility] [address] [place], [address] Potassium [Moles/Vol] 3.4 mmol/L Low 3.5-5.1 [facility] Comment on above: Order Comment: URINE Performed By: #### L 350.1000 #### [facility] [address] [place], [address] Sodium [Moles/Vol] 135 mmol/L Low 136-145 [facility] Comment on above: Order Comment: URINE Performed By: #### L 350.1000 #### [facility] [address] [place], [address] Urea nitrogen [Mass/Vol] 49 mg/dL High 7-18 [facility] Comment on above: Order Comment: URINE Performed By: #### L 350.1000 #### [facility] [address] [place], [address] BUN Normal 7-18 [facility] Comment on above: Result Comment: This specimen has been REJECTED due to Laboratory criteria: Hemolyzed. CAMP PROGRAM DIRECTOR has been notified of need of recollection. 09/23/24 0555 Ace L White Performed By: #### L 300.4310, L300.3900, L100.0100 #### [facility] [address] [place], [address] BUN/CRE Normal 10-20 [facility] Comment on above: Result Comment: This specimen has been REJECTED due to Laboratory criteria: Hemolyzed. CAMP PROGRAM DIRECTOR has been notified of need of recollection. 09/23/24 0555 Ace L White Performed By: #### L 300.4310, L300.3900, L100.0100 #### [facility] [address] [place], [address] CA,Total Normal 8.5-10.1 [facility] Comment on above: Result Comment: This specimen has been REJECTED due to Laboratory criteria: Hemolyzed. CAMP PROGRAM DIRECTOR has been notified of need of recollection. 09/23/24554 Ace Rico White Performed By: #### L 300.4310, L300.3900, L100.0100 #### [facility] [address] [place], [address] CL Normal 98-107 [facility] Comment on above: Result Comment: This specimen has been REJECTED due to Laboratory criteria: Hemolyzed. CAMP PROGRAM DIRECTOR has been notified of need of recollection. 09/23/24554 Ace L White Performed By: #### L 300.4310, L300.3900, L100.0100 #### [facility] [address] [place], [address] CO2 Normal 21.0-32.0 [facility] Comment on above: Result Comment: This specimen has been REJECTED due to Laboratory criteria: Hemolyzed. CAMP PROGRAM DIRECTOR has been notified of need of recollection. 09/23/24554 Ace L White Performed By: #### L 300.4310, L300.3900, L100.0100 #### [facility] [address] [place], [address] CREAT,SERUM Normal 0.70-1.30 [facility] Comment on above: Result Comment: This specimen has been REJECTED due to Laboratory criteria: Hemolyzed. CAMP PROGRAM DIRECTOR has been notified of need of recollection. 09/23/24554 Ace L White Performed By: #### L 300.4310, L300.3900, L100.0100 #### [facility] [address] [place], [address] EST GFR Normal >60 [facility] Comment on above: Result Comment: This specimen has been REJECTED due to Laboratory criteria: Hemolyzed. CAMP PROGRAM DIRECTOR has been notified of need of recollection. 09/23/24554 Ace L White Performed By: #### L 300.4310, L300.3900, L100.0100 #### [facility] [address] [place], [address] EST GFR - AA Normal >60 [facility] Comment on above: Result Comment: This specimen has been REJECTED due to Laboratory criteria: Hemolyzed. CAMP PROGRAM DIRECTOR has been notified of need of recollection. 09/23/24554 Ace Rico White Performed By: #### L 300.4310, L300.3900, L100.0100 #### [facility] [address] [place], [address] GAP Normal 5-15 [facility] Comment on above: Result Comment: This specimen has been REJECTED due to Laboratory criteria: Hemolyzed. CAMP PROGRAM DIRECTOR has been notified of need of recollection. 09/23/24554 Ace Rico White Performed By: #### L 300.4310, L300.3900, L100.0100 #### [facility] [address] [place], [address] GLU Normal 74-106 [facility] Comment on above: Result Comment: This specimen has been REJECTED due to Laboratory criteria: Hemolyzed. CAMP PROGRAM DIRECTOR has been notified of need of recollection. 09/23/24554 Ace Rico White Performed By: #### L 300.4310, L300.3900, L100.0100 #### [facility] [address] [place], [address] Potassium Normal 3.5-5.1 [facility] Comment on above: Result Comment: This specimen has been REJECTED due to Laboratory criteria: Hemolyzed. CAMP PROGRAM DIRECTOR has been notified of need of recollection. 09/23/24554 Ace Rico White Performed By: #### L 300.4310, L300.3900, L100.0100 #### [facility] [address] [place], [address] Basic Metabolic Profile (BMP) Normal 136-145 [facility] Comment on above: Result Comment: This specimen has been REJECTED due to Laboratory criteria: Hemolyzed. CAMP PROGRAM DIRECTOR has been notified of need of recollection. 09/23/24 0555 Ace Singletary Performed By: #### L 300.4310, L300.3900, L100.0100 #### [facility] [address] [place], [address] CBC-Complete Blood Cnt No Di ffon 09-23-2024 Erythrocyte distribution width (RBC) [Ratio] 12.6 % Normal 11.6-14.6 [facility] Comment on above: Performed By: #### L 300.4310, L300.3900, L100.0100 #### [facility] [address] [place], [address] Hematocrit (Bld) [Volume fraction] 33.1 % Low 40-54 [facility] Comment on above: Performed By: #### L 300.4310, L300.3900, L100.0100 #### [facility] [address] [place], [address] Hemoglobin (Bld) [Mass/Vol] 11.6 g/dL Low 13.0-16.5 [facility] Comment on above: Performed By: #### L 300.4310, L300.3900, L100.0100 #### [facility] [address] [place], [address] MCH (RBC) [Entitic mass] 30.0 pg Normal 27.0-32.0 [facility] Comment on above: Performed By: #### L 300.4310, L300.3900, L100.0100 #### [facility] [address] [place], [address] MCHC (RBC) [Mass/Vol] 35.0 g/dL Normal 32-36 [facility] Comment on above: Performed By: #### L 300.4310, L300.3900, L100.0100 #### [facility] [address] [place], [address] MCV (RBC) [Entitic vol] 85.5 fL Normal 80-94 [facility] Comment on above: Performed By: #### L 300.4310, L300.3900, L100.0100 #### [facility] [address] [place], [address] Platelet mean volume (Bld) [Entitic vol] 8.7 fL Normal 6.2-12.0 [facility] Comment on above: Performed By: #### L 300.4310, L300.3900, L100.0100 #### [facility] [address] [place], [address] Platelets (Bld) [#/Vol] 219 10*3/uL Normal 150-450 [facility] Comment on above: Performed By: #### L 300.4310, L300.3900, L100.0100 #### [facility] [address] [place], [address] RBC (Bld) [#/Vol] 3.87 10*6/uL Low 4.6-6.2 [facility] Comment on above: Performed By: #### L 300.4310, L300.3900, L100.0100 #### [facility] [address] [place], [address] RDW SD 39.1 fl Normal 35.1-43.9 [facility] Comment on above: Performed By: #### L 300.4310, L300.3900, L100.0100 #### [facility] [address] [place], [address] WBC (Bld) [#/Vol] 9.0 10*3/uL Normal 4.4-11.0 [facility] Comment on above: Performed By: #### L 300.4310, L300.3900, L100.0100 #### [facility] [address], [address] Uric Acidon 09-23-2024 URIC 11.6 mg/dL High 3.5-7.2 [facility] Comment on above: Result Comment: The drugs N-Acetylcysteine and Metamizole may falsely depress this assay. Performed By: #### L 501.1400 ####[facility] [address] [place], [address] Venous Duplex US - Mike Extre mon 09-23-2024 Venous Duplex US - Mike Extrem [facility] [address] [place] [address] Venous Duplex US - Mike Extrem 09/24/24 0855 MR#: [id number] Acct: [id number] Name: HARRY LICEA Rep #: [id number] : 1940 83 From: Felipe Love MD Attending Dr: Dr. Felipe Verdin DO Status: ADM IN Ordering Dr: Jhon Ruiz DO Date: 09/23/24 Location: U Sex: M C Admitted: 09/21/24 Reason For Study: Bilateral leg swelling RIGHT LEFT GSV is normal. GSV is normal. CFV is compressible, spontaneous, phasic, CFV is compressible, spontaneous, phasic, competent and demonstrates normal competent, and demonstrates normal augmentation. augmentation. FV is compressible, spontaneous, phasic, FV prox and distal are compressible with competent and demonstrates normal normal venous flow noted with augmentation. augmentation. FV mid duplicator vein is NONCOMPRESSIBLE POP V is compressible, spontaneous, phasic, consistent with Acute DVT. competent and demonstrates normal POP V is compressible, spontaneous, phasic, augmentation. competent and demonstrates normal T/P Trunk is compressible. augmentation. Acute deep vein thrombosis is noted in the T/P Trunk is NONCOMPRESSIBLE consistent with PTV, PeroV and SoleusV. It is dilated and Acute DVT. NONCOMPRESSIBLE. PTV prox is NONCOMPRESSIBLE consistent with Procedure Acute DVT. Remaining PTV is compressible This is a venous duplex using B-mode, color Soleus V is NONCOMPRESSIBLE consistent with flow and spectral Doppler. Acute DVT. Clot extends into PTV prox. Exam performed portable in patient room. PeroV is compressible. A preliminary report was called and/or faxed to [facility]. VL/Venous Duplex US - Mike Extrem Interpretation Summary Acute deep vein thrombosis is noted in the right posterior tibial vein, peroneal vein, soleus vein. Acute deep vein thrombosis is noted in the left duplicate femoral vein, tibioperoneal trunk vein, posterior tibial vein, soleus vein. Ordering Physician: Jhon Ruiz Referring Physician: Jerrod Viramontes Performed By: Sharifa Snyder RVT 09/24/24 1250 Date Felipe Love MD CC: Dr. Jhon Ruiz DO; Dr. Felipe Verdin DO; Dr. Jerrod Viramontes MD Date Dictated: 09/24/24854 Date Transcribed: 09/24/24 1250 Pediatric Dental Hygienist: Signed Normal [facility] Basic Metabolic Profile (BMP )on 09-22-2024 BUN/CRE 41.9 RATIO High 10-20 [facility] Comment on above: Performed By: #### L 300.4310, L300.3900, L100.0100 #### [facility] [address] [place], [place], [id number] CA,Total 8.9 mg/dL Normal 8.5-10.1 [facility] Comment on above: Performed By: #### L 300.4310, L300.3900, L100.0100 #### [facility] [address] [place], [address] Chloride [Moles/Vol] 90 mmol/L Low 98-107 [facility] Comment on above: Performed By: #### L 300.4310, L300.3900, L100.0100 #### [facility] [address] [place], [address] CO2 [Moles/Vol] 29.0 mmol/L Normal 21.0-32.0 [facility] Comment on above: Performed By: #### L 300.4310, L300.3900, L100.0100 #### [facility] [address] [place], [address] Creatinine [Mass/Vol] 1.24 mg/dL Normal 0.70-1.30 [facility] Comment on above: Result Comment: The validity of the calculated GFR GFRAA in patients over 70 years has not been determined. Clinical correlation is essential. Performed By: #### L 300.4310, L300.3900, L100.0100 #### [facility] [address] [place], [address] ECRCL 61.30 ml/min Normal [facility] Comment on above: Performed By: #### L 300.4310, L300.3900, L100.0100 #### [facility] [address] [place], [address] EST GFR - AA 72 mL/min Normal >60 [facility] Comment on above: Result Comment: Afri can [place] GFR Calc Performed By: #### L 300.4310, L300.3900, L100.0100 #### [facility] [address] [place], [address] GAP 11 Normal 5-15 [facility] Comment on above: Performed By: #### L 300.4310, L300.3900, L100.0100 #### [facility] [address] [place], [address] GFR/1.73 sq M.predicted among non-blacks MDRD (S/P/Bld) [Vol rate/Area] 59 mL/min/{1.73_m2} Low >60 [facility] Comment on above: Result Comment: Non- GFR Calc Performed By: #### L 300.4310, L300.3900, L100.0100 #### [facility] [address] [place], [address] Glucose [Mass/Vol] 92 mg/dL Normal 74-106 [facility] Comment on above: Performed By: #### L 300.4310, L300.3900, L100.0100 #### [facility] [address] [place], [address] Potassium [Moles/Vol] 3.3 mmol/L Low 3.5-5.1 [facility] Comment on above: Performed By: #### L 300.4310, L300.3900, L100.0100 #### [facility] [address] [place], [address] Sodium [Moles/Vol] 129 mmol/L Low 136-145 [facility] Comment on above: Performed By: #### L 300.4310, L300.3900, L100.0100 #### [facility] [address] [place], [address] Urea nitrogen [Mass/Vol] 52 mg/dL High 7-18 [facility] Comment on above: Performed By: #### L 300.4310, L300.3900, L100.0100 #### [facility] [address] [place], [address] Brain/Head without Contrasto n 09-22-2024 Brain/Head without Contrast [facility] [address] [place] [address] Brain/Head without Contrast MR#: [id number] Acct: [id number] Name: HARRY LICEA Rep #: [id number] : 1940 M 83 From: Alirio Courtney PCP: Dr. Jerrod Viramontes MD Status: ADM IN Study: Brain/Head without Contrast Date of Exam: 05/09 Exam# [id number] Ordering Dr: Jhon Riuz [place] [id number] INDICATION: altered mental status EXAMINATION: CT BRAIN - CT Head or Brain W/O Contrast Injection TECHNIQUE: Multiple axial images were obtained of the head without intravenous contrast. A radiation dose optimization technique was used for this scan. IV Contrast dosage and agent: None. RADIATION DOSAGE (If Supplied By Facility): CTDIvol = ( 44.99 ) mGy, DLP = ( 863.60 ) mGycm COMPARISON: 09/17/2014 FINDINGS: HEMISPHERES: 1. The cerebral parenchyma, ventricular system, subarachnoid spaces have normal configuration and density. There is a normal gyral pattern. There is normal batres/white differentiation. No midline shift.. 2. 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 3. No intraparenchymal mass, hemorrhage, or acute territorial infarct. CEREBELLUM - BRAINSTEM: The cerebellum, brainstem, basilar and suprasellar cisterns have normal appearance. No Chiari malformation. PITUITARY: Infundibulum and pituitary have normal configuration. Midline structures appear normal. CSF SPACES: Appropriate for age. No hydrocephalus. Basal cisterns are patent. VESSELS: 1. [Moderate carotid vascular calcifications 2. No hyperdense vascular signs noted.. ORBITS AND PARANASAL SINUSES: 1. Normal appearance of the bony orbits. Normal appearance of the globes and retrobulbar soft tissues.. 2. Paranasal sinuses are clear. BONY ELEMENTS: Bony elements of the cranial vault, facial skeleton and skull base have normal appearance. SCALP AND SOFT TISSUES: Normal appearance of the soft tissues of the scalp and the visualized face OTHER: None ASPECTS Score for Acute Strokes: 10 CT/Brain/Head without Contrast IMPRESSION: 1. 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 2. No intracranial mass, hemorrhage or acute territorial infarct. 3. No radiographically significant sinus disease.. Electronically Signed: Alirio Ace MD at 19:43 EST , CC: Dr. Jhon Ruiz, DO; Dr. Jerrod Viramontes MD Pediatric Dental Hygienist: Signed Normal [facility] CBC W/Diff, Automatedon 12-0 Absolute Lymph 0.87 X10 3/uL Normal 0.83-4.51 [facility] Comment on above: Performed By: #### L 300.4310, L300.3900, L100.0100 #### [facility] [address] [place], [address] Absolute Neut 6.7 X10 3/uL Normal 2.0-7.7 [facility] Comment on above: Performed By: #### L 300.4310, L300.3900, L100.0100 #### [facility] [address] [place], [address] Basophils/100 WBC (Bld) 0.4 % Normal 0-1 [facility] Comment on above: Performed By: #### L 300.4310, L300.3900, L100.0100 #### [facility] [address] [place], [address] Eosinophils/100 WBC (Bld) 2.5 % Normal 0-5 [facility] Comment on above: Performed By: #### L 300.4310, L300.3900, L100.0100 #### [facility] [address] [place], [address] Erythrocyte distribution width (RBC) [Ratio] 12.5 % Normal 11.6-14.6 [facility] Comment on above: Performed By: #### L 300.4310, L300.3900, L100.0100 #### [facility] [address] [place], [address] Hematocrit (Bld) [Volume fraction] 34.7 % Low 40-54 [facility] Comment on above: Performed By: #### L 300.4310, L300.3900, L100.0100 #### [facility] [address] [place], [address] Hemoglobin (Bld) [Mass/Vol] 11.9 g/dL Low 13.0-16.5 [facility] Comment on above: Performed By: #### L 300.4310, L300.3900, L100.0100 #### [facility] [address] [place], [address] IG% 1.700 High 0.0-0.9 [facility] Comment on above: Result Comment: IG% - Immature Granulocytes (promyelocytes, myelocytes and metamyelocytes) > 1% indicates that a LEFT SHIFT is Present. Performed By: #### L 300.4310, L300.3900, L100.0100 #### [facility] [address] [place], [address] Lymphocytes/100 WBC (Bld) 9.4 % Low 19-41 [facility] Comment on above: Performed By: #### L 300.4310, L300.3900, L100.0100 #### [facility] [address] [place], [address] MCH (RBC) [Entitic mass] 29.2 pg Normal 27.0-32.0 [facility] Comment on above: Performed By: #### L 300.4310, L300.3900, L100.0100 #### [facility] [address] [place], [address] MCHC (RBC) [Mass/Vol] 34.3 g/dL Normal 32-36 [facility] Comment on above: Performed By: #### L 300.4310, L300.3900, L100.0100 #### [facility] [address] [place], [address] MCV (RBC) [Entitic vol] 85.0 fL Normal 80-94 [facility] Comment on above: Performed By: #### L 300.4310, L300.3900, L100.0100 #### [facility] [address] [place], [address] Monocytes/100 WBC (Bld) 13.4 % High 0-10 [facility] Comment on above: Performed By: #### L 300.4310, L300.3900, L100.0100 #### [facility] [address] [place], [address] Neutrophils/100 WBC (Bld) 72.6 % High 47-70 [facility] Comment on above: Performed By: #### L 300.4310, L300.3900, L100.0100 #### [facility] [address] [place], [address] Nucleated RBC (Bld) [#/Vol] 0 10*3/uL Normal 0-5 [facility] Comment on above: Performed By: #### L 300.4310, L300.3900, L100.0100 #### [facility] [address] [place], [address] Platelet mean volume (Bld) [Entitic vol] 9.0 fL Normal 6.2-12.0 [facility] Comment on above: Performed By: #### L 300.4310, L300.3900, L100.0100 #### [facility] [address] [place], [address] Platelets (Bld) [#/Vol] 212 10*3/uL Normal 150-450 [facility] Comment on above: Performed By: #### L 300.4310, L300.3900, L100.0100 #### [facility] [address] [place], [address] RBC (Bld) [#/Vol] 4.08 10*6/uL Low 4.6-6.2 [facility] Comment on above: Performed By: #### L 300.4310, L300.3900, L100.0100 #### [facility] [address] [place], [address] RDW SD 38.4 fl Normal 35.1-43.9 [facility] Comment on above: Performed By: #### L 300.4310, L300.3900, L100.0100 #### [facility] [address] [place], [address] WBC (Bld) [#/Vol] 9.2 10*3/uL Normal 4.4-11.0 [facility] Comment on above: Performed By: #### L 300.4310, L300.3900, L100.0100 #### [facility] [address] [place], [address] Lipid Profileon 09-22-2024 Cholesterol [Mass/Vol] 120 mg/dL Normal 200 [facility] Comment on above: Result Comment: <200 mg/dL Desirable 200-240 mg/dL Borderline >240 mg/dL High Risk Performed By: #### L 300.4310, L300.3900, L100.0100 #### [facility] [address] [place], [address] Cholesterol in HDL [Mass/Vol] 33 mg/dL Low [facility] Comment on above: Result Comment: The drugs N-Acetylcysteine and Metamizole may falsely depress this assay. Reference Range HDL <40 mg/dL Low HDL Cholesterol HDL >or= 60 mg/dL High HDL Cholesterol Performed By: #### L 300.4310, L300.3900, L100.0100 #### [facility] [address] [place], [address] Cholesterol in LDL [Mass/Vol] 69 mg/dL Normal 0-130 [facility] Comment on above: Performed By: #### L 300.4310, L300.3900, L100.0100 #### [facility] [address] [place], [address] Cholesterol in VLDL [Mass/Vol] 18 mg/dL Normal 5-40 [facility] Comment on above: Performed By: #### L 300.4310, L300.3900, L100.0100 #### [facility] [address] [place], [address] Triglyceride [Mass/Vol] 91 mg/dL Normal [facility] Comment on above: Result Comment: The drugs N-Acetylcysteine and Metamizole may falsely depress this assay. Serum Triglycerides Reference Interval Normal <150 mg/dL Borderline high 150 - 199 mg/dL High 200 - 499 mg/dL Very High > or = 500 mg/dL Performed By: #### L 300.4310, L300.3900, L100.0100 #### [facility] [address] [place], [address] Magnesiumon 09-22-2024 Magnesium [Mass/Vol] 2.3 mg/dL Normal 1.6-2.6 [facility] Comment on above: Performed By: #### L 300.4310, L300.3900, L100.0100 #### [facility] [address] [place], [address] Thyroid Stim Hormone (TSH)on 09-22-2024 TSH 0.918 uIU/mL Normal 0.358-3.740 [facility] Comment on above: Performed By: #### L 300.4310, L300.3900, L100.0100 #### [facility] [address] [place], [address] Urinalysis, Completeon 09-22 BACTERIA RARE Normal None Seen [facility] Comment on above: Order Comment: SENT LABEL TO PCU TO COLLECTCOLLECTOR TO SPECIFY Performed By: #### L 300.4310, L300.3900, L100.0100 #### [facility] [address] [place], [address] WBC 0-5 SEEN Normal 0-5 [facility] Comment on above: Order Comment: SENT LABEL TO PCU TO COLLECTCOLLECTOR TO SPECIFY Performed By: #### L 300.4310, L300.3900, L100.0100 #### [facility] [address] [place], [address] EPI,SQUAMOUS 0 SEEN Normal 0-5 [facility] Comment on above: Order Comment: SENT LABEL TO PCU TO COLLECTCOLLECTOR TO SPECIFY Performed By: #### L 300.4310, L300.3900, L100.0100 #### [facility] [address] [place], [address] Mucus Ql (Urine sed) 0 SEEN Normal [facility] Comment on above: Order Comment: SENT LABEL TO PCU TO COLLECTCOLLECTOR TO SPECIFY Performed By: #### L 300.4310, L300.3900, L100.0100 #### [facility] [address] [place], [address] RBC 0 SEEN Normal 0-5 [facility] Comment on above: Order Comment: SENT LABEL TO PCU TO COLLECTCOLLECTOR TO SPECIFY Performed By: #### L 300.4310, L300.3900, L100.0100 #### [facility] [address] [place], [address] 12 Lead EKGon 09-21-2024 12 Lead EKG [facility] Cardi[facility] Services [address] [place] [address] 12 Lead EKG 09/21/24 1352 MR#: [id number] Acct: [id number] Name: HARRY LICEA Rep #: [id number] : 1940 83 From: Winston Lees MD Attending Dr: Dr. Jhon Ruiz DO Status : ADM IN Ordering Dr: Payam Jin DO Date: 4 Location: [facility] Sex: M C Admitted: 09/21/24 Test Reason : Blood Pressure : */* mmHG Vent. Rate : 84 BPM Atrial Rate : * BPM P-R Int : * ms QRS Dur : 126 ms QT Int : 390 ms P-R-T Axes : * 83 43 degrees QTcB Int : 460 ms Atrial fibrillation Right bundle branch block Abnormal ECG Confirmed by Winston Lees ([id number]), newspaper or periodical editor BEATRIZ MALDONADO ([id number]) on 09/24/2024 6:54:20 AM Referred By: Confirmed By: Winston Lees 09/24/24 0654 Date Winston Lees MD CC: Dr. Jhon Ruiz DO; Dr. Payam Jin DO; Dr. Jerrod Viramontes MD Signed Normal [facility] BNP,B-Type NATRIURETIC PEPTI Jayson 09-21-2024 Natriuretic peptide B (Bld) [Mass/Vol] 170.3 pg/mL High 0-100 [facility] Comment on above: Performed By: #### L 501.4020, L300.4310, L500.2500, L503.6620, L300.3900 ####[facility] [address] [place], [address] Basic Metabolic Profile (BMP )on 09-21-2024 BUN/CRE 36.5 RATIO High 10-20 [facility] Comment on above: Performed By: #### L 300.4310, L300.3900, L100.0100 #### [facility] [address] [place], [address] CA,Total 9.2 mg/dL Normal 8.5-10.1 [facility] Comment on above: Performed By: #### L 300.4310, L300.3900, L100.0100 #### [facility] [address] [place], [address] Chloride [Moles/Vol] 87 mmol/L Low 98-107 [facility] Comment on above: Performed By: #### L 300.4310, L300.3900, L100.0100 #### [facility] [address] [place], [address] CO2 [Moles/Vol] 31.0 mmol/L Normal 21.0-32.0 [facility] Comment on above: Performed By: #### L 300.4310, L300.3900, L100.0100 #### [facility] [address] [place], [address] Creatinine [Mass/Vol] 1.37 mg/dL High 0.70-1.30 [facility] Comment on above: Result Comment: The validity of the calculated GFR GFRAA in patients over 70 years has not been determined. Clinical correlation is essential. Performed By: #### L 300.4310, L300.3900, L100.0100 #### [facility] [address] [place], [address] ECRCL 54.91 ml/min Normal [facility] Comment on above: Performed By: #### L 300.4310, L300.3900, L100.0100 #### [facility] [address] [place], [address] EST GFR - AA 64 mL/min Normal >60 [facility] Comment on above: Result Comment: Afri can [place] GFR Calc Performed By: #### L 300.4310, L300.3900, L100.0100 #### [facility] [address] [place], [address] GAP 10 Normal 5-15 [facility] Comment on above: Performed By: #### L 300.4310, L300.3900, L100.0100 #### [facility] [address] [place], [address] GFR/1.73 sq M.predicted among non-blacks MDRD (S/P/Bld) [Vol rate/Area] 53 mL/min/{1.73_m2} Low >60 [facility] Comment on above: Result Comment: Non- GFR Calc Performed By: #### L 300.4310, L300.3900, L100.0100 #### [facility] [address] [place], [address] Glucose [Mass/Vol] 105 mg/dL Normal 74-106 [facility] Comment on above: Result Comment: Fast ing Glucose result from 100 to 125 mg/dL suggests IMPAIRED HOMEOSTASIS per A.D.A. criteria. Performed By: #### L 300.4310, L300.3900, L100.0100 #### [facility] [address] [place], [address] Potassium [Moles/Vol] 3.8 mmol/L Normal 3.5-5.1 [facility] Comment on above: Performed By: #### L 300.4310, L300.3900, L100.0100 #### [facility] [address] [place], [address] Sodium [Moles/Vol] 128 mmol/L Low 136-145 [facility] Comment on above: Performed By: #### L 300.4310, L300.3900, L100.0100 #### [facility] [address] [place], [address] Urea nitrogen [Mass/Vol] 50 mg/dL High 7-18 [facility] Comment on above: Performed By: #### L 300.4310, L300.3900, L100.0100 #### [facility] [address] [place], [address] BUN/CRE 32.4 RATIO High 10-20 [facility] Comment on above: Order Comment: 'TROP ' Serial specimen #1, #2 or #3: 1 Performed By: #### L 501.4020, L300.4310, L500.2500, L503.6620, L300.3900 ####[facility] [address] [place], [address] CA,Total 8.8 mg/dL Normal 8.5-10.1 [facility] Comment on above: Order Comment: 'TROP ' Serial specimen #1, #2 or #3: 1 Performed By: #### L 501.4020, L300.4310, L500.2500, L503.6620, L300.3900 ####[facility] [address] [place], [address] Chloride [Moles/Vol] 87 mmol/L Low 98-107 [facility] Comment on above: Order Comment: 'TROP ' Serial specimen #1, #2 or #3: 1 Performed By: #### L 501.4020, L300.4310, L500.2500, L503.6620, L300.3900 ####[facility] [address] [place], [address] CO2 [Moles/Vol] 27.0 mmol/L Normal 21.0-32.0 [facility] Comment on above: Order Comment: 'TROP ' Serial specimen #1, #2 or #3: 1 Performed By: #### L 501.4020, L300.4310, L500.2500, L503.6620, L300.3900 ####[facility] [address] [place], [address] Creatinine [Mass/Vol] 1.42 mg/dL High 0.70-1.30 [facility] Comment on above: Order Comment: 'TROP ' Serial specimen #1, #2 or #3: 1 Result Comment: The validity of the calculated GFR GFRAA in patients over 70 years has not been determined. Clinical correlation is essential. Performed By: #### L 501.4020, L300.4310, L500.2500, L503.6620, L300.3900 ####[facility] [address] [place], [address] ECRCL 53.85 ml/min Normal [facility] Comment on above: Order Comment: 'TROP ' Serial specimen #1, #2 or #3: 1 Performed By: #### L 501.4020, L300.4310, L500.2500, L503.6620, L300.3900 ####[facility] [address] [place], [address] EST GFR - AA 61 mL/min Normal >60 [facility] Comment on above: Order Comment: 'TROP ' Serial specimen #1, #2 or #3: 1 Result Comment: Afri can [place] GFR Calc Performed By: #### L 501.4020, L300.4310, L500.2500, L503.6620, L300.3900 ####[facility] [address] [place], [address] GAP 11 Normal 5-15 [facility] Comment on above: Order Comment: 'TROP ' Serial specimen #1, #2 or #3: 1 Performed By: #### L 501.4020, L300.4310, L500.2500, L503.6620, L300.3900 ####[facility] [address] [place], [address] GFR/1.73 sq M.predicted among non-blacks MDRD (S/P/Bld) [Vol rate/Area] 51 mL/min/{1.73_m2} Low >60 [facility] Comment on above: Order Comment: 'TROP ' Serial specimen #1, #2 or #3: 1 Result Comment: Non- GFR Calc Performed By: #### L 501.4020, L300.4310, L500.2500, L503.6620, L300.3900 ####[facility] [address] [place], [address] Glucose [Mass/Vol] 124 mg/dL High 74-106 [facility] Comment on above: Order Comment: 'TROP ' Serial specimen #1, #2 or #3: 1 Result Comment: Fast ing Glucose result from 100 to 125 mg/dL suggests IMPAIRED HOMEOSTASIS per A.D.A. criteria. Performed By: #### L 501.4020, L300.4310, L500.2500, L503.6620, L300.3900 ####[facility] [address] [place], [address] Potassium [Moles/Vol] 3.4 mmol/L Low 3.5-5.1 [facility] Comment on above: Order Comment: 'TROP ' Serial specimen #1, #2 or #3: 1 Performed By: #### L 501.4020, L300.4310, L500.2500, L503.6620, L300.3900 ####[facility] [address] [place], [address] Sodium [Moles/Vol] 125 mmol/L Low 136-145 [facility] Comment on above: Order Comment: 'TROP ' Serial specimen #1, #2 or #3: 1 Performed By: #### L 501.4020, L300.4310, L500.2500, L503.6620, L300.3900 ####[facility] [address] [place], [address] Urea nitrogen [Mass/Vol] 46 mg/dL High 7-18 [facility] Comment on above: Order Comment: 'TROP ' Serial specimen #1, #2 or #3: 1 Performed By: #### L 501.4020, L300.4310, L500.2500, L503.6620, L300.3900 ####[facility] [address] [place], [address] CBC W/Diff, Automatedon 12-0 6-2024 Absolute Lymph 0.89 X10 3/uL Normal 0.83-4.51 [facility] Comment on above: Performed By: #### L 100.0100 ####[facility] [address] [place], [address] Absolute Neut 9.8 X10 3/uL High 2.0-7.7 [facility] Comment on above: Performed By: #### L 100.0100 ####[facility] [address] [place], [address] Basophils/100 WBC (Bld) 0.2 % Normal 0-1 [facility] Comment on above: Performed By: #### L 100.0100 ####[facility] [address] [place], [address] Eosinophils/100 WBC (Bld) 1.0 % Normal 0-5 [facility] Comment on above: Performed By: #### L 100.0100 ####[facility] [address] [place], [address] Erythrocyte distribution width (RBC) [Ratio] 12.3 % Normal 11.6-14.6 [facility] Comment on above: Performed By: #### L 100.0100 ####[facility] [address] [place], [address] Hematocrit (Bld) [Volume fraction] 36.6 % Low 40-54 [facility] Comment on above: Performed By: #### L 100.0100 ####[facility] [address] [place], [address] Hemoglobin (Bld) [Mass/Vol] 12.8 g/dL Low 13.0-16.5 [facility] Comment on above: Performed By: #### L 100.0100 ####[facility] [address] [place], [address] IG% 1.400 High 0.0-0.9 [facility] Comment on above: Result Comment: IG% - Immature Granulocytes (promyelocytes, myelocytes and metamyelocytes) > 1% indicates that a LEFT SHIFT is Present. Performed By: #### L 100.0100 ####[facility] [address] [place], [address] Lymphocytes/100 WBC (Bld) 7.2 % Low 19-41 [facility] Comment on above: Performed By: #### L 100.0100 ####[facility] [address] [place], [address] MCH (RBC) [Entitic mass] 29.6 pg Normal 27.0-32.0 [facility] Comment on above: Performed By: #### L 100.0100 ####[facility] [address] [place], [address] MCHC (RBC) [Mass/Vol] 35.0 g/dL Normal 32-36 [facility] Comment on above: Performed By: #### L 100.0100 ####[facility] [address] [place], [address] MCV (RBC) [Entitic vol] 84.5 fL Normal 80-94 [facility] Comment on above: Performed By: #### L 100.0100 ####[facility] [address] [place], [address] Monocytes/100 WBC (Bld) 11.7 % High 0-10 [facility] Comment on above: Performed By: #### L 100.0100 ####[facility] [address] [place], [address] Neutrophils/100 WBC (Bld) 78.5 % High 47-70 [facility] Comment on above: Performed By: #### L 100.0100 ####[facility] [address] [place], [address] Nucleated RBC (Bld) [#/Vol] 0 10*3/uL Normal 0-5 [facility] Comment on above: Performed By: #### L 100.0100 ####[facility] [address] [place], [address] Platelet mean volume (Bld) [Entitic vol] 8.9 fL Normal 6.2-12.0 [facility] Comment on above: Performed By: #### L 100.0100 ####[facility] [address] [place], [address] Platelets (Bld) [#/Vol] 207 10*3/uL Normal 150-450 [facility] Comment on above: Performed By: #### L 100.0100 ####[facility] [address] [place], [address] RBC (Bld) [#/Vol] 4.33 10*6/uL Low 4.6-6.2 [facility] Comment on above: Performed By: #### L 100.0100 ####[facility] [address] [place], [address] RDW SD 37.6 fl Normal 35.1-43.9 [facility] Comment on above: Performed By: #### L 100.0100 ####[facility] [address] [place], [address] WBC (Bld) [#/Vol] 12.4 10*3/uL High 4.4-11.0 [facility] Comment on above: Performed By: #### L 100.0100 ####[facility] [address] [place], [address] Chest 1 View (Portable)on Chest 1 View (Portable) [facility] Imaging Services [address] [place] [address] Chest 1 View (Portable) MR#: [id number] Acct: [id number] Name: HARRY LICEA Rep #: [id number] : 1940 M 83 From: Angel suarez MD PCP: Dr. Jerrod Viramontes MD Status: REG ER Study: Chest 1 View (Portable) Date of Exam: 09/21/24 Exam# [id number] Ordering Dr: Payam Jin DO [id number] STUDY: X-RAY CHEST REASON FOR EXAM: Male, 83 years old. Concern for CHF TECHNIQUE: Single AP portable view of the chest. COMPARISON: Comparison is made with prior study dated March 02, 2016. FINDINGS: EKG electrodes are seen. Hyperinflation. The lungs are clear. There is no demonstrated pleural abnormality. Normal size heart. Normal mediastinum and ming. Normal visualized pulmonary arteries. There is atherosclerotic calcification of the aortic arch with tortuosity. There are diffuse degenerative changes of the visualized thoracic spine. Healed multiple right rib fractures. There is no demonstrated abnormality of the visualized soft tissue structures of the upper abdomen. RAD/Chest 1 View (Portable) IMPRESSION: Stable examination. No acute abnormality is seen. Electronically Signed: Angel Wilde MD at 13:57 EST , CC: Dr. Payam Jin DO; Dr. Jerrod Viramontes MD Pediatric Dental Hygienist: Signed Normal [facility] Echo Complete W/ Contraston 09-21-2024 Echo Complete W/ Contrast [facility] [place] [address] [address] Echo Complete W/ Contrast 09/22/24 0950 MR#: [id number] Acct: [id number] Name: HARRY LICEA Rep #: [id number] : 1940 83 From: Delfina Martínez MD Attending Dr: Dr. Jhon Ruiz DO Status : ADM IN Ordering Dr: Eun Muhammad MD Date: 09/21/24 Location: [facility] Sex: M C Admitted: 09/21/24 Reason For Study: CHF Procedure This was a 2D Doppler, Color Flow transthoracic echocardiogram. The study was technically difficult. Contrast injection was performed. Exam performed portable in patient room. Left Ventricle Normal left ventricle. The estimated ejection fraction is 55???-???60 %. Right Ventricle Normal right ventricle. Normal systolic function. Atria Normal left atrium. Normal right atrium. Mitral Valve The mitral valve is structurally normal. No prolapse or stenosis seen. Tricuspid Valve Normal tricuspid valve. Mild tricuspid valve insufficiency. Aortic Valve Mild diffuse aortic valve calcification. Pulmonic Valve Mild (1+) eccentric pulmonic valve insufficiency. Great Vessels Normal aortic root. Pericardium/Pleural No pericardial effusion. Medication Diluted definity 4ml given slow IV push to enhance endocardial definition. MMode/2D Measurements Calculations LVIDd: 3.9 cm IVSd: 1.2 cm LVOT diam: 2.3 cm LVIDs: 2.7 cm LVPWd: 0.99 cm RVDd: 4.4 cm FS: 31.1 % LVOT area: 4.1 cm2 Ao root diam: 3.9 cm LAV(MOD-bp): 80.8 ml LA A4 area: 25.0 cm2 LAV(MOD-bp) Indexed: 34.3 ml/m2 LAV(MOD-sp2): 82.7 ml LAV(MOD-sp4): 69.0 ml LA dimension(2D): 4.9 cm TAPSE: 1.3 cm RA A4 area: 23.3 cm2 Doppler Measurements Calculations MV E max nesha: 95.1 cm/sec MV V2 max: 117.7 cm/sec Ao V2 max: 158.9 cm/sec MV max P.6 mmHg Ao max P.1 mmHg MV V2 mean: 64.8 cm/sec Ao V2 mean: 111.7 cm/sec MV mean P.0 mmHg Ao mean P.7 mmHg MV V2 VTI: 26.0 cm Ao V2 VTI: 29.4 cm MVA(VTI): 3.0 cm2 AV (velocity ratio): 0.64 LADY(I,D): 2.7 cm2 LADY(V,D): 2.6 cm2 LV V1 max: 100.7 cm/sec SV(LVOT): 78.1 ml PA V2 max: 121.6 cm/sec LV V1 max P.1 mmHg LV V1 mean P.4 mmHg LV V1 mean: 72.6 cm/sec LV V1 VTI: 18.9 cm TR max nesha: 338.9 cm/sec TR max P.9 mmHg ECHO/Echo Complete W/ Contrast Interpretation Summary The estimated ejection fraction is 55-60% Normal LV systolic function Mild TR No significant change from previous echocardiogram. Ordering Physician: Eun Muhammad Performed By: Payam Casas RCS 09/22/24 1432 Date Delfina Martínez MD CC: Dr. Jhon Ruiz DO; Dr. Jerrod Viramontes MD; Dr. Eun Muhammad MD Date Dictated: 09/22/24 0950 Date Transcribed: 09/22/24 143 Pediatric Dental Hygienist: Signed Normal [facility] Emergency Department Summary on 09-21-2024 Emergency Department Summary [facility] Medical Records Department [address] [place] [address] Emergency Department Summary 09/21/24 MR#: [id number] Acct: [id number] Name: HARRY LICEA Rep #: [id number] : 1940 83 From: Payam Jin DO PCP: Dr. Jerrod Viramontes MD Status:ADM IN Location: [place] [address] HPI History of Present Illness Chief Complaint: Weakness Narrative Narrative: Chief complaint and HPI: Bilateral lower extremity edema and generalized weakness. 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 Patient states since his surgery he has been having increased bilateral lower extremity edema. He does take diuretics at home. No history of CHF. Patient states that his edema has been worsening in his bilateral lower extremities causing pain. He states due to the pain he has not been ambulating. Patient states that he slid out of his lift chair today in which he could not get up on his own. Did not hit his head. No LOC. EMS was called as family could not assist him up. He denies any fever, chills, shortness of breath, chest pain, URI symptoms, abdominal pain, nausea, vomiting, dysuria-he does have a urinary catheter in place Review of systems: See HPI Medications: As listed on the chart Allergies: As listed on the chart PFSH: Per chart Vital signs: As listed on the chart. Reviewed. Physical exam: Gen: A O x3, NAD Head: Normocephalic, atraumatic Eyes: No sclera icterus, conjunctiva clear ENT: Moist mucous membranes Neck: Trachea midline CV: Regular rate, irregular rhythm, no murmurs, + 2 pitting edema in the bilateral feet to the knees-mildly tender to palpation diffusely where edema is located, no cellulitis Resp: Lungs CTA BL, no w/r/c GI: Abd soft, non-distended, non-tender, no r/r/g : Circumcised male, no penile or testicular swelling or tenderness, no penile discharge,+ Sin in place with clear urine Musc: Moves all extremities, no deformity Skin: Warm, dry Neuro: Alert, oriented, grossly intact, sensation intact Psych: Cooperative, appropriate mood and affect [facility] Medical History Wears glasses Gout DVT (deep venous thrombosis) Excessive bleeding Migraine headache Gastric reflux Former smoker History of edema History of echocardiogram Hypertension Cardiology follow-up encounter Obesity, Class II, BMI 35-39.9 Thyroid nodule Deep vein thrombosis, lower left extremity (06/2019) Longstanding persistent atrial fibrillation Secondary pulmonary arterial hypertension Essential (primary) hypertension Glaucoma ED (erectile dysfunction) BPH (benign prostatic hyperplasia) Incomplete right bundle branch block COPD (chronic obstructive pulmonary disease) Hyperlipidemia Home Medications ???Medication ???Instructions ???Recorded ???Last Taken ???Type losartan 100 1 tab PO DAILY 03/25/20 09/11/24 History mg-hydrochlorothiazide 25 mg tablet albuterol sulfate 90 mcg/actuation 2 puff inhalation Q4H PRN 03/25/21 08/23/24 History aerosol inhaler shortness of breath or wheezing 90 days atorvastatin 40 mg tablet 40 mg PO QHS 03/25/21 09/09/24 History fluticasone fur. 200 mcg-umeclid 1 inh inhalation DAILY 03/25/21 09/09/24 History 62.5 mcg-vilant 25 mcg inhalat.powder magnesium oxide 400 mg PO TID 03/25/21 09/11/24 History furosemide 40 mg tablet 40 mg PO DAILY #90 tabs 12/21/23 09/05/24 Rx apixaban 5 mg tablet (Eliquis) 5 mg PO BID #180 TABLETS 12/28/23 08/23/24 Rx metoprolol succinate 50 mg 50 mg PO DAILY #90 tabs 04/11/24 09/12/24 Rx tablet,extended release 24 hr empagliflozin 25 mg tablet 25 mg PO DAILY 08/30/24 09/09/24 History (Jardiance) ergocalciferol (vitamin D2) 1,250 1,250 mcg PO .QWEEKLY 08/30/24 09/09/24 History mcg (50,000 unit) capsule (Vitamin D2) latanoprost 0.005 % eye drops 1 drp ophthalmic (eye) DAILY 08/30/24 09/05/24 History ciprofloxacin HCl 500 mg tablet 500 mg PO BID #14 tabs 09/12/24 Unknown Rx (Cipro) oxycodone 5 mg tablet 5 mg PO Q6H PRN pain 3 days #14 09/12/24 Unknown Rx tabs Allergy/AdvReac Type Severity Reaction Status Date / Time No Known Allergies Allergy Verified 09/12/24 10:39 Family History Father Myocardial infarction Mother CVA (cerebral vascular accident) Brother CVA (cerebral vascular accident) Sister CVA (cerebral vascular accident) Surgical History Hx of bilateral cataract extraction History of back (more content not included)... Normal [facility] H AND P Exam - [facility] 09-21-2024 H&P Exam - Hospitalist [facility] Medical Records Department [address] [place] [address] H P Exam - Hospitalist 09/21/24 1638 MR#: [id number] Acct: [id number] Name: HARRY LICEA Rep #: [id number] : 1940 83 From: Eun Muhammad MD PCP: Dr. Jerrod Viramontes MD Status:REG ER Location: ED HPI - General General Date of Admission: 09/21/24 Date of Service: 09/21/24 Chief Complaint: Increasing LE swelling HPI Narrative HARRY LICEA, is a 83-year-old male history of hypertension, COPD, DVT, A-fib, pulmonary hypertension, status post internal urethrotomy of urethral strictures and transurethral resection of large bladder tumor on 09/12 who presented [facility] ED 09/21/2024 with bilateral lower extremity edema generalized weakness. Since his surgery has been having increased bilateral lower extremity edema. Does take diuretics at home but is continued to have the increased edema that has been causing him pain. Today he slid out of the chair and could not get up on his own so EMS was called his family cannot assist him. In the ED chest x-ray unremarkable and BNP 170 with no other recent values for comparison. He also was found to have a sodium of 125 within normal baseline and potassium of 3.4. Creatinine at baseline of 1.42. Given patient's weakness and significant swelling in his lower extremities hospitalist contacted for admission for possible exacerbation of heart failure. Patient evaluated with at bedside and they report that he has been taking his medications but he has had increased swelling over the past couple of days to the point he has a lot of pain and cannot get around, also has a little bit of erythema on the top of his left foot that has been progressive over the past day or so. ROS otherwise douglass negative [facility] Medical History Wears glasses Gout DVT (deep venous thrombosis) Excessive bleeding Migraine headache Gastric reflux Former smoker History of edema History of echocardiogram Hypertension Cardiology follow-up encounter Obesity, Class II, BMI 35-39.9 Thyroid nodule Deep vein thrombosis, lower left extremity (06/2019) Longstanding persistent atrial fibrillation Secondary pulmonary arterial hypertension Essential (primary) hypertension Glaucoma ED (erectile dysfunction) BPH (benign prostatic hyperplasia) Incomplete right bundle branch block COPD (chronic obstructive pulmonary disease) Hyperlipidemia Home Medications ???Medication ???Instructions ???Recorded ???Last Taken ???Type losartan 100 1 tab PO DAILY 03/25/20 09/11/24 History mg-hydrochlorothiazide 25 mg tablet albuterol sulfate 90 mcg/actuation 2 puff inhalation Q4H PRN 03/25/21 08/23/24 History aerosol inhaler shortness of breath or wheezing 90 days atorvastatin 40 mg tablet 40 mg PO QHS 03/25/21 09/09/24 History fluticasone fur. 200 mcg-umeclid 1 inh inhalation DAILY 03/25/21 09/09/24 History 62.5 mcg-vilant 25 mcg inhalat.powder magnesium oxide 400 mg PO TID 03/25/21 09/11/24 History furosemide 40 mg tablet 40 mg PO DAILY #90 tabs 12/21/23 09/05/24 Rx apixaban 5 mg tablet (Eliquis) 5 mg PO BID #180 TABLETS 12/28/23 08/23/24 Rx metoprolol succinate 50 mg 50 mg PO DAILY #90 tabs 04/11/24 09/12/24 Rx tablet,extended release 24 hr empagliflozin 25 mg tablet 25 mg PO DAILY 08/30/24 09/09/24 History (Jardiance) ergocalciferol (vitamin D2) 1,250 1,250 mcg PO .QWEEKLY 08/30/24 09/09/24 History mcg (50,000 unit) capsule (Vitamin D2) latanoprost 0.005 % eye drops 1 drp ophthalmic (eye) DAILY 08/30/24 09/05/24 History ciprofloxacin HCl 500 mg tablet 500 mg PO BID #14 tabs 09/12/24 Unknown Rx (Cipro) oxycodone 5 mg tablet 5 mg PO Q6H PRN pain 3 days #14 09/12/24 Unknown Rx tabs Allergy/AdvReac Type Severity Reaction Status Date / Time No Known Allergies Allergy Verified 09/12/24 10:39 Family History Father Myocardial infarction Mother CVA (cerebral vascular accident) Brother CVA (cerebral vascular accident) Sister CVA (cerebral vascular accident) Surgical History Hx of bilateral cataract extraction History of back surgery Social History Smoking Status: Former smoker how long ago did patient quit smokin's for cigarettes, 1991 for chewing tobacco alcohol intake: current alcohol intake frequency: a few times a week Alcohol type: hard liquor substance use type: does not use caffeine: Yes Type: coffee Number of servings: 2 ROS ROS Narrative General: Denies fever/chills HENT: Denies headache, denies stuffy nose, denies sore throat EYES: Denies changes in vision Resp: Denies cough, denies shortness of (more content not included)... Normal [facility] L501.4020on 09-21-2024 TROPONIN-I HS 14 pg/mL Normal 3.0-78.0 [facility] Comment on above: Order Comment: 'TROP ' Serial specimen #1, #2 or #3: 1 Result Comment: Plea se Note: New Test Units and Gender Specific Reference Ranges. For more information see Policy Stat Procedure [place] High Sensitivity Troponin (TNIH) and attachments. Performed By: #### L 501.4020, L300.4310, L500.2500, L503.6620, L300.3900 ####[facility] [address] [place], [place], [id number] Partial Thromboplast Timeon 09-21-2024 aPTT Coag (Bld) [Time] 27.6 s Normal 24.1-36.2 [facility] Comment on above: Performed By: #### L 501.4020, L300.4310, L500.2500, L503.6620, L300.3900 ####[facility] [address] [place], [address] Prothrombin Time w/INRon INR Coag (PPP) [Relative time] 1.2 {INR} Normal [facility] Comment on above: Performed By: #### L 501.4020, L300.4310, L500.2500, L503.6620, L300.3900 ####[facility] [address] [place], [address] PT Coag (PPP) [Time] 14.9 s Normal 11.7-14.9 [facility] Comment on above: Performed By: #### L 501.4020, L300.4310, L500.2500, L503.6620, L300.3900 ####[facility] [address] [place], [address] Bedside Glucoseon 09-12-2024 FINGERSTICK GLU 94 mg/dL Normal 74-106 [facility] Comment on above: Result Comment: CHANG PLATA OF PATIENT CARE PER NURSING PROTOCOL Performed By: #### L 300.4310, L300.3900, L100.0100 #### [facility] Laboratory [address] [place], [address] Discharge Instructionon 08-18 Discharge Instruction [facility] Medical Records Department [address] [place] [address] Instructions for Home/Discharge Instructions 09/12/24 1325 MR#: [id number] Acct: [id number] Name: HARRY LICEA Rep #: [id number] : 1940 83 From: Bola Boone MD PCP: Dr. Jerrod Viramontes MD Status:REG [facility] [place]charge Instructions Diet Discharge Diet: No restrictions, Light diet - advance as tolerated and Soft diet DC O2, CPAP, BIPAP needs Additional Home O2 Discharge instructions: No Dressing / Incision Discharge Activity: Return to Normal Activity and May Not Drive Dressing / Incision Catheter: Sin to leg bag and Sin to large bag Drain: [place] Follow Up Care Please Follow Up With: Bola Boone MD When: follow up 2 weeks to d/c sin Test Results: Test results from this visit will be discussed in further detail at your follow-up appointment, if applicable. Discharge Plan Admission Primary Reason for Your Visit: bladder tumor Attending Provider: Bola Boone Primary Care Provider: Jerrod Viramontes Instructions Print Language: Maori Discharge Orders/Prescriptions Prescriptions: New oxycodone 5 mg tablet 5 mg PO Q6H PRN (Reason: pain) 3 Days Qty: 14 0RF ciprofloxacin HCl [Cipro] 500 mg tablet 500 mg PO BID Qty: 14 0RF Continued albuterol sulfate 90 mcg/actuation HFA aerosol inhaler 2 puff INHALATION Q4H PRN (Reason: shortness of breath or wheezing) 90 Days Patient Comments: losartan-hydrochloroth iazide 100-25 mg tablet 1 tab PO DAILY fluticasone-umeclidin- vilanter 200-62.5-25 mcg blister with device 1 inh inhalation DAILY atorvastatin 40 mg tablet 40 mg PO QHS magnesium oxide 400 mg magnesium tablet 400 mg PO TID ergocalciferol (vitamin D2) [Vitamin D2] 1,250 mcg (50,000 unit) capsule 1,250 mcg PO .QWEEKLY Jardiance 25 mg tablet 25 mg PO DAILY latanoprost 0.005 % drops 1 drp ophthalmic (eye) DAILY furosemide 40 mg tablet 40 mg PO DAILY Qty: 90 3RF metoprolol succinate 50 mg tablet extended release 24 hr 50 mg PO DAILY Qty: 90 3RF Held Eliquis 5 mg tablet 5 mg PO BID Qty: 180 3RF Hold Instructions: Resume on 09/26/24. Referrals / Follow Up: Bola Boone MD [Med Staff - Active Staff] - Jerrod Viramontes MD [Primary Care Provider] - Disposition Disposition (needs filled in before D/C Order can be placed): Home, Self Care 09/12/24 1325 Bola Boone MD CC: Dr. Jerrod Viramontes MD Signed [facility] MR/POSTOP.[place] 09-12-2024 MR/POSTOP.[facility] Medical Records Department [address] [place] [address] Anesthesia Postop Eval I 09/12/24 1337 MR#: [id number] Acct: [id number] Name: HARRY LICEA Arnulfo Rep #: [id number] : 1940 83 From: Judah Enrique MD PCP: Dr. Jerrod Viramontes MD Status:REG SDC Y Race: C Location: [place] [address] Anesthesia: Postop Eval I Current Vital Signs Temperature: 97 F Pulse Rate: 69 Blood Pressure: 117/79 Respiratory Rate: 16 Pulse Ox: 99 Assessment Airway patent: No Spontaneous unlabored respirations: No nausea: No Vomiting: No Anesthesia Complication: No Fluid Hydration Crystalloid volume administer (ml): 200 Total IV fluid infused: 200 Progress Note Anesthesia document: Postop Eval 1 completed: Yes 09/12/24 1339 Date Judah Enrique MD Cosigner Signature: Date CC: Signed Normal [facility] [id number] 09-12-2024 [facility] Medical Records Department [address] [place] [address] Anesthesia Postop Eval II 09/12/24 1339 MR#: [id number] Acct: [id number] Name: HARRY LICEA Rep #: [id number] : 1940 83 From: Judah Enrique MD PCP: Dr. Jerrod Viramontes MD Status:REG SD Y Race: C Location: [place] [address] Anesthesia Postop Eval I Sum Postop Eval Completion status Anesthesia document: Postop Eval 1 completed: Yes Anesthesia Postop Eval I Summary Anesthesia Postop Eval I Summary: Anesthesia Postop Eval I: Assessment Summary Airway patent No 09/12/24 13:39 Spontaneous unlabored No 09/12/24 13:39 respirations Mental status nausea No 09/12/24 13:39 Vomiting No 09/12/24 13:39 Anesthesia Postop Eval I: Fluid Summary Crystalloid volume administer 200 09/12/24 13:39 (ml) Colloids volume administered ( ml) Blood Product volume administered (ml) Total IV fluid infused 200 09/12/24 13:39 Anesthesia Postop Eval I: Summary Notes Anesthesia Complication No 09/12/24 13:39 Anesthesia Complication Comment: Post-operative progress note Anesthesia: Postop Eval II Evaluation Mental status: Awake Pain Level: 0 nausea: No Vomiting: No 09/12/24 1339 Date Judah Rider Signature: Date CC: Signed Normal [facility] Operative Reporton 4 Operative Report [facility] Medical Records Department [address] [place] [address] Operative Report 09/12/24 1325 MR#: [id number] Acct: [id number] Name: HARRY LICEA Rep #: [id number] : 1940 83 From: Bola Bonoe MD PCP: Dr. Jerrod Viramontes MD Status:[facility] Location: [place] [address] Operative Report (Standard) Operative Information Surgery/Procedure Performed: Direct vision, internal urethrotomy of urethral strictures, transurethral resection of a large bladder tumor Surgeon: Bola Boone Date of Procedure: 09/12/24 Procedure Start Time: 12:47 Procedure Stop Time: 13:26 Pre-Operative Diagnosis: Urethral stricture and disease extensive along the urethra, large bladder tumor greater than 5 cm Post-Operative Diagnosis: The same Select all DRAINS/GRAFTS/IMPLANTS that apply: Drains Drain details: 20 Trinidadian Sin Type of Anesthesia: General Estimated Blood Loss: Minimal Specimen collected: Yes Description of specimen(s) removed: Bladder tumor Description of surgery: Patient was seen in the preoperative area and we discussed the surgery today. The patient has a urethral stricture in the mid urethra and working to proceed with a direct vision internal urethrotomy. Patient understands that it is possible that the scar tissue may come back and that the success rate of this procedures in the long-term is about 60 to 70%. We talked about the possibility of bleeding or infection from the procedure. The patient also understands that a catheter will be necessary after the procedure for about 10 days depending on the situation. After long discussion with the patient in preoperative area describing the procedure and what the patient's expect afterwards, the patient's questions were addressed and working to proceed with the surgery, the consent form was signed. The patient was taken back to the operating room after induction of anesthesia was placed in dorsolithotomy position. The genitals and urethra are prepped and draped in the usual sterile fashion. Then using a DVIU set the meatus was gently dilated from 18-20 Trinidadian. Then went into the urethra with a urethrotome and identified the pinpoint stricture in the mid urethra. A 0.038 Glidewire was used to passed through the stricture to ensure access to the bladder and the prostate. The Glidewire was secured to the drapes. Then using a cold knife the knife was deployed from the urethrotome and then at the 12 o'clock position the scar tissue was cut until the stricture was cut open completely. I was then able to navigate the scope through the scar tissue without any resistance. Then after this I was able to navigate past the dense scar tissue into the bulbar urethra through the sphincter and passed the prostate. Inside the bladder the bladder and prostate was inspected the trigone was normal the left and right ureter orifice normal the prostate was normal. After the DVIU I was then able to go into the bladder with a 30 degree lens and a cystoscope was performed and identified the tumor the tumors which was about 5.5 centimeters in size and occupying mostly the Left wall of the bladder. I then switched over to the 70 degree lens and inspected the rest of the bladder with a 70 degree lens to make sure there is no other tumors in the bladder and to identify all the tumor locations. The right and left ureteral orifice were identified, I then placed the Olympus bipolar resectoscope with a large loop into the bladder. I then started resected the tumor and started superficially shaving small little pieces working my way to the base of the tumor. As I went along I then cauterize any bleeders that were encountered during the resection. The tumor pieces were then flushed out of the bladder and continued resecting the tumor until finally I got down to the base of the tumor and the muscle of the bladder was then identified a small little bit of muscle was taken with the resection. The Ellik was used then to evacuate all the tumor pieces out of the bladder. I then cauterized extensively the tumor base and also circumferentially around where the tumor was. Again we made sure to evacuate all the pieces out the bladder. I made sure there was no more bleeding from the base of the bladder and then over the tumor pieces were then evacuated out and sent off as a specimen. We then placed the catheter in the bladder and the patient was taken back to the PACU in stable condition. Surgical Findings: Extensive amount of strictures along the urethra that were dilated and then I used a DVIU set to cut open the strictures Then used a 26 resections scope and resected a very large tumor in the patient's lateral wall, left in the bladder Sent home with 20 Trinidadian catheter to allow to heal for 2 weeks Wing Scorer rn anesthetist: No Complications Complications: No Admit VTE Documentation VTE Present on Admiss (more content not included)... Normal [facility] Surgery Specimen Level Von 11-12-2023 Surgery Specimen Level V ---- Patient Age/Sex Location Account Attending Physician ---- HARRY LICEA 83/M [facility] [id number] Dr. Bola Boone MD ---- Specimen: [id number] Received: 09/12/24 Status: EBONIE [place] Num: [id number] Spec Type: TURB Subm Dr: Dr. Bola Boone MD HEADER OPERATION: Cysto direct visualization urethrotomy PRE-OP DIAGNOSIS: Bladder tumor, urethral stricture TISSUE SUBMITTED: Bladder tumor ---- MICROSCOPIC DIAGNOSIS Urinary bladder tumor, transurethral resection: Papillary urothelial carcinoma. See cancer template below. AM. 09/14/2024 COMMENT BLADDER CANCER (TUR) SUMMARY Procedure: Transurethral resection of bladder tumor (TURBT) Tumor site: Not specified Histologic type: Papillary urothelial carcinoma Associated epithelial lesions: None identified Histologic grade: Mostly grade 1-2 / 2 (WHO low grade) with focal high grade, 3/3 (WHO high grade non-invasive papillary carcinoma) Tumor configuration: Papillary Muscularis propria presence: Focally present and free of tumor Lymph vascular invasion: Not identified Tumor extension: Confined to urothelium Additional pathologic findings: Minimal chronic inflammation. PATHOLOGIC STAGE: Ta Nx Mx The above summary is in compliance with [employer] [place] [employer] (CAP) Cancer Protocols Checklist and [place] Joint Committee on Cancer (AJCC), Staging Manual, 8th Ed. MICROSCOPIC DESCRIPTION Slides are reviewed. GROSS DESCRIPTION Received in fixative is one container labeled with the patient's name and designated Bladder tumor. The specimen consists of multiple irregular and friable fragments of light pop soft tissue that in aggregate measure 6.0 x 6.0 x 0.3 cm. The specimen is totally submitted in ten cassettes. AM. 09/12/2024 TC: 0 CPT:07816 ---- Patient Age/Sex Location Account Attending Physician ---- HARRY LICEA 83/M [facility] [id number] Dr. Bola Boone MD ---- Signed (signature on file) Dr. Theo Palma DO 09/14/24 1234 ---- Normal [facility] Comment on above: Performed By: #### L 400.0001 #### [facility] [place], [address] PET/CT Tumor Base -Thigh Ini ton 09-11-2024 PET/CT Tumor Base -Thigh Init [facility] Imaging Services [address] [place] [address] PET/CT Tumor Base -Thigh Init MR#: [id number] Acct: [id number] Name: HARRY LICEA Rep #: [id number] : 1940 M 83 From: Alirio Carrillo PCP: Dr. Jerrod Viramontes MD Status: REG CLI Study: PET/CT Tumor Base -Thigh Init Date of Exam: Exam# [id number] Ordering Dr: Oskar Coffey MD [id number] EXAMINATION: FDG PET CT HISTORY: 83-year-old male with history of pulmonary nodularity. COMPARISON EXAMINATION: CT of the abdomen-pelvis report 08/10/2024 INDEX LESION SIZE SUV INTERPRETATION Left inguinal region 10.2 mm 7.8 May necessitate histopathologic analysis secondary to the quantitative uptake. Left anterior neck level IV 15.2 mm 2.0 Quantitative criteria for neoplasm are not fulfilled TECHNIQUE: Following the intravenous administration of 14.2 mCi of F-18 deoxyglucose, via the left hand, multiplanar image acquisitions of the neck, chest, abdomen and pelvis to the level of mid thigh, obtained at one hour post radiopharmaceutical administration contemporaneously interpreted with the current CT of the neck, chest, abdomen and pelvis to the level of mid thigh, dated 09/11/2024 via coregistration reveals: BLOOD GLUCOSE LEVEL:?98 mg/dL?HEIGHT:?70 inches?WEIGHT: 245 lbs. FINDINGS: Head/Neck: Increased fluorine labeled glucose uptake is noted in the left anterior neck involving level IV. The calculated maximum standard uptake value is 2.0. The maximal axial diameter of the metabolic morphologic abnormality is 15.2 mm. There is no evidence of abnormal increased glucose metabolism in the pharyngeal mucosal space, parapharyngeal space, bilateral-lateral and right neck, hypopharynx and distribution of the larynx. The visualized portion of the cerebral cortical-subcortical structures demonstrate symmetric and preserved glucose metabolism. CHEST: No quantitatively significant abnormal glucose metabolism is identified in the right-left pulmonary parenchyma, the bilateral hemithorax at the pleural interface, the mediastinal and thoracic perihilar structures. Pertinent chest CT findings are as follows. Mediastinal soft tissue densities are nontracer avid. Atherosclerotic calcification is noted in the thoracic aorta without evidence of aneurysm formation. Coronary arterial calcification is defined. There are no parenchymal densities-nodules defined in the right and left hemithorax with quantitatively significant increased FDG uptake. Enhanced labeled glucose uptake is subtly apparent in the right lower lateral hemithorax at the pleural interface generating a calculated maximum standard uptake value of 0.9. Abdomen/Pelvis: Enhanced FDG concentration is defined in the single nodular focus involving the left inguinal region. The calculated standard uptake value is 7.8. The maximal axial diameter of the metabolic morphologic stability is 10.9 mm. Normal physiologic uptake is noted in the hepatic (4.2) and splenic parenchyma. There is symmetric demonstration of the right and left kidneys, normal uptake in the urinary bladder and visualized intestinal tract. Review of CT of the abdomen and pelvis reveals the following. Bilateral fat containing inguinal hernias are demonstrated. Right and left inguinal soft tissue is nontracer avid. Calcified phlebolith formation is noted in the bilateral lower hemipelvis. Colonic diverticulosis is evident without visualize diverticulitis. There is calcification noted within the prostate gland. Calcification is demonstrated in the abdominal aorta without evidence of dilatation. Abdominal and pelvic arterial calcification are encountered. SKELETAL: Degenerative changes noted within the axial skeleton demonstrate no evidence of increased tracer uptake. PET/PET/CT Tumor Base -Thigh Init IMPRESSION: 1. The increase in radiopharmaceutical defined in the left inguinal region may necessitate histopathologic analysis secondary to the quantitative degree of uptake. 2. Facilitated FDG concentration manifest in the left anterior neck does not fulfill quantitative criteria for neoplasia. Electronic Signature Alirio Rutledge D.O. Accurate Quantification of SUVs for this report are calculated using the exclusive [employer]. (U.S. Patent No. 10, 674, [phone] B2 [phone] [place] patent [id number] [id number]). Standardization and correction of the FDG SUV metric via [employer] technology allow for vendor non-specific objective quantitative examination comparison and optimization of the sensitivity and specificity of the FDG PET-CT examination. . [email or web address] [email or web address] Electronically Signed: Alirio Rutledge DO at 13:16 EST Reading Location ID and State: 5 / [place] Tel [phone] (more content not included)... Normal [facility] 12 Lead EKGon 09-04-2024 12 Lead EKG [facility] Cardi[facility] Services [address] [place] [address] 12 Lead EKG 09/04/24 1035 MR#: [id number] Acct: [id number] Name: HARRY LICEA Rep #: [id number] : 1940 83 From: Scott Banda MD Attending Dr: Dr. Bola Boone MD Status: PRE SDC Ordering Dr: Judah Enrique MD Date: 09/04/24 [place] [facility] [place] Sex: M C Admitted: Test Reason : PRE OP Blood Pressure : */* mmHG Vent. Rate : 61 BPM Atrial Rate : 441 BPM P-R Int : * ms QRS Dur : 120 ms QT Int : 418 ms P-R-T Axes : * 94 43 degrees QTcB Int : 420 ms Atrial fibrillation with a competing junctional pacemaker with premature ventricular or aberrantly conducted complexes Low voltage QRS Right bundle branch block Abnormal ECG Confirmed by VERONIKA CASEY, SCOTT ([id number]), newspaper or periodical editor SHASHI GARCIA ([id number]) on 09/04/2024 1:55:52 PM Referred By: Bola Boone Confirmed By: SCOTT BANDA MD 09/04/24 1355 Date Scott Banda MD CC: Dr. Judah Enrique MD; Dr. Jerrod Viramontes MD; Dr. Bola Boone MD Signed [facility] CREATININE FINGERSTICKon Creatinine [Mass/Vol] 1.2 mg/dL Normal 0.70-1.30 [facility] Comment on above: Performed By: #### L 400.0001 #### [facility] [address] [facility] [place], [place], [id number] EGFR WB > 60.0000 Normal >60 [facility] Comment on above: Performed By: #### L 400.0001 #### [facility] [address] [place], [address] CT Abd/Pelvis W/WO Contrasto n 08-10-2024 CT Abd/Pelvis W/WO Contrast [facility] Imaging Services [address] [place], [place] [address] CT Abd/Pelvis W/WO Contrast MR#: [id number] Acct: [id number] Name: HARRY LICEA Rep #: [id number] : 1940 M 83 From: Rios Houser MD PCP: Dr. Jerrod Viramontes MD Status: [facility] Study: CT Abd/Pelvis W/WO Contrast Date of Exam: 07/18 03/09 Exam# [id number] Ordering Dr: Jerrod Viramontes MD [id number] STUDY: CT ABDOMEN AND PELVIS WITH AND WITHOUT CONTRAST REASON FOR EXAM: Male, 83 years old. Hematuria. Evaluate for mass RADIATION DOSAGE (If Supplied By Facility): CTDIvol = ( 29.73 ) mGy, DLP = ( 4811.07 ) mGycm TECHNIQUE: Transaxial images were obtained from the dome of the diaphragm to the symphysis pubis without oral contrast. IV 100mL Isovue-370 was administered. Sagittal and coronal images were reconstructed. Individualized dose optimization techniques were used for this CT. COMPARISON: None. FINDINGS: There is 1.4 cm pleural-based mass in the right lower chest. There is lower lung atelectasis. There are coronary artery calcifications. There is cardiac enlargement. Normal liver. Normal gallbladder and extrahepatic biliary system. Normal spleen. Normal pancreas. Normal bilateral adrenal glands. There is 1.2 cm cyst of the right kidney. Normal left kidney. Normal visualized stomach. Normal small intestine. There are multiple colonic diverticula consistent with diverticulosis. There is non-visualization of the appendix. There is diffuse atherosclerotic calcification of the abdominal aorta, without a demonstrated aneurysm. Normal inferior vena cava. Normal retroperitoneum. There is 3.1 x 2.2 cm lobular mass of the left side of the urinary bladder. There is enlarged prostate gland. There is no free fluid in the abdomen or pelvis. There is a left-sided inguinal hernia containing adipose tissue. There are diffuse degenerative changes of the visualized lumbar spine. There are healed right rib fractures. CT/CT Abd/Pelvis W/WO Contrast IMPRESSION: Mass of the urinary bladder consistent with bladder cancer. Cystoscopic correlation recommended. Pleural-based mass in the right lower chest. Electronically Signed: Rios Houser MD at 10:30 EDT Reading Location ID and State: [address] [place] [address] , Service support , CC: Dr. Jerrod Viramontes MD Pediatric Dental Hygienist: Signed Normal [facility] Urine Cultureon 07-04-2024 [facility] Order Date: 07/03/24 Order Info: 630-4 - CUUR Culture exhibits no growth. Normal [facility] Comment on above: Performed By: #### M 100.2200, L350.1000 ####[facility] [id number] [facility]. [place], [place], [address] Cytology, Body Fluid / CSFon 07-03-2024 CYTOLOGY,BF/CSF SEE PATHOLOGY REPORT Normal [facility] Comment on above: Order Comment: PER P T-ONLY TO DO URINE TESTS DATED FOR TODAYOrder Date: 07/03/24Order Info: [id number] - CYTOBFURINE Result Comment: Spec imen submitted to Anatomical Pathology Department for testing. Performed By: #### M 100.2200, L350.1000 ####[facility] [id number] [facility] [place], [address] Pap Stain (control)on 2023 Pap Stain (control) -- ---- Patient Age/Sex Location Account Attending Physician ---- HARRY LICEA 83/M [facility] [id number] Dr. Jerrod Viramontes MD ---- Specimen: [id number] Received: 07/03/24 Status: EBONIE [place] Num: [id number] Spec Type: CYSPIN FL Subm Dr: Dr. Jerrod Viramontes MD HEADER OPERATION: Not noted PRE-OP DIAGNOSIS: TISSUE SUBMITTED: Urine for cytology ---- DIAGNOSIS CYTOLOGY Urine for cytology (cytospin): Negative for high grade urothelial carcinoma (NGHUC), Toshia System Category II. Acute inflammation. Bloody specimen. See comment. SJ/mr 07/04/2024 COMMENT Clinical correlation is necessary. The Toshia System for urine cytology diagnostic categorization was used in the evaluation of this case. CYTOLOGY STUDY Slides are reviewed. CYTOLOGY GROSS Received is 50 ml of yellow-hazy fluid labeled with the patient's name and and designated per the requisition as urine. Submitted for cytology preparation. 07/03/2024 TC:2 CPT: 54793 Signed (signature on file) Dr. Duy Tillman MD 07/04/24 1316 ---- Normal [facility] Comment on above: Performed By: #### L 400.0001 #### [facility] [address] [place], [address] Urinalysis, Completeon 07-03 BACTERIA RARE Normal None Seen [facility] Comment on above: Order Comment: PER P T-ONLY TO DO URINE TESTS DATED FOR TODAY PER INTERFACE COMMENT-UA W/MICRO Urine, Random Performed By: #### L 400.0001 #### [facility] [address] [place], [address] EPI,SQUAMOUS 5-10 SEEN Normal 0-5 [facility] Comment on above: Order Comment: PER P T-ONLY TO DO URINE TESTS DATED FOR TODAY PER INTERFACE COMMENT-UA W/MICRO Urine, Random Performed By: #### L 400.0001 #### [facility] [address] [place], [address] RBC 50-100 SEEN Normal 0-5 [facility] Comment on above: Order Comment: PER P T-ONLY TO DO URINE TESTS DATED FOR TODAY PER INTERFACE COMMENT-UA W/MICRO Urine, Random Performed By: #### L 400.0001 #### [facility] [address] [place], [address] WBC 0-5 SEEN Normal 0-5 [facility] Comment on above: Order Comment: PER P T-ONLY TO DO URINE TESTS DATED FOR TODAY PER INTERFACE COMMENT-UA W/MICRO Urine, Random Performed By: #### L 400.0001 #### [facility] [address] [place], [address] Mucus Ql (Urine sed) 0 SEEN Normal [facility] Comment on above: Order Comment: PER P T-ONLY TO DO URINE TESTS DATED FOR TODAY PER INTERFACE COMMENT-UA W/MICRO Urine, Random Performed By: #### L 400.0001 #### [facility] [address] [place], [address] CBC W/Diff, Automatedon 06-17 0-2023 Absolute Lymph 1.39 X10 3/uL Normal 0.83-4.51 [facility] Comment on above: Order Comment: PER P T-ONLY TO DO URINE TESTS DATED FOR TODAY PER INTERFACE COMMENT-UA W/MICRO Urine, Random Performed By: #### L 400.0001 #### [facility] [address] [place], [address] Absolute Neut 5.1 X10 3/uL Normal 2.0-7.7 [facility] Comment on above: Order Comment: PER P T-ONLY TO DO URINE TESTS DATED FOR TODAY PER INTERFACE COMMENT-UA W/MICRO Urine, Random Performed By: #### L 400.0001 #### [facility] [address] [place], [address] Basophils/100 WBC (Bld) 0.6 % Normal 0-1 [facility] Comment on above: Order Comment: PER P T-ONLY TO DO URINE TESTS DATED FOR TODAY PER INTERFACE COMMENT-UA W/MICRO Urine, Random Performed By: #### L 400.0001 #### [facility] [address] [place], [address] Eosinophils/100 WBC (Bld) 4.1 % Normal 0-5 [facility] Comment on above: Order Comment: PER P T-ONLY TO DO URINE TESTS DATED FOR TODAY PER INTERFACE COMMENT-UA W/MICRO Urine, Random Performed By: #### L 400.0001 #### [facility] [address] [place], [address] Erythrocyte distribution width (RBC) [Ratio] 13.4 % Normal 11.6-14.6 [facility] Comment on above: Order Comment: PER P T-ONLY TO DO URINE TESTS DATED FOR TODAY PER INTERFACE COMMENT-UA W/MICRO Urine, Random Performed By: #### L 400.0001 #### [facility] [address] [place], [address] Hematocrit (Bld) [Volume fraction] 43.4 % Normal 40-54 [facility] Comment on above: Order Comment: PER P T-ONLY TO DO URINE TESTS DATED FOR TODAY PER INTERFACE COMMENT-UA W/MICRO Urine, Random Performed By: #### L 400.0001 #### [facility] [address] [place], [address] Hemoglobin (Bld) [Mass/Vol] 14.0 g/dL Normal 13.0-16.5 [facility] Comment on above: Order Comment: PER P T-ONLY TO DO URINE TESTS DATED FOR TODAY PER INTERFACE COMMENT-UA W/MICRO Urine, Random Performed By: #### L 400.0001 #### [facility] [address] [place], [address] IG% 0.500 Normal 0.0-0.9 [facility] Comment on above: Order Comment: PER P T-ONLY TO DO URINE TESTS DATED FOR TODAY PER INTERFACE COMMENT-UA W/MICRO Urine, Random Result Comment: IG% - Immature Granulocytes (promyelocytes, myelocytes and metamyelocytes) > 1% indicates that a LEFT SHIFT is Present. Performed By: #### L 400.0001 #### [facility] [address] [place], [address] Lymphocytes/100 WBC (Bld) 18.0 % Low 19-41 [facility] Comment on above: Order Comment: PER P T-ONLY TO DO URINE TESTS DATED FOR TODAY PER INTERFACE COMMENT-UA W/MICRO Urine, Random Performed By: #### L 400.0001 #### [facility] [address] [place], [address] MCH (RBC) [Entitic mass] 29.4 pg Normal 27.0-32.0 [facility] Comment on above: Order Comment: PER P T-ONLY TO DO URINE TESTS DATED FOR TODAY PER INTERFACE COMMENT-UA W/MICRO Urine, Random Performed By: #### L 400.0001 #### [facility] [address] [place], [address] MCHC (RBC) [Mass/Vol] 32.3 g/dL Normal 32-36 [facility] Comment on above: Order Comment: PER P T-ONLY TO DO URINE TESTS DATED FOR TODAY PER INTERFACE COMMENT-UA W/MICRO Urine, Random Performed By: #### L 400.0001 #### [facility] [address] [place], [address] MCV (RBC) [Entitic vol] 91.0 fL Normal 80-[address] [facility] Comment on above: Order Comment: PER P T-ONLY TO DO URINE TESTS DATED FOR TODAY PER INTERFACE COMMENT-UA W/MICRO Urine, Random Performed By: #### L 400.0001 #### [facility] [address] [place], [address] Monocytes/100 WBC (Bld) 10.8 % High 0-[address] [facility] Comment on above: Order Comment: PER P T-ONLY TO DO URINE TESTS DATED FOR TODAY PER INTERFACE COMMENT-UA W/MICRO Urine, Random Performed By: #### L 400.0001 #### [facility] [address] [place], [address] Neutrophils/100 WBC (Bld) 66.0 % Normal 47-70 [facility] Comment on above: Order Comment: PER P T-ONLY TO DO URINE TESTS DATED FOR TODAY PER INTERFACE COMMENT-UA W/MICRO Urine, Random Performed By: #### L 400.0001 #### [facility] [address] [place], [address] Nucleated RBC (Bld) [#/Vol] 0 10*3/uL Normal 0-5 [facility] Comment on above: Order Comment: PER P T-ONLY TO DO URINE TESTS DATED FOR TODAY PER INTERFACE COMMENT-UA W/MICRO Urine, Random Performed By: #### L 400.0001 #### [facility] [address] [place], [address] Platelet mean volume (Bld) [Entitic vol] 9.7 fL Normal 6.2-12.0 [facility] Comment on above: Order Comment: PER P T-ONLY TO DO URINE TESTS DATED FOR TODAY PER INTERFACE COMMENT-UA W/MICRO Urine, Random Performed By: #### L 400.0001 #### [facility] [address] [place], [address] Platelets (Bld) [#/Vol] 204 10*3/uL Normal 150-450 [facility] Comment on above: Order Comment: PER P T-ONLY TO DO URINE TESTS DATED FOR TODAY PER INTERFACE COMMENT-UA W/MICRO Urine, Random Performed By: #### L 400.0001 #### [facility] [address] [place], [address] RBC (Bld) [#/Vol] 4.77 10*6/uL Normal 4.6-6.2 [facility] Comment on above: Order Comment: PER P T-ONLY TO DO URINE TESTS DATED FOR TODAY PER INTERFACE COMMENT-UA W/MICRO Urine, Random Performed By: #### L 400.0001 #### [facility] [address] [place], [address] RDW SD 45.1 fl High 35.1-43.9 [facility] Comment on above: Order Comment: PER P T-ONLY TO DO URINE TESTS DATED FOR TODAY PER INTERFACE COMMENT-UA W/MICRO Urine, Random Performed By: #### L 400.0001 #### [facility] [address] [place], [address] WBC (Bld) [#/Vol] 7.7 10*3/uL Normal 4.4-11.0 [facility] Comment on above: Order Comment: PER P T-ONLY TO DO URINE TESTS DATED FOR TODAY PER INTERFACE COMMENT-UA W/MICRO Urine, Random Performed By: #### L 400.0001 #### [facility] [address] [place], [address] Comprehensive Metabolic Prof ilon 06-26-2024 Albumin [Mass/Vol] 3.4 g/dL Normal 3.2-5.0 [facility] Comment on above: Order Comment: URINE Performed By: #### L 350.1000 #### [facility] [address] [place], [address] Albumin/Globulin [Mass ratio] 0.9 {ratio} Normal 0.9-2.4 [facility] Comment on above: Order Comment: URINE Performed By: #### L 350.1000 #### [facility] [address] [place], [address] ALK P 117 U/L Normal 45-117 [facility] Comment on above: Order Comment: URINE Performed By: #### L 350.1000 #### [facility] [address] [place], [address] ALT [Catalytic activity/Vol] 14 U/L Low 16-61 [facility] Comment on above: Order Comment: URINE Performed By: #### L 350.1000 #### [facility] [address] [place], [address] AST [Catalytic activity/Vol] 14 U/L Low 15-37 [facility] Comment on above: Order Comment: URINE Performed By: #### L 350.1000 #### [facility] [address] [place], [address] Bilirubin [Mass/Vol] 1.00 mg/dL Normal 0.20-1.00 [facility] Comment on above: Order Comment: URINE Result Comment: For patients on eltrombopag therapy, use of Dimension [place] TBIL is not recommended. Performed By: #### L 350.1000 #### [facility] [address] [place], [address] BUN/CRE 24.7 RATIO High 10-20 [facility] Comment on above: Order Comment: URINE Performed By: #### L 350.1000 #### [facility] [address] [place], [address] CA,Total 9.5 mg/dL Normal 8.5-10.1 [facility] Comment on above: Order Comment: URINE Performed By: #### L 350.1000 #### [facility] [address] [place], [address] Chloride [Moles/Vol] 100 mmol/L Normal 98-107 [facility] Comment on above: Order Comment: URINE Performed By: #### L 350.1000 #### [facility] [address] [place], [address] CO2 [Moles/Vol] 32.0 mmol/L Normal 21.0-32.0 [facility] Comment on above: Order Comment: URINE Performed By: #### L 350.1000 #### [facility] [address] [place], [address] Creatinine [Mass/Vol] 1.46 mg/dL High 0.70-1.30 [facility] Comment on above: Order Comment: URINE Result Comment: The validity of the calculated GFR GFRAA in patients over 70 years has not been determined. Clinical correlation is essential. Performed By: #### L 350.1000 #### [facility] [address] [place], [address] EST GFR - AA 60 mL/min Normal >60 [facility] Comment on above: Order Comment: URINE Result Comment: Afri can [place] GFR Calc Performed By: #### L 350.1000 #### [facility] [address] [place], [address] GAP 4 Low 5-15 [facility] Comment on above: Order Comment: URINE Performed By: #### L 350.1000 #### [facility] [address] [place], [address] GFR/1.73 sq M.predicted among non-blacks MDRD (S/P/Bld) [Vol rate/Area] 49 mL/min/{1.73_m2} Low >60 [facility] Comment on above: Order Comment: URINE Result Comment: Non- GFR Calc Performed By: #### L 350.1000 #### [facility] [address] [place], [address] Globulin (S) [Mass/Vol] 3.6 g/dL Normal 2.2-4.[address] [facility] Comment on above: Order Comment: URINE Performed By: #### L 350.1000 #### [facility] [address] [place], [address] Glucose [Mass/Vol] 115 mg/dL High 74-106 [facility] Comment on above: Order Comment: URINE Result Comment: Fast ing Glucose result from 100 to 125 mg/dL suggests IMPAIRED HOMEOSTASIS per A.D.A. criteria. Performed By: #### L 350.1000 #### [facility] [address] [place], [address] Potassium [Moles/Vol] 4.8 mmol/L Normal 3.5-5.1 [facility] Comment on above: Order Comment: URINE Performed By: #### L 350.1000 #### [facility] [address] [place], [address] Sodium [Moles/Vol] 136 mmol/L Normal 136-145 [facility] Comment on above: Order Comment: URINE Performed By: #### L 350.1000 #### [facility] [address] [place], [address] T PROT 7.0 g/dL Normal 6.4-8.2 [facility] Comment on above: Order Comment: URINE Performed By: #### L 350.1000 #### [facility] [address] [place], [address] Urea nitrogen [Mass/Vol] 36 mg/dL High 7-18 [facility] Comment on above: Order Comment: URINE Performed By: #### L 350.1000 #### [facility] [address] [place], [place], [address] Hemoglobin A1con 06-26-2024 HbA1c (Bld) [Mass fraction] 6.1 % High 3.8-5.6 [facility] Comment on above: Order Comment: PER P T-ONLY TO DO URINE TESTS DATED FOR TODAY PER INTERFACE COMMENT-UA W/MICRO Urine, Random Result Comment: Norm al < 5.7 % Prediabetic 5.7 - 6.4 % Diabetic >or= 6.5 % Please note range changes. Performed By: #### L 400.0001 #### [facility] [address] [place], [address] Lipid Profileon 06-26-2024 Cholesterol [Mass/Vol] 146 mg/dL Normal 200 [facility] Comment on above: Order Comment: URINE Result Comment: <200 mg/dL Desirable 200-240 mg/dL Borderline >240 mg/dL High Risk Performed By: #### L 350.1000 #### [facility] [address] [place], [address] Cholesterol in HDL [Mass/Vol] 47 mg/dL Normal [facility] Comment on above: Order Comment: URINE Result Comment: The drugs N-Acetylcysteine and Metamizole may falsely depress this assay. Reference Range HDL <40 mg/dL Low HDL Cholesterol HDL >or= 60 mg/dL High HDL Cholesterol Performed By: #### L 350.1000 #### [facility] [address] [place], [address] Cholesterol in LDL [Mass/Vol] 77 mg/dL Normal 0-130 [facility] Comment on above: Order Comment: URINE Performed By: #### L 350.1000 #### [facility] [address] [place], [address] Cholesterol in VLDL [Mass/Vol] 22 mg/dL Normal 5-40 [facility] Comment on above: Order Comment: URINE Performed By: #### L 350.1000 #### [facility] [address] [place], [address] Triglyceride [Mass/Vol] 109 mg/dL Normal [facility] Comment on above: Order Comment: URINE Result Comment: The drugs N-Acetylcysteine and Metamizole may falsely depress this assay. Serum Triglycerides Reference Interval Normal <150 mg/dL Borderline high 150 - 199 mg/dL High 200 - 499 mg/dL Very High > or = 500 mg/dL Performed By: #### L 350.1000 #### [facility] [address] [place], [address] Magnesiumon 06-26-2024 Magnesium [Mass/Vol] 2.2 mg/dL Normal 1.6-2.6 [facility] Comment on above: Order Comment: URINE Performed By: #### L 350.1000 #### [facility] [address] [place], [address] PTHINon 06-26-2024 PTH 255.3 pg/mL High 18.4-80.1 [facility] Comment on above: Order Comment: URINE Performed By: #### L 350.1000 #### [facility] [address] [place], [address] Phosphoruson 06-26-2024 Phosphate [Mass/Vol] 3.7 mg/dL Normal 2.5-4.9 [facility] Comment on above: Order Comment: URINE Performed By: #### L 350.1000 #### [facility] [address] [place], [address] Protein+Creatinine Ratio,Uri neon 06-26-2024 PROT:CRE RATIO 666 mg/g CRE High 0-200 [facility] Comment on above: Performed By: #### L 300.4310, L300.3900, L100.0100 #### [facility] [address] [place], [address] Protein (U) [Mass/Vol] 111.2 mg/dL High <11.9 [facility] Comment on above: Performed By: #### L 300.4310, L300.3900, L100.0100 #### [facility] [address] [place], [address] UR CREAT 167.00 mg/dL Normal NO RANGE EST. [facility] Comment on above: Performed By: #### L 300.4310, L300.3900, L100.0100 #### [facility] [address] [place], [address] Thyroid Stim Hormone (TSH)on 06-26-2024 TSH 1.570 uIU/mL Normal 0.358-3.740 [facility] Comment on above: Order Comment: URINE Performed By: #### L 350.1000 #### [facility] [address] [place], [address] Urinalysis, Completeon 06-26 RBC 25-50 SEEN Normal 0-5 [facility] Comment on above: Order Comment: CLEAN CATCH Performed By: #### L 300.4310, L300.3900, L100.0100 #### [facility] [address] [place], [address] WBC 10-25 SEEN Normal 0-5 [facility] Comment on above: Order Comment: CLEAN CATCH Performed By: #### L 300.4310, L300.3900, L100.0100 #### [facility] [address] [place], [address] BACTERIA 0 SEEN Normal None Seen [facility] Comment on above: Order Comment: CLEAN CATCH Performed By: #### L 300.4310, L300.3900, L100.0100 #### [facility] [address] [place], [address] EPI,SQUAMOUS 0 SEEN Normal 0-5 [facility] Comment on above: Order Comment: CLEAN CATCH Performed By: #### L 300.4310, L300.3900, L100.0100 #### [facility] [address] [place], [address] Mucus Ql (Urine sed) 0 SEEN Normal [facility] Comment on above: Order Comment: CLEAN CATCH Performed By: #### L 300.4310, L300.3900, L100.0100 #### [facility] [address] [place], [address] Vitamin D,25 Hydroxyon 06-26 Vitamin D 25-OH 14.1 ng/mL Normal [facility] Comment on above: Order Comment: URINE Result Comment: Lea min D 25(OH) Status Range Deficiency <20 ng/mL (50nmol/L) Insufficiency 20 - 30 ng/mL (50 - 75 nmol/L) Sufficiency 30 - 100 ng/mL (75 - 250 nmol/L) Toxicity >100 ng/mL (>250 nmol/L) Performed By: #### L 350.1000 #### [facility] [address] [place], [address] Absolute lymphocyte countOrd ered By: Jerrod Viramontes on 10-03-2023 Lymphocytes Auto (Unsp spec) [#/Vol] 1.72 10*3/uL 0.83-4.51 [facility] Basophil percentageOrdered B y: Jerrod Viramontes on 10-03-2023 Basophils/100 WBC (Bld) 0.8 % 0-1 [facility] Bilirubin [Mass/Vol] 1.00 mg/dL 0.20-1.00 [facility] Comment on above: For patients on eltr ombopag therapy, use of Dimension [place] TBIL is not recommended. Chloride [Moles/Vol] 102 mmol/L 98-107 [facility] Cholesterol [Mass/Vol] 144 mg/dL <200 [facility] Comment on above: <200 mg/dL Desirable 200-240 mg/dL Borderline >240 mg/dL High Risk Eosinophils/100 WBC (Bld) 3.3 % 0-5 [facility] Glucose [Mass/Vol] 125 mg/dL 74-106 [facility] Comment on above: Fasting Glucose resu lt from 100 to 125 mg/dL suggests IMPAIRED HOMEOSTASIS per A.D.A. criteria. Neutrophils (Bld) [#/Vol] 4.8 10*3/uL 2.0-7.7 [facility] Neutrophils/100 WBC (Bld) 63.4 % 47-70 [facility] Potassium [Moles/Vol] 4.4 mmol/L 3.5-5.1 [facility] Protein [Mass/Vol] 7.2 g/dL 6.4-8.2 [facility] Sodium [Moles/Vol] 138 mmol/L 136-145 [facility] Triglyceride [Mass/Vol] 131 mg/dL <199 [facility] Comment on above: The drugs N-Acetylcy steine and Metamizole may falsely depress this assay.Serum Triglycerides Reference Interval Normal <150 mg/dL Borderline high 150 - 199 mg/dL High 200 - 499 mg/dL Very High > or = 500 mg/dL WBC (Bld) [#/Vol] 7.5 10*3/uL 4.4-11.0 [facility] Blood erythrocytes count (nu mber/volume)Ordered By: Jerrod Viramontes on 10-03-2023 RBC (Bld) [#/Vol] 4.96 10*6/uL 4.6-6.2 [facility] Blood hemoglobin measurement (mass/volume)Ordered By: Jerrod Viramontes on 10-03-2023 Hemoglobin (Bld) [Mass/Vol] 14.5 g/dL 13.0-16.5 [facility] Blood lymphocytes/100 leukoc ytesOrdered By: Jerrod Viramontes on 10-03-2023 Lymphocytes/100 WBC (Bld) 22.8 % 19-41 [facility] Blood monocytes/100 leukocyt esOrdered By: Jerrod Viramontes on 10-03-2023 Monocytes/100 WBC (Bld) 9.3 % 0-10 [facility] Blood platelet mean volumeOr dered By: Jerrod Viramontes on 10-03-2023 Platelet mean volume (Bld) [Entitic vol] 9.7 fL 6.2-12.0 [facility] Culture, urineOrdered By: Justina Viramontes on 10-03-2023 Bacteria identified Cx Nom (U) Culture exhibits no growth. [facility] Determination of erythrocyte mean corpuscular volume (MCV)Ordered By: Jerrod Viramontes on 10-03-2023 MCV (RBC) [Entitic vol] 93.3 fL 80-94 [facility] Hematocrit Auto (Bld) [Volum e fraction]Ordered By: Jerrod Viramontes on 10-03-2023 Hematocrit (Bld) [Volume fraction] 46.3 % 40-54 [facility] - Chemistry and C hemistry - challengeOrdered By: Jerrod Viramontes on 10-03-2023 ALP [Catalytic activity/Vol] 111 U/L 45-117 [facility] ALT [Catalytic activity/Vol] 18 U/L 16-61 [facility] CO2 [Moles/Vol] 29.0 mmol/L 21.0-32.0 [facility] Globulin (S) [Mass/Vol] 3.5 g/dL 2.2-4.2 [facility] Magnesium [Mass/Vol] 2.2 mg/dL 1.6-2.6 [facility] Urea nitrogen/Creatinine [Mass ratio] 33.6 mg/mg 10-20 [facility] - Hematology and Cell countsOrdered By: Jerrod Viramontes on 10-03-2023 Erythrocyte distribution width (RBC) [Entitic vol] 48.5 fL 35.1-43.9 [facility] Erythrocyte distribution width (RBC) [Ratio] 14.1 % 11.6-14.6 [facility] Immature granulocytes/100 WBC (Bld) 0.400 % 0.0-0.9 [facility] Comment on above: IG% - Immature Granu locytes (promyelocytes, myelocytes and metamyelocytes) > 1% indicates that a LEFT SHIFT is Present. MCH (RBC) [Entitic mass] 29.2 pg 27.0-32.0 [facility] Nucleated RBC/100 WBC (Bld) [Ratio] 0 % 0-5 [facility] MCHC Auto (RBC) [Mass/Vol]Or dered By: Jerrod Viramontes on 10-03-2023 MCHC (RBC) [Mass/Vol] 31.3 g/dL 32-36 [facility] No Panel InformationOrdered By: Jerrod Viramontes on 10-03-2023 Estimated GFR (MDRD) Amer 69 mL/min >60 [facility] Comment on above: GFR Calc Estimated GFR (MDRD) Non-Af Amer 57 mL/min >60 [facility] Comment on above: Non- GFR Calc Platelets bldOrdered By: Seth Viramontes on 10-03-2023 Platelets (Bld) [#/Vol] 197 10*3/uL 150-450 [facility] Serum or plasma albumin ana urement (mass/volume)Ordered By: Jerrod Viramontes on 10-03-2023 Albumin [Mass/Vol] 3.7 g/dL 3.2-5.0 [facility] Serum or plasma albumin/glob ulin mass ratioOrdered By: Jerrod Viramontes on 10-03-2023 Albumin/Globulin [Mass ratio] 1.1 {ratio} 0.9-2.4 [facility] Serum or plasma calcium ana urement (mass/volume)Ordered By: Jerrod Viramontes on 10-03-2023 Calcium [Mass/Vol] 9.6 mg/dL 8.5-10.1 [facility] Serum or plasma cholesterol in HDL measurement (mass/volume)Ordered By: Jerrod Viramontes on 10-03-2023 Cholesterol in HDL [Mass/Vol] 50 mg/dL >40 [facility] Comment on above: The drugs N-Acetylcy steine and Metamizole may falsely depress this assay. Reference Range HDL <40 mg/dL Low HDL Cholesterol HDL >or= 60 mg/dL High HDL Cholesterol Serum or plasma cholesterol in VLDL measurement (mass/volume)Ordered By: Jerrod Viramontes on 10-03-2023 Cholesterol in VLDL [Mass/Vol] 26 mg/dL 5-40 [facility] Serum or plasma creatinine m easurement (mass/volume)Ordered By: Jerrod Viramontes on 10-03-2023 Creatinine [Mass/Vol] 1.28 mg/dL 0.70-1.30 [facility] Comment on above: The validity of the calculated GFR & GFRAA in patients over 70 years has not been determined. Clinical correlation is essential. Serum or plasma low density lipoprotein (LDL) cholesterol measurement (mass/volume)Ordered By: Jerrod Viramontes on 10-03-2023 Cholesterol in LDL [Mass/Vol] 68 mg/dL 0-130 [facility] Serum or plasma urea nitroge n measurement (mass/volume)Ordered By: Jerrod Viramontes on 10-03-2023 Urea nitrogen [Mass/Vol] 43 mg/dL 7-18 [facility] Thin prep Papanicolaou smear with manual screeningOrdered By: Jerrod Viramontes on 10-03-2023 Thin prep Papanicolaou smear with manual screening 22 U/L 15-37 [facility] Thin prep Papanicolaou smear with manual screening 7 5-15 [facility] Whole blood hemoglobin A1c/t otal hemoglobin ratio (mass fraction)Ordered By: Jerrod Viramontes on 10-03-2023 HbA1c (Bld) [Mass fraction] 6.0 % 3.8-5.6 [facility] Comment on above: Normal < 5.7 % Predi abetic 5.7 - 6.4 % Diabetic >or= 6.5 % Please note range changes. Culture, urineOrdered By: Justina Viramontes on 06-17-2023 Bacteria identified Cx Nom (U) Negative [facility] Bacteria identified Cx Nom (U) Negative [facility] Cytology report of Body flui d Cyto stainOrdered By: Jerrod Viramontes on 06-17-2023 Cytology report Cyto stain Doc (Body fld) SEE PATHOLOGY REPORT [facility] Comment on above: Specimen submitted t o Anatomical Pathology Department for testing. Absolute lymphocyte countOrd ered By: Jerrod Viramontes on 06-15-2023 Lymphocytes Auto (Unsp spec) [#/Vol] 1.60 10*3/uL 0.83-4.51 [facility] Basophil percentageOrdered B y: Jerrod Viramontes on 06-15-2023 Basophil percentage 10-25 SEEN /hpf 0-5 [facility] Basophils/100 WBC (Bld) 0.7 % 0-1 [facility] Bilirubin [Mass/Vol] 0.90 mg/dL 0.20-1.00 [facility] Comment on above: For patients on eltr ombopag therapy, use of Dimension [place] TBIL is not recommended. Chloride [Moles/Vol] 103 mmol/L 98-107 [facility] Cholesterol [Mass/Vol] 143 mg/dL <200 [facility] Comment on above: <200 mg/dL Desirable 200-240 mg/dL Borderline >240 mg/dL High Risk Eosinophils/100 WBC (Bld) 4.4 % 0-5 [facility] Glucose [Mass/Vol] 117 mg/dL 74-106 [facility] Comment on above: Fasting Glucose resu lt from 100 to 125 mg/dL suggests IMPAIRED HOMEOSTASIS per A.D.A. criteria. Neutrophils (Bld) [#/Vol] 4.3 10*3/uL 2.0-7.7 [facility] Neutrophils/100 WBC (Bld) 61.4 % 47-70 [facility] Potassium [Moles/Vol] 4.3 mmol/L 3.5-5.1 [facility] Protein [Mass/Vol] 7.0 g/dL 6.4-8.2 [facility] Sodium [Moles/Vol] 138 mmol/L 136-145 [facility] Triglyceride [Mass/Vol] 135 mg/dL <199 [facility] Comment on above: The drugs N-Acetylcy steine and Metamizole may falsely depress this assay.Serum Triglycerides Reference Interval Normal <150 mg/dL Borderline high 150 - 199 mg/dL High 200 - 499 mg/dL Very High > or = 500 mg/dL WBC (Bld) [#/Vol] 7.0 10*3/uL 4.4-11.0 [facility] Bilirubin Test strip Ql (U)O rdered By: Jerrod Viramontes on 06-15-2023 Bilirubin Ql (U) Negative Negative [facility] Blood erythrocytes count (nu mber/volume)Ordered By: Jerrod Viramontes on 06-15-2023 RBC (Bld) [#/Vol] 4.69 10*6/uL 4.6-6.2 [facility] Blood hemoglobin measurement (mass/volume)Ordered By: Jerrod Viramontes on 06-15-2023 Hemoglobin (Bld) [Mass/Vol] 13.8 g/dL 13.0-16.5 [facility] Blood lymphocytes/100 leukoc ytesOrdered By: Jerrod Viramontes on 06-15-2023 Lymphocytes/100 WBC (Bld) 22.8 % 19-41 [facility] Blood monocytes/100 leukocyt esOrdered By: Jerrod Viramontes on 06-15-2023 Monocytes/100 WBC (Bld) 10.3 % 0-10 [facility] Blood platelet mean volumeOr dered By: Jerrod Viramontes on 06-15-2023 Platelet mean volume (Bld) [Entitic vol] 9.8 fL 6.2-12.0 [facility] Determination of erythrocyte mean corpuscular volume (MCV)Ordered By: Jerrod Viramontes on 06-15-2023 MCV (RBC) [Entitic vol] 93.6 fL 80-94 [facility] Hematocrit Auto (Bld) [Volum e fraction]Ordered By: Jerrod Viramontes on 06-15-2023 Hematocrit (Bld) [Volume fraction] 43.9 % 40-54 [facility] Ketones Test strip Ql (U)Ord ered By: Jerrod Viramontes on 06-15-2023 Ketones Ql (U) Negative Negative [facility] - Chemistry and C hemistry - challengeOrdered By: Jerrod Viramontes on 06-15-2023 ALP [Catalytic activity/Vol] 113 U/L 45-117 [facility] ALT [Catalytic activity/Vol] 18 U/L 16-61 [facility] CO2 [Moles/Vol] 32.0 mmol/L 21.0-32.0 [facility] Globulin (S) [Mass/Vol] 3.4 g/dL 2.2-4.2 [facility] Magnesium [Mass/Vol] 2.1 mg/dL 1.6-2.6 [facility] Urea nitrogen/Creatinine [Mass ratio] 25.4 mg/mg 10-20 [facility] - Hematology and Cell countsOrdered By: Jerrod Viramontes on 06-15-2023 Erythrocyte distribution width (RBC) [Entitic vol] 50.1 fL 35.1-43.9 [facility] Erythrocyte distribution width (RBC) [Ratio] 14.6 % 11.6-14.6 [facility] Immature granulocytes/100 WBC (Bld) 0.400 % 0.0-0.9 [facility] Comment on above: IG% - Immature Granu locytes (promyelocytes, myelocytes and metamyelocytes) > 1% indicates that a LEFT SHIFT is Present. MCH (RBC) [Entitic mass] 29.4 pg 27.0-32.0 [facility] Nucleated RBC/100 WBC (Bld) [Ratio] 0 % 0-5 [facility] MCHC Auto (RBC) [Mass/Vol]Or dered By: Jerrod Viramontes on 06-15-2023 MCHC (RBC) [Mass/Vol] 31.4 g/dL 32-36 [facility] Mucus LM Ql (Urine sed)Order ed By: Jerrod Viramontes on 06-15-2023 Mucus Ql (Urine sed) 0 SEEN /hpf [facility] Nitrite Test strip Ql (U)Ord ered By: Jerrod Viramontes on 06-15-2023 Nitrite Ql (U) Negative Negative [facility] No Panel InformationOrdered By: Jerrod Viramontes on 06-15-2023 Estimated GFR (MDRD) Amer 71 mL/min >60 [facility] Comment on above: GFR Calc Estimated GFR (MDRD) Non-Af Amer 58 mL/min >60 [facility] Comment on above: Non- GFR Calc Urine Transitional Epithelial Cells 0-5 SEEN /hpf 0-5 [facility] Platelets bldOrdered By: Seth Viramontes on 06-15-2023 Platelets (Bld) [#/Vol] 170 10*3/uL 150-450 [facility] Protein Test strip Ql (U)Ord ered By: Jerrod Viramontes on 06-15-2023 Protein Ql (U) 100 mg/dl Negative [facility] Serum or plasma albumin ana urement (mass/volume)Ordered By: Jerrod Viramontes on 06-15-2023 Albumin [Mass/Vol] 3.6 g/dL 3.2-5.0 [facility] Serum or plasma albumin/glob ulin mass ratioOrdered By: Jerrod Viramontes on 06-15-2023 Albumin/Globulin [Mass ratio] 1.1 {ratio} 0.9-2.4 [facility] Serum or plasma calcium ana urement (mass/volume)Ordered By: Jerrod Viramontes on 06-15-2023 Calcium [Mass/Vol] 9.5 mg/dL 8.5-10.1 [facility] Serum or plasma cholesterol in HDL measurement (mass/volume)Ordered By: Jerrod Viramontes on 06-15-2023 Cholesterol in HDL [Mass/Vol] 46 mg/dL >40 [facility] Comment on above: The drugs N-Acetylcy steine and Metamizole may falsely depress this assay. Reference Range HDL <40 mg/dL Low HDL Cholesterol HDL >or= 60 mg/dL High HDL Cholesterol Serum or plasma cholesterol in VLDL measurement (mass/volume)Ordered By: Jerrod Viramontes on 06-15-2023 Cholesterol in VLDL [Mass/Vol] 27 mg/dL 5-40 [facility] Serum or plasma creatinine m easurement (mass/volume)Ordered By: Jerrod Viramontes on 06-15-2023 Creatinine [Mass/Vol] 1.26 mg/dL 0.70-1.30 [facility] Comment on above: The validity of the calculated GFR & GFRAA in patients over 70 years has not been determined. Clinical correlation is essential. Serum or plasma low density lipoprotein (LDL) cholesterol measurement (mass/volume)Ordered By: Jerrod Viramontes on 06-15-2023 Cholesterol in LDL [Mass/Vol] 70 mg/dL 0-130 [facility] Serum or plasma urea nitroge n measurement (mass/volume)Ordered By: Jerrod Viramontes on 06-15-2023 Urea nitrogen [Mass/Vol] 32 mg/dL 7-18 [facility] Serum or plasma uric acid me asurement (mass/volume)Ordered By: Jerrod Viramontes on 06-15-2023 Urate [Mass/Vol] 6.0 mg/dL 3.5-7.2 [facility] Comment on above: The drugs N-Acetylcy steine and Metamizole may falsely depress this assay. Squamous epithelial cells de tection in urine sediment by light microscopyOrdered By: Jerrod Viramontes on 06-15-2023 Epithelial cells.squamous LM Ql (Urine sed) 0-5 SEEN /hpf 0-5 [facility] Thin prep Papanicolaou smear with manual screeningOrdered By: Jerrod Viramontes on 06-15-2023 Thin prep Papanicolaou smear with manual screening 19 U/L 15-37 [facility] Thin prep Papanicolaou smear with manual screening 3 5-15 [facility] Urine blood detectionOrdered By: Jerrod Viramontes on 06-15-2023 RBC Ql (U) 150 /ul Negative [facility] RBC Ql (U) 10-25 SEEN /hpf 0-5 [facility] Urine clarityOrdered By: Seth Viramontes on 06-15-2023 Clarity (U) Sl. Cloudy Clear [facility] Urine color determinationOrd ered By: Jerrod Viramontes on 06-15-2023 Color (U) Yellow Yellow [facility] Urine glucose detectionOrder ed By: Jerrod Viramontes on 06-15-2023 Glucose Ql (U) Normal mg/dl Normal [facility] Urine leukocyte esterase det ection by dipstickOrdered By: Jerrod Viramontes on 06-15-2023 Leukocyte esterase Test strip Ql (U) 100 /ul Negative [facility] Urine pHOrdered By: Jerrod mendieta on 06-15-2023 pH (U) 7.0 [pH] 5.0 - 8.0 [facility] Urine sediment bacteria coun t by microscopy (number/high power field)Ordered By: Jerrod Viramontes on 06-15-2023 Bacteria LM.HPF (Urine sed) [#/Area] 1 /[HPF] None Seen [facility] Urine specific gravity measu rementOrdered By: Jerrod Viramontes on 06-15-2023 Specific gravity (U) [Rel density] 1.010 1.002-1.030 [facility] Urobilinogen Auto test strip Ql (U)Ordered By: Jerrod Viramontes on 06-15-2023 Urobilinogen Ql (U) Normal mg/dl Normal [facility] Whole blood hemoglobin A1c/t otal hemoglobin ratio (mass fraction)Ordered By: Jerrod Viramontes on 06-15-2023 HbA1c (Bld) [Mass fraction] 6.3 % 3.8-5.6 [facility] Comment on above: Normal < 5.7 % Predi abetic 5.7 - 6.4 % Diabetic >or= 6.5 % Please note range changes. Absolute lymphocyte counton 09-23-2022 Lymphocytes Auto (Unsp spec) [#/Vol] 1.72 10*3/uL 0.83-4.51 [facility] Work Phone: Basophil percentageon 2021 Basophil percentage 0-5 SEEN /hpf 0-5 [facility] Work Phone: Basophils/100 WBC (Bld) 0.6 % 0-1 [facility] Work Phone: Bilirubin [Mass/Vol] 1.10 mg/dL 0.20-1.00 [facility] Work Phone: Comment on above: For patients on eltr ombopag therapy, use of Dimension [place] TBIL is not recommended. Chloride [Moles/Vol] 102 mmol/L 98-107 [facility] Work Phone: Cholesterol [Mass/Vol] 147 mg/dL <200 [facility] Work Phone: Comment on above: <200 mg/dL Desirable 200-240 mg/dL Borderline >240 mg/dL High Risk Eosinophils/100 WBC (Bld) 4.5 % 0-5 [facility] Work Phone: Glucose [Mass/Vol] 116 mg/dL 74-106 [facility] Work Phone: Comment on above: Fasting Glucose resu lt from 100 to 125 mg/dL suggests IMPAIRED HOMEOSTASIS per A.D.A. criteria. Neutrophils (Bld) [#/Vol] 4.4 10*3/uL 2.0-7.7 [facility] Work Phone: Neutrophils/100 WBC (Bld) 61.0 % 47-70 [facility] Work Phone: Potassium [Moles/Vol] 4.5 mmol/L 3.5-5.1 [facility] Work Phone: Protein [Mass/Vol] 6.9 g/dL 6.4-8.2 [facility] Work Phone: [phone] Sodium [Moles/Vol] 139 mmol/L 136-145 [facility] Work Phone: Triglyceride [Mass/Vol] 114 mg/dL <199 [facility] Work Phone: Comment on above: The drugs N-Acetylcy steine and Metamizole may falsely depress this assay.Serum Triglycerides Reference Interval Normal <150 mg/dL Borderline high 150 - 199 mg/dL High 200 - 499 mg/dL Very High > or = 500 mg/dL WBC (Bld) [#/Vol] 7.1 10*3/uL 4.4-11.0 [facility] Work Phone: [phone] Bilirubin Test strip Ql (U)o n 09-23-2022 Bilirubin Ql (U) Negative Negative [facility] Work Phone: Blood erythrocytes count (nu mber/volume)on 09-23-2022 RBC (Bld) [#/Vol] 4.94 10*6/uL 4.6-6.2 [facility] Work Phone: Blood hemoglobin measurement (mass/volume)on 09-23-2022 Hemoglobin (Bld) [Mass/Vol] 15.1 g/dL 13.0-16.5 [facility] Work Phone: Blood lymphocytes/100 leukoc yteson 09-23-2022 Lymphocytes/100 WBC (Bld) 24.1 % 19-41 [facility] Work Phone: Blood monocytes/100 leukocyt eson 09-23-2022 Monocytes/100 WBC (Bld) 9.5 % 0-10 [facility] Work Phone: Blood platelet mean volumeon 09-23-2022 Platelet mean volume (Bld) [Entitic vol] 9.6 fL 6.2-12.0 [facility] Work Phone: Determination of erythrocyte mean corpuscular volume (MCV)on 09-23-2022 MCV (RBC) [Entitic vol] 91.5 fL 80-94 [facility] Work Phone: Hematocrit Auto (Bld) [Volum e fraction]on 09-23-2022 Hematocrit (Bld) [Volume fraction] 45.2 % 40-54 [facility] Work Phone: Ketones Test strip Ql (U)on 09-23-2022 Ketones Ql (U) Negative Negative [facility] Work Phone: Laboratory - Chemistry and C hemistry - challengeon 09-23-2022 ALP [Catalytic activity/Vol] 119 U/L 45-117 [facility] Work Phone: ALT [Catalytic activity/Vol] 21 U/L 16-61 [facility] Work Phone: CO2 [Moles/Vol] 32.0 mmol/L 21.0-32.0 [facility] Work Phone: Globulin (S) [Mass/Vol] 3.0 g/dL 2.2-4.2 [facility] Work Phone: Magnesium [Mass/Vol] 1.9 mg/dL 1.6-2.6 [facility] Work Phone: Urea nitrogen/Creatinine [Mass ratio] 23.8 mg/mg 10-20 [facility] Work Phone: Laboratory - Hematology and Cell countson 09-23-2022 Erythrocyte distribution width (RBC) [Entitic vol] 46.2 fL 35.1-43.9 [facility] Work Phone: Erythrocyte distribution width (RBC) [Ratio] 13.9 % 11.6-14.6 [facility] Work Phone: Immature granulocytes/100 WBC (Bld) 0.300 % 0.0-0.9 [facility] Work Phone: Comment on above: IG% - Immature Granu locytes (promyelocytes, myelocytes and metamyelocytes) > 1% indicates that a LEFT SHIFT is Present. MCH (RBC) [Entitic mass] 30.6 pg 27.0-32.0 [facility] Work Phone: Nucleated RBC/100 WBC (Bld) [Ratio] 0 % 0-5 [facility] Work Phone: MCHC Auto (RBC) [Mass/Vol]on 09-23-2022 MCHC (RBC) [Mass/Vol] 33.4 g/dL 32-36 [facility] Work Phone: Mucus LM Ql (Urine sed)on Mucus Ql (Urine sed) RARE /hpf [facility] Work Phone: Nitrite Test strip Ql (U)on 09-23-2022 Nitrite Ql (U) Negative Negative [facility] Work Phone: No Panel Informationon 09-23 Estimated GFR (MDRD) Amer 87 mL/min >60 [facility] Work Phone: Comment on above: GFR Calc Estimated GFR (MDRD) Non-Af Amer 72 mL/min >60 [facility] Work Phone: Comment on above: Non- GFR Calc Platelets bldon 09-23-2022 Platelets (Bld) [#/Vol] 185 10*3/uL 150-450 [facility] Work Phone: Protein Test strip Ql (U)on 09-23-2022 Protein Ql (U) 30 mg/dl Negative [facility] Work Phone: Serum or plasma albumin ana urement (mass/volume)on 09-23-2022 Albumin [Mass/Vol] 3.9 g/dL 3.2-5.0 [facility] Work Phone: Serum or plasma albumin/glob ulin mass ratioon 09-23-2022 Albumin/Globulin [Mass ratio] 1.3 {ratio} 0.9-2.4 [facility] Work Phone: Serum or plasma calcium ana urement (mass/volume)on 09-23-2022 Calcium [Mass/Vol] 9.7 mg/dL 8.5-10.[address] [facility] [place] Work Phone: Serum or plasma cholesterol in HDL measurement (mass/volume)on 09-23-2022 Cholesterol in HDL [Mass/Vol] 49 mg/dL >40 [facility] Work Phone: Comment on above: The drugs N-Acetylcy steine and Metamizole may falsely depress this assay. Reference Range HDL <40 mg/dL Low HDL Cholesterol HDL >or= 60 mg/dL High HDL Cholesterol Serum or plasma cholesterol in VLDL measurement (mass/volume)on 09-23-2022 Cholesterol in VLDL [Mass/Vol] 23 mg/dL 5-40 [facility] Work Phone: Serum or plasma creatinine m easurement (mass/volume)on 09-23-2022 Creatinine [Mass/Vol] 1.05 mg/dL 0.70-1.30 [facility] Work Phone: Comment on above: The validity of the calculated GFR & GFRAA in patients over 70 years has not been determined. Clinical correlation is essential. Serum or plasma low density lipoprotein (LDL) cholesterol measurement (mass/volume)on 09-23-2022 Cholesterol in LDL [Mass/Vol] 75 mg/dL 0-130 [facility] Work Phone: Serum or plasma urea nitroge n measurement (mass/volume)on 09-23-2022 Urea nitrogen [Mass/Vol] 25 mg/dL 7-18 [facility] Work Phone: Serum or plasma uric acid me asurement (mass/volume)on 09-23-2022 Urate [Mass/Vol] 7.3 mg/dL 3.5-7.2 [facility] Work Phone: Comment on above: The drugs N-Acetylcy steine and Metamizole may falsely depress this assay. Squamous epithelial cells de tection in urine sediment by light microscopyon 09-23-2022 Epithelial cells.squamous LM Ql (Urine sed) 0-5 SEEN /hpf 0-5 [facility] Work Phone: [phone] Thin prep Papanicolaou smear with manual screeningon 09-23-2022 Thin prep Papanicolaou smear with manual screening 19 U/L 15-37 [facility] Work Phone: Thin prep Papanicolaou smear with manual screening 5 5-15 [facility] Work Phone: Urine blood detectionon RBC Ql (U) 250 /ul Negative [facility] Work Phone: RBC Ql (U) 25-50 SEEN /hpf 0-5 [facility] Work Phone: Urine clarityon 09-23-2022 Clarity (U) Sl. Cloudy Clear [facility] Work Phone: Urine color determinationon 09-23-2022 Color (U) Yellow Yellow [facility] Work Phone: Urine glucose detectionon Glucose Ql (U) Normal mg/dl Normal [facility] Work Phone: Urine leukocyte esterase det ection by dipstickon 09-23-2022 Leukocyte esterase Test strip Ql (U) 100 /ul Negative [facility] Work Phone: Urine pHon 09-23-2022 pH (U) 8.0 [pH] 5.0 - 8.0 [facility] Work Phone: Urine sediment bacteria coun t by microscopy (number/high power field)on 09-23-2022 Bacteria LM.HPF (Urine sed) [#/Area] RARE /hpf None Seen [facility] Work Phone: Urine specific gravity measu rementon 09-23-2022 Specific gravity (U) [Rel density] 1.010 1.002-1.030 [facility] Work Phone: Urobilinogen Auto test strip Ql (U)on 09-23-2022 Urobilinogen Ql (U) Normal mg/dl Normal [facility] Work Phone: Whole blood hemoglobin A1c/t otal hemoglobin ratio (mass fraction)on 09-23-2022 HbA1c (Bld) [Mass fraction] 6.1 % 3.8-5.6 [facility] Work Phone: Comment on above: Normal < 5.7 % Predi abetic 5.7 - 6.4 % Diabetic >or= 6.5 % Please note range changes. Basophil percentageon 2021 Chloride [Moles/Vol] 103 mmol/L 98-107 [facility] Work Phone: Glucose [Mass/Vol] 110 mg/dL 74-106 [facility] Work Phone: Comment on above: Fasting Glucose resu lt from 100 to 125 mg/dL suggests IMPAIRED HOMEOSTASIS per A.D.A. criteria. Potassium [Moles/Vol] 4.5 mmol/L 3.5-5.1 [facility] Work Phone: Sodium [Moles/Vol] 139 mmol/L 136-145 [facility] Work Phone: Laboratory - Chemistry and C hemistry - challengeon 06-08-2022 CO2 [Moles/Vol] 27.0 mmol/L 21.0-32.0 [facility] Work Phone: Urea nitrogen/Creatinine [Mass ratio] 27.6 mg/mg 10-20 [facility] Work Phone: No Panel Informationon 06-08 Estimated GFR (MDRD) Amer 88 mL/min >60 [facility] Work Phone: Comment on above: GFR Calc Estimated GFR (MDRD) Non-Af Amer 72 mL/min >60 [facility] Work Phone: Comment on above: Non- GFR Calc Serum or plasma calcium ana urement (mass/volume)on 06-08-2022 Calcium [Mass/Vol] 10.2 mg/dL 8.5-10.1 [facility] Work Phone: Serum or plasma creatinine m easurement (mass/volume)on 06-08-2022 Creatinine [Mass/Vol] 1.05 mg/dL 0.70-1.30 [facility] Work Phone: Comment on above: The validity of the calculated GFR & GFRAA in patients over 70 years has not been determined. Clinical correlation is essential. Serum or plasma urea nitroge n measurement (mass/volume)on 06-08-2022 Urea nitrogen [Mass/Vol] 29 mg/dL 7-18 [facility] Work Phone: Thin prep Papanicolaou smear with manual screeningon 06-08-2022 Thin prep Papanicolaou smear with manual screening 9 5-15 [facility] Work Phone: Absolute lymphocyte counton 05-11-2022 Lymphocytes Auto (Unsp spec) [#/Vol] 1.29 10*3/uL 0.83-4.51 [facility] Work Phone: Basophil percentageon 2021 Basophil percentage 25-50 SEEN /hpf 0-5 [facility] Work Phone: Basophils/100 WBC (Bld) 0.6 % 0-1 [facility] Work Phone: Bilirubin [Mass/Vol] 0.90 mg/dL 0.20-1.00 [facility] Work Phone: Comment on above: For patients on eltr ombopag therapy, use of Dimension [place] TBIL is not recommended. Chloride [Moles/Vol] 103 mmol/L 98-107 [facility] Work Phone: Cholesterol [Mass/Vol] 123 mg/dL <200 [facility] Work Phone: Comment on above: <200 mg/dL Desirable 200-240 mg/dL Borderline >240 mg/dL High Risk Eosinophils/100 WBC (Bld) 5.5 % 0-5 [facility] Work Phone: Glucose [Mass/Vol] 108 mg/dL 74-106 [facility] Work Phone: Comment on above: Fasting Glucose resu lt from 100 to 125 mg/dL suggests IMPAIRED HOMEOSTASIS per A.D.A. criteria. Neutrophils (Bld) [#/Vol] 4.5 10*3/uL 2.0-7.7 [facility] Work Phone: Neutrophils/100 WBC (Bld) 65.4 % 47-70 [facility] Work Phone: [phone] Potassium [Moles/Vol] 4.2 mmol/L 3.5-5.1 [facility] Work Phone: Protein [Mass/Vol] 7.0 g/dL 6.4-8.2 [facility] Work Phone: Sodium [Moles/Vol] 138 mmol/L 136-145 [facility] Work Phone: Triglyceride [Mass/Vol] 96 mg/dL <199 [facility] Work Phone: Comment on above: The drugs N-Acetylcy steine and Metamizole may falsely depress this assay.Serum Triglycerides Reference Interval Normal <150 mg/dL Borderline high 150 - 199 mg/dL High 200 - 499 mg/dL Very High > or = 500 mg/dL WBC (Bld) [#/Vol] 6.9 10*3/uL 4.4-11.0 [facility] Work Phone: Bilirubin Test strip Ql (U)o n 05-11-2022 Bilirubin Ql (U) Negative Negative [facility] Work Phone: Blood erythrocytes count (nu mber/volume)on 05-11-2022 RBC (Bld) [#/Vol] 4.49 10*6/uL 4.6-6.2 [facility] Work Phone: Blood hemoglobin measurement (mass/volume)on 05-11-2022 Hemoglobin (Bld) [Mass/Vol] 13.6 g/dL 13.0-16.5 [facility] Work Phone: Blood lymphocytes/100 leukoc yteson 05-11-2022 Lymphocytes/100 WBC (Bld) 18.8 % 19-41 [facility] Work Phone: Blood monocytes/100 leukocyt eson 05-11-2022 Monocytes/100 WBC (Bld) 9.4 % 0-10 [facility] Work Phone: Blood platelet mean volumeon 05-11-2022 Platelet mean volume (Bld) [Entitic vol] 9.6 fL 6.2-12.0 [facility] Work Phone: Determination of erythrocyte mean corpuscular volume (MCV)on 05-11-2022 MCV (RBC) [Entitic vol] 92.9 fL 80-94 [facility] Work Phone: Hematocrit Auto (Bld) [Volum e fraction]on 05-11-2022 Hematocrit (Bld) [Volume fraction] 41.7 % 40-54 [facility] Work Phone: Ketones Test strip Ql (U)on 05-11-2022 Ketones Ql (U) Negative Negative [facility] Work Phone: Laboratory - Chemistry and C hemistry - challengeon 05-11-2022 ALP [Catalytic activity/Vol] 108 U/L 45-117 [facility] Work Phone: ALT [Catalytic activity/Vol] 25 U/L 16-61 [facility] Work Phone: CO2 [Moles/Vol] 28.0 mmol/L 21.0-32.0 [facility] Work Phone: Globulin (S) [Mass/Vol] 3.3 g/dL 2.2-4.2 [facility] Work Phone: [phone] Magnesium [Mass/Vol] 2.0 mg/dL 1.6-2.6 [facility] Work Phone: Urea nitrogen/Creatinine [Mass ratio] 31.1 mg/mg 10-20 [facility] Work Phone: Laboratory - Hematology and Cell countson 05-11-2022 Erythrocyte distribution width (RBC) [Entitic vol] 49.2 fL 35.1-43.9 [facility] Work Phone: Erythrocyte distribution width (RBC) [Ratio] 14.5 % 11.6-14.6 [facility] Work Phone: Immature granulocytes/100 WBC (Bld) 0.300 % 0.0-0.9 [facility] Work Phone: Comment on above: IG% - Immature Granu locytes (promyelocytes, myelocytes and metamyelocytes) > 1% indicates that a LEFT SHIFT is Present. MCH (RBC) [Entitic mass] 30.3 pg 27.0-32.0 [facility] Work Phone: Nucleated RBC/100 WBC (Bld) [Ratio] 0 % 0-5 [facility] Work Phone: MCHC Auto (RBC) [Mass/Vol]on 05-11-2022 MCHC (RBC) [Mass/Vol] 32.6 g/dL 32-36 [facility] Work Phone: Mucus LM Ql (Urine sed)on Mucus Ql (Urine sed) 0 SEEN /hpf [facility] Work Phone: Nitrite Test strip Ql (U)on 05-11-2022 Nitrite Ql (U) Negative Negative [facility] Work Phone: No Panel Informationon 05-11 Estimated GFR (MDRD) Amer 66 mL/min >60 [facility] Work Phone: Comment on above: GFR Calc Estimated GFR (MDRD) Non-Af Amer 54 mL/min >60 [facility] Work Phone: Comment on above: Non- GFR Calc Urine Trichomonas 0-5 SEEN /hpf None Seen [facility] Work Phone: Platelets bldon 05-11-2022 Platelets (Bld) [#/Vol] 187 10*3/uL 150-450 [facility] Work Phone: Protein Test strip Ql (U)on 05-11-2022 Protein Ql (U) 30 mg/dl Negative [facility] Work Phone: Serum or plasma albumin ana urement (mass/volume)on 05-11-2022 Albumin [Mass/Vol] 3.7 g/dL 3.2-5.0 [facility] Work Phone: Serum or plasma albumin/glob ulin mass ratioon 05-11-2022 Albumin/Globulin [Mass ratio] 1.1 {ratio} 0.9-2.4 [facility] Work Phone: Serum or plasma calcium ana urement (mass/volume)on 05-11-2022 Calcium [Mass/Vol] 9.7 mg/dL 8.5-10.1 [facility] Work Phone: Serum or plasma cholesterol in HDL measurement (mass/volume)on 05-11-2022 Cholesterol in HDL [Mass/Vol] 49 mg/dL >40 [facility] Work Phone: Comment on above: The drugs N-Acetylcy steine and Metamizole may falsely depress this assay. Reference Range HDL <40 mg/dL Low HDL Cholesterol HDL >or= 60 mg/dL High HDL Cholesterol Serum or plasma cholesterol in VLDL measurement (mass/volume)on 05-11-2022 Cholesterol in VLDL [Mass/Vol] 19 mg/dL 5-40 [facility] Work Phone: Serum or plasma creatinine m easurement (mass/volume)on 05-11-2022 Creatinine [Mass/Vol] 1.35 mg/dL 0.70-1.30 [facility] Work Phone: Comment on above: The validity of the calculated GFR & GFRAA in patients over 70 years has not been determined. Clinical correlation is essential. Serum or plasma low density lipoprotein (LDL) cholesterol measurement (mass/volume)on 05-11-2022 Cholesterol in LDL [Mass/Vol] 55 mg/dL 0-130 [facility] Work Phone: Serum or plasma urea nitroge n measurement (mass/volume)on 05-11-2022 Urea nitrogen [Mass/Vol] 42 mg/dL 7-18 [facility] Work Phone: Serum or plasma uric acid me asurement (mass/volume)on 05-11-2022 Urate [Mass/Vol] 7.3 mg/dL 3.5-7.2 [facility] Work Phone: Comment on above: The drugs N-Acetylcy steine and Metamizole may falsely depress this assay. Squamous epithelial cells de tection in urine sediment by light microscopyon 05-11-2022 Epithelial cells.squamous LM Ql (Urine sed) 0-5 SEEN /hpf 0-5 [facility] Work Phone: Thin prep Papanicolaou smear with manual screeningon 05-11-2022 Thin prep Papanicolaou smear with manual screening 17 U/L 15-37 [facility] Work Phone: Thin prep Papanicolaou smear with manual screening 7 5-15 [facility] Work Phone: Urine blood detectionon 04-17 RBC Ql (U) 250 /ul Negative [facility] Work Phone: RBC Ql (U) 25-50 SEEN /hpf 0-5 [facility] Work Phone: Urine clarityon 05-11-2022 Clarity (U) Sl. Cloudy Clear [facility] Work Phone: Urine color determinationon 05-11-2022 Color (U) Yellow Yellow [facility] Work Phone: Urine glucose detectionon Glucose Ql (U) Normal mg/dl Normal [facility] Work Phone: Urine leukocyte esterase det ection by dipstickon 05-11-2022 Leukocyte esterase Test strip Ql (U) 500 /ul Negative [facility] Work Phone: Urine pHon 05-11-2022 pH (U) 6.5 [pH] 5.0 - 8.0 [facility] Work Phone: Urine sediment bacteria coun t by microscopy (number/high power field)on 05-11-2022 Bacteria LM.HPF (Urine sed) [#/Area] 1 /[HPF] None Seen [facility] Work Phone: Urine specific gravity measu rementon 05-11-2022 Specific gravity (U) [Rel density] 1.010 1.002-1.030 [facility] Work Phone: Urobilinogen Auto test strip Ql (U)on 05-11-2022 Urobilinogen Ql (U) Normal mg/dl Normal [facility] Work Phone: Whole blood hemoglobin A1c/t otal hemoglobin ratio (mass fraction)on 05-11-2022 HbA1c (Bld) [Mass fraction] 5.9 % 3.8-5.6 [facility] Work Phone: Comment on above: Normal < 5.7 % Predi abetic 5.7 - 6.4 % Diabetic >or= 6.5 % Please note range changes. Absolute lymphocyte counton 01-13-2022 Lymphocytes Auto (Unsp spec) [#/Vol] 1.84 10*3/uL 0.83-4.51 [facility] Work Phone: Basophil percentageon 2021 Basophils/100 WBC (Bld) 0.8 % 0-1 [facility] Work Phone: Bilirubin [Mass/Vol] 0.80 mg/dL 0.20-1.00 [facility] Work Phone: Comment on above: For patients on eltr ombopag therapy, use of Dimension [place] TBIL is not recommended. Chloride [Moles/Vol] 103 mmol/L 98-107 [facility] Work Phone: Cholesterol [Mass/Vol] 144 mg/dL <200 [facility] Work Phone: Comment on above: <200 mg/dL Desirable 200-240 mg/dL Borderline >240 mg/dL High Risk Eosinophils/100 WBC (Bld) 4.5 % 0-5 [facility] Work Phone: Glucose [Mass/Vol] 108 mg/dL 74-106 [facility] Work Phone: Comment on above: Fasting Glucose resu lt from 100 to 125 mg/dL suggests IMPAIRED HOMEOSTASIS per A.D.A. criteria. Neutrophils (Bld) [#/Vol] 4.3 10*3/uL 2.0-7.7 [facility] Work Phone: Neutrophils/100 WBC (Bld) 58.6 % 47-70 [facility] Work Phone: [phone] Potassium [Moles/Vol] 4.3 mmol/L 3.5-5.1 [facility] Work Phone: Protein [Mass/Vol] 7.8 g/dL 6.4-8.2 [facility] Work Phone: Sodium [Moles/Vol] 138 mmol/L 136-145 [facility] Work Phone: [phone] Triglyceride [Mass/Vol] 133 mg/dL <199 [facility] Work Phone: Comment on above: The drugs N-Acetylcy steine and Metamizole may falsely depress this assay.Serum Triglycerides Reference Interval Normal <150 mg/dL Borderline high 150 - 199 mg/dL High 200 - 499 mg/dL Very High > or = 500 mg/dL WBC (Bld) [#/Vol] 7.4 10*3/uL 4.4-11.0 [facility] Work Phone: Blood erythrocytes count (nu mber/volume)on 01-13-2022 RBC (Bld) [#/Vol] 5.04 10*6/uL 4.6-6.2 [facility] Work Phone: Blood hemoglobin measurement (mass/volume)on 01-13-2022 Hemoglobin (Bld) [Mass/Vol] 14.8 g/dL 13.0-16.5 [facility] Work Phone: [phone] Blood lymphocytes/100 leukoc yteson 01-13-2022 Lymphocytes/100 WBC (Bld) 25.0 % 19-41 [facility] Work Phone: Blood monocytes/100 leukocyt eson 01-13-2022 Monocytes/100 WBC (Bld) 10.7 % 0-10 [facility] Work Phone: Blood platelet mean volumeon 01-13-2022 Platelet mean volume (Bld) [Entitic vol] 9.7 fL 6.2-12.0 [facility] Work Phone: Determination of erythrocyte mean corpuscular volume (MCV)on 01-13-2022 MCV (RBC) [Entitic vol] 88.7 fL 80-94 [facility] Work Phone: Hematocrit Auto (Bld) [Volum e fraction]on 01-13-2022 Hematocrit (Bld) [Volume fraction] 44.7 % 40-54 [facility] Work Phone: Laboratory - Chemistry and C hemistry - challengeon 01-13-2022 ALP [Catalytic activity/Vol] 119 U/L 45-117 [facility] Work Phone: ALT [Catalytic activity/Vol] 25 U/L 16-61 [facility] Work Phone: CO2 [Moles/Vol] 28.0 mmol/L 21.0-32.0 [facility] Work Phone: Globulin (S) [Mass/Vol] 3.9 g/dL 2.2-4.2 [facility] Work Phone: Magnesium [Mass/Vol] 2.3 mg/dL 1.6-2.6 [facility] Work Phone: Urea nitrogen/Creatinine [Mass ratio] 30.4 mg/mg 10-20 [facility] Work Phone: Laboratory - Hematology and Cell countson 01-13-2022 Erythrocyte distribution width (RBC) [Entitic vol] 46.4 fL 35.1-43.9 [facility] Work Phone: Erythrocyte distribution width (RBC) [Ratio] 14.5 % 11.6-14.6 [facility] Work Phone: Immature granulocytes/100 WBC (Bld) 0.400 % 0.0-0.9 [facility] Work Phone: Comment on above: IG% - Immature Granu locytes (promyelocytes, myelocytes and metamyelocytes) > 1% indicates that a LEFT SHIFT is Present. MCH (RBC) [Entitic mass] 29.4 pg 27.0-32.0 [facility] Work Phone: Nucleated RBC/100 WBC (Bld) [Ratio] 0 % 0-5 [facility] Work Phone: MCHC Auto (RBC) [Mass/Vol]on 01-13-2022 MCHC (RBC) [Mass/Vol] 33.1 g/dL 32-36 [facility] Work Phone: No Panel Informationon 01-13 Estimated GFR (MDRD) Amer 79 mL/min >60 [facility] Work Phone: Comment on above: GFR Calc Estimated GFR (MDRD) Non-Af Amer 65 mL/min >60 [facility] Work Phone: Comment on above: Non- GFR Calc Thyroid Stimulating Hormone (TSH) 1.99 uIU/mL 0.358-3.74 [facility] Work Phone: Platelets bldon 01-13-2022 Platelets (Bld) [#/Vol] 183 10*3/uL 150-450 [facility] Work Phone: Serum or plasma albumin ana urement (mass/volume)on 01-13-2022 Albumin [Mass/Vol] 3.9 g/dL 3.2-5.0 [facility] Work Phone: Serum or plasma albumin/glob ulin mass ratioon 01-13-2022 Albumin/Globulin [Mass ratio] 1.0 {ratio} 0.9-2.4 [facility] Work Phone: Serum or plasma calcium ana urement (mass/volume)on 01-13-2022 Calcium [Mass/Vol] 9.4 mg/dL 8.5-10.1 [facility] Work Phone: Serum or plasma cholesterol in HDL measurement (mass/volume)on 01-13-2022 Cholesterol in HDL [Mass/Vol] 47 mg/dL >40 [facility] Work Phone: Comment on above: The drugs N-Acetylcy steine and Metamizole may falsely depress this assay. Reference Range HDL <40 mg/dL Low HDL Cholesterol HDL >or= 60 mg/dL High HDL Cholesterol Serum or plasma cholesterol in VLDL measurement (mass/volume)on 01-13-2022 Cholesterol in VLDL [Mass/Vol] 27 mg/dL 5-40 [facility] Work Phone: Serum or plasma creatinine m easurement (mass/volume)on 01-13-2022 Creatinine [Mass/Vol] 1.15 mg/dL 0.70-1.30 [facility] Work Phone: Comment on above: The validity of the calculated GFR & GFRAA in patients over 70 years has not been determined. Clinical correlation is essential. Serum or plasma low density lipoprotein (LDL) cholesterol measurement (mass/volume)on 01-13-2022 Cholesterol in LDL [Mass/Vol] 70 mg/dL 0-130 [facility] Work Phone: Serum or plasma urea nitroge n measurement (mass/volume)on 01-13-2022 Urea nitrogen [Mass/Vol] 35 mg/dL 7-18 [facility] Work Phone: Serum or plasma uric acid me asurement (mass/volume)on 01-13-2022 Urate [Mass/Vol] 7.2 mg/dL 3.5-7.2 [facility] Work Phone: Comment on above: The drugs N-Acetylcy steine and Metamizole may falsely depress this assay. Thin prep Papanicolaou smear with manual screeningon 01-13-2022 Thin prep Papanicolaou smear with manual screening 19 U/L 15-37 [facility] Work Phone: Thin prep Papanicolaou smear with manual screening 7 5-15 [facility] Work Phone: Whole blood hemoglobin A1c/t otal hemoglobin ratio (mass fraction)on 01-13-2022 HbA1c (Bld) [Mass fraction] 6.1 % 3.8-5.6 [facility] Work Phone: Comment on above: Normal < 5.7 % Predi abetic 5.7 - 6.4 % Diabetic >or= 6.5 % Please note range changes. Lab Report: Basic Metabolic Profile (BMP)on 09-13-2017 Anion gap 6 mmol/L Invalid Interpretation Code 5-15 [facility] Work Phone: [phone] BUN/Creatinine Ratio 24.0 RATIO High 10-20 [facility] Work Phone: [phone] Calcium 9.0 mg/dL Invalid Interpretation Code 8.5-10.1 [facility] Work Phone: [phone] Chloride 104 mmol/L Invalid Interpretation Code 98-107 [facility] Work Phone: [phone] CO2 28.0 mmol/L Invalid Interpretation Code 21.0-32.0 [facility] Work Phone: [phone] Creatinine 1.00 mg/dL Invalid Interpretation Code 0.70-1.30 [facility] Work Phone: [phone] eGFR (non-black) 78 mL/min/{1.73_m2} Invalid Interpretation Code >60 [facility] Work Phone: [phone] eGFR (non-black) 94 mL/min/{1.73_m2} Invalid Interpretation Code >60 [facility] Work Phone: [phone] Glucose mass conc 119 mg/dL High 70-110 [facility] Work Phone: [phone] Potassium molar conc 4.0 mmol/L Invalid Interpretation Code 3.5-5.1 [facility] Work Phone: [phone] Sodium 138 mmol/L Invalid Interpretation Code 136-145 [facility] Work Phone: [phone] Urea nitrogen 24 mg/dL High 7-18 [facility] Work Phone: [phone] Lab Report: CBC W/Diff, Auto matedon 09-13-2017 Absolute Neut 4.8 X10 3/UL Invalid Interpretation Code 2.0-7.7 [facility] Work Phone: [phone] Basophils/100 WBC Auto (Bld) 0.3 % Invalid Interpretation Code 0-1 [facility] Work Phone: [phone] Eosinophils/100 leukocytes 1.7 % Invalid Interpretation Code 0-5 [facility] Work Phone: [phone] Erythrocyte distribution width Auto Ratio (RBC) 13.9 % Invalid Interpretation Code 11.6-14.6 [employer] Work Phone: [phone] Erythrocytes (RBC) 4.67 10*6/uL Invalid Interpretation Code 4.6-6.2 [employer] Work Phone: [phone] Hematocrit (HCT) 41.8 % Invalid Interpretation Code 40-54 [employer] Work Phone: [phone] Hemoglobin mass conc (Bld) 14.2 g/dL Invalid Interpretation Code 13.0-16.5 [employer] Work Phone: [phone] Immature granulocytes/100 WBC (Bld) 0.400 % Invalid Interpretation Code 0.0-0.9 [employer] Work Phone: [phone] Lymphocytes 1.85 X10 3/UL Invalid Interpretation Code 0.83-4.51 [employer] Work Phone: [phone] Lymphocytes/100 leukocytes 24.3 % Invalid Interpretation Code 19-41 [employer] Work Phone: [phone] MCH 30.4 pg Invalid Interpretation Code 27.0-32.0 [employer] Work Phone: [phone] MCHC mass conc (RBC) 34.0 G/GL Invalid Interpretation Code 32-36 [employer] Work Phone: [phone] MCV 89.5 fL Invalid Interpretation Code 80-94 [employer] Work Phone: [phone] Monocytes/100 leukocytes 10.1 % High 0-10 [employer] Work Phone: [phone] Neutrophils/100 WBC Auto (Bld) 63.2 % Invalid Interpretation Code 47-70 [employer] Work Phone: [phone] Platelets 174 10*3/mm3 Invalid Interpretation Code 150-450 [employer] Work Phone: [phone] PMV by Trinh 9.8 fL Invalid Interpretation Code 6.2-12.0 [employer] Work Phone: [phone] RDW SD 45.0 fL High 35.1-43.9 [employer] Work Phone: [phone] WBC (Leukocytes) 7.6 10*3/uL Invalid Interpretation Code 4.4-11.0 [employer] Work Phone: [phone] Lab Report: T4 Total, Thyrox inon 09-13-2017 Thyroxine (T4) 9.4 ug/dL Invalid Interpretation Code 4.5-12.1 [employer] Work Phone: [phone] Lab Report: Thyroid Stim Hor julia (TSH)on 09-13-2017 Thyroid stimulating hormone (TSH) 1.59 u[iU]/mL Invalid Interpretation Code 0.358-3.74 [employer] Work Phone: [phone] Office Visit: [facility] 09-13-20 Fall risk assessment No Invalid Interpretation Code [facility] Phone: [phone] Replaced Document: [facility] E CG Observationson 09-13-2017 BUN (urea nitrogen) Atrial fibrillation -irregular conduction Low voltage in precordial leads. -Incomplete right bundle branch block. ABNORMAL Invalid Interpretation Code [facility] Phone: [phone] EKG QRS axis 69 deg Invalid Interpretation Code [facility] Phone: [phone] P [place] 1 deg Invalid Interpretation Code [facility] Phone: [phone] MA Interval 0 ms Invalid Interpretation Code [facility] Phone: [phone] Pulse (Heart Rate) 93 /min Invalid Interpretation Code [facility] Phone: [phone] QRS Duration 112 ms Invalid Interpretation Code [employer] Work Phone: [phone] QT Interval new path ms Invalid Interpretation Code [facility] Phone: [phone] QTc [place] 401 ms Invalid Interpretation Code [facility] Phone: [phone] T [place] 45 deg Invalid Interpretation Code [facility] Phone: [phone] Office Visiton 03-03-2017 Documentation of current medications (procedure) Done Invalid Interpretation Code [facility] Phone: [phone] Clinical Lists Update: Prelo financial services counselor 03-02-2017 Left ventricular Ejection fraction 60 % Invalid Interpretation Code [facility] Phone: [phone] Office Visit: [facility] 08-31-20 16 Dietary management education, guidance, and counseling (procedure) yes Invalid Interpretation Code [facility] Phone: [phone] Lab Report: Basic Metabolic Profile (BMP)on 09-02-2015 Anion gap 7 mmol/L Invalid Interpretation Code 5-15 [facility] Phone: [phone] BUN/Creatinine Ratio 35.2 RATIO High 10-20 [facility] Work Phone: [phone] Calcium 9.4 mg/dL Invalid Interpretation Code 8.5-10.1 [facility] Phone: [phone] Chloride 103 mmol/L Invalid Interpretation Code 98-107 [employer] Work Phone: [phone] CO2 30.0 mmol/L Invalid Interpretation Code 21.0-32.0 [facility] Phone: [phone] Creatinine 1.08 mg/dL Invalid Interpretation Code 0.70-1.30 [facility] Phone: [phone] eGFR (non-black) 86 mL/min/{1.73_m2} Invalid Interpretation Code >60 [employer] Work Phone: [phone] eGFR (non-black) 71 mL/min/{1.73_m2} Invalid Interpretation Code >60 [facility] Phone: [phone] Glucose mass conc 102 mg/dL Invalid Interpretation Code 70-110 [employer] Work Phone: [phone] Potassium molar conc 4.0 mmol/L Invalid Interpretation Code 3.5-5.1 [facility] Phone: [phone] Sodium 140 mmol/L Invalid Interpretation Code 136-145 [facility] Phone: [phone] Urea nitrogen 38 mg/dL High 7-18 [facility] Phone: [phone] Office Visiton 03-04-2015 cardiac risk group B Invalid Interpretation Code [facility] Phone: [phone] General cardiovascular disease 10Y risk [#] [place].D'Agoneftali Not enough information Invalid Interpretation Code [facility] Phone: [phone] Tobacco use [facility] Former smoker Invalid Interpretation Code [facility] Work Phone: [phone] Culture, urine Bacteria identified Cx Nom (U) Mixed Gram Pos & Gram Neg Org [facility] Work Phone: Vital Signs Date Time Vital Sign Value Performing Clinician Faci lity 12-03-2024 13:11-0500 Body height 182.[address] Jerrod Viramontes MD Work Phone: [facility] 12-03-2024 13:11-0500 Body mass index (BMI) [Ratio] 31.8 kg/m2 Dr. Jerrod Viramontes MD Work Phone: [facility] 12-03-2024 13:11-0500 Body temperature 97.9 [degF] Dr. Jerrod Viramontes MD Work Phone: [facility] 12-03-2024 13:11-0500 Body weight 106.[address] Jerrod Viramontes MD Work Phone: [facility] 12-03-2024 13:11-0500 Diastolic blood pressure 90 mm[Hg] Dr. Jerrod Viramontes MD Work Phone: [facility] 12-03-2024 13:11-0500 Heart rate 76 /min Dr. Jerrod Viramontes MD Work Phone: [facility] 12-03-2024 13:11-0500 Respiratory rate 18 /min Dr. Jerrod Viramontes MD Work Phone: [facility] 12-03-2024 13:11-0500 SaO2% (BldA) [Mass fraction] 97 % Dr. Jerrod Viramontes MD Work Phone: [facility] 12-03-2024 13:11-0500 Systolic blood pressure 138 mm[Hg] Dr. Jerrod Viramontes MD Work Phone: [facility] 09-20-2023 10:44-0500 Body height 182.[address] Jerrod Viramontes Work Phone: [facility] 09-20-2023 10:44-0500 Body mass index (BMI) [Ratio] 35.2 kg/m2 Dr. Jerrod Viramontes Work Phone: [facility] 09-20-2023 10:44-0500 Body weight 117.[address] Jerrod Viramontes Work Phone: [facility] 09-20-2023 10:44-0500 Diastolic blood pressure 87 mm[Hg] Dr. Jerrod Viramontes Work Phone: [facility] 09-20-2023 10:44-0500 Heart rate 78 /min Dr. Jerrod Viramontes Work Phone: [facility] 09-20-2023 10:44-0500 Respiratory rate 20 /min Dr. Jerrod Viramontes Work Phone: [facility] 09-20-2023 10:44-0500 SaO2% (BldA) [Mass fraction] 97 % Dr. Jerrod Viramontes Work Phone: [facility] 09-20-2023 10:44-0500 Systolic blood pressure 130 mm[Hg] Dr. Jerrod Viramontes Work Phone: [facility] 03-21-2023 10:26-0400 Body height 182.[address] Jerrod Viramontes Work Phone: [facility] 03-21-2023 10:26-0400 Body mass index (BMI) [Ratio] 35.8 kg/m2 Dr. Jerrod Viramontes Work Phone: [facility] 03-21-2023 10:26-0400 Body weight 119.[address] Jerrod Viramontes Work Phone: [facility] 03-21-2023 10:26-0400 Diastolic blood pressure 82 mm[Hg] Dr. Jerrod Viramontes Work Phone: [facility] 03-21-2023 10:26-0400 Heart rate 52 /min Dr. Jerrod Viramontes Work Phone: [facility] 03-21-2023 10:26-0400 Respiratory rate 20 /min Dr. Jerrod Viramontes Work Phone: [facility] 03-21-2023 10:26-0400 SaO2% (BldA) [Mass fraction] 97 % Dr. Jerrod Viramontes Work Phone: [facility] 03-21-2023 10:26-0400 Systolic blood pressure 119 mm[Hg] Dr. Jerrod Viramontes Work Phone: [facility] 04-01-2022 10:12-0400 Body height 182.[address] Jerrod Viramontes Work Phone: [facility] Work Phone: 04-01-2022 10:12-0400 Body mass index (BMI) [Ratio] 34.4 kg/m2 Dr. Jerrod Viramontes Work Phone: [facility] Work Phone: 04-01-2022 10:12-0400 Body weight 115.[address] Jerrod Viramontes Work Phone: [facility] Work Phone: 04-01-2022 10:12-0400 Diastolic blood pressure 77 mm[Hg] Dr. Jerrod Viramontes Work Phone: [facility] Work Phone: 04-01-2022 10:12-0400 Heart rate 78 /min Dr. Jerrod Viramontes Work Phone: [facility] Work Phone: 04-01-2022 10:12-0400 Respiratory rate 16 /min Dr. Jerrod Viramontes Work Phone: [facility] Work Phone: 04-01-2022 10:12-0400 SaO2% (BldA) [Mass fraction] 98 % Dr. Jerrod Viramontes Work Phone: [facility] Work Phone: 04-01-2022 10:12-0400 Systolic blood pressure 121 mm[Hg] Dr. Jerrod Viramontes Work Phone: [facility] Work Phone: 09-13-2017 13:23-0500 BMI (Body Mass Index) 34.04 kg/m2 [facility] Work Phone: 09-13-2017 13:23-0500 BP Diastolic 88 mm[Hg] [facility] Work Phone: 09-13-2017 13:23-0500 BP Systolic 120 mm[Hg] [facility] Work Phone: 09-13-2017 13:23-0500 Height 185.42 cm [facility] Work Phone: 09-13-2017 13:23-0500 Pulse (Heart Rate) 93 /min [facility] Work Phone: 09-13-2017 13:23-0500 Respiratory Rate 20 /min [facility] Work Phone: 09-13-2017 13:23-0500 Weight 117.03 kg [facility] Work Phone: 08-31-2016 11:02-0500 BSA (Body Surface Area) 2.43 m2 [facility] Work Phone: Encounters Encounter Date Encounter Type Care Provider Facility Start: 05-14-2025 ambulatory Jerrod Viramontes [facility] y:[facility] Start: 03-15-2025 End: 03-15-[address] Jerrod Viramontes MD Work Phone: [facility] Work Phone: Start: 03-15-2025 End: 03-15-[address] Jerrod Viramontes MD -[facility] Work Phone: Start: 03-15-2025 End: 03-15-2025 ambulatory Jerrod Viramontes Facility:[facility] Start: 02-04-2025 End: 02-04-[address] Bola Boone MD -[facility] Work Phone: Start: 02-04-2025 End: 02-04-2025 ambulatory Jerrod Viramontes Facility:[facility] Start: 12-03-2024 End: 12-03-[address] Kevin Golden MD -[facility] Work Phone: Start: 12-03-2024 End: 12-03-2024 ambulatory Jerrod Viramontes Facility:[facility] Start: 12-03-2024 Encounter for other preprocedural examination [facility] Start: 11-22-2024 End: 11-22-[address] Jerrod Viramontes MD -[facility] Work Phone: Start: 11-22-2024 End: 11-22-2024 ambulatory Jerrod Viramontes Facility:[facility] Start: 10-29-2024 ambulatory Jerrod Viramontes Facilit y:[facility] Start: 10-29-2024 End: 10-29-2024 ambulatory Jerrod Viramontes Facility:[facility] Start: 10-19-2024 End: 10-19-2024 ambulatory Jerrod Viramontes Facility:[facility] Start: 10-02-2024 End: 10-02-2024 ambulatory Jerrod Viramontes Facility:[facility] Start: 09-24-2024 ambulatory Felipe Love Facility:[facility] Start: 09-22-2024 ambulatory Delfina Martínez Facility:[facility] Start: 09-21-2024 ambulatory Eun Muhammad Facility:[facility] Start: 09-21-2024 End: 09-24-2024 Evaluation and management of inpatient Felipe Verdin Facility:[facility] Start: 09-12-2024 End: 09-12-2024 ambulatory Bola Boone Facility:[facility] Start: 09-11-2024 End: 09-11-2024 ambulatory Jerrod Viramontes Facility:[facility] Start: 09-04-2024 End: 09-04-2024 ambulatory Bola Boone Facility:[facility] Start: 08-10-2024 End: 08-10-2024 ambulatory Jerrod Viramontes Facility:[facility] Start: 07-03-2024 End: 07-03-2024 ambulatory Jerrod Viramontes Facility:[facility] Start: 06-26-2024 End: 06-26-2024 ambulatory Jerrod Viramontes Facility:[facility] Start: 10-03-2023 End: 10-03-[address] Jerrod Viramontes Work Phone: [facility] Work Phone: Start: 10-03-2023 End: 10-03-[address] Jerrod Viramontes Work Phone: [facility] Start: 09-20-2023 End: 09-20-[address] Jerrod Viramontes Work Phone: [facility] Work Phone: Start: 06-17-2023 End: 06-17-[address] Jerrod Viramontes Work Phone: [facility] Work Phone: Start: 06-17-2023 End: 06-17-[address] Jerrod Viramontes Work Phone: [facility] Work Phone: Start: 06-15-2023 End: 06-15-[address] Jerrod Viramontes Work Phone: [facility] Work Phone: Start: 06-15-2023 End: 06-15-[address] Jerrod Viramontes Work Phone: [facility] Start: 03-21-2023 End: 03-21-[address] Jerrod Viramontes Work Phone: [facility] Work Phone: Start: 09-23-2022 End: 09-23-2022 ambulatory [facility] Work Phone: Start: 09-23-2022 End: 09-23-2022 Patient encounter procedure [facility] Start: 06-08-2022 End: 06-08-[address] Jerrod Viramontes Work Phone: [facility] Work Phone: Start: 06-08-2022 End: 06-08-[address] Jerrod Viramontes Work Phone: [facility] Start: 05-11-2022 End: 05-11-[address] Jerrod Viramontes Work Phone: [facility] Start: 04-01-2022 End: 04-01-[address] Jerrod Viramontes Work Phone: [facility] Start: 01-19-2022 End: 01-19-2022 Patient encounter procedure [facility] Start: 01-13-2022 End: 01-13-2022 Patient encounter procedure [facility] Procedures Date Procedure Procedure Detail Performing Clinician Start: 03-15-[address] Jerrod Viramontes MD Work Phone: Start: 03-15-2025 Vitamin D, 25-hydrox y measurement Dr. Jerrod Viramontes MD Work Phone: Comment on above: Vitamin D StatusDefi ciency: <20 ng/mL (50nmol/L)Insufficiency: 20-30 ng/mL (50-75 nmol/L)Sufficiency: 30-100 ng/mL (75-250 nmol/L)Toxicity: >100 ng/mL (>250 nmol/L) Start: 11-22-2024 Urnls dip stick/tabl et reagent auto microscopy Dr. Jerrod Viramontes MD Work Phone: Start: 10-03-[address] Jerrod Viramontes Work Phone: Start: 06-17-2023 Bacteria identified in Urine by Culture Dr. Jerrod Viramontes Work Phone: Start: 06-17-[address] Jerrod Viramontes Work Phone: Start: 01-19-2022 Radiologic examinati on of knee Start: 09-13-2017 End: 09-15-2017 *BMP Jolly Knight PA-C Work Phone: Start: 09-13-2017 End: 09-15-2017 *CBC with Differential Jolly michele PA-C Work Phone: Start: 09-13-2017 End: 09-13-2017 POSTIE Jolly Knight PA-C Work Phone: Start: 09-13-2017 [...] months Dallin Gamble Start: 03-03-2017 End: 08-18-2017 MMDallin Banda MD Start: 08-31-2016 End: 08-31-2016 POSTIE Jolly Knight PA-C Work Phone: Start: 08-31-2016 End: [...] PA-C Work Phone: Start: 09-02-2015 End: 09-02-2015 POSTIE Jolly Knight PA-C Work Phone: Start: 09-02-2015 [...] PILO Banda MD Start: 08-22-2014 End: 08-22-2014 HUE Knight PA-C Work Phone: Start: 08-22-2014 End: 08-22-2014 Follow Up Appt 6 months Jolly hernandez PA-C Work Phone: Start: 04-11-2014 End: 04-11-2014 Ecg routine ecg w/least 12 lds w/i&r Scott S Veronika, MD Start: 04-11-2014 End: 08-05-2014 Follow Up Appt 4 months Dallin Gamble Start: 04-11-2014 End: 04-11-2014 PILO Banda MD Start: 10-11-2013 End: 10-11-2013 HUE Knight PA-C Work Phone: Start: 10-11-2013 End: 10-11-2013 Follow Up Appt 6 months Jolly hernandez PA-C Work Phone: Start: 03-30-2013 End: 09-26-2013 Follow Up Appt 6 months Dallin Gamble Start: 03-30-2013 End: 09-26-2013 MMDallin Banda MD Start: 03-30-2013 End: 04-10-2013 Nuclear stress test -adenosine Scott Banda MD Start: 02-07-2013 End: 02-19-2013 24 hour holter monitor Scott Banda MD Start: 02-07-2013 End: 02-07-2013 POSTIE Scott Banda MD Start: 02-07-2013 End: 02-07-2013 Ecg routine ecg w/least 12 lds w/i&r Scott Banda MD Start: 02-07-2013 End: 02-09-2013 Echocardiography Scott Banda MD Start: 02-07-2013 End: 02-07-2013 Follow Up Appt 6 weeks Scott Banda MD Start: 02-07-2013 End: 02-09-2013 Natriuretic peptide B [Mass/volume] in Blood Sctot Banda MD Urine culture Dr. Jerrod magallon Work Phone: Plan of Treatment Date Care Activity Detail Author Start: 03-21-2018 End: 03-21-2018 Appointment Appointment [facility] Work Phone: Start: 09-13-2017 End: 09-15-2017 *BMP *BMP [facility] Work Phone: Start: 09-13-2017 End: 09-15-2017 *CBC with Differential *CBC with Differential [facility] Work Phone: Start: 09-13-2017 End: 09-13-2017 POSTIE POSTIE [facility] Work Phone: Start: 09-13-2017 End: 09-13-2017 Follow Up Appt 6 months Follow Up Appt 6 months [facility] Work Phone: Start: 09-13-2017 End: 09-15-2017 Thyroid stimulating hormone (TSH) *TSH [facility] Work Phone: Start: 09-13-2017 End: 09-15-2017 Thyroxine (T4) *T4 (Total) [facility] Work Phone: Start: 09-13-2017 End: 09-13-2017 Appointment Appointment [facility] Work Phone: Start: 03-03-2017 End: 08-18-2017 Follow Up Appt 6 months Follow Up Appt 6 months [facility] Work Phone: Start: 03-03-2017 End: 08-18-2017 MMM MMM [facility] Work Phone: Start: 08-31-2016 End: 08-31-2016 POSTIE POSTIE [facility] Work Phone: Start: 08-31-2016 End: 08-31-2016 Follow Up Appt 6 months Follow Up Appt 6 months [facility] Work Phone: Start: 08-31-2016 End: 08-18-2017 Follow Up Appt Other Follow Up Appt Other [facility] Work Phone: Start: 03-02-2016 End: 03-03-2016 Chest x-ray X-Ray, Chest, PA & Lateral [facility] Work Phone: Start: 03-02-2016 End: 03-02-2016 Follow Up Appt 6 months Follow Up Appt 6 months [facility] Work Phone: Start: 03-02-2016 End: 03-02-2016 MMM MMM [facility] Work Phone: Start: 09-02-2015 End: 09-02-2015 *BMP *BMP [facility] Work Phone: Start: 09-02-2015 End: 09-02-2015 POSTIE POSTIE [facility] Work Phone: Start: 09-02-2015 End: 09-02-2015 Ecg routine ecg w/least 12 lds w/i&r EKG (In office) [facility] Work Phone: Start: 09-02-2015 End: 09-02-2015 Follow Up Appt 6 months Follow Up Appt 6 months [facility] Work Phone: Start: 03-04-2015 End: 03-04-2015 Follow Up Appt 6 months Follow Up Appt 6 months [facility] Work Phone: Start: 03-04-2015 End: 03-04-2015 MMM MMM [facility] Work Phone: Start: 08-22-2014 End: 08-22-2014 POSTIE POSTIE [facility] Work Phone: Start: 08-22-2014 End: 08-22-2014 Follow Up Appt 6 months Follow Up Appt 6 months [facility] Work Phone: Start: 04-11-2014 End: 04-11-2014 Ecg routine ecg w/least 12 lds w/i&r EKG (In office) [facility] Work Phone: Start: 04-11-2014 End: 08-05-2014 Follow Up Appt 4 months Follow Up Appt 4 months [facility] Work Phone: Start: 04-11-2014 End: 04-11-2014 MMM MMM [facility] Work Phone: Start: 10-11-2013 End: 10-11-2013 POSTIE POSTIE [facility] Work Phone: Start: 10-11-2013 End: 10-11-2013 Follow Up Appt 6 months Follow Up Appt 6 months [facility] Work Phone: Start: 03-30-2013 End: 09-26-2013 Follow Up Appt 6 months Follow Up Appt 6 months [facility] Work Phone: Start: 03-30-2013 End: 09-26-2013 MMM MMM [facility] Work Phone: Start: 03-30-2013 End: 03-30-2013 Nuclear stress test -adenosine Nuclear stress test -adenosine [facility] Work Phone: Start: 02-07-2013 End: 02-07-2013 24 hour holter monitor 24 hour holter monitor [facility] Work Phone: Start: 02-07-2013 End: 02-09-2013 BNP *Brain Natriuretic Peptide BNP [facility] Work Phone: Start: 02-07-2013 End: 02-07-2013 POSTIE POSTIE [facility] Work Phone: Start: 02-07-2013 End: 02-07-2013 Ecg routine ecg w/least 12 lds w/i&r EKG (In office) [facility] Work Phone: Start: 02-07-2013 End: 02-07-2013 Echocardiography Echocardiogram (complete) [facility] Work Phone: Start: 02-07-2013 End: 02-07-2013 Follow Up Appt 6 weeks Follow Up Appt 6 weeks [facility] Work Phone: Immunizations Immunization Date Immunization Notes Care Provider Fa rosa elena 01-07-2021 Covid (Moderna) [facility] 12-10-2020 Covid (Moderna) [facility] 09-17-2014 tetanus and diphther ia toxoids, adsorbed, preservative free, for adult use (2 Lf of tetanus toxoid and 2 Lf of diphtheria toxoid) [facility] Payers Date Payer Category Payer Self-pay [id number] 2024 Unknown [id number] Medicare [id number] Private Health Insurance [id number] Private Health Insurance [facility] [id number] [facility] [id number] Unknown [id number] Unknown [id number] 2.16.840.1.313915.3.579.2.4 62 Unknown [id number] 2.16.840.1.382458.3.579.2.4 62 Unknown [id number] 2.16.840.1.022176.3.579.2.4 62 Unknown [id number] 2.16.840.1.827962.3.579.2.4 62 Unknown [id number] 2.16.840.1.945096.3.579.2.4 62 Unknown [id number] 2.16.840.1.849317.3.579.2.4 62 Unknown [id number] 2.16.840.1.150009.3.579.2.4 62 Unknown [id number] 2.16.840.1.834115.3.579.2.4 62 Unknown [id number] 2.16.840.1.441825.3.579.2.4 62 Unknown [id number] 2.16.840.1.513864.3.579.2.4 62 Unknown [id number] 2.16.840.1.992676.3.579.2.4 62 Unknown [id number] 2.16.840.1.642118.3.579.2.4 62 Unknown [id number] 2.16.840.1.153951.3.579.2.4 62 Unknown [id number] 2.16.840.1.309708.3.579.2.4 62 Unknown [id number] 2.16.840.1.691607.3.579.2.4 62 Unknown [id number] 2.16.840.1.781420.3.579.2.4 62 Unknown [id number] 2.16.840.1.278804.3.579.2.4 62 Unknown [id number] 2.16.840.1.289796.3.579.2.4 62 Unknown [id number] 2.16.840.1.515142.3.579.2.4 62 Unknown [id number] 2.16.840.1.434321.3.579.2.4 62 Unknown [id number] 2.16.840.1.024127.3.579.2.4 62 Unknown [id number] 2.16.840.1.495722.3.579.2.4 62 Social History Date Type Detail Facility Start: 03-25-2021 End: 09-20-2023 Tobacco smoking status NHIS Unknown if ever smoked [facility] Start: 1940 Sex Assigned At Male [facility] Start: 10-29-2024 Tobacco smoking stat us MEIS Ex-smoker (finding) [facility] Clinical Notes 03-05-2021 to 12-03-2024 Note Date & Type Note Facility 12-03-2024 Evaluation note Diagnosis Onset Date Resolution Abnormal positron emission tomography (PET) scan acute December 03, 2 025 12:53pm [facility] Work Phone: 1(433) 992-246712-09-2024 [facility] Medical Records Department [address] [facility] [place] [address] Discharge Summary 09/24/24 1454 MR#: [id number] Acct: [id number] Name: HARRY LICEA Rep #: [id number] : 1940 83 From: Felipe Verdin DO PCP: Dr. Jerrod Viramontes MD Status:ADM IN Location: [place] [address] Providers Date of Admission: 09/21/24 Primary Care Physician: Dr. Jerrod Viramontes MD Reason For Visit: CONCERN FOR HP EXACERBATION Diagnosis Discharge Diagnosis (1) Fluid overload: Status: Acute Code(s): E87.70 - Fluid overload, unspecified Plan Bilateral DVTs * had previously been on apixaban for afib * Duplex shows bilateral LE DVTs * apixaban 10 BID then 5 after 1 week acute HFpEF ruled out * Echo on 09/22 showed EF 55 to 60%, no diastolic dysfunction and no right heart issues. Notably last echo in 2018 showed mild concentric LV hypertrophy and elevated PASP. Hyponatremia, resolved * probably 2/2 HCTZ. Improved. Would not resume HCTZ upon discharge. Acute gout flare * pt said his right foot was very painful * No evidence of cellulitis. DC abx. * uric acid 11.6 * has been on colchicine * resume allopurinol 100 for 1 week, then increase to 300/d * colchicine PRN. Acute on chronic debility: [facility] Chronic conditions: * Recent urethral surgery for bladder tumor??? Follows with Dr. Boone. S/p internal urethrotomy of urethral strictures and transurethral resection of large bladder tumor on 09/12. Catheter placed postprocedure with plan to leave in for 2 weeks with office visit for removal scheduled for 09/27. If patient remains inpatient till then, will discuss with urology on if catheter can be removed at that time. * Class I obesity: BMI 34 on admit. Complicates hospital course, care and prognosis.History of DVT and A-fib: Eliquis on hold through 09/26 after recent urethral surgery. Continue home Toprol. * History of COPD: Stable on room air, not in exacerbation. Continue home inhalers. DVT prophylaxis: Lovenox CODE STATUS: Full code, unverified DC home. DW family at bedside. Medications at Discharge Home Medications albuterol sulfate 90 mcg/actuation aerosol inhaler 2 puff inhalation Q4H PRN shortness of breath or wheezing 90 days 03/25/21 atorvastatin 40 mg tablet 40 mg PO QHS unknown 03/25/21 fluticasone fur. 200 mcg-umeclid 62.5 mcg-vilant 25 mcg inhalat.powder 1 inh inhalation DAILY unknow 03/25/21 magnesium oxide 400 mg PO TID unknown 03/25/21 furosemide 40 mg tablet 40 mg PO DAILY #90 tabs 12/21/23 metoprolol succinate 50 mg tablet,extended release 24 hr 50 mg PO DAILY #90 tabs 04/11/24 ergocalciferol (vitamin D2) 1,250 mcg (50,000 unit) capsule (Vitamin D2) 1,250 mcg PO .QWEEKLY unknown 08/30/24 latanoprost 0.005 % eye drops 1 drp ophthalmic (eye) DAILY unknown 08/30/24 acetaminophen 325 mg tablet 1,000 mg (3.0769 x 325 mg) PO Q8H PRN Pain 1-10 Or Fever >100.7 #0 tabs 09/24/24 allopurinol 100 mg tablet 100 mg PO DAILY #90 tabs 09/24/24 apixaban 5 mg tablet (Eliquis) 5 mg PO BID #60 TABLETS 09/24/24 colchicine 0.6 mg capsule 0.6 mg PO BID PRN gout flare #30 caps 09/24/24 losartan 100 mg tablet 100 mg PO DAILY #30 tabs 09/24/24 Hospital Course Operations None Procedures 2-D Echocardiogram Summary of Care Provided Minutes Spent on Discharge: 45 Hospital Course: Patient presents with increased lower extremity swelling. No show I felt with heart failure and patient started on IV Lasix. The patient was complaining of pain on the bottom of his foot particularly his right. Uric acid was 11.6. Previously had been on allopurinol but had been discontinued at some point before. Duplex showed bilateral lower extremities having DVTs. Patient had been on apixaban but has been held due to his recent bladder surgery. Patient has not had no further hematuria patient will be resumed on apixaban 10 mg daily and then to initiate 5 mg daily. Patient did have some foot pain but I do not feel was related with the swelling nor the DVTs were probably due to an acute gout flare which is currently improved. Patient had been started on scheduled colchicine. Being that his gout flare has resolved patient will be started on allopurinol. I discussed with the family at length about initiation of allopurinol and that may lead to further gout flares and to take colchicine as needed for those gout flares but to continue with the allopurinol. Patient was weak but overall doing better particular since his feet feel better. Patient be discharged home with home care. Additionally, he had hyponatremia. This is likely due to his hydrochlorothiazide which will be discontinued. Weight / BMI Weight Weight: 114.7 kg Body Mass Index (BMI) 34.2 ABG / Lab / Microbiology Data 09/23/24 05:03 09/24/24 03:22 Laboratory: Laboratory Results - last 24 hr 09/24/24 03:22: So (more content not included)...[facility] 09-12-2024 [facility] Medical Records Department [address] [place] [address] History Physical Exam 09/12/24 1106 MR#: [id number] Acct: [id number] Name: HARRY LICEA Rep #: [id number] : 1940 83 From: Bola Boone MD PCP: Dr. Jerrod Viramontes MD Status:[facility] Location: [address] - General General Date of Service: 09/12/24 Chief Complaint: Urethral stricture and bladder cancer HPI Narrative HARRY LICEA, is a 83 M who presents to the hospital to dilate a urethral stricture he was found to have a very dense mid urethral stricture in the office on cystoscopy also on CAT scan is a very large tumor in his bladder so we plan to do a cystoscopy dilation urethral stricture resection of the tumor and Sin placement [facility] Medical History (Updated 08/30/24 @ 14:52 by Breonna Leggett) Wears glasses Gout DVT (deep venous thrombosis) Excessive bleeding Migraine headache Gastric reflux Former smoker History of edema History of echocardiogram Hypertension Cardiology follow-up encounter Obesity, Class II, BMI 35-39.9 Thyroid nodule Deep vein thrombosis, lower left extremity (06/2019) Longstanding persistent atrial fibrillation Secondary pulmonary arterial hypertension Essential (primary) hypertension Glaucoma ED (erectile dysfunction) BPH (benign prostatic hyperplasia) Incomplete right bundle branch block COPD (chronic obstructive pulmonary disease) Hyperlipidemia Home Medications ???Medication ???Instructions ???Recorded ???Last Taken ???Type losartan 100 1 tab PO DAILY 03/25/20 09/11/24 History mg-hydrochlorothiazide 25 mg tablet albuterol sulfate 90 mcg/actuation 2 puff inhalation Q4H PRN 03/25/21 08/23/24 History aerosol inhaler shortness of breath or wheezing 90 days atorvastatin 40 mg tablet 40 mg PO QHS 03/25/21 09/09/24 History fluticasone fur. 200 mcg-umeclid 1 inh inhalation DAILY 03/25/21 09/09/24 History 62.5 mcg-vilant 25 mcg inhalat.powder magnesium oxide 400 mg PO TID 03/25/21 09/11/24 History furosemide 40 mg tablet 40 mg PO DAILY #90 tabs 12/21/23 09/05/24 Rx apixaban 5 mg tablet (Eliquis) 5 mg PO BID #180 TABLETS 12/28/23 08/23/24 Rx metoprolol succinate 50 mg 50 mg PO DAILY #90 tabs 04/11/24 09/12/24 Rx tablet,extended release 24 hr empagliflozin 25 mg tablet 25 mg PO DAILY 08/30/24 09/09/24 History (Jardiance) ergocalciferol (vitamin D2) 1,250 1,250 mcg PO .QWEEKLY 08/30/24 09/09/24 History mcg (50,000 unit) capsule (Vitamin D2) latanoprost 0.005 % eye drops 1 drp ophthalmic (eye) DAILY 08/30/24 09/05/24 History Allergy/AdvReac Type Severity Reaction Status Date / Time No Known Allergies Allergy Verified 09/12/24 10:39 Family History (Reviewed 09/20/23 @ 10:56 by Jerrod Fontanez MACHINE SETTER AND REPAIRER, MACHINE SETTER AND REPAIRER-C) Father Myocardial infarction Mother CVA (cerebral vascular accident) Brother CVA (cerebral vascular accident) Sister CVA (cerebral vascular accident) Surgical History (Updated 08/30/24 @ 14:52 by Breonna Leggett) Hx of bilateral cataract extraction History of back surgery Social History (Reviewed 09/20/23 @ 10:56 by Jerrod Fontanez MACHINE SETTER AND REPAIRER, MACHINE SETTER AND REPAIRER-C) Smoking Status: Former smoker how long ago did patient quit smokin's for cigarettes, 1991 for chewing tobacco alcohol intake: current alcohol intake frequency: a few times a week Alcohol type: hard liquor substance use type: does not use caffeine: Yes Type: coffee Number of servings: 2 Vital Signs Vital Signs Vital Signs: 09/12/24 10:43 09/12/24 10:43 Temperature 97.7 F L Temperature Source Temporal Pulse Rate 105 H Respiratory Rate 16 Respiratory Pattern Normal Blood Pressure 141/87 H Blood Pressure Mean 105 Blood Pressure Source Monitor Blood Pressure Position Sitting Blood Pressure Location Right Arm Pulse Ox 99 Oxygen Delivery Method Room Air Weight Weight: 109 kg Body Mass Index (BMI) 32.5 09/12/24 1106 Cosigner Signature (if applicable): CC: Dr. Jerrod Viramontes MD; Dr. Bola Boone MD [facility] NoteHNO ID: [id number] Author: Marylin Su RN Service: ? Author Type: Registered Nurse Type: Progress Notes Filed: 04/17/2021 3:02 PM Note Text: [facility] TELEPHONIC OUTREACH Provider Action/FYI: COPD Spoke with pt who reports his primary is Dr Viramontes. Pt reports he doesn't have any doctors at [facility] anymore. PCP field updated.[facility]07-01-2021 NotePatient Outreach ([facility]) HARRY LICEA ([id number]) 1940 M Date Time Provider Department 04/16/21 MARYLIN SU During your visit today, we recorded the following information about you: Marylin Su RN 04/17/2021 3:02 PM Signed [employer] [facility] TELEPHONIC OUTREACH Provider Action/FYI: COPD Contact made with patient: No - Left message - Bradley my name is Marylin juarez Clinical Social Work Aide from the [facility] I am calling today for your bi-weekly check in. I am sorry I missed your call. I will reach out to you again tomorrow. (if the third call I will reach out to you again next week) Enter next patient outreach date for the following day using the Track Pt Outreach. End outreach. Marylin Su RN 04/17/2021 3:02 PM Signed [facility] TELEPHONIC OUTREACH Provider Action/FYI: COPD Spoke with pt who reports his primary is Dr Viramontes. Pt reports he doesn't have any doctors at [facility] anymore. PCP field updated. Allergies As of [...] for malignant neoplasm *09/04/2015 Encounter Status:Closed by MARYLIN SU on 04/17/21[facility] 04-16-2021 NoteHNO ID: [id number] Author: Marylin Su RN Service: ? Author Type: Registered Nurse Type: Progress Notes Filed: 04/17/2021 3:02 PM Note Text: [facility] TELEPHONIC OUTREACH Provider Action/FYI: COPD Contact made with patient: No - Left message - Hello my name is Marylin juarez Clinical Social Work Aide from the [facility] I am calling today for your bi-weekly check in. I am sorry I missed your call. I will reach out to you again tomorrow. (if the third call I will reach out to you again next week) Enter next patient outreach date for the following business day using the Track Pt Outreach. End outreach.[facility]06-21-2021 NoteHNO ID: [id number] Author: Marylin Su RN Service: ? Author Type: Registered Nurse Type: Progress Notes Filed: 04/06/2021 11:26 AM Note Text: [facility] TELEPHONIC OUTREACH Provider Action/FYI: COPD Contact made with patient: No - Left message - Hello my name is Marylinbrittany juarez Clinical Social Work Aide from the [facility] I am calling today for your bi-weekly check in. I am sorry I missed your call. I will reach out to you again tomorrow. (if the third call I will reach out to you again next week) Enter next patient outreach date for the following business day using the Track Pt Outreach. End outreach.[facility]06-18-2021 NotePatient Outreach ([facility] VINAYAKHARRY Arnulfo ([id number]) 1940 M Date Time Provider Department 04/03/21 MARYLIN SUDonna During your visit today, we recorded the following information about you: Marylin Su RN 04/06/2021 11:26 AM Signed [facility] TELEPHONIC OUTREACH Provider Action/FYI: COPD Needs PCP follow up Contact made with patient: No - Left message - Hello my name is Marylin juarez Clinical Social Work Aide from the [facility] I am calling today for your bi-weekly check in. I am sorry I missed your call. I will reach out to you again tomorrow. (if the third call I will reach out to you again next week) Enter next patient outreach date for the following business day using the Track Pt Outreach. End outreach. Marylin Su RN 04/06/2021 11:26 AM Signed [employer] [facility] TELEPHONIC OUTREACH Provider Action/FYI: COPD Contact made with patient: No - Left message - Hello my name is Marylin juarez Clinical Social Work Aide from the [facility] I am calling today for your bi-weekly [...] for malignant neoplasm *09/04/2015 Encounter Status:Closed by MARYLIN SU on 04/06/21[facility] 04-03-2021 NoteHNO ID: [id number] Author: Marylin Su RN Service: ? Author Type: Registered Nurse Type: Progress Notes Filed: 04/06/2021 11:26 AM Note Text: [facility] TELEPHONIC OUTREACH Provider Action/FYI: COPD Needs PCP follow up Contact made with patient: No - Left message - Bradley my name is Marylin juarez Clinical Social Work Aide from the [facility] I am calling today for your bi-weekly check in. I am sorry I missed your call. I will reach out to you again tomorrow. (if the third call I will reach out to you again next week) Enter next patient outreach date for the following business day using the Track Pt Outreach. End outreach.[facility]06-04-2021 NoteHNO ID: [id number] Author: Marylin Su RN Service: ? Author Type: Registered Nurse Type: Progress Notes Filed: 03/20/2021 10:32 AM Note Text: [employer] [facility] TELEPHONIC OUTREACH Provider Action/FYI: COPD Needs PCP follow up. Contact made with patient: No - Unable to leave message - entered next patient outreach date for the following business day in the Track Pt. Outreach - [facility] NotePatient Outreach ([facility]) HARRY LICEA ([id number]) 1940 M Date Time Provider Department 03/19/21 [facility] During your visit today, we recorded the following information about you: Marylin Su RN 03/20/2021 10:32 AM Signed [employer] [facility] TELEPHONIC OUTREACH Provider Action/FYI: COPD Needs PCP follow up. Contact made with patient: No - Left message - Hello my name is Marylin juarez Clinical Social Work Aide from the [facility] I am calling today for your bi-weekly check in. I am sorry I missed your call. I will reach out to you again tomorrow. (if the third call I will reach out to you again next week) Enter next patient outreach date for the following business day using the Track Pt Outreach. End outreach. Marylin Su RN 03/20/2021 10:32 AM Signed [employer] [facility] TELEPHONIC OUTREACH Provider Action/FYI: COPD Needs PCP [...] for malignant neoplasm *09/04/2015 Encounter Status:Closed by MARYLIN SU on 03/20/21[facility] 03-19-2021 NoteHNO ID: [id number] Author: Marylin Su RN Service: ? Author Type: Registered Nurse Type: Progress Notes Filed: 03/20/2021 10:32 AM Note Text: [facility] TELEPHONIC OUTREACH Provider Action/FYI: COPD Needs PCP follow up. Contact made with patient: No - Left message - Bradley my name is Marylin juarez Clinical Social Work Aide from the [facility] I am calling today for your bi-weekly check in. I am sorry I missed your call. I will reach out to you again tomorrow. (if the third call I will reach out to you again next week) Enter next patient outreach date for the following business day using the Track Pt Outreach. End outreach.[facility]05-20-2021 NotePatient Outreach ([facility]) HARRY LICEA ([id number]) 1940 M Date Time Provider Department 03/05/21 [facility] During your visit today, we recorded the following information about you: Marylin Su RN 03/05/2021 9:00 AM Signed [facility] En[facility]ment Provider Action/FYI: Patient referred by: [facility] Contact made with patient: Patient not [...] two weeks from today?s date) END OUTREACH Marylin Su RN 03/05/2021 9:02 AM Signed Addended by: MARYLIN SU on: 03/05/2021 09:02 AM Modules accepted: Orders Allergies As of Date: 03/05/2021 (No Known Allergies) Date Reviewed: 04/13/2019 Reviewed by: Bradley Ramirez - Fully Assessed Reason for Visit: Community Monitoring Outreach [Other] Cmt: Initial Outreach Primary Visit Diagnosis:Obstructive chronic bronchitis without exacerbation (HCC) [J44.9] Order(s):CONSULT TO PRIMARY CARE COORDINATION [facility] [7939291] Order #: [id number]: 1 Prescriptions as of 03/05/2021 Sig: TIOTROPIUM [...] for malignant neoplasm *09/04/2015 Encounter Status:Closed by MARYLIN SU on 03/05/21[facility] 03-05-2021 NoteHNO ID: [id number] Author: Marylin Su RN Service: ? Author Type: Registered Nurse Type: Progress Notes Filed: 03/05/2021 9:00 AM Note Text: [facility] Enrollment Provider Action/FYI: Patient referred by: [facility] Contact made with patient: Patient not [...] day two weeks from today?s date) [facility] noteNo assessment information availableWTrinity [facility] Work Phone: Evaluation note* Diagnosis Onset Date Resolution Status Essential (primary) hypertension chronic Hyperlipidemia chronic Longstanding persistent atrial fibrillation chronic [facility] Work Phone: Reason for referral (narrative)No reason for referral information availableWTrinity Health [facility] Work Phone: Summary Purpose Family History No Family History Records Found Relationship Condition Age at Onset Recorded Date/T robbie father Myocardial infarction Unknown mother Cerebrovascular accident (CVA) Unknown brother Cerebrovascular accident (CVA) Unknown sister Cerebrovascular accident (CVA) Unknown Advance Directives No Advanced Directives Records Found Advance Directive Response Recorded Date/ Time Living Will No September 17 4:36pm Power of Analytics Specialist No September 17, 2014 4:36pm Advance Directive Response Recorded Date/ Time Living Will No September 17 3:36pm Power of Analytics Specialist No September 17, 2014 3:36pm Chief Complaint and Reason for Visit Chief Complaint EORDER KNEE PAIN- XRAY BOTH Chief Complaint EORDER KNEE PAIN- XRAY BOTH 1 Y FU Reason for Visit Essential (primary) hypertension Hyperlipidemia Longstanding persistent atrial fibrillation Chief Complaint 1 Y FU Reason for Visit Essential (primary) hypertension Hyperlipidemia Longstanding persistent atrial fibrillation Chief Complaint 6 M FU Reason for Visit Essential (primary) hypertension Hyperlipidemia Longstanding persistent atrial fibrillation Chief Complaint Admit Date LYMPH NODE RESECTION December 03, 2024 12:53pm EORDERS March 15, 2025 11:26 am Reason for Visit Admit Date Abnormal positron emission tomography (P ET) scan December 03, 2024 12:53pm Additional Source Comments (unrecognized sect ion and content) No Status Records FoundNo Status Records Found INFORMATION SOURCE (unrecogn ized section and content) DATE CREATED AUTHOR 12/11/2021 [facility] DATE CREATED AUTHOR AUTHOR'S ORGANIZ ATION 05/11/2025 [facility] Goals (unrecognized section and content) Goals may be documented in a n alternate sectionGoals may be documented in an alternate sectionGoals may be documented in an alternate sectionGoals may be documented in an alternate sectionGoals may be documented in an alternate sectionGoals may be documented in an alternate sectionGoals may be documented in an alternate sectionGoals may be documented in an alternate sectionGoals may be documented in an alternate section Care Teams (unrecognized sec tion and content) Team Status: Active Member Role Status Dates Dr. Jerrod Viramontes MD Family Provider Active Dr. Jerrod Viramontes MD Primary Care Provider Active Team Status: Inactive Member Role Status Dates Dr. Jerrod Viramontes MD Primary Care Provider, Referr ing Provider Active Jerrod Fontanez NP, MACHINE SETTER AND REPAIRERCynthiaC Attending Provider Active Team Status: Active Member Role Status Dates Dr. Jerrod Viramontes MD Primary Care Provider, Attend ing Provider Active Team Status: Inactive Member Role Status Dates Dr. Jerrod Viramontes MD Primary Care Provider, Attend ing Provider Active Team Status: Inactive Member Role Status Dates Dr. Jerrod Viramontes MD Primary Care Provider Active Start: November 22, 2024 End: November 22, 2024 Dr. Jerrod Viramontes MD Attending Provider Active Start: November 22, 2024 End: November 22, 2024 Dr. Jerrod Viramontes MD Referring Provider Active Start: November 22, 2024 End: November 22, 2024 Team Status: Inactive Member Role Status Dates Dr. Jerrod Viramontes MD Primary Care Provider Active Start: December 03, 2024 End: December 03, 2024 Dr. Jerrod Viramontes MD Referring Provider Active Start: December 03, 2024 End: December 03, 2024 Dr. Kevin Golden MD Attending Provider Active Start: December 03, 2024 End: December 03, 2024 Team Status: Inactive Member Role Status Dates Dr. Jerrod Viramontes MD Primary Care Provider Active Start: February 04, 2025 End: February 04, 2025 Dr. Bola Boone MD Attending Provider Active Start: February 04, 2025 End: February 04, 2025 Dr. Bola Boone MD Referring Provider Active Start: February 04, 2025 End: February 04, 2025 Team Status: Inactive Member Role Status Dates Dr. Jerrod Viramontes MD Primary Care Provider Active Start: March 15, 2025 End: March 15, 2025 Dr. Jerrod Viramontes MD Attending Provider Active Start: March 15, 2025 End: March 15, 2025 Dr. Jerrod Viramontes MD Referring Provider Active Start: March 15, 2025 End: March 15, 2025 FOR RECORDS PERTAINING TO PATIENTS WHO ARE [...] BE BASED ON THE PRIMARY CLINICAL RECORDS. [facility]. provides no warranty or guarantee of the accuracy or completeness of information in this document.
--- NOTE | 2025-05-12 12:52 | ED.VIS.FALL ---
HPI HPI - Fall History of Present Illness Chief Complaint: Fall Detail of Chief Complaint: Patient fell yesterday. Laceration above left brow, headache on Eliquis [facility] Medical History Wears glasses Gout DVT (deep venous thrombosis) Excessive bleeding Migraine headache Gastric reflux Former smoker History of edema History of echocardiogram Hypertension Cardiology follow-up encounter Obesity, Class II, BMI 35-39.9 Thyroid nodule Deep vein thrombosis, lower left extremity (06/2019) Longstanding persistent atrial fibrillation Secondary pulmonary arterial hypertension Essential (primary) hypertension Glaucoma ED (erectile dysfunction) BPH (benign prostatic hyperplasia) Incomplete right bundle branch block COPD (chronic obstructive pulmonary disease) Hyperlipidemia Home Medications ?Medication ?Instructions ?Recorded ?Last Taken ?Type albuterol sulfate 90 mcg/actuation 2 puff inhalation Q4H PRN 03/25/21 08/23/24 History aerosol inhaler shortness of breath or wheezing 90 days atorvastatin 40 mg tablet 40 mg PO QHS unknown 03/25/21 09/09/24 History fluticasone fur. 200 mcg-umeclid 1 inh inhalation DAILY unknow 03/25/21 09/09/24 History 62.5 mcg-vilant 25 mcg inhalat.powder magnesium oxide 400 mg PO TID unknown 03/25/21 09/11/24 History ergocalciferol (vitamin D2) 1,250 1,250 mcg PO .QWEEKLY unknown 08/30/24 09/09/24 History mcg (50,000 unit) capsule (Vitamin D2) latanoprost 0.005 % eye drops 1 drp ophthalmic (eye) DAILY 08/30/24 09/05/24 History unknown allopurinol 100 mg tablet 100 mg PO DAILY #90 tabs 09/24/24 Unknown Rx losartan 100 mg tablet 100 mg PO DAILY #30 tabs 09/24/24 Unknown Rx apixaban 5 mg tablet (Eliquis) 5 mg PO BID #180 TABLETS 01/08/25 Unknown Rx furosemide 40 mg tablet 40 mg PO DAILY #90 tabs 01/08/25 Unknown Rx metoprolol succinate 50 mg 50 mg PO DAILY #90 tabs 02/25/25 Unknown Rx tablet,extended release 24 hr Allergy/AdvReac Type Severity Reaction Status Date / Time No Known Allergies Allergy Verified 05/12/25 11:57 Family History Father Myocardial infarction Mother CVA (cerebral vascular accident) Brother CVA (cerebral vascular accident) Sister CVA (cerebral vascular accident) Surgical History Hx of bilateral cataract extraction History of back surgery Social History Smoking Status: Former smoker how long ago did patient quit smokin's for cigarettes, 1991 for chewing tobacco alcohol intake: current alcohol intake frequency: a few times a week Alcohol type: hard liquor substance use type: does not use caffeine: Yes Type: coffee Number of servings: 2 EXAM Physical Exam Const Vital Signs: 05/12/25 11:57 05/12/25 12:57 05/12/25 13:11 Temperature 97 F L Temperature Source Temporal Pulse Rate 86 82 Respiratory Rate 22 H 16 Respiratory Effort Normal Blood Pressure 135/92 H 134/63 H Blood Pressure Mean 106 86 Pulse Ox 100 100 Oxygen Delivery Method Room Air Room Air Room Air MDM MDM Radiography Chest X-Ray - ED: Read by ED Physician (4 view x-ray of the right knee reveals an effusion and arthritic changes. 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 There is also suprapatella effusion noted there is endplate reviewed interpreted by me at 1257.) Diagnostic Testing: Clinical Impression(s) from Imaging Studies Brain CT 05/12/25 12:24 IMPRESSION: No acute intracranial abnormality. Chronic and ancillary findings as above. Reading Location: [facility] CT of the head without contrast was obtained. There is no evidence of subdural hematoma, epidural hematoma, intraparenchymal contusion or traumatic subarachnoid hemorrhage. There is no fluid noted in the sinuses. There is no fracture noted remain dependent review interpretation at 1253. Awaiting formal read by radiologist. Treatment and Re-Evaluation Narrative: CT was interpreted radiologist as no acute findings. Therefore will discharge to home with appropriate home-going structure Discharge Plan Triage Chief Complaint: Fall Other Complaint: Head Injury ED Provider: Tad Hinds Dx/Rx/DC Orders Clinical Impression: Closed head injury, Essential (primary) hypertension, Longstanding persistent atrial fibrillation, Anticoagulant long-term use, Forehead laceration, Injury due to fall, Knee effusion, right Instructions: ED Head Injury (Adult), ED Knee Effusion, ED Laceration, Old: Not Sutured Prescriptions: No Action albuterol sulfate 90 mcg/actuation HFA aerosol inhaler 2 puff INHALATION Q4H PRN (Reason: shortness of breath or wheezing) 90 Days Patient Comments: [id number]-[id number]-[id number] 200-62.5-25 mcg blister with device 1 inh inhalation DAILY atorvastatin 40 mg tablet 40 mg PO QHS magnesium oxide 400 mg magnesium tablet 400 mg PO TID allopurinol 100 mg tablet 100 mg PO DAILY Qty: 90 0RF Rx Instructions: 1 tablet daily for 1 week, then 3 tablets daily thereafter. losartan 100 mg tablet 100 mg PO DAILY Qty: 30 0RF ergocalciferol (vitamin D2) [Vitamin D2] 1,250 mcg (50,000 unit) capsule 1,250 mcg PO .QWEEKLY latanoprost 0.005 % drops 1 drp ophthalmic (eye) DAILY Patient Comments: at bedtime furosemide 40 mg tablet 40 mg PO DAILY Qty: 90 3RF Eliquis 5 mg tablet 5 mg PO BID Qty: 180 3RF metoprolol succinate 50 mg tablet extended release 24 hr 50 mg PO DAILY Qty: 90 3RF Primary Care Provider: Jerrod Viramontes Referrals: Jerrod Viramontes MD [Primary Care Provider] - 3-5 Days Activity Restrictions/Additional Instructions: 1. Do not take the next 4 doses of Eliquis/apixaban 2. Leave the Steri-Strips in place until they fall off 3. 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 Follow-up with Dr. García in 3 to 5 days Print Language: Dutch Disposition Disposition: Home, Self Care
[2025-05-12 12:57] VITALS: BP 134/63; PULSE 82; RESP 16; O2SAT 100
--- NOTE | 2025-05-12 13:43 | ED.RN ---
Pt wound cleaned with soap and water. 4 steri-strips applied. pt tolerated well.
[2025-05-12 13:56] VITALS: BP 128/76; PULSE 80; RESP 18; TEMP 36.3; O2SAT 97
== END 2025-05-12 13:59 | disposition home or self-care (01) ==
PROVIDERS: Emergency Provider Emergency Medicine; PCP Family Medicine; Visit Provider Emergency Medicine
DX: S01.81XA Laceration without foreign body of other part of head, initial encounter (principal); J44.9 Chronic obstructive pulmonary disease, unspecified; I48.11 Longstanding persistent atrial fibrillation; I10 Essential (primary) hypertension; M25.461 Effusion, right knee; Z86.718 Personal history of other venous thrombosis and embolism; Z79.01 Long term (current) use of anticoagulants; Z87.891 Personal history of nicotine dependence; W19.XXXA Unspecified fall, initial encounter
CPT/HCPCS: 70450; 73564; 99283

== ENCOUNTER → 2025-05-28 | Outpatient (CLI) | payer MEDICARE, SELFPAY ==
--- NOTE | 2025-05-28 08:00 | PET_ITS ---
PROCEDURE: PET/CT TUMOR BASE -THIGH INIT 05/28/2025 REASON FOR EXAM: 84 y/o M with INGUINAL MASS, left. TECHNIQUE: Following the intravenous administration of radionucleotide, image acquisition on a dedicated PET/CT unit was performed at one hour post injection. A preliminary CT study encompassing the Skull base, neck, chest, abdomen, pelvis, and proximal thighs was performed for purposes of attenuation correction and anatomic localization. The proximal thighs were also included. The patient's blood glucose level was 98 mg/dL (allowable range: 50-180 mg/dL). RADIOPHARMACEUTICAL: 14.14 mCi 18F-FDG (Fluorodeoxyglucose F18) IV was injected into he patient. RADIATION DOSE SUMMARY: Effective Dose: Approximately 7 mSv for a standard whole-body PET scan Organ Doses: Varies by organ, with higher doses typically to the bladder, liver, and brain COMPARISON: COMPARISON FROM CT, PET OR OTHER PERTINENT EXAMS: PET-CT examination of 09/11/2020. FINDINGS: Physiologic uptake: There may be expected metabolic uptake within the brain, tongue and floor of the mouth and larynx/vocal cords, heart, ming (many normal individuals have hilar uptake in less than 3 nodes with mildly avid hilar nodes less than 2.7 SUV), liver and spleen, system, and GI tract and symmetric muscle uptake. FDG AVID AND NON-AVID LESIONS. Reported avid SUV values (g/mL*) are maximum SUV. NECK: There are no significant neck abnormalities. CHEST: Chest wall- There are no significant chest wall abnormalities. Axilla- There are no significant axillary abnormalities. Lung parenchyma- Bilateral lower lobe and to a lesser extent right middle lobe areas of airspace disease are seen, with associated hypermetabolic activity, concerning for the presence of pneumonitis. Nonspecific mediastinal lymph node uptake is also consistent with infection/inflammation. Also, a small right pleural effusion is seen. Prominent coronary artery calcification is seen. Mediastinum- There are no significant hilar or mediastinal adenopathy. Pleura- There are no significant additional pleural abnormalities. ABDOMEN: Moderate arterial calcification is seen; no evidence of abdominal aortic aneurysm. Stomach- No significant abnormalities. Liver- No significant abnormalities. Spleen- No significant abnormalities. Pancrease- No significant abnormalities. Kidneys- No significant abnormalities. Bowel- Normal bowel activity. Spine- No significant abnormalities. PELVIS: Increased uptake is seen of the bilateral prostate gland, particularly the right peripheral zone, with right SUV max of 2.8 And left SUV max of 2.5. Differential diagnosis includes neoplasm and infection/inflammation. Interval resolution of the previously noted hypermetabolic left inguinal lymph node is seen. Moderate sigmoid diverticulosis. Bowel- Normal physiologic bowel activity is identified. Masses- There are no pelvic masses. Bones- Degenerative changes are seen throughout the spine. With the use of bone window settings, there are no osteolytic or osteoblastic lesions. There are no FDG avid lesions within the visualized portion of the axial skeleton. PET/PET/CT Tumor Base -Thigh Init IMPRESSION: FDG avid- 1. Interval resolution of previous left inguinal hypermetabolic lymph node. 2. Increased uptake is seen of the bilateral prostate gland, particularly appar ent at the right peripheral zone, with right SUV max of 2.8 and left SUV max of 2.5. Differential diagnosis includes neoplasm a nd infection/inflammation. 3. Bilateral lower lobe and to a lesser extent right middle lobe areas of airsp dg disease are seen, with associated hypermetabolic activity, concerning for the presence of pneumonitis. Nonspecif ic mediastinal lymph node uptake is also consistent with infection/inflammation. Other: 1. Small right pleural effusion. 2. Moderate sigmoid diverticulosis. 3. Prominent coronary artery calcification. Please note the low-dose CT scan was performed to facilitate PET image reconstr uction and anatomic localization and does not replace a diagnostic CT. Any diagnostic CT requested and performed at the time of the PET will be reported separately. Reading Location: [id number]
== END | disposition home or self-care (01) ==
LOC: ONC 07:46
PROVIDERS: PCP Family Medicine; Referring Provider Family Medicine; Visit Provider Family Medicine
DX: C67.0 Malignant neoplasm of trigone of bladder (principal)
CPT/HCPCS: 78815; A9552

== ENCOUNTER → 2025-06-24 | Outpatient (CLI) | payer MEDICARE, SELFPAY ==
[2025-06-24 13:00] LABS: PSA,Total - Annual Screen 2.76 ng/mL (0.02-4.00)
== END | disposition home or self-care (01) ==
LOC: MFPLAB 10:59
PROVIDERS: PCP Family Medicine; Visit Provider Family Medicine
DX: Z12.5 Encounter for screening for malignant neoplasm of prostate (principal)
CPT/HCPCS: 36415; 84153; G0103

== ENCOUNTER → 2025-10-04 | Outpatient (CLI) | payer MEDICARE, SELFPAY ==
[2025-10-04 10:19] LABS: Hematocrit 43.2 % (40-54); Hemoglobin 13.9 g/dL (13.0-16.5); Immature Granulocytes Count 0.030 X10^3/uL (0.0-0.0); Mean Corp Hgb Conc 32.2 g/dL (32-36); Mean Corpuscular Volume 87.4 fL (80-94); Mean Platelet Vol. 9.2 fl (6.2-12.0); NRBC Flagged by Analyzer 0 % (0-5); Platelet Count 195 K/mm3 (150-450); RBC Distribution Width CV 14.4 % (11.6-14.6); RBC Distribution Width SD 45.8 fl (35.1-43.9); Red Blood Count 4.94 M/mm3 (4.6-6.2); White Blood Count 7.2 K/mm3 (4.4-11.0)
[2025-10-04 11:17] LABS: PTHIN 101 pg/mL (11-61)
[2025-10-04 11:33] LABS: AST(SGOT) 17 U/L (<=37); Alanine Aminotransfer ALT/SGPT 13 U/L (<=46); Albumin, Serum 4.1 g/dL (3.4-4.8); Alkaline Phosphatase 122 U/L (40-129); Anion Gap 9 (5-15); BUN 24 mg/dL (4-19); BUN/Creat Ratio 20.2 RATIO (10-20); Calcium,Total 9.7 mg/dL (7.6-11.0); Carbon Dioxide 28.4 mmol/L (21.0-32.0); Chloride 102 mmol/L (98-108); Cholesterol 132 mg/dL (<=200); Globulin 3.0 g/dL (2.2-4.2); Glucose 104 mg/dL (70-99); Low Density Lipoprotein Calc. 67 mg/dL; Magnesium 2.6 mg/dL (1.5-2.2); Potassium 4.9 mmol/L (3.3-5.1); Pro- Brain NATRIURETIC PEPTIDE 2218 pg/mL (<=1800); Triglycerides 67 mg/dL; Uric Acid 7.2 mg/dL (3.5-7.2); Very Low Density Lipoprotein 13 mg/dL (5-40); Vitamin D,25 Hydroxy 45.3 ng/mL (30-100); cholesterol:hdl ratio screen 2.56
== END | disposition home or self-care (01) ==
LOC: MFPLAB 09:16
PROVIDERS: PCP Family Medicine; Visit Provider Family Medicine
DX: I48.91 Unspecified atrial fibrillation (principal); N18.30 Chronic kidney disease, stage 3 unspecified; R73.02 Impaired glucose tolerance (oral); R06.02 Shortness of breath; I12.9 Hypertensive chronic kidney disease with stage 1 through stage 4 chronic kidney disease, or unspecified chronic kidney disease
CPT/HCPCS: 36415; 80053; 80061; 82306; 83036; 83735; 83880; 83970; 84550; 85025

== ENCOUNTER → 2025-10-16 | Outpatient (CLI) | payer MEDICARE, SELFPAY ==
[2025-10-16 12:15] LABS: Anion Gap 11 (7-18); BUN 29 mg/dL (4-19); BUN/Creat Ratio 24.6 RATIO (10-20); Calcium,Total 9.8 mg/dL (7.6-11.0); Carbon Dioxide 29.9 mmol/L (20.0-29.0); Chloride 99 mmol/L (96-106); Glucose 152 mg/dL (70-99); Potassium 4.0 mmol/L (3.5-5.1)
== END | disposition home or self-care (01) ==
LOC: MFPLAB 10:34
PROVIDERS: PCP Family Medicine; Visit Provider Family Medicine
DX: I10 Essential (primary) hypertension (principal)
CPT/HCPCS: 36415; 80048